=== PATIENT | female | born 1975 | race Caucasian/White ===

== ENCOUNTER → 2017-01-14 | Outpatient (CLI) | payer MEDICARE, OTHER ==
[2017-01-15 11:17] LABS: Protein C Antigen 126 % (72-160)
[2017-01-15 11:19] LABS: Protein C (Activity) 135 % (70 - 130); Protein S (Activity) 113 % (65 - 140); Protein S Antigen 100 % (50 - 140)
[2017-01-17 14:52] LABS: Mis test requested (Blood) Mixing Studies
== END | disposition home or self-care (01) ==
LOC: LABWHC1 13:21
PROVIDERS: ATTEND Physician Assistant
DX: I63.9 Cerebral infarction, unspecified (principal)
CPT/HCPCS: 36415; 81240; 81291; 83090; 85300; 85301; 85302; 85303; 85305; 85306; 85379; 85384; 85610; 85613; 85730; 86147

== ENCOUNTER → 2017-04-11 | Outpatient (CLI) | payer MEDICARE, OTHER ==
[2017-04-11 12:13] LABS: CH 31.2; CHCM 35.1; HCT 42.1 % (34.0-46.0); HDW 2.67; MCH 29.6 pg (25.0-35.0); MCHC 33.2 g/dL (31.0-37.0); MCV 89.3 fL (80.0-100.0); Mean Platelet Volume 7.5; RBC 4.71 m/uL (3.80-5.40); RDW 14.2 % (11.5-15.5); WBC 5.4 k/uL (3.8-10.6)
[2017-04-11 12:40] LABS: Appearance,Urine Cloudy (Clear); Bacteria,Urine Rare /hpf; Bilirubin,Urine Negative (Negative); Glucose,Urine (UA) Negative (Negative); Ketones,Urine Negative (Negative); Leukocyte Esterase,Urine Negative (Negative); Mucus,Urine Few /hpf; Nitrite,Urine Negative (Negative); PH, Urine 5.5 (5.0-8.0); Particle Count 28035; Protein,Urine 1+ (Negative); RBC,Urine 1 /hpf (0-5); Specific Gravity,Urine 1.026 (1.001-1.035); Squamous Epithelial Cell,Urine 38 /hpf (0-4); UA Billing (MACRO vs. MICRO) MICRO; Urobilinogen,Urine <2.0 mg/dL (<2.0); WBC,Urine 4 /hpf (0-5)
[2017-04-11 13:57] LABS: ALT 46 U/L (9-52); AST 25 U/L (14-36); Alkaline Phosphatase 74 U/L (38-126); Anion Gap 8 mmol/L; Blood Urea Nitrogen 12 mg/dL (7-17); Calcium 9.5 mg/dL (8.4-10.2); Carbon Dioxide 26 mmol/L (22-30); Chloride 103 mmol/L (98-107); Cholesterol 220 mg/dL (<200); Glucose 96 mg/dL (74-99); HDL Cholesterol 48 mg/dL (40-60); Non-African American GFR(MDRD) >60 (>60 ml/min/1.73 sqM); Potassium 4.3 mmol/L (3.5-5.1); Sodium 137 mmol/L (137-145); Total Bilirubin 0.5 mg/dL (0.2-1.3); Total Protein 6.5 g/dL (6.3-8.2)
[2017-04-11 14:27] LABS: Erythrocyte Sedimentation Rate 11 mm/hr (0-20)
[2017-04-11 14:45] LABS: Vitamin B12 274 pg/mL (239-931)
== END | disposition home or self-care (01) ==
LOC: LABWHC1 11:24
PROVIDERS: ATTEND Family Medicine
DX: Z00.01 Encounter for general adult medical examination with abnormal findings (principal)
CPT/HCPCS: 36415; 80053; 80061; 81001; 82306; 82607; 84443; 85027; 85652

== ENCOUNTER → 2017-07-18 | Outpatient (CLI) | payer MEDICARE, OTHER ==
--- NOTE | 2017-07-18 14:58 | MM ---
Reason for exam: screening (asymptomatic). Baseline mammogram. History: Took hormonal contraceptives for 10 years. Took other hormone for 20 years. Physical Findings: Nurse did not find any significant physical abnormalities on exam. MG 3D Screening Mammo W/Cad Bilateral CC and MLO view(s) were taken. There are scattered fibroglandular densities. Finding: There is a typically benign equal density (isodense), circumscribed round mass in the right breast. These results were verbally communicated with the patient and result sheet given to the patient on 07/18/17. ASSESSMENT: Probably benign, BI-RAD 3 RECOMMENDATION: Follow-up diagnostic mammogram of the right breast in 6 months.
== END | disposition home or self-care (01) ==
LOC: RADMAMWWP 12:58
PROVIDERS: ATTEND Family Medicine
DX: Z12.31 Encounter for screening mammogram for malignant neoplasm of breast (principal)
CPT/HCPCS: 77063; G0202

== ENCOUNTER → 2017-10-31 | Outpatient (CLI) | payer MEDICARE, BC, OTHER ==
[2017-10-31 09:19] VITALS: BP 164/81; PULSE 88; RESP 15; TEMP 98.8; BMI 47.2
[2017-10-31 10:52] LABS: HCT 39.9 % (34.0-46.0); HGB 13.4 gm/dL (11.4-16.0); MCH 29.2 pg (25.0-35.0); MCHC 33.6 g/dL (31.0-37.0); MCV 86.8 fL (80.0-100.0); Mean Platelet Volume 7.2; Platelet Count 377 k/uL (150-450); RDW 13.4 % (11.5-15.5); WBC 5.9 k/uL (3.8-10.6)
[2017-10-31 11:14] LABS: ALT 34 U/L (9-52); AST 23 U/L (14-36); Albumin 3.8 g/dL (3.5-5.0); Alkaline Phosphatase 75 U/L (38-126); Anion Gap 12 mmol/L; Blood Urea Nitrogen 20 mg/dL (7-17); Calcium 9.5 mg/dL (8.4-10.2); Carbon Dioxide 25 mmol/L (22-30); Chloride 105 mmol/L (98-107); Cholesterol 185 mg/dL (<200); Glucose 95 mg/dL (74-99); HDL Cholesterol 41 mg/dL (40-60); LDL Cholesterol,Calculated 118 mg/dL (0-99); Potassium 4.4 mmol/L (3.5-5.1); Sodium 142 mmol/L (137-145); Total Bilirubin 0.4 mg/dL (0.2-1.3); Total Protein 6.6 g/dL (6.3-8.2); Triglycerides 129 mg/dL (<150)
[2017-10-31 17:05] LABS: Iron Saturation 30.1 (12.00-45.00)
[2017-10-31 17:14] LABS: Vitamin D 25 Hydroxy 29.8 ng/mL (30.0-100.0)
[2017-10-31 17:41] LABS: Folate, Serum 17.5 ng/mL
[2017-10-31 19:11] LABS: Hemoglobin A1C 5.3 % (4.0-6.0)
--- NOTE | 2017-11-17 19:45 | P.HPBAR ---
Bariatric H&P - History & Physicial H&P Date: 10/31/17 History & Physicial: Visit/CC: bariatric sx consult Patient initial contact: 10/14/17 Initial weight: 124.919 kg Initial weight in pounds: 275.40 Height: 5 ft 4 in Initial BMI: 47.2 Last weight: Current weight: 124.919 kg Current weight in pounds: 275.40 Current BMI: 47.2 [place] body weight (based on NIH guidelines): 54.431 kg Excess body weight loss: 0.0% The patient is a 42 year-old F who presents for Bariatric Assessment. DATE OF SERVICE: 10/31/2017 REASON FOR CONSULTATION: Initial bariatric evaluation. HISTORY OF PRESENT ILLNESS: Rabia Link is a 42-year-old female who comes in with long-standing morbid obesity. She had a prior history of a Abiel fundoplasty in 1999. She has history of Shafer's esophagus. In the past 18 years, she has gained 100 pounds. She had weighed as much as 302 pounds. She has family history of stomach cancer including ovarian cancer. She is also diabetic. Her father had stomach cancer. No reports of Crohn's or ulcerative colitis. As a result of her obesity, she has developed low back pain, right hip pain, sleep apnea including hypertensive heart disease. She reports fibromyalgia. She is looking into the gastric bypass. At height of 5 feet 4 inches, ideal body weight is 144 pounds. Highest weight 302 pounds. Body mass index was 51.9. She comes in 275 pounds. Body mass index is 47.3. She is 131 pounds overweight. PAST MEDICAL HISTORY: 1. Morbid obesity. 2. Body mass index of 51.9, initial 3. Osteoarthritis of the hips. 4. Osteoarthritis of the lower back. 5. Obstructive sleep apnea. 6. Hypertensive heart disease. 7. Fibromyalgia. 8. Rheumatoid arthritis 9. Depression 10. Gastroesophageal reflux disease 11. Chronic pain syndrome 12. Cerebrovascular accident 13. Hyperlipidemia 14. Shafer's esophagus 15. Psoriatic arthritis 16. ADD with ADHD 17. Panic disorder 18. PTSD PAST SURGICAL HISTORY: 1. Appendectomy 2. Hysterectomy 3. Adenoidectomy 4. Tonsillectomy 5. Tubal ligation 6. Abiel fundoplasty HOME MEDICATIONS: 1. Methotrexate 2. Doxepin 3. Cosentyx 4. Topamax 5. Folic acid 6. Cymbalta 7. Lyrica 8. Phentermine 9. Vistaril 10. Acyclovir 11. Zanaflex 12. Ditropan 13. Omeprazole 14. Movantik 15. Percocet 16. Adderall 17. Oxycodone 18. Meloxicam ALLERGIES: Morphine SOCIAL HISTORY: No active tobacco use. FAMILY HISTORY: No family history of ulcerative colitis disease or Crohn's disease. Family history of morbid obesity. No lupus in the family. No reports of stomach or esophageal cancer. Family history of diabetes type 2. REVIEW OF ORGAN SYSTEMS: CONSTITUTIONAL: At height of 5 feet 4 inches, ideal body weight is 144 pounds. Highest weight 302 pounds. Body mass index was 51.9. She comes in 275 pounds. Body mass index is 47.3. She is 131 pounds overweight. HEENT: Denies any active troubles with vision or hearing. No troubles with swallowing. ENDOCRINE: No diabetes. No hypothyroidism. CARDIOVASCULAR: No reports of palpitations or heart attacks or chest pain. RESPIRATORY: Has daytime somnolence. No asthma. Has obstructive sleep apnea. GI: Denies any bright red blood per rectum. No diarrhea or constipation. MUSCULOSKELETAL: Has lower back pain and joint pain. Has osteoarthritis of the knees. NEURO: No headaches. Has seizure disorders. PSYCH: No depression or suicidal ideation. Has ADHD. RHEUMATOLOGIC: No lupus. Has psoriasis and rheumatoid arthritis. HEMATOLOGIC: Denies any abnormal bleeding or bruising. No personal history of DVTs. SKIN: No rash. No skin cancer. PHYSICAL EXAM: VITAL SIGNS: Height 5 foot 4 inches, weight 275 pounds. BMI 47.3 Vital Signs Temp 98.8 F 10/31/17 08:50 Pulse 88 10/31/17 08:50 Resp 15 10/31/17 08:50 BP 164/81 10/31/17 08:50 Pulse Ox GENERAL: Well-developed in no acute distress. HEENT: No scleral icterus. Extraocular movements grossly intact. Hears conversational speech. No nasal drainage. NECK: Supple without lymphadenopathy. CHEST: Nonlabored respirations with equal bilateral excursions. CARDIOVASCULAR: Regular rate and regular rhythm. Distal 2+ pulses. ABDOMEN: Obese, soft, nontender, nondistended. MUSCULOSKELETAL: No clubbing, cyanosis. Gross strength 5/5 distal lower extremities. 1+ pre-tibial pitting edema. NEURO: No focal or lateralizing signs. Cranial nerves 2 through 12 grossly within normal limits. PSYCH: Appropriate affect. Alert and oriented to person, place and time. SKIN: Good skin turgor. Well perfused. ASSESSMENT: 1. Morbid obesity. 2. Body mass index of 51.9, initial 3. Osteoarthritis of the hips. 4. Osteoarthritis of the lower back. 5. Obstructive sleep apnea. 6. Hypertensive heart disease. 7. Fibromyalgia. 8. Rheumatoid arthritis 9. Depression 10. Gastroesophageal reflux disease 11. Chronic pain syndrome 12. Cerebrovascular accident 13. Hyperlipidemia 14. Shafer's esophagus 15. Psoriatic arthritis 16. ADD with ADHD 17. Panic disorder 18. PTSD PLAN: 1. Surgical options including a band, gastric bypass, sleeve gastrectomy were described in detail. Alternatives such as gastric balloon including duodenal switch were described. 2. The [place] bariat[facility] surgical collaborative data and outcomes calculator were described with surgical options. 3. Recommend a bariatric metabolic panel to evaluate for micro- including macronutrient deficiencies. 4. For history of daytime somnolence, recommend evaluation and treatment for sleep apnea. 5. Dietary surveillance and counseling was reviewed, I have asked increased protein intake to at least 80 grams daily. 6. Will need cardiac risk assessment. 7. Recommend medical risk assessment. 8. Psych assessment per insurance guidelines. 9. Follow up upon completion of upper endoscopy. 10. Recommend 12-lead EKG with family history of hypertensive heart disease. 11. Recommend upper endoscopy. 12. Recommend ultrasound of the gallbladder and HIDA scan. Thank you for this kind consultation Laboratory Last Values WBC 5.9 k/uL (3.8-10.6) 10/31/17 10:30 RBC 4.60 m/uL (3.80-5.40) 10/31/17 10:30 Hgb 13.4 gm/dL (11.4-16.0) 10/31/17 10:30 Hct 39.9 % (34.0-46.0) 10/31/17 10:30 MCV 86.8 fL (80.0-100.0) 10/31/17 10:30 MCH 29.2 pg (25.0-35.0) 10/31/17 10:30 MCHC 33.6 g/dL (31.0-37.0) 10/31/17 10:30 RDW 13.4 % (11.5-15.5) 10/31/17 10:30 Plt Count 377 k/uL (150-450) 10/31/17 10:30 Sodium 142 mmol/L (137-145) 10/31/17 10:30 Potassium 4.4 mmol/L (3.5-5.1) 10/31/17 10:30 Chloride 105 mmol/L (98-107) 10/31/17 10:30 Carbon Dioxide 25 mmol/L (22-30) 10/31/17 10:30 Anion Gap 12 mmol/L 10/31/17 10:30 BUN 20 mg/dL (7-17) H 10/31/17 10:30 Creatinine 0.80 mg/dL (0.52-1.04) 10/31/17 10:30 Est GFR (CKD-EPI)AfAm >90 (>60 ml/min/1.73 sqM) 10/31/17 10:30 Est GFR (CKD-EPI)NonAf >90 (>60 ml/min/1.73 sqM) 10/31/17 10:30 Glucose 95 mg/dL (74-99) 10/31/17 10:[address] Glu mg/dL 105 10/31/17 10:30 Hemoglobin A1c 5.3 % (4.0-6.0) 10/31/17 10:30 Calcium 9.5 mg/dL (8.4-10.2) 10/31/17 10:30 Iron 90 ug/dL (50-170) 10/31/17 10:30 TIBC 299 ug/dL (228-460) 10/31/17 10:30 Iron Saturation 30.10 (12.00-45.00) 10/31/17 10:30 Ferritin 91.1 ng/mL (10.0-291.0) 10/31/17 10:30 Total Bilirubin 0.4 mg/dL (0.2-1.3) 10/31/17 10:30 AST 23 U/L (14-36) 10/31/17 10:30 ALT 34 U/L (9-52) 10/31/17 10:30 Alkaline Phosphatase 75 U/L (38-126) 10/31/17 10:30 Total Protein 6.6 g/dL (6.3-8.2) 10/31/17 10:30 Albumin 3.8 g/dL (3.5-5.0) 10/31/17 10:30 Triglycerides 129 mg/dL (<150) 10/31/17 10:30 Cholesterol 185 mg/dL (<200) 10/31/17 10:30 LDL Cholesterol, Calc 118 mg/dL (0-99) H 10/31/17 10:30 HDL Cholesterol 41 mg/dL (40-60) 10/31/17 10:30 Vitamin B1 49 ug/L (38-122) 10/31/17 10:30 Vitamin B12 264.0 pg/mL (200.0-944.0) 10/31/17 10:30 Vitamin D 25-Hydroxy 29.8 ng/mL (30.0-100.0) L 10/31/17 10:30 Folate 17.5 ng/mL 10/31/17 10:30 TSH 2.000 mIU/L (0.465-4.680) 10/31/17 10:30 EKG EKG PERFORMED 10/31/17 10:30 LDL elevated Vitamin D low EKG normal sinus rhythm Past Medical History Past Medical History: CVA/TIA, Fibromyalgia, GERD/Reflux, Hyperlipidemia, Hypertension Additional Past Medical History / Comment(s): CVA 2011, psoriasis, Shafer's Esophagus, arthritis, migraines, Psoriatic arthritis, chronic pain (Sees Dr. Frederick for pain management) History of Any Multi-Drug Resistant Organisms: None Reported Past Surgical History: Adenoidectomy, Appendectomy, Hysterectomy, Tonsillectomy , Tubal Ligation Additional Past Surgical History / Comment(s): Mendez fundolpication 1999(?), partial hysterectomy via trans-vaginal procedure (patient retained both ovaries) Past Anesthesia/Blood Transfusion Reactions: No Reported Reaction Additional Past Anesthesia/Blood Transfusion Reaction / Comm: No transfusion noted to date Past Psychological History: ADD/ADHD, Depression, Panic Disorder, PTSD Smoking Status: Never smoker Past Alcohol Use History: Rare Past Drug Use History: None Reported - Past Family History Father Family Medical History: Cancer, Coronary Artery Disease (CAD) Additional Family Medical History / Comment(s): father from stomach cancer at age 51, heroin addict (struggled with addiction off and on for years after coming home from [place]) Mother Family Medical History: Cancer Additional Family Medical History / Comment(s): Mother at age 36 from Ovarian Cancer mets to brain Surgical - Exam Vital Signs Temp Pulse Resp BP 98.8 F 88 15 164/81 10/31/17 08:50 10/31/17 08:50 10/31/17 08:50 10/31/17 08:50 Results - Labs 10/31/17 10:30 10/31/17 10:30 Bariatric Checklist Checklist: Plan: Checklist: EGD: 1. Hiatal hernia: 2. H. Pylori: HgbA1c: Vitamin D: Smoking: Never smoker Primary care physician referral: alma Psychiatry clearance: Cardiology clearance: Sleep study: Diet journal: VTE risk score: VTE risk level: Rehab needs at discharge:
== END | disposition home or self-care (01) ==
LOC: BARWHC3 08:38
PROVIDERS: ATTEND Surgery Plastic and Reconstructive Surgery
DX: E88.81 Metabolic syndrome and other insulin resistance (principal); E66.01 Morbid (severe) obesity due to excess calories; M16.0 Bilateral primary osteoarthritis of hip; M47.9 Spondylosis, unspecified; G47.33 Obstructive sleep apnea (adult) (pediatric); I11.9 Hypertensive heart disease without heart failure; M79.7 Fibromyalgia; M06.9 Rheumatoid arthritis, unspecified; F32.9 Major depressive disorder, single episode, unspecified; K21.9 Gastro-esophageal reflux disease without esophagitis; G89.4 Chronic pain syndrome; I63.9 Cerebral infarction, unspecified; E78.5 Hyperlipidemia, unspecified; E44.0 Moderate protein-calorie malnutrition; K22.70 Barrett's esophagus without dysplasia; L40.50 Arthropathic psoriasis, unspecified; F90.1 Attention-deficit hyperactivity disorder, predominantly hyperactive type; E55.9 Vitamin D deficiency, unspecified; F41.0 Panic disorder [episodic paroxysmal anxiety]; F43.10 Post-traumatic stress disorder, unspecified; D50.8 Other iron deficiency anemias; Z98.51 Tubal ligation status; Z68.43 Body mass index [BMI] 50.0-59.9, adult; Z98.890 Other specified postprocedural states; Z79.899 Other long term (current) drug therapy; Z79.891 Long term (current) use of opiate analgesic; Z88.5 Allergy status to narcotic agent
CPT/HCPCS: 84425; 80061; 80053; 82607; 82728; 82746; 83540; 83550; 84443; 85027; 82306; 83036; 93005; 36415; G0463; 99211

== ENCOUNTER → 2017-11-08 | Outpatient (CLI) | payer MEDICARE, BC, OTHER ==
--- NOTE | 2017-11-08 09:56 | US ---
EXAMINATION TYPE: US abdomen limited DATE OF EXAM: 11/08/2017 COMPARISON: NONE CLINICAL HISTORY: R10.11 biliary dyskinesia. Abn LFT's, pt states pre-op bariatric surgery EXAM MEASUREMENTS: Liver Length: 21.0 cm Gallbladder Wall: 0.2 cm CBD: 0.4 cm Right Kidney: 9.8 x 4.2 x 5.3 cm Morbidly obese pt, difficult exam Pancreas: Obscured by bowel gas and large pt body habitus Liver: Increased attenuation Gallbladder: wnl Evidence for sonographic Milton's sign: No CBD: wnl Right Kidney: wnl Pancreas is suboptimally evaluated due to shadowing from overlying bowel gas . Visualized liver is heterogeneously hyperechoic. Evaluation for focal mass suboptimal due to the heterogeneity. No intrah epatic ductal dilatation is seen. IMPRESSION: 1. No gallstones or ultrasound evidence for acute cholecystitis. 2. Heterogeneous hyperechoic appearance of visualized liver is likely on basis of diffuse fatty infil tration.
--- NOTE | 2017-11-08 11:52 | NM ---
EXAMINATION TYPE: NM hepatobiliary w EF DATE OF EXAM: 11/08/2017 COMPARISON: Same day Limited abdominal ultrasound. HISTORY: Abdominal pain not further specified per order. Epigastric pain with diminished appetite per patient. TECHNIQUE: After the intravenous administration of 4.0 mCi Tc 99m Mebrofenin hepatobiliary scintigrap hy is performed. Immediate images post injection. FINDINGS: There is satisfactory initial accumulation of tracer by the liver. The gallbladder is visualized wit hin 30 minutes. The small bowel activity is noted within 20 minutes. At one hour 8 ounces of oral e nsure plus is given to mimic CCK and gallbladder ejection fraction is calculated at 79 %, not deviate d from the normal range. Therefore there is no scintigraphic evidence of cystic or common bile duct obstruction to suggest acute cholecystitis or gallbladder dyskinesia. IMPRESSION: Exam is within normal limits.
== END ==
LOC: RADUSMAIN 09:05
PROVIDERS: ATTEND Surgery Plastic and Reconstructive Surgery
DX: R10.11 Right upper quadrant pain (principal); K82.8 Other specified diseases of gallbladder; R94.5 Abnormal results of liver function studies
CPT/HCPCS: 76705; 78226; A9537

== ENCOUNTER → 2017-11-22 | Outpatient (CLI) | payer MEDICARE, BC, OTHER ==
--- NOTE | 2017-11-22 12:53 | US ---
EXAMINATION TYPE: US venous doppler duplex LE RT DATE OF EXAM: 11/22/2017 12:21 PM COMPARISON: NONE CLINICAL HISTORY: M79.604 Pain right lower limb. Right leg pain x 5 days. No injury. No swelling or redness. No hx of blood clots. Not on blood thinners. SIDE PERFORMED: Right TECHNIQUE: The lower extremity deep venous system is examined utilizing real time linear array sonog flory with graded compression, doppler sonography and color-flow sonography. VESSELS IMAGED: External Iliac Vein (EIV) Common Femoral Vein Deep Femoral Vein Greater Saphenous Vein * Femoral Vein Popliteal Vein Small Saphenous Vein * Proximal Calf Veins (* superficial vessels) Limited visualization due to patient body habitus Right Leg: Negative for acute DVT Grayscale, color doppler, spectral doppler imaging performed of the deep veins of the lower extremiti es. There is normal flow, compressibility, vascular waveforms. IMPRESSION: Right Leg: Negative for acute DVT
== END | disposition home or self-care (01) ==
LOC: RADUSWWP 11:54
PROVIDERS: ATTEND Physician Assistant
DX: M79.604 Pain in right leg (principal)

== ENCOUNTER 2017-11-27 09:49 | Day surgery (SDC) | payer MEDICARE, BC, OTHER ==
[2017-11-25 10:52] VITALS: BMI 48.4
--- NOTE | 2017-11-27 07:48 | P.GSHP ---
History of Present Illness H&P Date: 11/27/17 CHIEF COMPLAINT: GERD HISTORY OF PRESENT ILLNESS: The patient is a 42-year-old female who presents reports gastroesophageal reflux disease. Upper endoscopy was offered for further evaluation and management. PAST MEDICAL HISTORY: Please see list. PAST SURGICAL HISTORY: Please see list. MEDICATIONS: Please see list. ALLERGIES: Please see list. SOCIAL HISTORY: No illicit drug use FAMILY HISTORY: No reports of Crohn disease or ulcerative colitis. REVIEW OF ORGAN SYSTEMS: CONSTITUTIONAL: No reports of fevers or chills. GI: Denies any blood in stools or constipation. PHYSICAL EXAM: VITAL SIGNS: Stable GENERAL: Well-developed and pleasant in no acute distress. HEENT: No scleral icterus. Extraocular movements grossly intact. Moist buccal mucosa. NECK: Supple without lymphadenopathy. CHEST: Unlabored respirations. Equal bilateral excursions. CARDIOVASCULAR: Regular rate and rhythm. Distal 2+ pulses. ABDOMEN: Soft, nondistended. MUSCULOSKELETAL: No clubbing, cyanosis, or edema. ASSESSMENT: 1. Gastroesophageal reflux disease PLAN: 1. Recommend proceeding with an upper endoscopy Past Medical History Past Medical History: CVA/TIA, Fibromyalgia, GERD/Reflux, Hyperlipidemia, Hypertension, Skin Disorder Additional Past Medical History / Comment(s): CVA 2011, psoriasis, Shafer's Esophagus, arthritis, migraines, Psoriatic arthritis, chronic pain (Sees Dr. Frederick for pain management) History of Any Multi-Drug Resistant Organisms: None Reported Past Surgical History: Adenoidectomy, Appendectomy, Hysterectomy, Tonsillectomy , Tubal Ligation Additional Past Surgical History / Comment(s): Abiel fundolpication 1999(?), partial hysterectomy via trans-vaginal procedure (patient retained both ovaries ) EGD Past Anesthesia/Blood Transfusion Reactions: No Reported Reaction Additional Past Anesthesia/Blood Transfusion Reaction / Comment(s): No transfusion noted to date Smoking Status: Never smoker - Past Family History Father Family Medical History: Cancer, Coronary Artery Disease (CAD) Additional Family Medical History / Comment(s): father from stomach cancer at age 51, heroin addict (struggled with addiction off and on for years after coming home from [place]) Mother Family Medical History: Cancer Additional Family Medical History / Comment(s): Mother at age 36 from Ovarian Cancer mets to brain Medications and Allergies Home Medications Medication Instructions Recorded Confirmed Type Meloxicam 15 mg PO TID-W/MEALS 04/03/14 11/25/17 History Acyclovir [Zovirax] 200 mg PO TID 10/31/17 11/25/17 History DULoxetine HCL [Cymbalta] 60 mg PO DAILY 10/31/17 11/25/17 History Dextroamphetamine/Amphetamine 20 mg PO BID 10/31/17 11/25/17 History [Adderall] Doxepin HCl [SINEquan] 100 mg PO DAILY 10/31/17 11/25/17 History Folic Acid 1 mg PO DAILY 10/31/17 11/25/17 History Methotrexate/Pf [Rasuvo 7.5 7.5 mg SQ MO 10/31/17 11/25/17 History mg/0.15 ml Autoinj] Naloxegol Oxalate [Movantik] 25 mg PO TID-W/MEALS 10/31/17 11/25/17 History Omeprazole [PriLOSEC] 20 mg PO AC-BID 10/31/17 11/25/17 History Oxybutynin Chloride [Ditropan] 5 mg PO TID 10/31/17 11/25/17 History Phentermine HCl 37.5 mg PO DAILY 10/31/17 11/25/17 History Pregabalin [Lyrica] 200 mg PO BID 10/31/17 11/25/17 History Secukinumab [Cosentyx Pen (2 Pens)] 150 mg SQ QMONTH 10/31/17 11/25/17 History Topiramate [Topamax] 100 mg PO TID 10/31/17 11/25/17 History hydrOXYzine PAMOATE [Vistaril] 25 mg PO TID 10/31/17 11/25/17 History oxyCODONE HCL [OxyCONTIN] 10 mg PO Q12H PRN 10/31/17 11/25/17 History oxyCODONE-APAP 5-325MG [Percocet 1 tab PO TID PRN 10/31/17 11/25/17 History 5-325 mg] tiZANidine HCL [Zanaflex] 4 mg PO TID PRN 10/31/17 11/25/17 History Amoxicillin/Potassium Clav 1 tab PO Q12HR 11/25/17 11/25/17 History [Augmentin 875-125 Tablet] Allergies Allergy/AdvReac Type Severity Reaction Status Date / Time morphine Allergy Unknown Verified 11/25/17 10:46
[~2017-11-27 09:49] MED LIST: LACTATED RINGERS 1,000 ML IV SCH; MIDAZOLAM 2 MG/2 ML VIAL IV PRN
[2017-11-27 11:16] VITALS: TEMP 97.4
[2017-11-27] MEDS ORDERED: LIDOCAINE 1% 20 ML VIAL (10MG/ML) FOR IV START INTRADERMA ONE (11:25)
[2017-11-27] MEDS ORDERED: PROPOFOL 10 MG/ML 20 ML VIAL IV ONE (11:27)
[2017-11-27] MEDS ORDERED: LIDOCAINE 1% INJ 10MG/ML (20 ML MDV) ONE (11:27)
--- NOTE | 2017-11-27 11:47 | P.PCN ---
Date of Procedure: 11/27/17 Description of Procedure: PREOPERATIVE DIAGNOSIS: Gastroesophageal reflux disease. Morbid obesity. History of Abiel fundoplasty History of Shafer's esophagus POSTOPERATIVE DIAGNOSIS: Gastroesophageal reflux disease. Morbid obesity. History of Abiel fundoplasty Diaphragmatic hiatal hernia without obstruction, recurrent History of Shafer's esophagus Chronic gastritis OPERATION: Esophagogastroduodenoscopy with biopsies along antrum and distal esophagus SURGEON: Vandana Hirsch MD ANESTHESIA: MAC. INDICATIONS: The patient is a 42-year-old female who presents with a history of reflux disease. Benefits and risks of the procedure were described. Informed consent was obtained. DESCRIPTION: The patient was brought into the endoscopy suite and laid in the left lateral decubitus position. An Olympus gastroscope was passed along the posterior oropharynx down to the distal esophagus where the squamocolumnar junction was encountered at 35 cm from the incisors. The stomach was entered and no bile reflux was found. Additional findings are listed below. Biopsies with cold forceps were obtained of the antrum and distal esophagus. The first through third portion of the duodenum was examined and unremarkable. Retroflexion of the scope confirmed Hill grade 2 lower esophageal valve. The squamocolumnar junction demostrated LA grade A erosive esophagitis. The stomach was desufflated. The patient tolerated the procedure well. FINDINGS: Squamocolumnar junction 36 cm from the incisors. Diaphragmatic hiatus at 40 cm. Hiatal hernia 4 cm, recurrent Distal fundoplasty identified Hill grade 2 lower esophageal valve. LA grade A erosive esophagitis. No active duodenitis. Active chronic gastritis RECOMMENDATIONS: Further recommendations pending results of pathology report. Upper endoscopy as needed. Plan - Discharge Summary New Discharge Prescriptions: No Action Doxepin HCl [SINEquan] 100 mg PO DAILY Secukinumab [Cosentyx Pen (2 Pens)] 150 mg SQ QMONTH Topiramate [Topamax] 100 mg PO TID Folic Acid 1 mg PO DAILY DULoxetine HCL [Cymbalta] 60 mg PO DAILY Pregabalin [Lyrica] 200 mg PO BID Phentermine HCl 37.5 mg PO DAILY Acyclovir [Zovirax] 200 mg PO TID tiZANidine HCL [Zanaflex] 4 mg PO TID PRN PRN Reason: Muscle Spasm Omeprazole [PriLOSEC] 20 mg PO AC-BID Naloxegol Oxalate [Movantik] 25 mg PO TID-W/MEALS oxyCODONE-APAP 5-325MG [Percocet 5-325 mg] 1 tab PO TID PRN PRN Reason: Pain Dextroamphetamine/Amphetamine [Adderall] 20 mg PO BID oxyCODONE HCL [OxyCONTIN] 10 mg PO Q12H PRN PRN Reason: Pain Methotrexate/Pf [Rasuvo 7.5 mg/0.15 ml Autoinj] 7.5 mg SQ MO Amoxicillin/Potassium Clav [Augmentin 875-125 Tablet] 1 tab PO Q12HR Discharge Medication List Acyclovir [Zovirax] 200 mg PO TID 10/31/17 [History] DULoxetine HCL [Cymbalta] 60 mg PO DAILY 10/31/17 [History] Dextroamphetamine/Amphetamine [Adderall] 20 mg PO BID 10/31/17 [History] Doxepin HCl [SINEquan] 100 mg PO DAILY 10/31/17 [History] Folic Acid 1 mg PO DAILY 10/31/17 [History] Methotrexate/Pf [Rasuvo 7.5 mg/0.15 ml Autoinj] 7.5 mg SQ MO 10/31/17 [History] Naloxegol Oxalate [Movantik] 25 mg PO TID-W/MEALS 10/31/17 [History] Omeprazole [PriLOSEC] 20 mg PO AC-BID 10/31/17 [History] Phentermine HCl 37.5 mg PO DAILY 10/31/17 [History] Pregabalin [Lyrica] 200 mg PO BID 10/31/17 [History] Secukinumab [Cosentyx Pen (2 Pens)] 150 mg SQ QMONTH 10/31/17 [History] Topiramate [Topamax] 100 mg PO TID 10/31/17 [History] oxyCODONE HCL [OxyCONTIN] 10 mg PO Q12H PRN 10/31/17 [History] oxyCODONE-APAP 5-325MG [Percocet 5-325 mg] 1 tab PO TID PRN 10/31/17 [History] tiZANidine HCL [Zanaflex] 4 mg PO TID PRN 10/31/17 [History] Amoxicillin/Potassium Clav [Augmentin 875-125 Tablet] 1 tab PO Q12HR 11/25/17 [ History]
[2017-11-27 12:01] VITALS: RESP 18
[2017-11-27 12:11] VITALS: BP 144/88; PULSE 94
== END 2017-11-27 12:15 | disposition home or self-care (01) ==
LOC: ORWHC2ENDO 09:49
PROVIDERS: ATTEND Surgery Plastic and Reconstructive Surgery
DX: K29.50 Unspecified chronic gastritis without bleeding (principal); K20.0 Eosinophilic esophagitis; K21.9 Gastro-esophageal reflux disease without esophagitis; K22.70 Barrett's esophagus without dysplasia; K44.9 Diaphragmatic hernia without obstruction or gangrene; E66.01 Morbid (severe) obesity due to excess calories; Z68.42 Body mass index [BMI] 45.0-49.9, adult; I10 Essential (primary) hypertension; E78.5 Hyperlipidemia, unspecified; M79.7 Fibromyalgia; Z86.73 Personal history of transient ischemic attack (TIA), and cerebral infarction without residual deficits; G89.29 Other chronic pain; L40.50 Arthropathic psoriasis, unspecified; Z79.82 Long term (current) use of aspirin; Z79.899 Other long term (current) drug therapy; Z79.1 Long term (current) use of non-steroidal anti-inflammatories (NSAID); Z88.5 Allergy status to narcotic agent
CPT/HCPCS: 88305; 43239; J2001; J2704

== ENCOUNTER → 2017-11-29 | Outpatient (CLI) | payer MEDICARE, BC, OTHER ==
[2017-11-29 10:54] VITALS: BMI 47.2
== END | disposition home or self-care (01) ==
LOC: MNTWWP 09:06
PROVIDERS: ATTEND Family Medicine
DX: E66.01 Morbid (severe) obesity due to excess calories (principal); Z68.41 Body mass index [BMI] 40.0-44.9, adult
CPT/HCPCS: 97802

== ENCOUNTER → 2017-12-25 | Outpatient (CLI) | payer MEDICARE, BC, OTHER ==
[2017-12-25 15:16] VITALS: BP 144/90; PULSE 115; RESP 16; TEMP 99; BMI 46.7
--- NOTE | 2017-12-25 15:55 | P.PN ---
Subjective Progress Note Date: 12/25/17 DATE OF SERVICE: 12/25/2017 CHIEF COMPLAINT: Bariatric evaluation. HISTORY OF PRESENT ILLNESS: Rabia Link is a 42-year-old female who last presented to the bariatric center for 07/10/2018, 2 months ago. She had a prior history of a Abiel fundoplasty in 1999. She has history of Shafer's esophagus. In the past 18 years, she has gained 100 pounds. She had weighed as much as 302 pounds. She is looking into the gastric bypass. At height of 5 feet 4 inches, her ideal body weight is 144 pounds. Body mass index was 51.9. She comes in 271 pounds from 275 pounds, 2 months ago. She has lost 4 pounds. Body mass index is reduced from 51.9 to 46.7. She is 127 pounds overweight. She has hiatal hernia with recurrence. She has family history of gallbladder disease. PAST MEDICAL HISTORY: 1. Morbid obesity. 2. Body mass index of 51.9, initial 3. Osteoarthritis of the hips. 4. Osteoarthritis of the lower back. 5. Obstructive sleep apnea. 6. Hypertensive heart disease. 7. Fibromyalgia. 8. Rheumatoid arthritis 9. Depression 10. Gastroesophageal reflux disease 11. Chronic pain syndrome 12. Cerebrovascular accident 13. Hyperlipidemia 14. Shfaer's esophagus 15. Psoriatic arthritis 16. ADD with ADHD 17. Panic disorder 18. PTSD PAST SURGICAL HISTORY: 1. Appendectomy 2. Hysterectomy 3. Adenoidectomy 4. Tonsillectomy 5. Tubal ligation 6. Abiel fundoplasty HOME MEDICATIONS: 1. Methotrexate 2. Doxepin 3. Cosentyx 4. Topamax 5. Folic acid 6. Cymbalta 7. Lyrica 8. Phentermine 9. Vistaril 10. Acyclovir 11. Zanaflex 12. Ditropan 13. Omeprazole 14. Movantik 15. Percocet 16. Adderall 17. Oxycodone 18. Meloxicam ALLERGIES: Morphine SOCIAL HISTORY: No active tobacco use. FAMILY HISTORY: No family history of ulcerative colitis disease or Crohn's disease. Family history of morbid obesity. No lupus in the family. No reports of stomach or esophageal cancer. Family history of diabetes type 2. REVIEW OF ORGAN SYSTEMS: CONSTITUTIONAL: At height of 5 feet 4 inches, ideal body weight is 144 pounds. Highest weight 302 pounds. Body mass index was 51.9. She comes in 271 pounds. Body mass index is 46.7. She is 127 pounds overweight. HEENT: Denies any active troubles with vision or hearing. No troubles with swallowing. ENDOCRINE: No diabetes. No hypothyroidism. CARDIOVASCULAR: No reports of palpitations or heart attacks or chest pain. RESPIRATORY: Has daytime somnolence. No asthma. Has obstructive sleep apnea. GI: Denies any bright red blood per rectum. No diarrhea or constipation. MUSCULOSKELETAL: Has lower back pain and joint pain. Has osteoarthritis of the knees. NEURO: No headaches. Has seizure disorders. PSYCH: No depression or suicidal ideation. Has ADHD. RHEUMATOLOGIC: No lupus. Has psoriasis and rheumatoid arthritis. HEMATOLOGIC: Denies any abnormal bleeding or bruising. No personal history of DVTs. SKIN: No rash. No skin cancer. PHYSICAL EXAM: VITAL SIGNS: Height 5 foot 4 inches, weight 271 pounds. BMI 46.7 Vital Signs Temp 99 F 12/25/17 15:11 Pulse 115 H 12/25/17 15:11 Resp 16 12/25/17 15:11 BP 144/90 12/25/17 15:11 Pulse Ox GENERAL: Well-developed in no acute distress. HEENT: No scleral icterus. Extraocular movements grossly intact. Hears conversational speech. No nasal drainage. NECK: Supple without lymphadenopathy. CHEST: Nonlabored respirations with equal bilateral excursions. CARDIOVASCULAR: Tachycardic. Distal 2+ pulses. ABDOMEN: Obese, soft, nontender, nondistended. MUSCULOSKELETAL: No clubbing, cyanosis. Gross strength 5/5 distal lower extremities. 1+ pre-tibial pitting edema. NEURO: No focal or lateralizing signs. Cranial nerves 2 through 12 grossly within normal limits. PSYCH: Appropriate affect. Alert and oriented to person, place and time. SKIN: Good skin turgor. Well perfused. STUDIES: All reviewed. Ultrasound of the abdomen demonstrates no evidence of gallstones. HIDA scan of the gallbladder is normal EKG is normal. EGD FINDINGS: Squamocolumnar junction 36 cm from the incisors. Diaphragmatic hiatus at 40 cm. Hiatal hernia 4 cm, recurrent Distal fundoplasty identified Hill grade 2 lower esophageal valve. LA grade A erosive esophagitis. No active duodenitis. Active chronic gastritis Final Pathologic Diagnosis A. GASTRIC ANTRUM, BIOPSY: MILD CHRONIC GASTRITIS. HELICOBACTER PYLORI ORGANISMS ARE NOT IDENTIFIED ON ROUTINE H+E SECTIONS. B. DISTAL ESOPHAGUS, BIOPSY: BENIGN SQUAMOUS MUCOSA SHOWING CHRONIC ESOPHAGITIS WITH SCATTERED INTRAMUCOSAL EOSINOPHILS CONSISTENT WITH REFLUX ESOPHAGITIS. NEGATIVE FOR INTESTINAL METAPLASIA. GLANDULAR MUCOSA IS NOT PRESENT FOR EVALUATION. ASSESSMENT: 1. Morbid obesity. 2. Body mass index of 51.9, initial 3. Osteoarthritis of the hips. 4. Osteoarthritis of the lower back. 5. Obstructive sleep apnea. 6. Hypertensive heart disease. 7. Fibromyalgia. 8. Rheumatoid arthritis 9. Depression 10. Gastroesophageal reflux disease 11. Chronic pain syndrome 12. Cerebrovascular accident 13. Hyperlipidemia 14. Shafer's esophagus 15. Psoriatic arthritis 16. ADD with ADHD 17. Panic disorder 18. PTSD 19. Recurrent hiatal hernia PLAN: 1. She will need take down of her Abiel and fixing of her hiatal hernia prior to bariatric procedure 2. Also recommend manometry to evaluate for esophageal motility. 3. She desires to have a gastric bypass. 4. She is pending psych and will need PCP letter. Objective - Vital Signs Vital signs: Vital Signs Temp 99 F 12/25/17 15:11 Pulse 115 H 12/25/17 15:11 Resp 16 12/25/17 15:11 BP 144/90 12/25/17 15:11 Pulse Ox Intake & Output 12/24/17 12/25/17 12/25/17 18:59 06:59 18:59 Weight 123.377 kg
== END | disposition home or self-care (01) ==
LOC: BARWHC3 14:50
PROVIDERS: ATTEND Surgery Plastic and Reconstructive Surgery
DX: Z09 Encounter for follow-up examination after completed treatment for conditions other than malignant neoplasm (principal); E66.01 Morbid (severe) obesity due to excess calories; K21.0 Gastro-esophageal reflux disease with esophagitis; K22.70 Barrett's esophagus without dysplasia; K44.9 Diaphragmatic hernia without obstruction or gangrene; K29.50 Unspecified chronic gastritis without bleeding; M16.0 Bilateral primary osteoarthritis of hip; M47.9 Spondylosis, unspecified; G47.33 Obstructive sleep apnea (adult) (pediatric); I11.9 Hypertensive heart disease without heart failure; M79.7 Fibromyalgia; M06.9 Rheumatoid arthritis, unspecified; F32.9 Major depressive disorder, single episode, unspecified; G89.4 Chronic pain syndrome; E78.5 Hyperlipidemia, unspecified; L40.50 Arthropathic psoriasis, unspecified; F90.1 Attention-deficit hyperactivity disorder, predominantly hyperactive type; F41.0 Panic disorder [episodic paroxysmal anxiety]; F43.10 Post-traumatic stress disorder, unspecified; Z90.710 Acquired absence of both cervix and uterus; Z98.51 Tubal ligation status; Z98.890 Other specified postprocedural states; Z90.89 Acquired absence of other organs; Z68.43 Body mass index [BMI] 50.0-59.9, adult; Z79.891 Long term (current) use of opiate analgesic; Z87.19 Personal history of other diseases of the digestive system; Z86.73 Personal history of transient ischemic attack (TIA), and cerebral infarction without residual deficits; Z83.79 Family history of other diseases of the digestive system; Z79.899 Other long term (current) drug therapy; Z88.5 Allergy status to narcotic agent
CPT/HCPCS: 99211

== ENCOUNTER → 2018-01-29 | Outpatient (CLI) | payer MEDICARE, BC, OTHER ==
[2018-01-29 14:24] VITALS: BP 135/83; PULSE 111; RESP 14; TEMP 98.8; BMI 46.5
--- NOTE | 2018-01-29 15:15 | P.PN ---
Subjective Progress Note Date: 01/29/18 HPI: She complains severe GERD. She has a large recurrent hiatal hernia. She completed manometry. PLAN: 1. Recommend hiatal hernia repair with take down of Abiel fundoplasty for severe GERD and recurrent hiatal hernia. 2. She has persistent tachycardia and recommend cardiac risk assessment. 3. She has chronic pain and sees a pain specialist. 4. Consent for gastric bypass reviewed. 5. Referral for hiatal hernia surgery described. Objective - Vital Signs Vital signs: Vital Signs Temp 98.8 F 01/29/18 14:20 Pulse 111 H 01/29/18 14:20 Resp 14 01/29/18 14:20 BP 135/83 01/29/18 14:20 Pulse Ox Intake & Output 01/28/18 01/29/18 01/29/18 18:59 06:59 18:59 Weight 123.15 kg
== END ==
LOC: BARWHC3 14:02
PROVIDERS: ATTEND Surgery Plastic and Reconstructive Surgery
DX: K21.9 Gastro-esophageal reflux disease without esophagitis (principal); K44.9 Diaphragmatic hernia without obstruction or gangrene
CPT/HCPCS: 99211

== ENCOUNTER → 2018-02-11 | Outpatient (CLI) | payer MEDICARE, BC, OTHER ==
[2018-02-11 11:30] LABS: ALT 31 U/L (9-52); AST 24 U/L (14-36); Albumin 3.9 g/dL (3.5-5.0); Alkaline Phosphatase 59 U/L (38-126); Anion Gap 10 mmol/L; Blood Urea Nitrogen 17 mg/dL (7-17); Calcium 9.4 mg/dL (8.4-10.2); Carbon Dioxide 22 mmol/L (22-30); Chloride 106 mmol/L (98-107); Glucose 104 mg/dL (74-99); Sodium 138 mmol/L (137-145); Total Bilirubin 0.3 mg/dL (0.2-1.3); Total Protein 6.4 g/dL (6.3-8.2)
[2018-02-11 11:51] LABS: Basophils % (A) 0 %; Eosinophils # (A) 0.2 k/uL (0-0.7); Eosinophils % (A) 2 %; HGB 13.1 gm/dL (11.4-16.0); Lymphocytes # (A) 1.5 k/uL (1.0-4.8); Lymphocytes % (A) 17 %; MCH 28.7 pg (25.0-35.0); MCHC 33.6 g/dL (31.0-37.0); MCV 85.4 fL (80.0-100.0); Mean Platelet Volume 7.5; Monocytes # (A) 0.5 k/uL (0-1.0); Monocytes % (A) 6 %; Neutrophils # (A) 6.5 k/uL (1.3-7.7); Neutrophils % (A) 74 %; Platelet Count 253 k/uL (150-450); RBC 4.57 m/uL (3.80-5.40); RDW 13.4 % (11.5-15.5); WBC 8.9 k/uL (3.8-10.6)
== END | disposition home or self-care (01) ==
LOC: LABPAT 10:36
PROVIDERS: ATTEND Surgery Plastic and Reconstructive Surgery
DX: Z01.818 Encounter for other preprocedural examination (principal); Z01.812 Encounter for preprocedural laboratory examination
CPT/HCPCS: 36415; 80053; 85025; 93005

== ENCOUNTER → 2018-02-13 | Outpatient (CLI) | payer MEDICARE, BC, OTHER ==
--- NOTE | 2018-02-13 19:51 | CONS ---
CONSULTATION DATE OF SERVICE: 02/13/2018. INDICATIONS: A 42-year-old lady has been evaluated in Sleep Center for possible obstructive sleep apnea-hypopnea syndrome. HISTORY OF PRESENT ILLNESS/SLEEP-WAKE EVALUATION: Patient's usual sleep schedule is from 1 a.m. until 8:00 a.m. Some nights she has problems falling asleep, but not more than 30 minutes. No TV in bedroom. She may be experiencing restless leg symptoms while falling asleep and that could be one of the reasons she has difficulties to fall asleep. She wakes up from sleep 4 times with nocturia. No history of hypnagogic hallucinations, sleep paralysis or cataplexy. In the morning patient wakes up tired, falling asleep during the day. Has significant sleepiness. Rugby Sleepiness Scale is in extremely high range of 18. She usually feels better after naps. According to the patient, she dreams all the time including when she is taking her naps. PAST MEDICAL HISTORY: Positive for ADHD, hypertension, fibromyalgia. PAST SURGICAL HISTORY: Tonsillectomy, adenoidectomy, appendectomy, Abiel fundoplication, hysterectomy. SOCIAL HISTORY: Negative for smoking. Alcohol consumption is none. FAMILY HISTORY: Hypertension, angina, hyperlipidemia, stroke, fibromyalgia, arthritis, cancer, acid reflux, diabetes. REVIEW OF SYSTEMS: Multiple awakenings from sleep, significant sleepiness during the day. PHYSICAL EXAM: GENERAL: lady without distress. VITAL SIGNS: BP 129/75, HR 102, RR 16, height 5 feet 4 inches, weight 270, BMI 46.3, temp 97.8, oxygen saturation room air 98%. HEENT: Oropharynx extremely low position of soft palate. Wide neck 16-1/2 inches in circumference. Slight restriction of nasal breathing. ABDOMEN: Obese. NECK: Supple, no JVD. Thyroid is not palpable. LUNGS: Clear to percussion and to auscultation. Good air exchange. No wheezing or rhonchi. HEART: S1, S2 regular. No murmurs, gallops, or rubs. ABDOMEN: Soft and nontender. Bowel sounds are present. No organomegaly appreciated. EXTREMITIES: No clubbing or cyanosis. CHIROPRACTIC PHYSICIAN: Awake, alert, and oriented X3. Cranial nerves 2 to 7 intact. There is no fasciculation or atrophy. noted. No focal deficits observed. IMPRESSION: 1. Snoring, multiple awakenings from sleep with nocturia, low position of soft palate, significant sleepiness, obstructive sleep apnea-hypopnea syndrome. 2. Significant excessive daytime sleepiness. Rugby Sleepiness Scale 18. Differential diagnosis would include hypersomnia. 3. Obesity, body mass index is 46.3. The patient is preparing for bariatric surgery, was referred because of that. 4. Attention deficit hyperactivity disorder. 5. Hypertension. 6. Fibromyalgia. 7. Status post tonsillectomy and adenoidectomy. 8. Status post appendectomy. 9. Status post Abiel fundoplication. 10.Status post partial hysterectomy. 11.History of restless leg syndrome. PLAN: 1. Polysomnography for evaluation of patient's breathing during sleep. 2. CPAP/BiPAP titration if sleep study confirms obstructive sleep apnea-hypopnea syndrome. 3. Preferable position during sleep on the side. 4. No driving if patient feels any sleepiness. 5. I will see patient for follow up visit to explain results of testing and following plan. 6. Please check iron profile including ferritin level, low level of ferritin can increase periodic limb movements and restless legs. 7. If sleep study is negative for sleep apnea, we will consider to proceed with multiple sleep latency test for objective evaluation of the patient's symptoms of significant excessive daytime sleepiness. Thank you very much. Sincerely, Gt Mcconnell MD, PhD, FAASM Diplomat of [employer] Database Engineer of [facility] [place] MMMALORIEL / SHARONN: [id number] /
== END | disposition home or self-care (01) ==
LOC: SLEEP 14:04
PROVIDERS: ATTEND Internal Medicine
DX: G47.33 Obstructive sleep apnea (adult) (pediatric) (principal); R35.1 Nocturia; G25.81 Restless legs syndrome; E66.9 Obesity, unspecified; F90.1 Attention-deficit hyperactivity disorder, predominantly hyperactive type; I10 Essential (primary) hypertension; M79.7 Fibromyalgia; Z90.89 Acquired absence of other organs; Z68.42 Body mass index [BMI] 45.0-49.9, adult; Z90.710 Acquired absence of both cervix and uterus; Z87.898 Personal history of other specified conditions
CPT/HCPCS: 99211

== ENCOUNTER 2018-02-21 11:35 | Day surgery (SDC) | payer MEDICARE, BC, OTHER ==
[~2018-02-21 11:35] MED LIST changes: +DEXAMETHASONE SOD PHOSPHATE 10 MG/ML 1 ML VIAL IV ONE; +HEPARIN SODIUM,PORCINE 5,000 UNIT/ML 1 ML VIAL SQ ONE; -LACTATED RINGERS 1,000 ML IV SCH; +SCOPOLAMINE 1.5MG/72HR PATCH TRANSDERM ONE
[2018-02-21] MEDS ORDERED: LIDOCAINE 1% 20 ML VIAL (10MG/ML) FOR IV START INTRADERMA ONE (12:15)
[2018-02-21] MEDS: LACTATED RINGERS 1,000 ML IV SCH (12:15)
[2018-02-21] MEDS: ONDANSETRON 4 MG/2 ML VIAL IVP ONE ×2 (12:28→18:03)
[2018-02-21] MEDS ORDERED: SCOPOLAMINE 1.5MG/72HR PATCH TRANSDERM STA (12:28)
--- NOTE | 2018-02-21 12:28 | P.GSHP ---
History of Present Illness H&P Date: 02/21/18 CHIEF COMPLAINT: Paraesophageal hiatal hernia with gastroesophageal reflux disease. HISTORY OF PRESENT ILLNESS: The patient is a 42-year-old female who presents with paraesophageal hiatal hernia recurrence. Now she presents for surgical intervention. PAST MEDICAL HISTORY: Please see list. PAST SURGICAL HISTORY: Please see list. MEDICATIONS: Please see list. ALLERGIES: Please see list. SOCIAL HISTORY: No illicit drug use FAMILY HISTORY: No reports of Crohn disease or ulcerative colitis. REVIEW OF ORGAN SYSTEMS: CONSTITUTIONAL: No reports of fevers or chills. GI: Denies any blood in stools or constipation. PHYSICAL EXAM: VITAL SIGNS: Stable GENERAL: Well-developed pleasant and in no acute distress. HEENT: No scleral icterus. Extraocular movements grossly intact. Moist buccal mucosa. NECK: Supple without lymphadenopathy. CHEST: Unlabored respirations. Equal bilateral excursions. CARDIOVASCULAR: Regular rate and rhythm. Distal 2+ pulses. ABDOMEN: Soft, nondistended. No peritoneal signs. MUSCULOSKELETAL: No clubbing, cyanosis, or edema. SKIN: Well-perfused. Good skin turgor. ASSESSMENT: 1. Diaphragmatic paraesophageal hiatal hernia with recurrence. PLAN: 1. Recommend proceeding with a robotic paraesophageal hiatal hernia with possible mesh. 2. Benefits and risks of surgical intervention was discussed including possibility of open technique. 3. Inpatient hospitalization recommended of 2 nights 4. DVT prophylaxis. 5. Antibiotic prophylaxis. Past Medical History Past Medical History: CVA/TIA, Fibromyalgia, GERD/Reflux, Hyperlipidemia, Hypertension Additional Past Medical History / Comment(s): CVA 2012, psoriasis, Shafer's Esophagus, arthritis, migraines, Psoriatic arthritis, chronic pain (Sees Dr. Frederick for pain management) History of Any Multi-Drug Resistant Organisms: None Reported Past Surgical History: Adenoidectomy, Appendectomy, Hysterectomy, Tonsillectomy , Tubal Ligation Additional Past Surgical History / Comment(s): Mendez fundolpication 1999(?), partial hysterectomy via trans-vaginal procedure (patient retained both ovaries) Past Anesthesia/Blood Transfusion Reactions: No Reported Reaction Additional Past Anesthesia/Blood Transfusion Reaction / Comment(s): No transfusion noted to date Past Psychological History: ADD/ADHD, Depression, Panic Disorder, PTSD Smoking Status: Never smoker Past Alcohol Use History: Rare Past Drug Use History: None Reported - Past Family History Father Family Medical History: Cancer, Coronary Artery Disease (CAD) Additional Family Medical History / Comment(s): father from stomach cancer at age 51, heroin addict (struggled with addiction off and on for years after coming home from [place]) Mother Family Medical History: Cancer Additional Family Medical History / Comment(s): Mother at age 36 from Ovarian Cancer mets to brain Medications and Allergies Home Medications Medication Instructions Recorded Confirmed Type DULoxetine HCL [Cymbalta] 60 mg PO HS 10/31/17 02/11/18 History Dextroamphetamine/Amphetamine 20 mg PO BID 10/31/17 02/11/18 History [Adderall] Doxepin HCl [SINEquan] 100 mg PO HS PRN MDD 200 MG 10/31/17 02/11/18 History Omeprazole [PriLOSEC] 20 mg PO QAM 10/31/17 02/11/18 History Pregabalin [Lyrica] 200 mg PO BID 10/31/17 02/11/18 History Topiramate [Topamax] 100 mg PO BID 10/31/17 02/11/18 History oxyCODONE-APAP 5-325MG [Percocet 1 tab PO TID PRN 10/31/17 02/11/18 History 5-325 mg] tiZANidine HCL [Zanaflex] 4 mg PO TID PRN 10/31/17 02/11/18 History Albuterol Inhaler [Ventolin Hfa 1 - 2 puff INHALATION RT-Q6H PRN 02/11/18 History Inhaler] Albuterol Nebulizer (? Dose) 1 dose INHALATION DIRECTED PRN 02/11/18 History Cholecalciferol (Vitamin D3) 1 dose PO WEEKLY 02/11/18 02/11/18 History [Vitamin D3] Cosentyx 1 dose SQ QMONTH 02/11/18 History Ibuprofen [Motrin] 800 mg PO TID PRN 02/11/18 02/11/18 History Lisinopril [Zestril] 5 mg PO QAM 02/11/18 02/11/18 History Methotrexate 1 dose SQ WEEKLY 02/11/18 History Phentermine HCl [Adipex-P] 37.5 mg PO QAM 02/11/18 02/11/18 History oxyCODONE HCL [OxyCONTIN] 10 mg PO Q12H 02/11/18 02/11/18 History Allergies Allergy/AdvReac Type Severity Reaction Status Date / Time bee venom protein (honey bee) Allergy Unknown Unknown Verified 02/11/18 15:02 morphine Allergy Unknown Itching Verified 02/11/18 14:23 Surgical - Exam Vital Signs Temp Pulse Resp BP Pulse Ox 98.2 F 90 18 119/66 99 02/21/18 12:01 02/21/18 12:01 02/21/18 12:01 02/21/18 12:01 02/21/18 12:01
[2018-02-21] MEDS ORDERED: BUPIVACAIN-EPI 0.5%-1:200,000 30 ML VIAL SQ ONE (13:08)
[2018-02-21] MEDS ORDERED: fentaNYL (PF) 50 MCG/ML 2 ML AMP ONE (13:12)
[2018-02-21] MEDS ORDERED: GLYCOPYRROLATE 0.2 MG/ML 2 ML VIAL ONE (13:12)
[2018-02-21] MEDS ORDERED: ESMOLOL 100 MG/10 ML VIAL ONE (13:12)
[2018-02-21] MEDS ORDERED: SUCCINYLCHOLINE CHLORIDE 100 MG/5 ML SYR IV ONE (13:12)
[2018-02-21] MEDS ORDERED: NEOSTIGMINE 1 MG/ML 10 ML VIAL ONE (13:12)
[2018-02-21] MEDS ORDERED: LIDOCAINE 1% INJ 10MG/ML (20 ML MDV) ONE (13:12)
[2018-02-21] MEDS ORDERED: ROCURONIUM BROMIDE 10 MG/ML 10 ML VIAL IV ONE (13:12)
[2018-02-21] MEDS ORDERED: MIDAZOLAM 2 MG/2 ML VIAL ONE (13:12)
[2018-02-21] MEDS ORDERED: PROPOFOL 10 MG/ML 20 ML VIAL IV ONE (13:12)
[2018-02-21] MEDS ORDERED: HYDROmorphone (PF) 1 MG/ML ONE (13:12)
[2018-02-21] MEDS ORDERED: LACTATED RINGERS 1,000 ML IV ONE ×2 (14:15→16:31)
[2018-02-21] MEDS ORDERED: NALOXONE 0.4 MG/ML 1 ML VIAL IV PRN (17:39)
[2018-02-21] MEDS ORDERED: ACETAMINOPHEN IV (For NPO) 1,000 MG in EMPTY BAG 1 BAG IVPB ONE (17:39)
[2018-02-21] MEDS ORDERED: diphenhydrAMINE 50 MG/ML 1 ML VIAL IVP PRN (17:39)
[2018-02-21] MEDS ORDERED: ONDANSETRON 4 MG/2 ML VIAL IVP PRN (17:39)
--- NOTE | 2018-02-21 17:39 | P.PCN ---
Date of Procedure: 02/21/18 Preoperative Diagnosis: Recurrent diaphragmatic hiatal hernia with previous distal fundoplasty, morbid obesity due to excess calories, gastroesophageal reflux disease Postoperative Diagnosis: Same, incarcerated recurrent diaphragmatic hiatal hernia, perihepatic adhesions and perigastric adhesions from previous fundoplasty Procedure(s) Performed: Robotic lysis of adhesions over 2.5 hours, robotic repair of a hiatal hernia incarcerated, recurrent 4 x 3 cm mesh, intraoperative EGD Anesthesia: GETA, local Surgeon: Vandana Hirsch Estimated Blood Loss (ml): 25 Pathology: other Condition: stable Disposition: floor Operative Findings: 1. Severe perigastric and perihepatic adhesions secondary to previous the fundoplasty requiring over 2-1/2 hours of dissection 2. Ffundoplasty divided using 45 mm blue load 3. Intraoperative upper endoscopy demonstrates no esophageal injury. 4. Hill grade 1 esophageal confirmed after completion 5. Previous sutures of fundoplasty removed in entirety.
[2018-02-21] MEDS: fentaNYL (PF) 50 MCG/ML 2 ML AMP IV PRN ×2 (18:03→18:12)
[2018-02-21] MEDS: ALBUTEROL NEBULIZED 2.5 MG/3 ML INHALATION SCH (19:45)
[2018-02-21 19:51] VITALS: BMI 47.7
[2018-02-21] MEDS: HYDROmorphone 1 MG/ML 1 ML SYRINGE IVP PRN ×2 (19:55→23:35)
[2018-02-21] MEDS: 0.9% NACL WITH KCL 20 MEQ/L 1,000 ML IV SCH (20:04)
[2018-02-21] MEDS: HYOSCYAMINE ORAL DROPS 1.875 MG/15 ML BOTTLE PO SCH (20:08)
[2018-02-21] MEDS: AMPICILLIN-SULBACTAM 3 GM in SODIUM CHLORIDE 0.9% 100 ML IVPB SCH (20:53)
[2018-02-21] MEDS: PANTOPRAZOLE 40 MG/10 ML VIAL IV SCH (20:53)
[2018-02-21] MEDS: SIMETHICONE 40 MG/0.6 ML DROPS 2,000 MG/30 ML BOTTLE PO SCH (20:53)
[2018-02-21] MEDS: HYDROcodone/APAP 15 ML SOLUTION PO PRN (23:15)
[2018-02-22] MEDS: AMPICILLIN-SULBACTAM 3 GM in SODIUM CHLORIDE 0.9% 100 ML IVPB SCH (01:56)
[2018-02-22] MEDS: HYOSCYAMINE ORAL DROPS 1.875 MG/15 ML BOTTLE PO SCH ×2 (01:58→05:46)
[2018-02-22] MEDS: SIMETHICONE 40 MG/0.6 ML DROPS 2,000 MG/30 ML BOTTLE PO SCH ×2 (01:58→05:45)
[2018-02-22] MEDS: 0.9% NACL WITH KCL 20 MEQ/L 1,000 ML IV SCH ×2 (02:30→09:29)
[2018-02-22] MEDS: HYDROmorphone 1 MG/ML 1 ML SYRINGE IVP PRN ×3 (02:55→09:52)
[2018-02-22] MEDS: LACTATED RINGERS 1,000 ML IV SCH (04:14)
[2018-02-22] MEDS: HYDROcodone/APAP 15 ML SOLUTION PO PRN ×2 (05:45→12:44)
[2018-02-22 07:23] LABS: Basophils % (A) 0 %; Eosinophils % (A) 0 %; HCT 38.3 % (34.0-46.0); HGB 12.4 gm/dL (11.4-16.0); Lymphocytes # (A) 0.9 k/uL (1.0-4.8); Lymphocytes % (A) 6 %; MCH 27.5 pg (25.0-35.0); MCHC 32.2 g/dL (31.0-37.0); MCV 85.4 fL (80.0-100.0); Mean Platelet Volume 7.2; Monocytes # (A) 0.5 k/uL (0-1.0); Monocytes % (A) 4 %; Neutrophils # (A) 11.9 k/uL (1.3-7.7); Neutrophils % (A) 88 %; Platelet Count 246 k/uL (150-450); RBC 4.49 m/uL (3.80-5.40); RDW 13.3 % (11.5-15.5); WBC 13.4 k/uL (3.8-10.6)
[2018-02-22 07:38] LABS: Anion Gap 9 mmol/L; Blood Urea Nitrogen 10 mg/dL (7-17); Calcium 9.2 mg/dL (8.4-10.2); Carbon Dioxide 23 mmol/L (22-30); Chloride 106 mmol/L (98-107); Phosphorus 2.8 mg/dL (2.5-4.5); Potassium 4.5 mmol/L (3.5-5.1); Sodium 138 mmol/L (137-145)
[2018-02-22] MEDS ORDERED: 0.9% NACL WITH KCL 20 MEQ/L 1,000 ML IV SCH (08:00)
[2018-02-22] MEDS ORDERED: ENOXAPARIN 40 MG/0.4 ML SYRINGE SQ SCH (09:00)
[2018-02-22] MEDS: ALBUTEROL NEBULIZED 2.5 MG/3 ML INHALATION SCH ×2 (09:10→11:22)
--- NOTE | 2018-02-22 09:11 | FL ---
EXAMINATION TYPE: FL UGI DATE OF EXAM ORDERED: 02/22/2018 8:32 AM HISTORY: Takedown of a Cari fundoplication. COMPARISON: None. FINDINGS: The patient swallowed contrast with ease. The esophagus distended normally with contrast. There is mild holdup of contrast at the GE junction. There is no evidence of extravasation or signifi cant free air. The ligament of Treitz is in the normal location. IMPRESSION: STATUS POST CARI FUNDOPLICATION TAKEDOWN.
[2018-02-22] MEDS: PANTOPRAZOLE 40 MG/10 ML VIAL IV SCH (09:32)
[2018-02-22 11:02] VITALS: BP 137/87; PULSE 98; RESP 17; TEMP 98.1
--- NOTE | 2018-02-22 12:15 | P.DS ---
Providers Date of admission: 02/21/2018 Expected date of discharge: 02/22/18 Attending physician: Vandana Hirsch Primary care physician: Josh Li - Discharge Diagnosis(es) (1) Hiatal hernia with obstruction but no gangrene Current Visit: Yes Status: Acute (2) Peritoneal adhesions Current Visit: Yes Status: Acute (3) Morbid obesity with BMI of 40.0-44.9, adult Current Visit: Yes Status: Acute (4) Chronic pain Current Visit: Yes Status: Acute (5) Gastroesophageal reflux Current Visit: Yes Status: Acute (6) Gastroesophageal hernia Current Visit: Yes Status: Acute (7) Hypertensive heart disease Current Visit: Yes Status: Acute (8) Sleep apnea Current Visit: Yes Status: Acute (9) History of Abiel fundoplication Current Visit: Yes Status: Acute Hospital Course: The patient is a 42-year-old female who came in with recurrent diaphragmatic hiatal hernia following a Abiel fundoplasty over 18 years ago. She had developed complications from his fundoplasty and she presented for surgical intervention. Intraoperative findings were consistent with severe scarring of her stomach to her liver including an incarcerated paraesophageal hiatal hernia involving a previous fundoplasty. Extensive lysis of adhesions was performed. Intraoperative EGD confirmed complete takedown of her Abiel fundoplasty without injury to her esophagus. Post procedure, nausea was managed. No episodes of emesis. Esophagram was unremarkable for leak. I personally dispensed her dietary instructions as consistent with no carbonated , no straws, low sugar diet, liquid diet for 2 weeks. Pertinent Studies: Esophagram negative for leaks. Procedures: Robotic takedown of Abiel fundoplasty, extensive lysis of adhesions over 2-1/2 hours, repair of incarcerated paraesophageal hiatal hernia with mesh, intraoperative esophagogastroduodenoscopy Patient Condition at Discharge: Stable Plan - Discharge Summary Discharge Rx Participant: Yes New Discharge Prescriptions: New Hyoscyamine Oral Drops [Levsin Drops] 0.125 mg PO Q6HR ml Bisacodyl [Dulcolax] 5 mg PO DAILY PRN #10 tablet. PRN Reason: Constipation Ondansetron Odt [Zofran Odt] 4 mg PO Q8HR PRN #9 tab PRN Reason: Nausea Simethicone 40 mg/0.6 ml Drops [Mylicon Drops] 40 mg PO PCHS PRN #30 ml PRN Reason: Gas Fluconazole [Diflucan] 200 mg PO DAILY #3 tab Continue Doxepin HCl [SINEquan] 200 mg PO HS PRN MDD 200 MG PRN Reason: Insomnia Topiramate [Topamax] 100 mg PO BID DULoxetine HCL [Cymbalta] 60 mg PO HS Pregabalin [Lyrica] 200 mg PO BID tiZANidine HCL [Zanaflex] 4 mg PO TID PRN PRN Reason: Muscle Spasm oxyCODONE-APAP 5-325MG [Percocet 5-325 mg] 1 tab PO TID PRN PRN Reason: Breakthrough Pain Dextroamphetamine/Amphetamine [Adderall] 20 mg PO BID Phentermine HCl [Adipex-P] 37.5 mg PO QAM oxyCODONE HCL [OxyCONTIN] 10 mg PO Q12H Lisinopril [Zestril] 5 mg PO QAM Albuterol Inhaler [Ventolin Hfa Inhaler] 1 - 2 puff INHALATION RT-Q6H PRN PRN Reason: Shortness Of Breath Cosentyx 1 dose SQ QMONTH Changed Omeprazole [PriLOSEC] 40 mg PO QAM #0 Discontinued Ibuprofen [Motrin] 800 mg PO TID PRN PRN Reason: Pain Albuterol Nebulizer (? Dose) 1 dose INHALATION DIRECTED PRN PRN Reason: Shortness Of Breath Cholecalciferol (Vitamin D3) [Vitamin D3] 1 dose PO WEEKLY Methotrexate 1 dose SQ WEEKLY Discharge Medication List DULoxetine HCL [Cymbalta] 60 mg PO HS 10/31/17 [History] Dextroamphetamine/Amphetamine [Adderall] 20 mg PO BID 10/31/17 [History] Doxepin HCl [SINEquan] 200 mg PO HS PRN MDD 200 MG 10/31/17 [History] Pregabalin [Lyrica] 200 mg PO BID 10/31/17 [History] Topiramate [Topamax] 100 mg PO BID 10/31/17 [History] oxyCODONE-APAP 5-325MG [Percocet 5-325 mg] 1 tab PO TID PRN 10/31/17 [History] tiZANidine HCL [Zanaflex] 4 mg PO TID PRN 10/31/17 [History] Albuterol Inhaler [Ventolin Hfa Inhaler] 1 - 2 puff INHALATION RT-Q6H PRN [History] Cosentyx 1 dose SQ QMONTH 02/11/18 [History] Lisinopril [Zestril] 5 mg PO QAM 02/11/18 [History] Phentermine HCl [Adipex-P] 37.5 mg PO QAM 02/11/18 [History] oxyCODONE HCL [OxyCONTIN] 10 mg PO Q12H 02/11/18 [History] Bisacodyl [Dulcolax] 5 mg PO DAILY PRN #10 tablet. 02/22/18 [Rx] Fluconazole [Diflucan] 200 mg PO DAILY #3 tab 02/22/18 [Rx] Hyoscyamine Oral Drops [Levsin Drops] 0.125 mg PO Q6HR ml 02/22/18 [Rx] Omeprazole [PriLOSEC] 40 mg PO QAM #0 02/22/18 [Rx] Ondansetron Odt [Zofran Odt] 4 mg PO Q8HR PRN #9 tab 02/22/18 [Rx] Simethicone 40 mg/0.6 ml Drops [Mylicon Drops] 40 mg PO PCHS PRN #30 ml [Rx] Follow up Appointment(s)/Referral(s): Bariatric Center,. [NON-STAFF] - 02/26/18 Patient Instructions/Handouts: Hiatal Hernia (DC), Laparoscopic Hiatal Hernia Repair (DC) Activity/Diet/Wound Care/Special Instructions: No lifting over 4 pounds 4 weeks. May shower. No bath tub soaks. Open or crush medications to prevent pills getting stuck. Please follow gastric bypass diet plan dispensed by your surgeon. For any issues, contact the bariatric center. Discharge Disposition: HOME SELF-CARE
[2018-02-23] MEDS ORDERED: BISACODYL 5 MG TABLET.DR PO PRN (08:00)
--- NOTE | 2018-03-05 10:51 | P.OP ---
Date of Procedure: 02/21/18 Description of Procedure: Date of Procedure: 02/21/18 SURGEON: MARLEN REECE MD PREOPERATIVE DIAGNOSES: 1. Gastroesophageal reflux disease. 2. Paraesophageal hiatal hernia, midline 3. History of previous Abiel fundoplasty 4. Morbid obesity due to excess calories, BMI 47.7 5. Fibromyalgia 6. Chronic pain syndrome 7. Depressive disorder 8. Previous history of TIA 9. Shafer's esophagus 10. Migraine headaches POSTOPERATIVE DIAGNOSES: 1. Gastroesophageal reflux disease. 2. Paraesophageal hiatal hernia, midline 3. History of previous Abiel fundoplasty 4. Morbid obesity due to excess calories, BMI 47.7 5. Fibromyalgia 6. Chronic pain syndrome 7. Depressive disorder 8. Previous history of TIA 9. Shafer's esophagus 10. Migraine headaches 11. Perihepatic adhesions and perigastric adhesions from previous fundoplasty OPERATION: 1. Robotic-assisted da Aman Xi laparoscopic takedown of Abiel fundoplasty 2. Robotic-assisted da Aman Xi laparoscopic extensive lysis of adhesions over 2.5 hours for perigastric adhesions 3. Robotic-assisted da Aman Xi laparoscopic reduction and repair of recurrent incarcerated paraesophageal hiatal hernia, 4 x 3 cm, with Gilbert Biopatch A 8 x 8 cm. 4. Intraoperative esophagogastroduodenoscopy Implants: Gilbert Biopatch A Anesthesia: GETA, local Estimated Blood Loss (ml): 25 Pathology: other Condition: stable Disposition: floor COMPLICATIONS: None. Operative Findings: 1. Severe perigastric and perihepatic adhesions secondary to previous Abiel fundoplasty requiring over 2-1/2 hours of dissection 2. Fundoplasty divided using 45 mm blue load 3. Intraoperative upper endoscopy demonstrates no esophageal injury. 4. Hill grade 1 esophageal confirmed after completion 5. Previous sutures of fundoplasty removed in entirety. INDICATIONS: The patient is a 42-year-old female who presents with gastroesophageal reflux and a symptomatic diaphragmatic hiatal hernia. Preoperative workup including upper endoscopy demonstrated recurrent hiatal hernia. Given the severity of her symptoms, particularly of her symptomatic diaphragmatic hiatal hernia, she had elected for surgical intervention. Benefits and risks including bleeding, infection, recurrence, dysphagia, injury to the lung, need for further surgery was described at length. Informed consent was obtained. DESCRIPTION: The patient was brought into the operating room and placed in supine position. Preoperatively she had recieved DVT prophylaxis. After general induction, the abdomen was prepped and draped in standard sterile fashion. The patient had previously voided prior to coming to the operating room. Ioban draping was placed along the abdomen. A timeout protocol was confirmed with the surgical team, for which the patient's name, procedure to be performed including DVT prophylaxis with bilateral SCDs, and preoperative antibiotics were also confirmed. Robotic da Aman Xi system was prepped and primed. At 12 cm from the xiphoid to just below the umbilicus, proposed port sites were marked with indelible marker along the left axillary line, left mid-clavicular line with each ports were marked 10 cm from each other. A 5 mm 0 degrees laparoscopic trocar entry was performed along the left upper quadrant. The abdomen was insufflated to 15 mmHg pressure she tolerated well. Diagnostic laparoscopy demonstrated no injury to bowel, viscera, or mesentery. No injury had occurred to the small bowel or viscera. Along the hiatus, moderate perigastric adhesions were found from her previous fundoplasty including severe adhesions of the posterior surface of liver to the stomach. Next, one 8 mm robotic port was placed along the right upper abdomen. An 8-mm port was were placed along the left lateral abdominal wall. The camera 8-mm port was maintained along the epigastrium. A 12 mm port was placed along the left upper abdominal wall after exchanging the 5 mm port. Please note that the ports were placed at least 20 cm away from the target anatomy. Care was taken to check that each robotic arm were safely away from collision with the bed or the patient. At the epigastrium, a medium sized Anselmo liver retractor was placed under direct visualization with the Iron Gro[employer]rier placed over under the right shoulder of the patient. The patient was repositioned in reverse Trendelenburg position at 14-degrees after lowering the bed. The robot was docked above the left side of the patient. Using a grasper for arm 3, a grasper for arm 1, including vessel sealer for arm 4, the robotic system was docked and primed as described. Instruments were interchanged by the assistant chief nursing officer. I had sat at the console. The phrenoesophageal ligament had moderate scarring where the distal esophagus was mobilized circumferentially. Care was taken to avoid any injury to the bilateral vagi nerves. An incarcerated stomach was found along the mediastinum. Next dissection into the mediastinum was performed to the mid esophagus. The left and right crura was identified. The hiatal hernia sac was incarcerated into the mediastinum and divided to allow complete mobilization and freeing of the distal esophagus into the abdominal cavity. Care was taken to avoid any gastrotomy to the incarcerated upper pole of the stomach including takedown of the Abiel fundoplasty. Extensive lysis of adhesions went more than 2.5 hours for extended dissection of the adherent stomach including to the liver bed. The measured defect was consistent with 4 cm axial length and 3 cm in width. The distal esophagus of at least 3 cm was brought into the abdominal cavity. Once the hiatus and crura was dissected, 2-0 VLOC suture was placed as a running suture to re-approximate the diaphragmatic hiatus posteriorly. To buttress the repair, a Gilbert Biopatch A was prepared along the back table and cut to reinforce the repair as an underlay. The mesh was placed along the crural repair posteriorly then cut in half and tagged using horizontal mattress sutures using 2-0 VLOC. I went to the head of the bed to perform intraoperative esophagogastroduodenoscopy. An Olympus gastroscope was passed through posterior oropharynx, where the GE junction was found distal to the diaphragmatic hiatus. The intra-abdominal esophageal length obtained during the case was over 3 cm. The stomach was entered. Chronic gastritis without gastric ulcers with duodenal ulcers was found. Retroflexion of the scope confirmed a Hill grade 1+ lower esophageal valve. The stomach had been desufflated. No evidence of leaks were found or mucosal defects of the esophagus or stomach. The hiatal closure was consistent with a 56 [place] bougie. This concluded the endoscopic portion of the case. The robot was undocked from the patient. I re-scrubbed into the case. All instruments and pneumoperitoneum were evacuated from the abdominal cavity. Incisions were reapproximated using 4-0 Monocryl in an interrupted subcuticular fashion. All incisions were cleaned using dilute hydrogen peroxide. The 12-mm port site fascial defect was less than 8 mm in size. Liquid glue was applied to the skin. Local anesthetic was infiltrated in all wounds for postop analgesia. Multiple intra-abdominal films were obtained. At the end of the procedure, needle, sponge, and instrument count was verified correct by the director surgical. The patient had tolerated the procedure well and was taken to the postanesthesia unit in stable condition. Intraoperative films were reviewed with the patient's family who were pleased with the level of care.
== END 2018-02-22 13:30 | disposition home or self-care (01) ==
LOC: ORWHC2ENDO 11:35 → 5ONC 17:31 → ORWHC2ENDO 02-22 13:30
PROVIDERS: ATTEND Surgery Plastic and Reconstructive Surgery
DX: K44.0 Diaphragmatic hernia with obstruction, without gangrene (principal); K66.0 Peritoneal adhesions (postprocedural) (postinfection); K29.50 Unspecified chronic gastritis without bleeding; E66.01 Morbid (severe) obesity due to excess calories; Z68.42 Body mass index [BMI] 45.0-49.9, adult; K21.9 Gastro-esophageal reflux disease without esophagitis; K26.9 Duodenal ulcer, unspecified as acute or chronic, without hemorrhage or perforation; G89.4 Chronic pain syndrome; M79.7 Fibromyalgia; I11.9 Hypertensive heart disease without heart failure; G47.30 Sleep apnea, unspecified; F90.9 Attention-deficit hyperactivity disorder, unspecified type; E78.5 Hyperlipidemia, unspecified; L40.9 Psoriasis, unspecified; K22.70 Barrett's esophagus without dysplasia; L40.50 Arthropathic psoriasis, unspecified; G43.909 Migraine, unspecified, not intractable, without status migrainosus; F32.9 Major depressive disorder, single episode, unspecified; F41.0 Panic disorder [episodic paroxysmal anxiety]; F43.10 Post-traumatic stress disorder, unspecified; R00.0 Tachycardia, unspecified; Z86.73 Personal history of transient ischemic attack (TIA), and cerebral infarction without residual deficits; Z79.891 Long term (current) use of opiate analgesic; Z79.899 Other long term (current) drug therapy; Z88.5 Allergy status to narcotic agent; Z91.030 Bee allergy status; Z90.710 Acquired absence of both cervix and uterus; Z98.51 Tubal ligation status
CPT/HCPCS: 43282; 43235; 94760; 94762; 80051; 82310; 82565; 83735; 84100; 84520; 85025; 74240; C1781; J2250; J1200; J1644; J1100; J2710; J0690; J2405 ×2; J2001; J1650; J3010; J1170 ×2; J0295 ×2; J0131; J0330; J2704; C9113 ×2; Q9967; 86850; 86900; 86901

== ENCOUNTER → 2018-02-26 | Outpatient (CLI) | payer MEDICARE, BC, OTHER ==
[2018-02-26 13:15] VITALS: BP 97/52; PULSE 65; TEMP 98.2; BMI 48.7
--- NOTE | 2018-02-26 13:37 | P.PN ---
Subjective Progress Note Date: 02/26/18 DATE OF SERVICE: 02/26/2018 CHIEF COMPLAINT: Gastric esophageal reflux disease HISTORY OF PRESENT ILLNESS: Rabia Link is a 42-year-old female who had a prior history of a Abiel fundoplasty in 1999. She has history of Shafer's esophagus. She is status post takedown of Abiel fundoplasty, 02/21/2018. She reports low blood pressure. She reports some trouble with swallowing. She has some discomfort at the right upper quadrant. She had weighed as much as 302 pounds. She is looking into the gastric bypass. At height of 5 feet 4 inches, her ideal body weight is 144 pounds. Body mass index was 51.9. She comes in 271 pounds to 284 pounds from 1 month ago. Her weight has increased by 13 pounds 1 month ago. Body mass index is reduced from 51.9 to 48.8. She is 123 pounds overweight. PHYSICAL EXAM: VITAL SIGNS: Height 5 foot 4 inches, weight 284 pounds. BMI 48.8 Vital Signs Temp 98.2 F 02/26/18 13:08 Pulse 65 02/26/18 13:08 Resp BP 97/52 02/26/18 13:08 Pulse Ox GENERAL: Well-developed in no acute distress. HEENT: No scleral icterus. Extraocular movements grossly intact. Hears conversational speech. No nasal drainage. NECK: Supple without lymphadenopathy. CHEST: Nonlabored respirations with equal bilateral excursions. CARDIOVASCULAR: Regular rate. Distal 2+ pulses. ABDOMEN: Obese, soft, no signs of infection. Mild incisional tenderness right upper quadrant. MUSCULOSKELETAL: No clubbing, cyanosis. Gross strength 5/5 distal lower extremities. NEURO: No focal or lateralizing signs. Cranial nerves 2 through 12 grossly within normal limits. PSYCH: Appropriate affect. Alert and oriented to person, place and time. SKIN: Good skin turgor. Well perfused. ASSESSMENT: 1. Morbid obesity. 2. Body mass index of 51.9 down to 48.8. 3. Gastroesophageal reflux disease 4. Recurrent hiatal hernia PLAN: 1. She is doing well 2. Continue bariatric plan 3. Follow up in 2 weeks Objective - Vital Signs Vital signs: Vital Signs Temp 98.2 F 02/26/18 13:08 Pulse 65 02/26/18 13:08 Resp BP 97/52 02/26/18 13:08 Pulse Ox Intake & Output 02/25/18 02/26/18 02/26/18 18:59 06:59 18:59 Weight 128.911 kg
== END | disposition home or self-care (01) ==
LOC: BARWHC3 12:52
PROVIDERS: ATTEND Surgery Plastic and Reconstructive Surgery
DX: E66.01 Morbid (severe) obesity due to excess calories (principal); K21.9 Gastro-esophageal reflux disease without esophagitis; Z68.42 Body mass index [BMI] 45.0-49.9, adult; K44.9 Diaphragmatic hernia without obstruction or gangrene
CPT/HCPCS: 99211

== ENCOUNTER → 2018-03-12 | Outpatient (CLI) | payer MEDICARE, BC, OTHER ==
[2018-03-12 13:14] VITALS: BP 165/84; PULSE 94; RESP 20; TEMP 98.2; BMI 48.5
--- NOTE | 2018-03-12 14:41 | P.PN ---
Subjective Progress Note Date: 03/12/18 HPI: Patient reports pain from her arthritis. Feeling heartburn with some mild relief with her medication. ABDOMEN: All incisions are granulated. PLAN: 1. Recommend gastric bypass. 2. May take arthritic medications. Objective - Vital Signs Vital signs: Vital Signs Temp 98.2 F 03/12/18 13:11 Pulse 94 03/12/18 13:11 Resp 20 03/12/18 13:11 BP 165/84 03/12/18 13:11 Pulse Ox Intake & Output 03/11/18 03/12/18 03/12/18 18:59 06:59 18:59 Weight 128.367 kg
--- NOTE | 2018-03-12 14:42 | P.PN ---
Subjective Progress Note Date: 03/12/18 To whom it may concern: Rabia Link may re-start her arthritic medications. Regards, Vandana Hirsch MD Objective - Vital Signs Vital signs: Vital Signs Temp 98.2 F 03/12/18 13:11 Pulse 94 03/12/18 13:11 Resp 20 03/12/18 13:11 BP 165/84 03/12/18 13:11 Pulse Ox Intake & Output 03/11/18 03/12/18 03/12/18 18:59 06:59 18:59 Weight 128.367 kg
== END | disposition home or self-care (01) ==
LOC: BARWHC3 12:47
PROVIDERS: ATTEND Surgery Plastic and Reconstructive Surgery
DX: M19.90 Unspecified osteoarthritis, unspecified site (principal); R12 Heartburn; Z79.899 Other long term (current) drug therapy
CPT/HCPCS: 99211

== ENCOUNTER → 2018-04-03 | Outpatient (CLI) | payer BC, MEDICARE, OTHER ==
--- NOTE | 2018-04-03 17:53 | PN ---
PROGRESS NOTE DATE OF SERVICE: 04/03/2018 This patient is a 42-year-old lady who has been followed in the sleep center. She is here to discuss results of her diagnostic polysomnogram and following plan. We discussed the results of her sleep study with the patient in detail. No significant respiratory abnormalities have been documented. Total apnea-hypopnea index is 3.2, but no REM sleep was documented at all, and for some patients, they have more abnormalities of respiration in REM sleep than in other parts of sleep. Again, REM sleep was not documented. Patient continues to feel sleepy during the day. [place] Sleepiness Scale is increased at 13 today. MEDICATIONS: 1. OxyContin. 2. Oxycodone. 3. Adipex. 4. Adderall. 5. Topamax. 6. Cymbalta. 7. Lyrica. 8. Lisinopril. PHYSICAL EXAMINATION: GENERAL A pleasant lady without distress. VITAL SIGNS: BP 117/86, HR 97, RR 16, weight 265.4, temperature 97.7, oxygen saturation at room air 100%. HEENT: PERRLA, EOMI. Evaluation of oropharynx showed tongue protrudes midline; low position of soft palate. NECK: Supple. No JVD. Thyroid is not palpable. LUNGS: Clear to percussion and to auscultation. Good air exchange. No wheezing or rhonchi. HEART: S1, S2 regular. No murmurs, gallops or rubs. ABDOMEN: Obese. EXTREMITIES : No clubbing or cyanosis. CERAMIC RESEARCH ENGINEER: Awake, alert, and oriented X3. Cranial nerves 2 to 7 intact. There is no fasciculation or atrophy. noted. No focal deficits observed. IMPRESSION: 1. No significant respiratory abnormalities were documented during the diagnostic polysomnogram. 2. The patient continues to have symptoms of significant excessive daytime sleepiness. [place] Sleepiness Scale increased originally to 18; today it is 13. 3. No significant periodic limb movements were documented during the sleep study. 4. History of attention deficit hyperactivity disorder. 5. Obesity. 6. Hypertension. 7. Fibromyalgia. 8. Status post tonsillectomy and adenoidectomy. 9. Status post Abiel fundoplication. 10.Status post partial hysterectomy. 11.History of restless legs syndrome. PLAN: 1. I will proceed with a polysomnogram and following multiple sleep latency test for objective evaluation of patient's symptoms of significant excessive daytime sleepiness to rule out hypersomnia or narcolepsy. 2. Sleep hygiene with regular time in bed for at least 7-1/2 hours. 3. Losing weight. 4. No driving if feeling any sleepiness. 5. Preferable position during sleep on the side. Thank you very much for allowing me to participate in the management of your patient. Sincerely, Gt Mcconnell MD, PhD, FAASM Diplomat of [employer] Corporate Development Manager of [facility] [place] MMODL / SHARONN: [id number] /
== END | disposition home or self-care (01) ==
LOC: SLEEP 15:20
PROVIDERS: ATTEND Internal Medicine
DX: G47.10 Hypersomnia, unspecified (principal); E66.9 Obesity, unspecified; I10 Essential (primary) hypertension; M79.7 Fibromyalgia; G25.81 Restless legs syndrome; F90.9 Attention-deficit hyperactivity disorder, unspecified type; Z90.89 Acquired absence of other organs; Z90.710 Acquired absence of both cervix and uterus; Z98.890 Other specified postprocedural states; Z79.899 Other long term (current) drug therapy

== ENCOUNTER → 2018-04-21 | Outpatient (CLI) | payer BC, MEDICARE, OTHER ==
[2018-04-21 14:28] VITALS: BMI 46.0
== END ==
LOC: BARWHC3 08:42
PROVIDERS: ATTEND Surgery Plastic and Reconstructive Surgery
DX: E66.01 Morbid (severe) obesity due to excess calories (principal); Z71.3 Dietary counseling and surveillance; Z68.42 Body mass index [BMI] 45.0-49.9, adult
CPT/HCPCS: 97804

== ENCOUNTER → 2018-05-28 | Outpatient (CLI) | payer BC, MEDICARE, OTHER ==
[2018-05-28 16:51] LABS: Basophils % (A) 1 %; Eosinophils # (A) 0.3 k/uL (0-0.7); Eosinophils % (A) 3 %; HGB 14.5 gm/dL (11.4-16.0); Lymphocytes # (A) 2.3 k/uL (1.0-4.8); Lymphocytes % (A) 27 %; MCH 27.9 pg (25.0-35.0); MCHC 32.9 g/dL (31.0-37.0); MCV 84.8 fL (80.0-100.0); Mean Platelet Volume 7.5; Monocytes # (A) 0.5 k/uL (0-1.0); Monocytes % (A) 5 %; Neutrophils # (A) 5.5 k/uL (1.3-7.7); Neutrophils % (A) 62 %; Platelet Count 278 k/uL (150-450); RBC 5.19 m/uL (3.80-5.40); RDW 13.5 % (11.5-15.5); WBC 8.8 k/uL (3.8-10.6)
[2018-05-28 18:15] LABS: Albumin 4.3 g/dL (3.5-5.0); Potassium 4.7 mmol/L (3.5-5.1); Total Bilirubin 0.5 mg/dL (0.2-1.3); Total Protein 7.6 g/dL (6.3-8.2)
== END | disposition home or self-care (01) ==
LOC: LABPAT 14:35
PROVIDERS: ATTEND Surgery Plastic and Reconstructive Surgery
DX: Z01.818 Encounter for other preprocedural examination (principal); Z01.812 Encounter for preprocedural laboratory examination
CPT/HCPCS: 80053; 85025; 86850; 86900; 86901; 93005

== ENCOUNTER → 2018-05-28 | Outpatient (CLI) | payer BC, MEDICARE, OTHER ==
[2018-05-28 13:49] VITALS: BP 143/90; PULSE 89; TEMP 98.5; BMI 44.8
--- NOTE | 2018-05-28 14:16 | P.PN ---
Subjective Progress Note Date: 05/28/18 HPI: No further reflux since hiatal hernia removal. She reports joint pain as she is off Coscentryx. She only sees her PCP for pain control. ABDOMEN: No panniculitis. ASSESSMENT: 1. Morbid obesity 2. H/o hiatal hernia repair PLAN: 1. Consent for gastric bypass reviewed. She is high risk for leaks. 2. She reports trouble with pain meds and migraines. 3. She takes Doxepin at night Objective - Vital Signs Vital signs: Vital Signs Temp 98.5 F 05/28/18 13:44 Pulse 89 05/28/18 13:44 Resp BP 143/90 05/28/18 13:44 Pulse Ox Intake & Output 05/27/18 05/28/18 05/28/18 18:59 06:59 18:59 Weight 118.388 kg
== END | disposition home or self-care (01) ==
LOC: BARWHC3 13:04
PROVIDERS: ATTEND Surgery Plastic and Reconstructive Surgery
DX: Z48.815 Encounter for surgical aftercare following surgery on the digestive system (principal); E66.01 Morbid (severe) obesity due to excess calories; Z68.41 Body mass index [BMI] 40.0-44.9, adult; Z98.890 Other specified postprocedural states
CPT/HCPCS: 99211

== ENCOUNTER 2018-06-09 05:44 | Inpatient (IN) | payer BC, MEDICARE, OTHER ==
--- NOTE | 2018-06-09 00:35 | P.GSHP ---
History of Present Illness H&P Date: 06/09/18 DATE OF SERVICE: 06/09/18 CHIEF COMPLAINT: Morbid obeisty HISTORY OF PRESENT ILLNESS: Rabia Link is a 42-year-old female who is s/p takedown of Abiel fundoplasty and hiatal hernia repair. She has history of Shafer's esophagus. She had weighed as much as 302 pounds. She is looking into the gastric bypass. At height of 5 feet 4 inches, her ideal body weight is 144 pounds. Body mass index was 51.9. She comes in 260 pounds from 271 pounds , 4 months ago. Body mass index is reduced from 51.9 to 44.8 She is 116 pounds overweight. She has completed medical supervised weight loss. She comes in for the gastric bypass. PAST MEDICAL HISTORY: 1. Morbid obesity. 2. Body mass index of 51.9, initial 3. Osteoarthritis of the hips. 4. Osteoarthritis of the lower back. 5. Obstructive sleep apnea. 6. Hypertensive heart disease. 7. Fibromyalgia. 8. Rheumatoid arthritis 9. Depression 10. Gastroesophageal reflux disease 11. Chronic pain syndrome 12. Cerebrovascular accident 13. Hyperlipidemia 14. Shafer's esophagus 15. Psoriatic arthritis 16. ADD with ADHD 17. Panic disorder 18. PTSD PAST SURGICAL HISTORY: 1. Appendectomy 2. Hysterectomy 3. Adenoidectomy 4. Tonsillectomy 5. Tubal ligation 6. Abiel fundoplasty 7. Repair of recurrent hiatal hernia HOME MEDICATIONS: 1. Methotrexate 2. Doxepin 3. Cosentyx 4. Topamax 5. Folic acid 6. Cymbalta 7. Lyrica 8. Phentermine 9. Vistaril 10. Acyclovir 11. Zanaflex 12. Ditropan 13. Omeprazole 14. Movantik 15. Percocet 16. Adderall 17. Oxycodone 18. Meloxicam ALLERGIES: Morphine SOCIAL HISTORY: No active tobacco use. FAMILY HISTORY: No family history of ulcerative colitis disease or Crohn's disease. Family history of morbid obesity. No lupus in the family. No reports of stomach or esophageal cancer. Family history of diabetes type 2. REVIEW OF ORGAN SYSTEMS: CONSTITUTIONAL: She had weighed as much as 302 pounds. At height of 5 feet 4 inches, her ideal body weight is 144 pounds. Body mass index was 51.9. HEENT: Denies any active troubles with vision or hearing. No troubles with swallowing. ENDOCRINE: No diabetes. No hypothyroidism. CARDIOVASCULAR: No reports of palpitations or heart attacks or chest pain. RESPIRATORY: Has daytime somnolence. No asthma. Has obstructive sleep apnea. GI: Denies any bright red blood per rectum. No diarrhea or constipation. MUSCULOSKELETAL: Has lower back pain and joint pain. Has osteoarthritis of the knees. NEURO: No headaches. Has seizure disorders. PSYCH: No depression or suicidal ideation. Has ADHD. RHEUMATOLOGIC: No lupus. Has psoriasis and rheumatoid arthritis. HEMATOLOGIC: Denies any abnormal bleeding or bruising. No personal history of DVTs. SKIN: No rash. No skin cancer. PHYSICAL EXAM: VITAL SIGNS: Height 5 foot 4 inches, weight 271 pounds. BMI 46.6 GENERAL: Well-developed in no acute distress. HEENT: No scleral icterus. Extraocular movements grossly intact. Hears conversational speech. No nasal drainage. NECK: Supple without lymphadenopathy. CHEST: Nonlabored respirations with equal bilateral excursions. CARDIOVASCULAR: Tachycardic. Distal 2+ pulses. ABDOMEN: Obese, soft, nontender, nondistended. MUSCULOSKELETAL: No clubbing, cyanosis. Gross strength 5/5 distal lower extremities. NEURO: No focal or lateralizing signs. Cranial nerves 2 through 12 grossly within normal limits. PSYCH: Appropriate affect. Alert and oriented to person, place and time. SKIN: Good skin turgor. Well perfused. ASSESSMENT: 1. Morbid obesity. 2. Body mass index of 51.9, initial 3. Osteoarthritis of the hips. 4. Osteoarthritis of the lower back. 5. Obstructive sleep apnea. 6. Hypertensive heart disease. 7. Fibromyalgia. 8. Rheumatoid arthritis 9. Depression 10. Gastroesophageal reflux disease 11. Chronic pain syndrome 12. Cerebrovascular accident 13. Hyperlipidemia 14. Shafer's esophagus 15. Psoriatic arthritis 16. ADD with ADHD 17. Panic disorder 18. PTSD 19. Recurrent hiatal hernia PLAN: 1. Bariatric options between a sleeve, band and a Diann-en-Y gastric bypass were reviewed in detail. Consent for gastric bypass reviewed. Robotic assisted approach described. 2. The [place] [facility] Data was also reviewed with benefits and risks as described. 3. An 8 page second-generation bariatric consent form was reviewed in detail including potential of bleeding, infection, leaks, adequate weight loss, nutritional deficiencies which he demonstrated understanding of the risks. 4. A 2 week high-protein low caloric 800 kcal diet described to address hepatomegaly. 5. Preoperative labs including complete metabolic panel and CBC with type and screen recommended. 6. DVT prophylaxis per [place] [facility]. 7. Antibiotic prophylaxis. 8. Inpatient hospitalization anticipated for more than 2 nights. 9. All questions and concerns were addressed with the patient. Past Medical History Past Medical History: Asthma, CVA/TIA, Fibromyalgia, GERD/Reflux, Hyperlipidemia , Hypertension Additional Past Medical History / Comment(s): CVA 2011, psoriasis, Shafer's Esophagus, arthritis, migraines, Psoriatic arthritis, chronic pain (Sees Dr. Frederick for pain management) precancerous throat cells, History of Any Multi-Drug Resistant Organisms: None Reported Past Surgical History: Adenoidectomy, Appendectomy, Hernia Repair, Hysterectomy , Tonsillectomy, Tubal Ligation Additional Past Surgical History / Comment(s): [place] fundolpication 1999(?), partial hysterectomy via trans-vaginal procedure (patient retained both ovaries ) take down of bay 03-08 hiatal hernia repair and umbilical repair Past Anesthesia/Blood Transfusion Reactions: No Reported Reaction Additional Past Anesthesia/Blood Transfusion Reaction / Comment(s): No transfusion noted to date Past Psychological History: ADD/ADHD, Anxiety, Depression, Panic Disorder, PTSD Smoking Status: Never smoker Past Alcohol Use History: None Reported Past Drug Use History: None Reported - Past Family History Father Family Medical History: Cancer, Coronary Artery Disease (CAD) Additional Family Medical History / Comment(s): father from stomach cancer at age 51, heroin addict (struggled with addiction off and on for years after coming home from [place]) Mother Family Medical History: Cancer Additional Family Medical History / Comment(s): Mother at age 36 from Ovarian Cancer mets to brain Medications and Allergies Home Medications Medication Instructions Recorded Confirmed Type DULoxetine HCL [Cymbalta] 60 mg PO HS 10/31/17 06/02/18 History Dextroamphetamine/Amphetamine 20 mg PO BID 10/31/17 06/02/18 History [Adderall] Doxepin HCl [SINEquan] 200 mg PO HS PRN MDD 200 MG 10/31/17 06/02/18 History Pregabalin [Lyrica] 200 mg PO BID 10/31/17 06/02/18 History Topiramate [Topamax] 100 mg PO BID 10/31/17 06/02/18 History oxyCODONE-APAP 5-325MG [Percocet 1 tab PO TID PRN 10/31/17 06/02/18 History 5-325 mg] tiZANidine HCL [Zanaflex] 4 mg PO TID PRN 10/31/17 06/02/18 History Albuterol Inhaler [Ventolin Hfa 1 - 2 puff INHALATION RT-Q6H PRN 02/11/18 History Inhaler] Lisinopril [Zestril] 5 mg PO QAM 02/11/18 06/02/18 History Phentermine HCl [Adipex-P] 37.5 mg PO QAM 02/11/18 06/02/18 History oxyCODONE HCL [OxyCONTIN] 30 mg PO Q12H 05/28/18 06/02/18 History Acetaminophen Tab [Tylenol Tab] 1,000 mg PO Q6HR PRN 06/02/18 06/02/18 History Naloxegol Oxalate [Movantik] 25 mg PO DAILY PRN 06/02/18 06/02/18 History Omeprazole [PriLOSEC] 40 mg PO BID 06/02/18 06/02/18 History Ranitidine HCl [Zantac] 150 mg PO QAM 06/02/18 06/02/18 History hydrOXYzine HCL [Atarax] 25 mg PO TID PRN 06/02/18 06/02/18 History Allergies Allergy/AdvReac Type Severity Reaction Status Date / Time bee venom protein (honey bee) Allergy Unknown Anaphylaxis Verified 06/02/18 10: 07 morphine Allergy Unknown Itching Verified 06/02/18 10:07 and swelling
[~2018-06-09 05:44] MED LIST changes: -HEPARIN SODIUM,PORCINE 5,000 UNIT/ML 1 ML VIAL SQ ONE; +ONDANSETRON 4 MG/2 ML VIAL IVP ONE; +fentaNYL (PF) 50 MCG/ML 2 ML AMP IV PRN
[2018-06-09] MEDS ORDERED: ENOXAPARIN 40 MG/0.4 ML SYRINGE SQ ONE (06:00)
[2018-06-09] MEDS ORDERED: CHLORHEXIDINE GLUCONATE 15 ML CUP MUCOUS MEM ONE (06:00)
[2018-06-09] MEDS ORDERED: PANTOPRAZOLE 40 MG/10 ML VIAL IV ONE (06:00)
[2018-06-09] MEDS: LACTATED RINGERS 1,000 ML IV SCH (06:28)
[2018-06-09] MEDS ORDERED: LIDOCAINE 1% 20 ML VIAL (10MG/ML) FOR IV START INTRADERMA ONE (06:36)
[2018-06-09] MEDS ORDERED: LIDOCAINE 1% INJ 10MG/ML (20 ML MDV) ONE (07:35)
[2018-06-09] MEDS ORDERED: SUCCINYLCHOLINE CHLORIDE 100 MG/5 ML SYR IV ONE (07:35)
[2018-06-09] MEDS ORDERED: MIDAZOLAM 2 MG/2 ML VIAL ONE (07:35)
[2018-06-09] MEDS ORDERED: ROCURONIUM BROMIDE 10 MG/ML 10 ML VIAL IV ONE (07:35)
[2018-06-09] MEDS ORDERED: NEOSTIGMINE 1 MG/ML 10 ML VIAL ONE (07:35)
[2018-06-09] MEDS ORDERED: PROPOFOL 10 MG/ML 20 ML VIAL IV ONE (07:35)
[2018-06-09] MEDS ORDERED: GLYCOPYRROLATE 0.2 MG/ML 2 ML VIAL ONE (07:35)
[2018-06-09] MEDS ORDERED: fentaNYL (PF) 50 MCG/ML 2 ML AMP ONE (07:35)
[2018-06-09] MEDS ORDERED: KETOROLAC 30 MG/ML 1 ML VIAL ONE (07:35)
[2018-06-09] MEDS ORDERED: PHENYLEPHRINE-0.9% NACL SYG 1 MG/10 ML SYRINGE ONE (07:35)
[2018-06-09] MEDS ORDERED: BUPIVACAIN-EPI 0.25%-1:200,000 30 ML VIAL SQ ONE (08:06)
[2018-06-09] MEDS ORDERED: LACTATED RINGERS 1,000 ML IV ONE (09:16)
[2018-06-09] MEDS ORDERED: NALOXONE 0.4 MG/ML 1 ML VIAL IV PRN (12:02)
[2018-06-09] MEDS ORDERED: diphenhydrAMINE 50 MG/ML 1 ML VIAL IVP PRN (12:02)
[2018-06-09] MEDS ORDERED: HYDROcodone/APAP 15 ML SOLUTION PO PRN (12:02)
[2018-06-09] MEDS: HYDROmorphone 1 MG/ML 1 ML SYRINGE IVP ONE ×2 (12:04→12:09)
[2018-06-09] MEDS ORDERED: hydrOXYzine HCL 25 MG TAB PO PRN (12:14)
[2018-06-09] MEDS ORDERED: DOXEPIN 25 MG CAP PO PRN ×2 (12:14→12:34)
[2018-06-09] MEDS ORDERED: NALOXEGOL OXALATE 25 MG PO PRN (12:14)
--- NOTE | 2018-06-09 12:23 | P.OP ---
Date of Procedure: 06/09/18 Description of Procedure: Date of Procedure: 06/09/18 SURGEON: MARLEN REECE MD PREOPERATIVE DIAGNOSES: 1. Morbid obesity due to excess calories 2. Body mass index of 51.9, initial 3. Osteoarthritis of the hips, bilateral 4. Osteoarthritis of the lower back. 5. Obstructive sleep apnea. 6. Hypertensive heart disease. 7. Fibromyalgia. 8. Rheumatoid arthritis 9. Depressive disorder, chronic 10. Gastroesophageal reflux disease 11. Chronic pain syndrome 12. Cerebrovascular accident 13. Hyperlipidemia 14. Shafer's esophagus 15. Psoriatic arthritis 16. ADD with ADHD 17. Panic disorder 18. Post traumatic stress disorder 19. Status post repair of recurrent hiatal hernia POSTOPERATIVE DIAGNOSES: 1. Morbid obesity due to excess calories 2. Body mass index of 51.9, initial 3. Osteoarthritis of the hips, bilateral 4. Osteoarthritis of the lower back. 5. Obstructive sleep apnea. 6. Hypertensive heart disease. 7. Fibromyalgia. 8. Rheumatoid arthritis 9. Depressive disorder, chronic 10. Gastroesophageal reflux disease 11. Chronic pain syndrome 12. Cerebrovascular accident 13. Hyperlipidemia 14. Shafer's esophagus 15. Psoriatic arthritis 16. ADD with ADHD 17. Panic disorder 18. Post traumatic stress disorder 19. Status post repair of recurrent hiatal hernia 20. Severe perigastric peritoneal adhesions 21. Retained food in the stomach 22. Medical non-compliance to bariatric pre-operative diet OPERATION: 1. Robotic assisted da Aman Xi laparoscopic Crys-en-Y gastric bypass, 100 cm antecolic antegastric Crys limb with 25 mm EEA. 2. Robotic assisted da Aman Xi laparoscopic extensive lysis of adhesions, 1.5 hours 3. Intraoperative esophagogastrojejunoscopy. ANESTHESIA: GETA and local ESTIMATED BLOOD LOSS: 50 mL SPECIMENS REMOVED: None. COMPLICATIONS: NONE. Pathology: none sent Condition: stable Disposition: floor INDICATIONS: Rabia Link is a 42-year-old female who is s/p takedown of Abiel fundoplasty and hiatal hernia repair. She has history of Shafer's esophagus. She had weighed as much as 302 pounds. She is looking into the gastric bypass. At height of 5 feet 4 inches, her ideal body weight is 144 pounds. Body mass index was 51.9, initial. She comes in 262 pounds from 271 pounds, 4 months ago. Body mass index is reduced from 51.9 to 45. 0. She is 118 pounds overweight. She has completed medical supervised weight loss. She comes in for the gastric bypass.A second-generation bariatric consent form was described in detail including the possibility of protein malnutrition, leaks, gastrojejunal stricture, venous thrombosis, need for further surgery for which she demonstrated understanding. Benefits and risks of the procedure were described at length. Informed consent was obtained. DESCRIPTION: The patient was brought into the operating room theater. She was placed supine. She had received Lovenox subcutaneously for DVT prophylaxis. Additionally she Peridex oral solution as an oral decontaminant was placed per anesthesia. After general induction, the abdomen was prepped and draped in standard sterile fashion. Ioban draping was placed along the abdomen. A robotic Fireworki Xi system was prepped and primed. Incisions were proposed at 15 cm from the xiphoid. Proposed port sites were marked with indelible marker along the anterior axillary line bilaterally, mid clavicular line bilaterally with each port marked 10 cm from each other. The robotic stapler port was marked for the right midclavicular line including along the left midclavicular line. A 5 mm 0 degrees laparoscopic trocar entry was performed along the left upper quadrant. The abdomen was insufflated to 15 mmHg pressure, which she tolerated well. Diagnostic laparoscopy demonstrated no injury to bowel, viscera, or mesentery. Extensive adhesions of the upper pole of the stomach to the undersurface of the left lobe of liver bed was confirmed. No recurrent hiatal hernia was identified. The liver was unremarkable in appearance. An 8 mm camera port was placed left lateral to the umbilicus at the epigastrium , 15 cm distal to the xiphoid. Next, 12-mm robot stapler port was placed along the right mid abdomen. An 12 mm port was exchanged along the left upper quadrant. An 8 mm port was placed on the left lateral abdominal wall under direct visualization Please note that the ports were placed 18 to 20 cm away from the target anatomy of the stomach. Care was taken to check that each robotic arm was safely away from collision with the bed or the patient. At the epigastrium, a medium sized Anselmo liver retractor was placed under direct visualization with the Iron Pipe Tester placed under the right shoulder of the patient. The patient was repositioned in reverse Trendelenburg position at 14-degrees after lowering the bed. The robot was docked over the patient. Using grasper for arm 3, a grasper for arm 1, including vessel sealer for arm 4 , the robotic system was docked and primed as described. Instruments were interchanged by the executive chef assistant including endoscissors, the needle commercial front load driver, and stapler. I had sat at the console. Next, the transverse mesocolon was reflected into the upper abdomen after dividing the mesentery and preparing for the jejunojejunostomy portion of the case. The ligament of Treitz was identified and measured 60 cm antegrade and marked using 3-0 Silk. The jejunum was divided at the 60 cm point using 45-mm white loads above the suture measurement. The biliopancreatic limb was held in place. The Crys limb was measured 100 cm in an antegrade fashion to avoid tension along the proposed gastrojejunal anastomosis. At 100 cm along the anti-mesenteric border of the Crys limb, a jejunojejunostomy was proposed whereby enterotomies were created along the biliopancreatic limb including the Crys limb using a Bovie cautery. A stay suture of 3-0 Slik was placed to align and create the anastomosis. The enterotomies along the anti-mesenteric borders were created followed by unidirectional fire from the patient's right side using 2 - 45 mm blue load Smart technology robotic stapler. The jejunojejunostomy was found to be hemostatic. The enterotomy was closed after horizontal mattress stitch of 3-0 silk used to elevate the enterotomy followed by closure with the robotic stapler blue load. The jejunal limb was temporarily tacked along the left upper quadrant. Attention was now brought to the creation of the gastrojejunostomy. Moderate perigastric adhesions of the upper pole of the stomach to the liver bed was identified. Careful and extensive lysis of adhesions over 1.5 hours was performed to release the upper pole of the stomach from the liver bed using a combination of electro Bovie cautery scissors including vessel sealer. No gastrotomy had occurred during this portion of the case. Hemostasis was excellent. Along the lesser curvature of the stomach between the second and third veins, dissection was made along the retrogastric space to allow first firing of the robotic staple. Blue loads of 45 mm staplers were used to divide the stomach to create the gastric pouch. The patient was then prepared for placement of a Orvil. The patient was Mallampati 2. A 25-mm Orvil was selected for placement by the nurse bakery sales clerk. The Orvil tubing was placed anterior to the staple line of the gastric pouch and brought out through the left inferior lateral port. I re-scrubbed into the case. The robotic arms were temporarily undocked. The Orvil was then carefully and successfully navigated with the help of the nurse bakery sales clerk into the gastric pouch. The sutures were identified and divided. The tubing was from the 25 mm anvil. As the Orvil had been placed, the blind jejunal limb was brought proximally into the upper abdomen. No torsion was found upon the Crys limb. No tension was identified as the limb was brought along the upper abdomen. The blind jejunal limb was previously opened using endo -scissors with cautery. The 25-mm EEA stapler was brought through the left anterior lateral port site from the left side. The EEA stapler was brought through the open jejunal limb and its needle was deployed at the antimesenteric border where the anvil were mated for approximately 1 minute upon firing. The stapler was removed after irrigating the shaft of the instrument with warm normal saline. Donuts were found to be intact and on both sides. Retained food of a corn was found with the anastomotic donuts. The da Aman Xi robot arms were then re-docked. I sat at the console. The open jejunal limb defect was closed using 45 mm white loads after releasing any tension from the blind jejunal limb. Care was taken to avoid any long blind limb to avoid candycane syndrome. No reinforcement sutures were placed along the gastrojejunal anastomosis. The Garcia and jejunojejunostomy mesenteric defects were obliterated by her intra- abdominal fat. I then went to the head of the bed to perform the esophagogastrojejunoscopy and a leak test. An Olympus gastroscope was passed along the posterior oropharynx which was unremarkable for any injury to the vocal cords. The scope was passed down to the proximal portion of the pouch, whereby no active bleeding was encountered. Excellent visualization of the gastrojejunostomy anastomosis, including the Crys limb was encountered with endoscopic image obtained. The anastomosis was found to be patent. Retained food consistent with corn was found in the gastric pouch. The gastrointestinal tract was desufflated. No evidence of intraoperative leak was encountered as the gastric pouch and anastomosis were submerged under normal saline solution. The robot was then undocked. I then went back to the bedside of the patient, whereby with coordinated effort of the executive chef assistant, irrigation was aspirated from the upper abdominal cavity. Tisseel was placed circumferentially over the anastomosis of the gastrojejunostomy. The fascial defect of the EEA stapler was closed using Marvin Roper and 0 Vicryl. All instruments and pneumoperitoneum were evacuated from the abdominal cavity. The port correlating with the EEA stapler device was cleansed with normal saline solution and hydrogen peroxide. The rest of incisions were reapproximated using 4-0 Monocryl in an interrupted subcuticular fashion. Local anesthetic was infiltrated along the skin for postop analgesia. Liquid glue was applied to the skin. OptiFoam dressing was placed along the EEA stapler site. At the end of the procedure, needle, sponge and instrument count had been verified correct by the surgical scheduler. She had tolerated the procedure well and was extubated and taken to the postanesthesia unit in stable condition. Intraoperative findings were described to the patient's family who were very pleased with the level of care. Console time 158 minutes Operative Findings: 1. Biliopancreatic limb 60 cm 2. Bypass performed using 100 cm crys limb secondary to avoid increased tension at 150 cm. 3. Jaquez defect and jejunojejunostomy defect obliterated by moderate intra- abdominal fat. 4. Leak test negative with gastrojejunal anastomosis patent and hemostatic. 5. No reinforcement sutures were placed along the gastrojejunal anastomosis 6. No fatty liver disease with hepatomegaly 7. History of adhesions to liver surface adding 1.5 hours of lysis of adhesions 8. Excellent intact donuts with 25 mm Orvil 9. Retained corn in stomach removed at time of anastomosis. 10. Total of 11 staple 45-mm loads, 6 blues, 5 whites 11. Severe perigastric adhesions from previous hiatal hernia repair 12. Upper endoscopy performed to confirm complete gastric pouch without gastric fistula
[2018-06-09] MEDS ORDERED: PROMETHAZINE INJ 25 MG/ML 1 ML VIAL IVPB ONE (12:25)
[2018-06-09] MEDS: HYDROmorphone 1 MG/ML 1 ML SYRINGE IVP PRN ×3 (13:40→21:09)
[2018-06-09] MEDS: oxyCODONE ER 15 MG TAB.ER.12H PO SCH ×2 (15:18→21:01)
[2018-06-09] MEDS: AMPICILLIN-SULBACTAM 3 GM in SODIUM CHLORIDE 0.9% 100 ML IVPB SCH (15:19)
[2018-06-09] MEDS: 0.9% NACL WITH KCL 20 MEQ/L 1,000 ML IV SCH ×2 (15:19→19:18)
[2018-06-09] MEDS: ALBUTEROL NEBULIZED 2.5 MG/3 ML INHALATION SCH ×2 (15:50→20:53)
[2018-06-09] MEDS: SIMETHICONE 40 MG/0.6 ML DROPS 2,000 MG/30 ML BOTTLE PO SCH (16:56)
[2018-06-09] MEDS: ACETAMINOPHEN IV (For NPO) 1,000 MG in EMPTY BAG 1 BAG IVPB SCH (16:57)
[2018-06-09] MEDS: ONDANSETRON 4 MG/2 ML VIAL IVP SCH ×2 (16:57→16:58)
[2018-06-09] MEDS: tiZANidine 4 MG TAB PO PRN (21:02)
[2018-06-09] MEDS: TOPIRAMATE 100 MG TAB PO SCH (21:03)
[2018-06-09] MEDS: PREGABALIN 100 MG CAP PO SCH (21:03)
[2018-06-09] MEDS: oxyCODONE-APAP 5-325MG 1 EACH TAB PO PRN (22:42)
[2018-06-10] MEDS: ACETAMINOPHEN IV (For NPO) 1,000 MG in EMPTY BAG 1 BAG IVPB SCH ×3 (00:15→12:33)
[2018-06-10] MEDS: SIMETHICONE 40 MG/0.6 ML DROPS 2,000 MG/30 ML BOTTLE PO SCH ×3 (00:33→13:20)
[2018-06-10] MEDS: AMPICILLIN-SULBACTAM 3 GM in SODIUM CHLORIDE 0.9% 100 ML IVPB SCH (00:34)
[2018-06-10] MEDS: HYDROmorphone 1 MG/ML 1 ML SYRINGE IVP PRN ×3 (01:33→10:10)
[2018-06-10] MEDS: 0.9% NACL WITH KCL 20 MEQ/L 1,000 ML IV SCH (01:34)
[2018-06-10] MEDS: LACTATED RINGERS 1,000 ML IV SCH (05:49)
[2018-06-10] MEDS: ONDANSETRON 4 MG/2 ML VIAL IVP SCH ×2 (05:57→12:31)
[2018-06-10] MEDS ORDERED: 0.9% NACL WITH KCL 20 MEQ/L 1,000 ML IV SCH (08:00)
[2018-06-10] MEDS: ALBUTEROL NEBULIZED 2.5 MG/3 ML INHALATION SCH ×3 (08:43→16:25)
[2018-06-10 08:50] VITALS: RESP 16
[2018-06-10] MEDS ORDERED: PANTOPRAZOLE 40 MG/10 ML VIAL IV SCH (09:00)
[2018-06-10] MEDS ORDERED: LISINOPRIL 5 MG TAB PO SCH (09:00)
[2018-06-10] MEDS ORDERED: ENOXAPARIN 40 MG/0.4 ML SYRINGE SQ SCH (09:00)
[2018-06-10 10:09] LABS: Basophils % (A) 0 %; Eosinophils # (A) 0.6 k/uL (0-0.7); Eosinophils % (A) 6 %; HCT 36.8 % (34.0-46.0); Lymphocytes # (A) 1.2 k/uL (1.0-4.8); Lymphocytes % (A) 12 %; MCH 28.6 pg (25.0-35.0); MCHC 32.7 g/dL (31.0-37.0); MCV 87.4 fL (80.0-100.0); Mean Platelet Volume 8.1; Monocytes # (A) 0.6 k/uL (0-1.0); Monocytes % (A) 5 %; Neutrophils # (A) 8.1 k/uL (1.3-7.7); Neutrophils % (A) 76 %; Platelet Count 209 k/uL (150-450); RBC 4.21 m/uL (3.80-5.40); RDW 13.7 % (11.5-15.5); WBC 10.7 k/uL (3.8-10.6)
[2018-06-10] MEDS: oxyCODONE ER 15 MG TAB.ER.12H PO SCH (10:09)
[2018-06-10 10:35] LABS: Anion Gap 8 mmol/L; Blood Urea Nitrogen 13 mg/dL (7-17); Calcium 8.1 mg/dL (8.4-10.2); Carbon Dioxide 24 mmol/L (22-30); Chloride 107 mmol/L (98-107); Magnesium 2.3 mg/dL (1.6-2.3); Phosphorus 3.2 mg/dL (2.5-4.5); Potassium 4.5 mmol/L (3.5-5.1); Sodium 139 mmol/L (137-145)
[2018-06-10] MEDS: PREGABALIN 100 MG CAP PO SCH (11:34)
[2018-06-10 11:46] VITALS: BMI 45.0
[2018-06-10] MEDS: TOPIRAMATE 100 MG TAB PO SCH (12:23)
--- NOTE | 2018-06-10 13:16 | P.DS ---
Providers Date of admission: 06/09/18 05:44 Expected date of discharge: 06/10/18 Attending physician: Vandana Hirsch Primary care physician: [facility] Course: 42-year-old female presented for gastric bypass for morbid obesity due to excess calories. Patient is status post takedown of sid fundoplication and hiatal hernia repair has a history of barrette's esophagus. Patient had completed a medical supervised weight loss program BMI was reduced from 51-44 On the day of discharge was afebrile on room air 93% sats heart rate was in the 90s surgical dressing sites benign abdomen soft surgical tenderness appropriate up ambulating in the room and in the [place] passing gas no stool urinating no difficulty patient was anxious to be discharged home Impression discharge diagnosis Morbid obesity due to excess calories BMI 46 Osteoarthritis of the hips and lower back Obstructive sleep apnea Rheumatoid arthritis kelly esophagitis History of panic disorder Psoriasis arthritis Chronic pain syndrome Status post June 09 Severe perigastric adhesions retained foreign body stomach gastric bypass for morbid obesity Upper endoscopic be performed confirmed complete gastric pouch without gastric fistula The above impression and plan of care have been discussed and directed by signing physician. Carol Ann Stovall nurse practitioner acting as scribe for signing physician. Plan - Discharge Summary Discharge Rx Participant: Yes New Discharge Prescriptions: Continue Doxepin HCl [SINEquan] 200 mg PO HS PRN MDD 200 MG PRN Reason: Insomnia Topiramate [Topamax] 100 mg PO BID DULoxetine HCL [Cymbalta] 60 mg PO HS Pregabalin [Lyrica] 200 mg PO BID tiZANidine HCL [Zanaflex] 4 mg PO TID PRN PRN Reason: Muscle Spasm oxyCODONE-APAP 5-325MG [Percocet 5-325 mg] 1 tab PO TID PRN PRN Reason: Breakthrough Pain Dextroamphetamine/Amphetamine [Adderall] 20 mg PO BID Phentermine HCl [Adipex-P] 37.5 mg PO QAM Lisinopril [Zestril] 5 mg PO QAM Albuterol Inhaler [Ventolin Hfa Inhaler] 1 - 2 puff INHALATION RT-Q6H PRN PRN Reason: Shortness Of Breath oxyCODONE HCL [OxyCONTIN] 30 mg PO Q12H Acetaminophen Tab [Tylenol] 1,000 mg PO Q6HR PRN PRN Reason: Headache Omeprazole [PriLOSEC] 40 mg PO BID Ranitidine HCl [Zantac] 150 mg PO QAM Naloxegol Oxalate [Movantik] 25 mg PO DAILY PRN PRN Reason: Constipation hydrOXYzine HCL [Atarax] 25 mg PO TID PRN PRN Reason: Allergy Symptoms Discharge Medication List DULoxetine HCL [Cymbalta] 60 mg PO HS 10/31/17 [History] Dextroamphetamine/Amphetamine [Adderall] 20 mg PO BID 10/31/17 [History] Doxepin HCl [SINEquan] 200 mg PO HS PRN MDD 200 MG 10/31/17 [History] Pregabalin [Lyrica] 200 mg PO BID 10/31/17 [History] Topiramate [Topamax] 100 mg PO BID 10/31/17 [History] oxyCODONE-APAP 5-325MG [Percocet 5-325 mg] 1 tab PO TID PRN 10/31/17 [History] tiZANidine HCL [Zanaflex] 4 mg PO TID PRN 10/31/17 [History] Albuterol Inhaler [Ventolin Hfa Inhaler] 1 - 2 puff INHALATION RT-Q6H PRN [History] Lisinopril [Zestril] 5 mg PO QAM 02/11/18 [History] Phentermine HCl [Adipex-P] 37.5 mg PO QAM 02/11/18 [History] oxyCODONE HCL [OxyCONTIN] 30 mg PO Q12H 05/28/18 [History] Acetaminophen Tab [Tylenol] 1,000 mg PO Q6HR PRN 06/02/18 [History] Naloxegol Oxalate [Movantik] 25 mg PO DAILY PRN 06/02/18 [History] Omeprazole [PriLOSEC] 40 mg PO BID 06/02/18 [History] Ranitidine HCl [Zantac] 150 mg PO QAM 06/02/18 [History] hydrOXYzine HCL [Atarax] 25 mg PO TID PRN 06/02/18 [History] Follow up Appointment(s)/Referral(s): [facility] [[facility]-STAFF] - 06/11/18 1:20 pm Discharge Disposition: HOME SELF-CARE
[2018-06-10] MEDS: tiZANidine 4 MG TAB PO PRN (14:58)
[2018-06-10] MEDS: oxyCODONE-APAP 5-325MG 1 EACH TAB PO PRN (15:07)
[2018-06-10 16:00] VITALS: BP 135/69; PULSE 93; TEMP 98.3
== END 2018-06-10 16:20 | disposition home or self-care (01) | DRG 621 ==
LOC: 2ORMAIN 05:44 → 4SSUR 11:39
PROVIDERS: ADMIT Surgery Plastic and Reconstructive Surgery; ATTEND Surgery Plastic and Reconstructive Surgery
PROC: 8E0W4CZ Robotic Assisted Procedure of Trunk Region, Percutaneous Endoscopic Approach (ICD-10-PCS; 2018-06-09)
PROC: 0DJ08ZZ Inspection of Upper Intestinal Tract, Via Natural or Artificial Opening Endoscopic (ICD-10-PCS; 2018-06-09)
PROC: 0D164ZA Bypass Stomach to Jejunum, Percutaneous Endoscopic Approach (ICD-10-PCS; principal; 2018-06-09 07:30)
DX: E66.01 Morbid (severe) obesity due to excess calories (principal); L40.50 Arthropathic psoriasis, unspecified; R16.0 Hepatomegaly, not elsewhere classified; I11.9 Hypertensive heart disease without heart failure; Z68.42 Body mass index [BMI] 45.0-49.9, adult; E78.5 Hyperlipidemia, unspecified; F32.9 Major depressive disorder, single episode, unspecified; K22.70 Barrett's esophagus without dysplasia; F41.0 Panic disorder [episodic paroxysmal anxiety]; F43.10 Post-traumatic stress disorder, unspecified; F90.9 Attention-deficit hyperactivity disorder, unspecified type; G47.33 Obstructive sleep apnea (adult) (pediatric); G89.4 Chronic pain syndrome; J45.909 Unspecified asthma, uncomplicated; K21.9 Gastro-esophageal reflux disease without esophagitis; K44.9 Diaphragmatic hernia without obstruction or gangrene; K66.0 Peritoneal adhesions (postprocedural) (postinfection); M06.9 Rheumatoid arthritis, unspecified; M16.0 Bilateral primary osteoarthritis of hip; M47.9 Spondylosis, unspecified; M79.7 Fibromyalgia; G43.909 Migraine, unspecified, not intractable, without status migrainosus; Z90.710 Acquired absence of both cervix and uterus; Z86.73 Personal history of transient ischemic attack (TIA), and cerebral infarction without residual deficits; Z90.49 Acquired absence of other specified parts of digestive tract; Z98.51 Tubal ligation status; Z79.899 Other long term (current) drug therapy; Z88.5 Allergy status to narcotic agent; Z91.030 Bee allergy status; Z91.19 Patient's noncompliance with other medical treatment and regimen; Z80.0 Family history of malignant neoplasm of digestive organs; Z80.41 Family history of malignant neoplasm of ovary; Z82.49 Family history of ischemic heart disease and other diseases of the circulatory system; Z83.3 Family history of diabetes mellitus; Z80.8 Family history of malignant neoplasm of other organs or systems
CPT/HCPCS: 80051; 82310; 82565; 83735; 84100; 84520; 85025; 86850; 86900; 86901; 94640

== ENCOUNTER 2018-06-13 12:06 | Emergency (ER) | payer MEDICARE, OTHER, BC ==
[2018-06-13 12:17] VITALS: PULSE 88; RESP 20; TEMP 97.5
[2018-06-13] MEDS ORDERED: IOPAMIDOL-300 CONTRAST 30 ML VIAL (ORAL USE) PO PRN (12:55)
[2018-06-13 13:19] LABS: Basophils % (A) 0 %; Eosinophils # (A) 0.4 k/uL (0-0.7); Eosinophils % (A) 5 %; HCT 35.8 % (34.0-46.0); HGB 11.6 gm/dL (11.4-16.0); Lymphocytes # (A) 0.6 k/uL (1.0-4.8); Lymphocytes % (A) 9 %; MCH 27.9 pg (25.0-35.0); MCHC 32.3 g/dL (31.0-37.0); MCV 86.4 fL (80.0-100.0); Mean Platelet Volume 6.9; Monocytes # (A) 0.5 k/uL (0-1.0); Monocytes % (A) 6 %; Neutrophils # (A) 5.6 k/uL (1.3-7.7); Neutrophils % (A) 77 %; Platelet Count 291 k/uL (150-450); RBC 4.14 m/uL (3.80-5.40); RDW 13.4 % (11.5-15.5); WBC 7.2 k/uL (3.8-10.6)
--- NOTE | 2018-06-13 13:23 | ED ---
General Adult HPI - General Chief complaint: Abdominal Pain Stated complaint: post op pain Source: patient, RN notes reviewed, old records reviewed Mode of arrival: ambulatory Limitations: no limitations - History of Present Illness Initial comments: 42-year-old female patient who underwent a Diann-en-Y procedure on 06/[address] Young presents to ED with abdominal pain. Patient states that she underwent the procedure on Saturday, had minimal abdominal discomfort Saturday and Saturday. she began to develop abdominal pain in her left upper quadrant, left flank. Patient has had some nausea without emesis. Patient has been passing gas, however has not had a bowel movement since the procedure Saturday. Patient denies fevers or chills. Patient denies chest pain, shortness of breath, vomiting/diarrhea, fevers chills, dysuria. Systemic: Pt denies fatigue, myalgia, fever/chills, rash. Pt denies weakness, night sweats, weight loss. Neuro: Pt denies headache, visual disturbances, syncope or pre-syncope. HEENT: Pt denies ocular discharge or irritation, otalgia, rhinorrhea, pharyngitis or notable lymphadenopathy. Cardiopulmonary: Pt denies chest pain, SOB, heart palpitations, dyspnea on exertion. : Pt denies dysuria, burning w/ urination, frequency/urgency. Denies new onset urinary or bowel incontinence. MSK: Pt denies myalgia, loss of strength or function in extremities. - Related Data Home Medications Medication Instructions Recorded Confirmed DULoxetine HCL [Cymbalta] 60 mg PO HS 10/31/17 06/13/18 Doxepin HCl [SINEquan] 200 mg PO HS PRN MDD 200 MG 10/31/17 06/13/18 Pregabalin [Lyrica] 200 mg PO BID 10/31/17 06/13/18 Topiramate [Topamax] 100 mg PO BID 10/31/17 06/13/18 oxyCODONE-APAP 5-325MG [Percocet 1 tab PO TID PRN 10/31/17 06/13/18 5-325 mg] tiZANidine HCL [Zanaflex] 4 mg PO TID PRN 10/31/17 06/13/18 Albuterol Inhaler [Ventolin Hfa 1 - 2 puff INHALATION RT-Q6H PRN 02/11/18 Inhaler] oxyCODONE HCL [OxyCONTIN] 30 mg PO Q12H 05/28/18 06/13/18 Acetaminophen Tab [Tylenol] 1,000 mg PO Q6HR PRN 06/02/18 06/13/18 Naloxegol Oxalate [Movantik] 25 mg PO DAILY PRN 06/02/18 06/13/18 Omeprazole [PriLOSEC] 40 mg PO BID 06/02/18 06/13/18 hydrOXYzine HCL [Atarax] 25 mg PO TID PRN 06/02/18 06/13/18 Docusate [Colace] 100 mg PO BID 06/13/18 06/13/18 Previous Rx's Medication Instructions Recorded Simethicone 40 mg/0.6 ml Drops 40 mg PO PCHS PRN #30 ml 06/10/18 [Mylicon Drops] Ondansetron Odt [Zofran ODT] 4 mg PO Q8HR PRN #20 tab 06/13/18 Allergies Allergy/AdvReac Type Severity Reaction Status Date / Time bee venom protein (honey bee) Allergy Unknown Anaphylaxis Verified 06/13/18 13: 29 morphine Allergy Unknown Itching Verified 06/13/18 13:29 and swelling Review of Systems ROS Statement: Those systems with pertinent positive or pertinent negative responses have been documented in the HPI. ROS Other: All systems not noted in ROS Statement are negative. Past Medical History Past Medical History: CVA/TIA, Fibromyalgia, GERD/Reflux, Hyperlipidemia, Hypertension Additional Past Medical History / Comment(s): CVA 2011, psoriasis, Shafer's Esophagus, arthritis, migraines, Psoriatic arthritis, chronic pain (Sees Dr. Frederick for pain management) precancerous throat cells, History of Any Multi-Drug Resistant Organisms: None Reported Past Surgical History: Adenoidectomy, Appendectomy, Hysterectomy, Tonsillectomy , Tubal Ligation Additional Past Surgical History / Comment(s): [place] fundolpication 1999(?), partial hysterectomy via trans-vaginal procedure (patient retained both ovaries ) take down of [place] 03-08 Past Anesthesia/Blood Transfusion Reactions: No Reported Reaction Additional Past Anesthesia/Blood Transfusion Reaction / Comment(s): No transfusion noted to date Past Psychological History: ADD/ADHD, Depression, Panic Disorder, PTSD Smoking Status: Never smoker Past Alcohol Use History: None Reported Past Drug Use History: None Reported - Past Family History Father Family Medical History: Cancer, Coronary Artery Disease (CAD) Additional Family Medical History / Comment(s): father from stomach cancer at age 51, heroin addict (struggled with addiction off and on for years after coming home from [place]) Mother Family Medical History: Cancer Additional Family Medical History / Comment(s): Mother at age 36 from Ovarian Cancer mets to brain General Exam - General Exam Comments Initial Comments: Constitutional: NAD, AOX3, Pt has pleasant affect. HEENT: NC/AT, trachea midline, neck supple, no lymphadenopathy. Posterior pharynx non erythematous, without exudates. External ears appear normal, without discharge. Mucous membranes moist. Eyes PERRLA, EOM intact. There is no scleral icterus. No pallor noted. Cardiopulmonary: RRR, no murmurs, rubs or gallops, no JVD noted. Lungs CTAB in anterior and posterior cid. No peripheral edema. Abdominal exam: Abdomen soft and non-distended. Abd mildly TTP in LUQ. Port sites appear clean, no exudate/discharge, no streaking. No echymosis, cullens/ claire burgos sign negative. Bowel sounds active in LLQ. No hepatosplenomegaly. Neuro: CN II-XII grossly intact. Limitations: no limitations Course Vital Signs 06/13/18 06/13/18 06/13/18 12:14 13:00 15:00 Temperature 97.5 F L Pulse Rate 88 Respiratory 20 Rate Blood Pressure 150/96 141/81 146/82 O2 Sat by Pulse 98 97 Oximetry Medical Decision Making - Medical Decision Making 42-year-old female patient 4 days status post Diann-en-Y procedure presented to ED with abdominal pain. Patient complains of left upper quadrant abdominal pain. Pt was administered IV fluid, pain and nausea control, underwent a abdomen /pelvis CT with oral contrast. This EKG displayed possible small bowel obstruction. Laboratory investigations were also conducted including CBC/CMP/ UA all which were nonimmpressive. The patient was initially going to be admitted and treated for a small bowel section. The patient's surgeon, Dr. Young was contacted. Dr. Young reviewed the results and felt is likely not a small bowel obstruction, rather postoperative inflammation changes. Recommended continued IV fluid rehydration, pain control and discharged. Discussed all the findings with patient at length. Patient symptoms well- controlled. Patient to be discharged and follow up with Dr. Young outpatient in 1-2 days. Patient to follow-up with PCP in 1-2 days. Pt DC with rx of zofran to use as needed. Patient to return to ED if any new signs or symptoms develop including worsening abdominal pain, nausea vomiting diarrhea, chest pain, shortness of breath or any other new symptoms. Case discussed with Dr. Kdid. - Lab Data Result diagrams: 06/13/18 12:47 06/13/18 12:47 Lab Results 06/13/18 06/13/18 06/13/18 Range/Units 12:47 12:47 12:47 WBC 7.2 (3.8-10.6) k/uL RBC 4.14 (3.80-5.40) m/uL Hgb 11.6 (11.4-16.0) gm/dL Hct 35.8 (34.0-46.0) % MCV 86.4 (80.0-100.0) fL MCH 27.9 (25.0-35.0) pg MCHC 32.3 (31.0-37.0) g/dL RDW 13.4 (11.5-15.5) % Plt Count 291 (150-450) k/uL Neutrophils % 77 % Lymphocytes % 9 % Monocytes % 6 % Eosinophils % 5 % Basophils % 0 % Neutrophils # 5.6 (1.3-7.7) k/uL Lymphocytes # 0.6 L (1.0-4.8) k/uL Monocytes # 0.5 (0-1.0) k/uL Eosinophils # 0.4 (0-0.7) k/uL Basophils # 0.0 (0-0.2) k/uL Sodium 137 (137-145) mmol/L Potassium 4.4 (3.5-5.1) mmol/L Chloride 103 (98-107) mmol/L Carbon Dioxide 23 (22-30) mmol/L Anion Gap 11 mmol/L BUN 10 (7-17) mg/dL Creatinine 0.75 (0.52-1.04) mg/dL Est GFR (CKD-EPI)AfAm >90 (>60 ml/min/1.73 sqM) Est GFR (CKD-EPI)NonAf >90 (>60 ml/min/1.73 sqM) Glucose 95 (74-99) mg/dL Calcium 8.7 (8.4-10.2) mg/dL Total Bilirubin 0.6 (0.2-1.3) mg/dL AST 16 (14-36) U/L ALT 27 (9-52) U/L Alkaline Phosphatase 219 H (38-126) U/L Total Protein 6.1 L (6.3-8.2) g/dL Albumin 3.3 L (3.5-5.0) g/dL Lipase 82 (23-300) U/L Urine Color Urine Appearance (Clear) Urine pH (5.0-8.0) Ur Specific [place] (1.001-1.035) Urine Protein (Negative) Urine Glucose (UA) (Negative) Urine Ketones (Negative) Urine Blood (Negative) Urine Nitrite (Negative) Urine Bilirubin (Negative) Urine Urobilinogen (<2.0) mg/dL Ur Leukocyte Esterase (Negative) Urine RBC (0-5) /hpf Urine WBC (0-5) /hpf Ur Squamous Epith Cells (0-4) /hpf Urine Mucus (None) /hpf Urine HCG, Qual Not Detected (Not Detectd) 06/13/18 Range/Units 12:47 WBC (3.8-10.6) k/uL RBC (3.80-5.40) m/uL Hgb (11.4-16.0) gm/dL Hct (34.0-46.0) % MCV (80.0-100.0) fL MCH (25.0-35.0) pg MCHC (31.0-37.0) g/dL RDW (11.5-15.5) % Plt Count (150-450) k/uL Neutrophils % % Lymphocytes % % Monocytes % % Eosinophils % % Basophils % % Neutrophils # (1.3-7.7) k/uL Lymphocytes # (1.0-4.8) k/uL Monocytes # (0-1.0) k/uL Eosinophils # (0-0.7) k/uL Basophils # (0-0.2) k/uL Sodium (137-145) mmol/L Potassium (3.5-5.1) mmol/L Chloride (98-107) mmol/L Carbon Dioxide (22-30) mmol/L Anion Gap mmol/L BUN (7-17) mg/dL Creatinine (0.52-1.04) mg/dL Est GFR (CKD-EPI)AfAm (>60 ml/min/1.73 sqM) Est GFR (CKD-EPI)NonAf (>60 ml/min/1.73 sqM) Glucose (74-99) mg/dL Calcium (8.4-10.2) mg/dL Total Bilirubin (0.2-1.3) mg/dL AST (14-36) U/L ALT (9-52) U/L Alkaline Phosphatase (38-126) U/L Total Protein (6.3-8.2) g/dL Albumin (3.5-5.0) g/dL Lipase (23-300) U/L Urine Color Yellow Urine Appearance Clear (Clear) Urine pH 5.5 (5.0-8.0) Ur Specific [place] 1.012 (1.001-1.035) Urine Protein Negative (Negative) Urine Glucose (UA) Negative (Negative) Urine Ketones 3+ H (Negative) Urine Blood Small H (Negative) Urine Nitrite Negative (Negative) Urine Bilirubin Negative (Negative) Urine Urobilinogen <2.0 (<2.0) mg/dL Ur Leukocyte Esterase Negative (Negative) Urine RBC 2 (0-5) /hpf Urine WBC 1 (0-5) /hpf Ur Squamous Epith Cells 5 H (0-4) /hpf Urine Mucus Rare H (None) /hpf Urine HCG, Qual (Not Detectd) Disposition Clinical Impression: Post-operative pain Disposition: HOME SELF-CARE Condition: Good Instructions: Bowel Management After Bariatric Surgery (DC) Additional Instructions: Patient to adhere to previously discussed treatment plan and will take medication(s) as directed. Patient to follow up with PCP in 1-2 days. Patient to return to ED if symptoms do not improve. Prescriptions: Ondansetron Odt [Zofran ODT] 4 mg PO Q8HR PRN #20 tab PRN Reason: Nausea Is patient prescribed a controlled substance at d/c from ED?: No Referrals: Josh Li MD [Primary Care Provider] - 1-2 days Vandana Hirsch MD [STAFF PHYSICIAN] - 1-2 days Time of Disposition: 17:56
[2018-06-13 13:24] LABS: ALT 27 U/L (9-52); AST 16 U/L (14-36); Albumin 3.3 g/dL (3.5-5.0); Alkaline Phosphatase 219 U/L (38-126); Anion Gap 11 mmol/L; Blood Urea Nitrogen 10 mg/dL (7-17); Calcium 8.7 mg/dL (8.4-10.2); Carbon Dioxide 23 mmol/L (22-30); Chloride 103 mmol/L (98-107); Glucose 95 mg/dL (74-99); Lipase 82 U/L (23-300); Potassium 4.4 mmol/L (3.5-5.1); Sodium 137 mmol/L (137-145); Total Bilirubin 0.6 mg/dL (0.2-1.3); Total Protein 6.1 g/dL (6.3-8.2)
[2018-06-13 13:29] LABS: Appearance,Urine Clear (Clear); Bilirubin,Urine Negative (Negative); Blood,Urine Small (Negative); Color,Urine Yellow; Glucose,Urine (UA) Negative (Negative); Ketones,Urine 3+ (Negative); Leukocyte Esterase,Urine Negative (Negative); Mucus,Urine Rare /hpf; Nitrite,Urine Negative (Negative); PH, Urine 5.5 (5.0-8.0); Protein,Urine Negative (Negative); RBC,Urine 2 /hpf (0-5); Specific Gravity,Urine 1.012 (1.001-1.035); Squamous Epithelial Cell,Urine 5 /hpf (0-4); Urobilinogen,Urine <2.0 mg/dL (<2.0)
[2018-06-13] MEDS ORDERED: HYDROmorphone 1 MG/ML 1 ML SYRINGE IVP STA (14:08)
[2018-06-13] MEDS ORDERED: ONDANSETRON 4 MG/2 ML VIAL IVP STA (14:08)
--- NOTE | 2018-06-13 14:25 | CT ---
EXAMINATION TYPE: CT ChestAbdPelvis w con DATE OF EXAM: 06/13/2018 COMPARISON: NONE HISTORY: Patient complains of periincisional pain. [address] DLP: 2190.2 mGycm. Automated Exposure Control for Dose Reduction was Utilized. CONTRAST: CT scan of the thorax, abdomen and pelvis is performed with IV Contrast, patient injected with 100 mL of Isovue 300. FINDINGS: LUNGS: There are trace pleural effusions and multifocal bilateral subsegmental atelectasis, left grea ter than right. Lungs are suboptimally evaluated for subcentimeter pulmonary nodule given extensive r espiratory motion. MEDIASTINUM: There are no greater than 1 cm hilar or mediastinal lymph nodes. No pericardial effusi on is seen. LIVER/GB: Too small to accurately characterize hepatic dome hypoattenuated lesion measures 3 mm on se yary 201 image 27. Remainder the liver is grossly unremarkable. No cholelithiasis. PANCREAS: No significant abnormality is seen. SPLEEN: No significant abnormality is seen. ADRENALS: No nodularity or thickening. KIDNEYS: Kidneys enhance symmetrically without hydronephrosis. BOWEL: Postsurgical changes are seen from a partial gastrectomy and takedown of a prior Abiel fundop lication. Within the left mid abdomen deep to the incisional site there is focal dilation of small marti wel loops with small bowel feces sign indicative of delayed transit. These bowel loops measure up to 3.7 cm. Bowel dilatation is best seen on coronal series 202 image 36 as small bowel loops stacked upo n one another. There is slight narrowing at the anastomotic site and decompression of bowel loops dis kita to this. Mild perienteric fat stranding is seen surrounding these bowel loops. Small amount of as cites is also noted around the right hemicolon and within the pelvis. Pneumoperitoneum is likely post surgical. Subcutaneous air is also likely postsurgical. Minimal anasarca is also present. LYMPH NODES: No greater than 1cm abdominal or pelvic lymph nodes are appreciated. OSSEOUS STRUCTURES: No significant abnormality is seen. OTHER: No circumscribed subcutaneous fluid collection is seen to suggest abscess. IMPRESSION: 1. Dilated loops of clustered small bowel in the left mid abdomen just proximal to a small bowel anas tomotic site with decompressed loops of small bowel distal to the anastomotic site suggestive of inco mplete or early complete small bowel obstruction. Obstruction could be on the basis of postsurgical e peterson at the anastomotic site or stenosis. Pneumoperitoneum is likely postsurgical. 2. Trace pleural effusions and bibasilar subsegmental atelectasis, left greater than right.
[2018-06-13] MEDS ORDERED: ONDANSETRON 4 MG/2 ML VIAL IVP PRN (15:24)
[2018-06-13] MEDS ORDERED: HYDROmorphone 1 MG/ML 1 ML SYRINGE IVP PRN (15:24)
[2018-06-13] MEDS ORDERED: NALOXONE 0.4 MG/ML 1 ML VIAL IV PRN (15:24)
[2018-06-13] MEDS ORDERED: SODIUM CHLORIDE 0.9% 1,000 ML IV STA ×2 (15:33)
[2018-06-13 15:43] VITALS: BP 146/82
== END 2018-06-13 18:47 | disposition home or self-care (01) ==
LOC: EC 12:06
DX: G89.18 Other acute postprocedural pain (principal); R10.12 Left upper quadrant pain; R11.0 Nausea; M79.7 Fibromyalgia; K21.9 Gastro-esophageal reflux disease without esophagitis; E78.5 Hyperlipidemia, unspecified; I10 Essential (primary) hypertension; G43.909 Migraine, unspecified, not intractable, without status migrainosus; F41.0 Panic disorder [episodic paroxysmal anxiety]; F90.9 Attention-deficit hyperactivity disorder, unspecified type; F43.10 Post-traumatic stress disorder, unspecified; Z86.73 Personal history of transient ischemic attack (TIA), and cerebral infarction without residual deficits; Z79.891 Long term (current) use of opiate analgesic; Z79.899 Other long term (current) drug therapy; Z91.030 Bee allergy status; Z88.5 Allergy status to narcotic agent; Z98.84 Bariatric surgery status
CPT/HCPCS: 36415; 80053; 83690; 85025; 81001; 81025; 71260; 74177; 99284; 96374; 96375; 96361 ×3; J2405; J1170; Q9967

== ENCOUNTER → 2018-06-16 | Outpatient (CLI) | payer BC, MEDICARE, OTHER ==
[~2018-06-16] MED LIST changes: -DEXAMETHASONE SOD PHOSPHATE 10 MG/ML 1 ML VIAL IV ONE; -MIDAZOLAM 2 MG/2 ML VIAL IV PRN; +ONDANSETRON 4 MG/2 ML VIAL IM STA; -SCOPOLAMINE 1.5MG/72HR PATCH TRANSDERM ONE; +SODIUM CHLORIDE 0.9% 2,000 ML IV ONE; -fentaNYL (PF) 50 MCG/ML 2 ML AMP IV PRN
[2018-06-16] MEDS: SODIUM CHLORIDE 0.9% 1,000 ML IV SCH ×2 (08:45→09:50)
[2018-06-16 08:59] VITALS: RESP 18
[2018-06-16 11:42] VITALS: BP 135/82; PULSE 86; TEMP 97.9; BMI 61.9
== END ==
LOC: BARWHC3 08:47
PROVIDERS: ATTEND Surgery Plastic and Reconstructive Surgery
DX: E86.0 Dehydration (principal)
CPT/HCPCS: 99211; 96360; 96361; 96375; J2405

== ENCOUNTER 2018-06-19 20:22 | Observation (INO) | payer BC, MEDICARE, OTHER ==
--- NOTE | 2018-06-19 21:04 | ED ---
General Adult HPI - General Chief complaint: Abdominal Pain Stated complaint: CHEST PAIN Time Seen by Provider: 06/19/18 20:39 Source: patient, RN notes reviewed Mode of arrival: ambulatory Limitations: no limitations - History of Present Illness Initial comments: 42-year-old female presents to the emergency department for a chief complaint of nausea and vomiting 10 days. Patient had a Diann-en-Y procedure performed by Dr. Young on 06/09. Patient states at that time she has had some mild upper abdominal pain as well as significant nausea and vomiting. Patient states she feels she is unable to keep any solids or liquids down. She states she is vomiting over 10 times daily. Patient is having bowel movements and flatulence. She last had a bowel movement earlier today. She states she has been seen multiple times in the clinic as well as one time in the emergency department without relief of symptoms. Patient states that she cannot "take it anymore." Patient has no other complaints at this time including shortness of breath, chest pain, headache, or visual changes. - Related Data Home Medications Medication Instructions Recorded Confirmed DULoxetine HCL [Cymbalta] 60 mg PO HS 10/31/17 06/19/18 Doxepin HCl [SINEquan] 200 mg PO HS PRN MDD 200 MG 10/31/17 06/19/18 Pregabalin [Lyrica] 200 mg PO BID 10/31/17 06/19/18 Topiramate [Topamax] 100 mg PO BID 10/31/17 06/19/18 tiZANidine HCL [Zanaflex] 4 mg PO TID PRN 10/31/17 06/19/18 Acetaminophen Tab [Tylenol] 1,000 mg PO Q6HR PRN 06/02/18 06/19/18 Naloxegol Oxalate [Movantik] 25 mg PO DAILY PRN 06/02/18 06/19/18 Omeprazole [PriLOSEC] 40 mg PO BID 06/02/18 06/19/18 hydrOXYzine HCL [Atarax] 25 mg PO TID PRN 06/02/18 06/19/18 Docusate [Colace] 100 mg PO BID PRN 06/13/18 06/19/18 oxyCODONE-APAP 10-325MG [Percocet 1 tab PO TID 06/19/18 06/19/18 10-325 mg] Previous Rx's Medication Instructions Recorded Simethicone 40 mg/0.6 ml Drops 40 mg PO PCHS PRN #30 ml 06/10/18 [Mylicon Drops] Ondansetron Odt [Zofran ODT] 4 mg PO Q8HR PRN #20 tab 06/13/18 Allergies Allergy/AdvReac Type Severity Reaction Status Date / Time bee venom protein (honey bee) Allergy Unknown Anaphylaxis Verified 06/19/18 21: 05 morphine Allergy Unknown Itching Verified 06/19/18 21:05 and swelling Review of Systems ROS Statement: Those systems with pertinent positive or pertinent negative responses have been documented in the HPI. ROS Other: All systems not noted in ROS Statement are negative. Past Medical History Past Medical History: CVA/TIA, Fibromyalgia, GERD/Reflux, Hyperlipidemia, Hypertension Additional Past Medical History / Comment(s): CVA 2012, psoriasis, Shafer's Esophagus, arthritis, migraines, Psoriatic arthritis, chronic pain (Sees Dr. Frederick for pain management) precancerous throat cells, History of Any Multi-Drug Resistant Organisms: None Reported Past Surgical History: Adenoidectomy, Appendectomy, Bariatric Surgery, Hysterectomy, Tonsillectomy, Tubal Ligation Additional Past Surgical History / Comment(s): [place] fundolpication 1999(?), partial hysterectomy via trans-vaginal procedure (patient retained both ovaries ) take down of [place] 03-08 gastric bypass 06-09-18 Past Anesthesia/Blood Transfusion Reactions: No Reported Reaction Additional Past Anesthesia/Blood Transfusion Reaction / Comment(s): No transfusion noted to date Past Psychological History: ADD/ADHD, Depression, Panic Disorder, PTSD Smoking Status: Never smoker Past Alcohol Use History: None Reported Past Drug Use History: None Reported - Past Family History Father Family Medical History: Cancer, Coronary Artery Disease (CAD) Additional Family Medical History / Comment(s): father from stomach cancer at age 51, heroin addict (struggled with addiction off and on for years after coming home from [place]) Mother Family Medical History: Cancer Additional Family Medical History / Comment(s): Mother at age 36 from Ovarian Cancer mets to brain General Exam Limitations: no limitations General appearance: alert, in no apparent distress Head exam: Present: atraumatic, normocephalic, normal inspection Eye exam: Present: normal appearance, PERRL, EOMI. Absent: scleral icterus, conjunctival injection, periorbital swelling ENT exam: Present: normal exam, mucous membranes moist Neck exam: Present: normal inspection, full ROM. Absent: tenderness, meningismus, lymphadenopathy Respiratory exam: Present: normal lung sounds bilaterally. Absent: respiratory distress, wheezes, rales, rhonchi, stridor Cardiovascular Exam: Present: regular rate, normal rhythm, normal heart sounds. Absent: systolic murmur, diastolic murmur, rubs, gallop, clicks GI/Abdominal exam: Present: soft, tenderness (generalized abominal tenderness), normal bowel sounds. Absent: distended, guarding, rebound, rigid Neurological exam: Present: alert, oriented X3, CN II-XII intact Psychiatric exam: Present: normal affect, normal mood Course Vital Signs 06/19/18 06/19/18 20:26 22:35 Temperature 98.5 F Pulse Rate 73 85 Respiratory 18 18 Rate Blood Pressure 183/103 183/83 O2 Sat by Pulse 97 100 Oximetry Medical Decision Making - Medical Decision Making 42-year-old female with gastric bypass performed on 06/09 presents with persistent nausea vomiting and abdominal pain. Patient states this has been ongoing since the surgery. She has been evaluated multiple times for this. On exam patient has generalized abdominal tenderness without guarding. Incisions do not appear infected. Computed tomography scan from 6 days ago showed possible small bowel obstruction. However today patient is having bowel movements and passing gas without difficulty. Abdominal series did not show any evidence of obstruction. CBC and CMP unremarkable. However lipase is elevated to 605. Lipase was 82 6 days ago. Patient will be admitted for acute pancreatitis. She will be kept nothing by mouth and pain will be controlled. - Lab Data Result diagrams: 06/19/18 20:48 06/19/18 20:48 Lab Results 06/19/18 06/19/18 06/19/18 Range/Units 20:48 20:48 20:48 WBC 10.0 (3.8-10.6) k/uL RBC 4.88 (3.80-5.40) m/uL Hgb 13.3 (11.4-16.0) gm/dL Hct 40.3 (34.0-46.0) % MCV 82.5 (80.0-100.0) fL MCH 27.2 (25.0-35.0) pg MCHC 32.9 (31.0-37.0) g/dL RDW 13.3 (11.5-15.5) % Plt Count 380 (150-450) k/uL Neutrophils % 82 % Lymphocytes % 11 % Monocytes % 5 % Eosinophils % 0 % Basophils % 0 % Neutrophils # 8.2 H (1.3-7.7) k/uL Lymphocytes # 1.1 (1.0-4.8) k/uL Monocytes # 0.5 (0-1.0) k/uL Eosinophils # 0.0 (0-0.7) k/uL Basophils # 0.0 (0-0.2) k/uL Sodium 137 (137-145) mmol/L Potassium 4.4 (3.5-5.1) mmol/L Chloride 102 (98-107) mmol/L Carbon Dioxide 20 L (22-30) mmol/L Anion Gap 15 mmol/L BUN 11 (7-17) mg/dL Creatinine 0.59 (0.52-1.04) mg/dL Est GFR (CKD-EPI)AfAm >90 (>60 ml/min/1.73 sqM) Est GFR (CKD-EPI)NonAf >90 (>60 ml/min/1.73 sqM) Glucose 88 (74-99) mg/dL Calcium 9.1 (8.4-10.2) mg/dL Total Bilirubin 0.7 (0.2-1.3) mg/dL AST 19 (14-36) U/L ALT 33 (9-52) U/L Alkaline Phosphatase 118 (38-126) U/L Total Protein 6.9 (6.3-8.2) g/dL Albumin 4.0 (3.5-5.0) g/dL Amylase 85 (30-110) U/L Lipase 605 H (23-300) U/L Urine Color Light Yellow Urine Appearance Cloudy H (Clear) Urine pH 5.5 (5.0-8.0) Ur Specific [place] 1.014 (1.001-1.035) Urine Protein 1+ H (Negative) Urine Glucose (UA) Negative (Negative) Urine Ketones 4+ H (Negative) Urine Blood Small H (Negative) Urine Nitrite Negative (Negative) Urine Bilirubin Negative (Negative) Urine Urobilinogen <2.0 (<2.0) mg/dL Ur Leukocyte Esterase Negative (Negative) Urine RBC 1 (0-5) /hpf Urine WBC 3 (0-5) /hpf Ur Squamous Epith Cells 6 H (0-4) /hpf Amorphous Sediment Rare H (None) /hpf Urine Bacteria Rare H (None) /hpf Hyaline Casts 1 (0-2) /lpf Urine Mucus Rare H (None) /hpf Disposition Clinical Impression: Pancreatitis, History of gastric bypass Disposition: ADMITTED IP TO THIS HOSP Condition: Good Is patient prescribed a controlled substance at d/c from ED?: No Referrals: Josh Li MD [Primary Care Provider] - 1-2 days Time of Disposition: 22:54
[2018-06-19] MEDS ORDERED: ONDANSETRON 4 MG/2 ML VIAL IVP STA (21:29)
[2018-06-19] MEDS ORDERED: SODIUM CHLORIDE 0.9% 1,000 ML IV STA ×2 (21:29→22:59)
--- NOTE | 2018-06-19 22:05 | XR ---
EXAMINATION TYPE: XR abdomen acute w cxr DATE OF EXAM: 06/19/2018 COMPARISON: 03/28/2018 HISTORY: Abdominal pain TECHNIQUE: Chest x-ray with supine and upright abdomen FINDINGS: There is no heart failure nor confluent pneumonic infiltrate. Costophrenic angles are clear. Heart an d mediastinum are normal. Bowel gas pattern is normal. There is no sign of intestinal obstruction or pneumoperitoneum. Fecal pa ttern is normal. There are no pathologic calcifications. IMPRESSION: Nonacute abdomen. Normal chest. Abdomen unchanged.
[2018-06-19 22:22] LABS: Basophils % (A) 0 %; Eosinophils % (A) 0 %; HCT 40.3 % (34.0-46.0); HGB 13.3 gm/dL (11.4-16.0); Lymphocytes # (A) 1.1 k/uL (1.0-4.8); Lymphocytes % (A) 11 %; MCH 27.2 pg (25.0-35.0); MCHC 32.9 g/dL (31.0-37.0); MCV 82.5 fL (80.0-100.0); Mean Platelet Volume 7.1; Monocytes # (A) 0.5 k/uL (0-1.0); Monocytes % (A) 5 %; Neutrophils # (A) 8.2 k/uL (1.3-7.7); Neutrophils % (A) 82 %; Platelet Count 380 k/uL (150-450); RBC 4.88 m/uL (3.80-5.40); RDW 13.3 % (11.5-15.5)
[2018-06-19] MEDS ORDERED: HYDROmorphone 1 MG/ML 1 ML SYRINGE IVP STA (22:22)
[2018-06-19 22:23] LABS: ALT 33 U/L (9-52); AST 19 U/L (14-36); Alkaline Phosphatase 118 U/L (38-126); Amylase 85 U/L (30-110); Anion Gap 15 mmol/L; Blood Urea Nitrogen 11 mg/dL (7-17); Calcium 9.1 mg/dL (8.4-10.2); Carbon Dioxide 20 mmol/L (22-30); Chloride 102 mmol/L (98-107); Glucose 88 mg/dL (74-99); Lipase 605 U/L (23-300); Potassium 4.4 mmol/L (3.5-5.1); Sodium 137 mmol/L (137-145); Total Bilirubin 0.7 mg/dL (0.2-1.3); Total Protein 6.9 g/dL (6.3-8.2)
[2018-06-19 22:28] LABS: Amorphous Sediment,Urine Rare /hpf; Appearance,Urine Cloudy (Clear); Bacteria,Urine Rare /hpf; Bilirubin,Urine Negative (Negative); Blood,Urine Small (Negative); Color,Urine Light Yellow; Glucose,Urine (UA) Negative (Negative); Hyaline Casts,Urine 1 /lpf (0-2); Ketones,Urine 4+ (Negative); Leukocyte Esterase,Urine Negative (Negative); Mucus,Urine Rare /hpf; Nitrite,Urine Negative (Negative); PH, Urine 5.5 (5.0-8.0); Protein,Urine 1+ (Negative); RBC,Urine 1 /hpf (0-5); Specific Gravity,Urine 1.014 (1.001-1.035); Squamous Epithelial Cell,Urine 6 /hpf (0-4); Urobilinogen,Urine <2.0 mg/dL (<2.0); WBC,Urine 3 /hpf (0-5)
[2018-06-19] MEDS ORDERED: NALOXONE 0.4 MG/ML 1 ML VIAL IV PRN (23:00)
[2018-06-19] MEDS ORDERED: ONDANSETRON 4 MG/2 ML VIAL IVP PRN (23:00)
[2018-06-19] MEDS ORDERED: HYDROmorphone 1 MG/ML 1 ML SYRINGE IVP PRN (23:00)
[2018-06-19] MEDS: SODIUM CHLORIDE 0.9% 1,000 ML IV SCH (23:14)
[2018-06-20] MEDS ORDERED: IOPAMIDOL-300 CONTRAST 30 ML VIAL (ORAL USE) PO PRN (00:38)
[2018-06-20] MEDS: METOCLOPRAMIDE 5 MG/ML 2 ML VIAL IVP PRN ×3 (01:18→17:39)
[2018-06-20] MEDS: SODIUM CHLORIDE 0.9% 1,000 ML IV SCH ×2 (01:18→17:44)
[2018-06-20] MEDS: HYDROmorphone 1 MG/ML 1 ML SYRINGE IVP PRN ×6 (01:23→22:22)
--- NOTE | 2018-06-20 03:52 | CT ---
EXAMINATION TYPE: CT abdomen pelvis w con DATE OF EXAM: 06/20/2018 COMPARISON: 06/13/2018 HISTORY: abdominal pain post abdominal surgery x11 days ago CT DLP: 1608.7 mGycm Automated exposure control for dose reduction was used. TECHNIQUE: Helical acquisition of images was performed from the lung bases through the pelvis. CONTRAST: Performed with Oral Contrast and with IV Contrast, patient injected with 100mL mL of Isovue 300. FINDINGS: Lung bases are clear. There is no pleural effusion. Heart size is normal. Liver shows no focal defect. Gallbladder is large. Bile ducts are not dilated. There are surgical cli ps around the stomach. Spleen appears normal. There is no pancreatic mass. There is no adrenal mass. Kidneys show satisfactory contrast opacification. There is no hydronephrosis. There is 2 mm calculus lower pole right kidney. There is no retroperitoneal adenopathy. There is no ascites. Bladder distend s smoothly. There is fat stranding on the anterior abdominal wall and subcutaneous tissues consistent with recent surgery. There is subcutaneous air over the lower anterior abdomen. There is probably a small pneumoperitoneum with air anterior to the left lobe of the liver. There is no free fluid in the abdomen. There are small bowel surgical clips in the left upper quadrant. I see no bony destructive process. Lumbar spine is intact. Bony pelvis appears intact. There is no evidence of inguinal hernia. There are some mildly distended fluid-filled loops of small bowel in the upper abdomen that measure up to 3.1 cm. IMPRESSION: THERE IS VERY SMALL PNEUMOPERITONEUM THAT IS SLIGHTLY SMALLER THAN LAST CT SCAN. THERE IS SIGNIFICAN T IMPROVED AERATION OF THE LUNG BASES AND CLEARING OF THE ATELECTASIS AND PLEURAL FLUID COMPARED TO L AST EXAM. NO FREE FLUID. NO EVIDENCE OF AN ABSCESS. There is less small bowel distention than last ex am that suggests improving small bowel ileus. I do not think there is a mechanical small bowel obstru ction.
[2018-06-20] MEDS: ONDANSETRON 4 MG/2 ML VIAL IVP PRN ×3 (05:55→22:26)
[2018-06-20 07:45] LABS: Basophils # (A) 0.1 k/uL (0-0.2); Basophils % (A) 0 %; Eosinophils # (A) 0.1 k/uL (0-0.7); Eosinophils % (A) 1 %; HCT 39.3 % (34.0-46.0); HGB 13.5 gm/dL (11.4-16.0); Lymphocytes # (A) 2.9 k/uL (1.0-4.8); Lymphocytes % (A) 21 %; MCH 28.3 pg (25.0-35.0); MCHC 34.3 g/dL (31.0-37.0); MCV 82.5 fL (80.0-100.0); Mean Platelet Volume 7.1; Monocytes # (A) 0.7 k/uL (0-1.0); Monocytes % (A) 5 %; Neutrophils # (A) 9.6 k/uL (1.3-7.7); Neutrophils % (A) 71 %; Platelet Count 452 k/uL (150-450); RBC 4.76 m/uL (3.80-5.40); RDW 13.4 % (11.5-15.5); WBC 13.6 k/uL (3.8-10.6)
[2018-06-20 07:53] LABS: ALT 20 U/L (9-52); AST 16 U/L (14-36); Albumin 3.8 g/dL (3.5-5.0); Alkaline Phosphatase 121 U/L (38-126); Amylase 95 U/L (30-110); Anion Gap 16 mmol/L; Blood Urea Nitrogen 7 mg/dL (7-17); Calcium 9.2 mg/dL (8.4-10.2); Carbon Dioxide 17 mmol/L (22-30); Chloride 108 mmol/L (98-107); Glucose 82 mg/dL (74-99); Lipase 706 U/L (23-300); Potassium 4.4 mmol/L (3.5-5.1); Sodium 141 mmol/L (137-145); Total Bilirubin 0.5 mg/dL (0.2-1.3); Total Protein 6.9 g/dL (6.3-8.2)
[2018-06-20] MEDS ORDERED: DOXEPIN 25 MG CAP PO PRN (15:52)
[2018-06-20] MEDS ORDERED: Naloxegol Oxalate [Movantik] 25 MG PO PRN (15:52)
--- NOTE | 2018-06-20 16:48 | US ---
EXAMINATION TYPE: US gallbladder DATE OF EXAM: 06/20/2018 COMPARISON: Ultrasound 11/08/2017 CLINICAL HISTORY: gallstones. Gastric bypass on 06/09/2018. Patient states she has been feeling sick since her surgery. EXAM MEASUREMENTS: Liver Length: 16.7 cm Gallbladder Wall: 0.1 cm CHD: 0.7 cm Right Kidney: 9.8 x 5.2 x 4.1 cm Pancreas: Appears echogenic in appearance. Body and tail not well visualized due to overlying bowel gas. Distal common bile duct cannot be visualized due to overlying bowel gas. Liver: wnl Gallbladder: Biliary sludge, including tiny mobile echogenic dots are seen to occupy 75% of the lume n of the mildly distended gallbladder. The gallbladder was not distended on the prior study of 018. There is no gallbladder wall thickening, and no gallbladder wall heterogeneity. No pericholecyst ic fluid. Evidence for sonographic Milton's sign: neg CBD: Mildly dilated in caliber at 7 mm. Top normal for common duct caliber is 6 mm caliber for this age group - and the common duct was 4 mm caliber on the comparison US study. Distal common bile duct cannot be visualized due to overlying bowel gas. Right Kidney: wnl IMPRESSION: 1) Biliary sludge occupying 75 % of the mildly distended gallbladder. Overall, study is negative fo r sonographic cholecystitis. 2) Mildly dilated common duct caliber.
[2018-06-20] MEDS: PANTOPRAZOLE 40 MG TABLET PO SCH (17:39)
[2018-06-20] MEDS: oxyCODONE-APAP 10-325MG 1 EACH TAB PO SCH ×2 (17:39→22:28)
[2018-06-20] MEDS: PREGABALIN 100 MG CAP PO SCH (17:39)
--- NOTE | 2018-06-20 19:26 | P.GSHP ---
History of Present Illness H&P Date: 06/20/18 Has pancreatitis. ultrasound obtained now confirming gallstones. Intractable nausea and vomiting resolved with IV fluids, change in medication, and reglan. Start bariatric clears. Outpatient cholecystectomy with low fat diet. Past Medical History Past Medical History: CVA/TIA, Fibromyalgia, GERD/Reflux, Hyperlipidemia, Hypertension Additional Past Medical History / Comment(s): CVA 2011, psoriasis, Shafer's Esophagus, arthritis, migraines, Psoriatic arthritis, chronic pain (Sees Dr. Frederick for pain management) precancerous throat cells, History of Any Multi-Drug Resistant Organisms: None Reported Past Surgical History: Adenoidectomy, Appendectomy, Bariatric Surgery, Hysterectomy, Tonsillectomy, Tubal Ligation Additional Past Surgical History / Comment(s): Mendez fundolpication 1999(?), partial hysterectomy via trans-vaginal procedure (patient retained both ovaries ) take down of mendez 03-08 gastric bypass 06-09-18 Past Anesthesia/Blood Transfusion Reactions: No Reported Reaction Additional Past Anesthesia/Blood Transfusion Reaction / Comment(s): No transfusion noted to date Past Psychological History: ADD/ADHD, Depression, Panic Disorder, PTSD Smoking Status: Never smoker Past Alcohol Use History: None Reported Past Drug Use History: None Reported - Past Family History Father Family Medical History: Cancer, Coronary Artery Disease (CAD) Additional Family Medical History / Comment(s): father from stomach cancer at age 51, heroin addict (struggled with addiction off and on for years after coming home from [place]) Mother Family Medical History: Cancer Additional Family Medical History / Comment(s): Mother at age 36 from Ovarian Cancer mets to brain Medications and Allergies Home Medications Medication Instructions Recorded Confirmed Type DULoxetine HCL [Cymbalta] 60 mg PO HS 10/31/17 06/19/18 History Doxepin HCl [SINEquan] 200 mg PO HS PRN MDD 200 MG 10/31/17 06/19/18 History Pregabalin [Lyrica] 200 mg PO BID 10/31/17 06/19/18 History Topiramate [Topamax] 100 mg PO BID 10/31/17 06/19/18 History tiZANidine HCL [Zanaflex] 4 mg PO TID PRN 10/31/17 06/19/18 History Acetaminophen Tab [Tylenol] 1,000 mg PO Q6HR PRN 06/02/18 06/19/18 History Naloxegol Oxalate [Movantik] 25 mg PO DAILY PRN 06/02/18 06/19/18 History Omeprazole [PriLOSEC] 40 mg PO BID 06/02/18 06/19/18 History hydrOXYzine HCL [Atarax] 25 mg PO TID PRN 06/02/18 06/19/18 History Simethicone 40 mg/0.6 ml Drops 40 mg PO PCHS PRN #30 ml 06/10/18 06/19/18 Rx [Mylicon Drops] Docusate [Colace] 100 mg PO BID PRN 06/13/18 06/19/18 History Ondansetron Odt [Zofran ODT] 4 mg PO Q8HR PRN #20 tab 06/13/18 06/19/18 Rx oxyCODONE-APAP 10-325MG [Percocet 1 tab PO TID 06/19/18 06/19/18 History 10-325 mg] Allergies Allergy/AdvReac Type Severity Reaction Status Date / Time bee venom protein (honey bee) Allergy Unknown Anaphylaxis Verified 06/19/18 21: 05 morphine Allergy Unknown Itching Verified 06/19/18 21:05 and swelling Surgical - Exam Vital Signs Temp Pulse Resp BP Pulse Ox 98.5 F 73 18 183/103 97 06/19/18 20:26 06/19/18 20:26 06/19/18 20:26 06/19/18 20:26 06/19/18 20:26 Results - Labs 06/20/18 06:55 06/20/18 06:55 Abnormal Lab Results - Last 24 Hours (Table) 06/19/18 06/19/18 06/19/18 Range/Units 20:48 20:48 20:48 WBC (3.8-10.6) k/uL Plt Count (150-450) k/uL Neutrophils # 8.2 H (1.3-7.7) k/uL Chloride (98-107) mmol/L Carbon Dioxide 20 L (22-30) mmol/L Lipase 605 H (23-300) U/L Urine Appearance Cloudy H (Clear) Urine Protein 1+ H (Negative) Urine Ketones 4+ H (Negative) Urine Blood Small H (Negative) Ur Squamous Epith Cells 6 H (0-4) /hpf Amorphous Sediment Rare H (None) /hpf Urine Bacteria Rare H (None) /hpf Urine Mucus Rare H (None) /hpf 06/20/18 06/20/18 Range/Units 06:55 06:55 WBC 13.6 H (3.8-10.6) k/uL Plt Count 452 H (150-450) k/uL Neutrophils # 9.6 H (1.3-7.7) k/uL Chloride 108 H (98-107) mmol/L Carbon Dioxide 17 L (22-30) mmol/L Lipase 706 H (23-300) U/L Urine Appearance (Clear) Urine Protein (Negative) Urine Ketones (Negative) Urine Blood (Negative) Ur Squamous Epith Cells (0-4) /hpf Amorphous Sediment (None) /hpf Urine Bacteria (None) /hpf Urine Mucus (None) /hpf Diabetes panel 06/19/18 06/20/18 Range/Units 20:48 06:55 Sodium 137 141 (137-145) mmol/L Potassium 4.4 4.4 (3.5-5.1) mmol/L Chloride 102 108 H (98-107) mmol/L Carbon Dioxide 20 L 17 L (22-30) mmol/L BUN 11 7 (7-17) mg/dL Creatinine 0.59 0.61 (0.52-1.04) mg/dL Glucose 88 82 (74-99) mg/dL Calcium 9.1 9.2 (8.4-10.2) mg/dL AST 19 16 (14-36) U/L ALT 33 20 (9-52) U/L Alkaline Phosphatase 118 121 (38-126) U/L Total Protein 6.9 6.9 (6.3-8.2) g/dL Albumin 4.0 3.8 (3.5-5.0) g/dL Calcium panel 06/19/18 06/20/18 Range/Units 20:48 06:55 Calcium 9.1 9.2 (8.4-10.2) mg/dL Albumin 4.0 3.8 (3.5-5.0) g/dL Pituitary panel 06/19/18 06/20/18 Range/Units 20:48 06:55 Sodium 137 141 (137-145) mmol/L Potassium 4.4 4.4 (3.5-5.1) mmol/L Chloride 102 108 H (98-107) mmol/L Carbon Dioxide 20 L 17 L (22-30) mmol/L BUN 11 7 (7-17) mg/dL Creatinine 0.59 0.61 (0.52-1.04) mg/dL Glucose 88 82 (74-99) mg/dL Calcium 9.1 9.2 (8.4-10.2) mg/dL Adrenal panel 06/19/18 06/20/18 Range/Units 20:48 06:55 Sodium 137 141 (137-145) mmol/L Potassium 4.4 4.4 (3.5-5.1) mmol/L Chloride 102 108 H (98-107) mmol/L Carbon Dioxide 20 L 17 L (22-30) mmol/L BUN 11 7 (7-17) mg/dL Creatinine 0.59 0.61 (0.52-1.04) mg/dL Glucose 88 82 (74-99) mg/dL Calcium 9.1 9.2 (8.4-10.2) mg/dL Total Bilirubin 0.7 0.5 (0.2-1.3) mg/dL AST 19 16 (14-36) U/L ALT 33 20 (9-52) U/L Alkaline Phosphatase 118 121 (38-126) U/L Total Protein 6.9 6.9 (6.3-8.2) g/dL Albumin 4.0 3.8 (3.5-5.0) g/dL
[2018-06-20] MEDS ORDERED: SODIUM CHLORIDE 0.9% 2,000 ML IV ONE (19:27)
[2018-06-20] MEDS: TOPIRAMATE 100 MG TAB PO SCH (19:47)
[2018-06-20] MEDS ORDERED: DULoxetine HCL 60 MG CAPSULE.DR PO SCH (21:00)
[2018-06-20] MEDS: tiZANidine 4 MG TAB PO PRN (21:26)
[2018-06-21] MEDS: HYDROmorphone 1 MG/ML 1 ML SYRINGE IVP PRN ×6 (01:25→21:11)
[2018-06-21] MEDS: ENOXAPARIN 40 MG/0.4 ML SYRINGE SQ SCH ×2 (01:25→11:18)
--- NOTE | 2018-06-21 01:50 | CONS ---
CONSULTATION DATE OF CONSULTATION: June 20, 2018. REASON FOR CONSULTATION: Medical management requested by Dr. Hirsch. CONSULTATION: This is a 42-year-old patient of Dr. Li. Chronic stable medical conditions include fibromyalgia, GERD, hyperlipidemia hypertension, psoriasis with arthritic, depression. The patient had followed up with Dr. Herrera in the past for chronic back pain. Then she started seeing Dr. Li for pain medications. The patient initially had Abiel fundoplication. The patient had this reversed in February of this year in preparation for the gastric bypass. The patient did undergo gastric bypass on June 09. She went home and subsequent to that she started having started having nausea, vomiting, not really able to keep anything down. Also be having increasing abdominal pain. The patient has been passing flatus. It came to the point that patient was becoming dizzy and lightheaded. Dr. Le was called who is covering for Dr. Hirsch and the patient is admitted for the same. Denied any fever and chills. The patient's abdominal incision is otherwise healing well. REVIEW OF SYSTEMS: CONSTITUTIONAL: Weak, tired. HEENT dizzy. RESPIRATORY: None. CARDIOVASCULAR none. GASTROINTESTINAL as above. GENITOURINARY: None. MUSCULOSKELETAL: Psoriatic arthritis. DERMATOLOGICAL none. HEMATOLOGIC, LYMPHATICS: none. PSYCHIATRY none. NEUROLOGICAL: None. MUSCULOSKELETAL: Chronic low back pain. PAST MEDICAL HISTORY: Fibromyalgia, GERD hyperlipidemia, hypertension, psoriasis, depression. PAST SURGICAL HISTORY: Adenoidectomy, appendectomy, bariatric surgery, hysterectomy, tonsillectomy, tubal ligation, Abiel fundoplication, partial hysterectomy, then reversal of Abiel fundoplication on 03/08/2018, and gastric bypass on June 09, 2018. PSYCH HISTORY: ADHD, depression, PTSD. SOCIAL HISTORY: Does not smoke or drink alcohol. . FAMILY HISTORY: Coronary artery disease. Father had stomach cancer at age of 51. Heroine addict. MEDICATIONS: Home medications: 1. Zanaflex 4 mg p.o. t.i.d. p.r.n. 2. Percocet 10 one tablet p.o. t.i.d. 3. Atarax 25 mg p.o. t.i.d. p.r.n. 4. Topamax 200 mg p.o. b.i.d. 5. Mylicon drops 40 mg p.o. p.c. q.h.s. p.r.n. 6. Lyrica 200 mg b.i.d. 7. Zofran 4 mg q.8h p.r.n. 8. Prilosec 40 mg b.i.d. 9. Movantik 25 mg p.o. daily p.r.n. 10.Senokot 200 mg at bedtime p.r.n. 11.Colace 100 mg b.i.d. p.r.n. 12.Tylenol 1000 mg p.o. q.6h p.r.n. 13.Reglan 10 mg p.o. q.a.c. and q.h.s. ALLERGIES: MORPHINE. BEE VENOM. PHYSICAL EXAMINATION: VITAL SIGNS: Vital signs on presentation: Temperature 98.5, pulse 73, respiratory 18, blood pressure 183/103, repeat blood pressure is 156/90, pulse ox 97% on room air. GENERAL APPEARANCE: Well built, BMI 42.6. Sitting up on a chair, not in distress. EYES: Pupils equal. Conjunctivae normal. HEENT: External appearance of nose and ears normal. Oral cavity normal. NECK: JVD not raised. Mass not palpable. RESPIRATORY effort normal. LUNGS fair entry. CARDIOVASCULAR: 1st and 2nd sounds normal. No edema. ABDOMEN: Mild tenderness. No guarding or rigidity. Liver and spleen not palpable. LYMPHATIC: No lymph nodes palpable in the neck and axilla. PSYCHIATRY: Alert and oriented x3. Mood and affect normal. NEUROLOGICAL: Pupils equal. Cranial nerves grossly intact. Power and sensation grossly intact. INVESTIGATIONS: White count hand 13.6, hemoglobin 13.5, potassium 4.4, bicarb 17, BUN 7, creatinine 0.61, lipase is 706. Acute abdominal series: Nil acute. CT abdomen pelvis nonspecific. Nothing obvious untowards reported. No bowel obstruction reported. Gallbladder ultrasound for some biliary sludge. ASSESSMENT: 1. This is a patient who is status post gastric bypass surgery following reversal of Abiel fundoplication, presenting with nausea, vomiting, abdominal pain, abdominal pain, and getting clinically dehydrated with dizziness, lightheadedness. There is no clinical evidence of any bowel obstruction. There is no obvious infection with a normal white count on initial presentation and no fever, no chills. Appears more to be a functional pain and spasms. 2. Nausea, vomiting, could be from her Percocet in a setting of not really eating much and that could be exacerbating the side effect. 3. Chronic fibromyalgia. 4. Gastroesophageal reflux disease. 5. Hyperlipidemia. 6. Essential hypertension. 7. Psoriasis. 8. Depression, not otherwise specified. 9. Morbid obesity BMI 42.6. PLAN: Home medications are resumed. I will strongly recommend to hold off any pain medications especially IV for the back pain. We will also order a heating pad. Obviously we will hydrate the patient and will give patient Reglan on a scheduled basis. Patient may benefit from antispasmodic of the gut. The patient encouraged to ambulate. Hopefully should feel much better with hydration. Follow closely. Thank you Dr. Hirsch. Copy to Dr. Li. PORTIA / LENNY: [id number] /
[2018-06-21] MEDS: SODIUM CHLORIDE 0.9% 1,000 ML IV SCH ×3 (04:00→19:08)
[2018-06-21] MEDS: PREGABALIN 100 MG CAP PO SCH ×2 (05:08→17:01)
[2018-06-21] MEDS: ONDANSETRON 4 MG/2 ML VIAL IVP PRN (05:10)
[2018-06-21] MEDS: PANTOPRAZOLE 40 MG TABLET PO SCH ×2 (09:15→17:01)
[2018-06-21] MEDS: METOCLOPRAMIDE 10 MG TAB PO SCH ×3 (09:16→17:01)
--- NOTE | 2018-06-21 10:49 | P.PN ---
Subjective Progress Note Date: 06/21/18 Principal diagnosis: Abdominal pain Patient states her pain has improved. No labs from today. Ultrasound showed sludge. She is tolerating her liquid diet currently. Vitals are stable. Objective - Vital Signs Vital signs: Vital Signs Temp 98.1 F 06/21/18 09:22 Pulse 87 06/21/18 09:22 Resp 16 06/21/18 09:22 BP 133/92 06/21/18 09:22 Pulse Ox 98 06/21/18 09:22 Intake & Output 06/20/18 06/21/18 06/21/18 18:59 06:59 18:59 Intake Total 3020 Balance 3020 Weight 112.491 kg Intake: Intake, IV Titration 2920 Amount Sodium Chloride 0.9% 1, 1920 000 ml @ 120 mls/hr IV . Q8H20M [facility] Rx#:[id number] Sodium Chloride 0.9% 2, 1000 000 ml @ 999 mls/hr IV . Q2H1M [facility] Rx#:[id number] Oral 100 Other: # Voids 2 - Exam Abdomen: Soft, nondistended, mild epigastric tenderness - Labs CBC & Chem 7: 06/20/18 06:55 06/20/18 06:55 Assessment and Plan Plan: Continue pain control. Continue liquid diet. Repeat labs tomorrow.
[2018-06-21] MEDS: tiZANidine 4 MG TAB PO PRN (11:18)
[2018-06-21] MEDS: oxyCODONE-APAP 10-325MG 1 EACH TAB PO SCH ×3 (11:24→23:05)
[2018-06-21] MEDS: TOPIRAMATE 100 MG TAB PO SCH ×2 (11:25→20:28)
[2018-06-21] MEDS: SODIUM BICARBONATE TAB 650 MG TAB PO SCH (20:28)
--- NOTE | 2018-06-21 23:45 | PN ---
PROGRESS NOTE DATE OF SERVICE: 06/21/2018 PRESENTING COMPLAINT: Abdominal pain. INTERVAL HISTORY: This is a patient who presented with recent gastric bypass surgery following reversal of Abiel fundoplication. Presented with nausea, vomiting, abdominal pain. A lot of this was felt to be functional. There is no evidence of infection and probably side effect also pain medication. Overall doing much better, tolerating a liquid diet, passing flatus. Abdominal pain is greatly improved. Lying in bed. REVIEW OF SYSTEMS: CONSTITUTIONAL: None. CARDIOVASCULAR: None. PULMONARY: None. GI: Findings as above. CURRENT MEDICATIONS: Reviewed. EXAMINATION: Afebrile, pulse 87, respirations 16, blood pressure 133/92, pulse ox 98% on room air. GENERAL APPEARANCE: Lying in bed comfortable. EYES: Pupils equal. Conjunctivae normal. NECK: JVD not raised. Mass not palpable. Respiratory effort normal. LUNGS: Clear. CARDIOVASCULAR: First and second sounds. No edema. ABDOMEN: Soft, nontender. Liver and spleen not palpable. PSYCHIATRY: Alert and oriented x3. Mood and affect normal. INVESTIGATIONS: No blood work from today. ASSESSMENT: 1. Nausea and vomiting, probably side effect of pain medication with a poor oral intake, now improving. 2. Abdominal pain, probably from muscle cramps from throwing up. 3. Chronic fibromyalgia. 4. Gastroesophageal reflux disease. 5. Hyperlipidemia. 6. Essential hypertension. 7. Psoriasis. 8. Depression, not otherwise specified. 9. Morbid obesity, BMI 42.6. PLAN: Overall, clinically patient looks much better, especially with hydration. The back pain, she has been using a heating pad. We will check the labs in the morning. She is doing much better. MMODL / IJN: [id number] /
[2018-06-22] MEDS: HYDROmorphone 1 MG/ML 1 ML SYRINGE IVP PRN ×6 (01:05→22:10)
[2018-06-22] MEDS: SODIUM CHLORIDE 0.9% 1,000 ML IV SCH ×3 (02:08→13:50)
[2018-06-22] MEDS: PREGABALIN 100 MG CAP PO SCH ×2 (05:15→17:57)
[2018-06-22 07:42] LABS: Basophils % (A) 1 %; Eosinophils # (A) 0.4 k/uL (0-0.7); Eosinophils % (A) 5 %; HCT 36.9 % (34.0-46.0); HGB 12.2 gm/dL (11.4-16.0); Lymphocytes # (A) 1.9 k/uL (1.0-4.8); Lymphocytes % (A) 26 %; MCH 27.1 pg (25.0-35.0); MCV 82.2 fL (80.0-100.0); Mean Platelet Volume 7.1; Monocytes # (A) 0.4 k/uL (0-1.0); Monocytes % (A) 5 %; Neutrophils # (A) 4.4 k/uL (1.3-7.7); Neutrophils % (A) 60 %; Platelet Count 294 k/uL (150-450); RBC 4.49 m/uL (3.80-5.40); RDW 13.4 % (11.5-15.5); WBC 7.3 k/uL (3.8-10.6)
[2018-06-22 07:51] LABS: ALT 30 U/L (9-52); AST 20 U/L (14-36); Albumin 3.3 g/dL (3.5-5.0); Alkaline Phosphatase 81 U/L (38-126); Amylase 89 U/L (30-110); Anion Gap 12 mmol/L; Blood Urea Nitrogen 5 mg/dL (7-17); Calcium 8.6 mg/dL (8.4-10.2); Carbon Dioxide 23 mmol/L (22-30); Chloride 104 mmol/L (98-107); Glucose 62 mg/dL (74-99); Lipase 748 U/L (23-300); Potassium 3.9 mmol/L (3.5-5.1); Sodium 139 mmol/L (137-145); Total Bilirubin 0.4 mg/dL (0.2-1.3); Total Protein 5.9 g/dL (6.3-8.2)
[2018-06-22] MEDS: PANTOPRAZOLE 40 MG TABLET PO SCH ×2 (09:20→17:57)
[2018-06-22] MEDS: ENOXAPARIN 40 MG/0.4 ML SYRINGE SQ SCH (09:20)
[2018-06-22] MEDS: METOCLOPRAMIDE 10 MG TAB PO SCH ×3 (09:20→17:58)
[2018-06-22] MEDS: SODIUM BICARBONATE TAB 650 MG TAB PO SCH ×3 (09:20→21:30)
[2018-06-22] MEDS: TOPIRAMATE 100 MG TAB PO SCH ×2 (09:20→21:31)
[2018-06-22] MEDS: oxyCODONE-APAP 10-325MG 1 EACH TAB PO SCH ×3 (09:23→21:31)
--- NOTE | 2018-06-22 11:38 | P.PN ---
Subjective Progress Note Date: 06/22/18 Principal diagnosis: Abdominal pain Patient doing better today. She is tolerating her liquids well. Her lipase has increased further. Her white blood cell count is normal. She is afebrile with stable vitals. Objective - Vital Signs Vital signs: Vital Signs Temp 98.8 F 06/21/18 23:00 Pulse 79 06/21/18 23:00 Resp 16 06/21/18 23:00 BP 146/92 06/21/18 23:00 Pulse Ox 96 06/21/18 23:00 Intake & Output 06/21/18 06/22/18 06/22/18 18:59 06:59 18:59 Intake Total 260 1200 Balance 260 1200 Intake: Intake, IV Titration 960 Amount Sodium Chloride 0.9% 1, 960 000 ml @ 120 mls/hr IV . Q8H20M [facility] Rx#:[id number] Oral 260 240 Other: # Voids 2 3 - Exam Abdomen: Soft, nondistended, mild epigastric tenderness - Labs CBC & Chem 7: 06/22/18 06:38 06/22/18 06:38 Labs: Abnormal Lab Results - Last 24 Hours (Table) 06/22/18 Range/Units 06:38 BUN 5 L (7-17) mg/dL Glucose 62 L (74-99) mg/dL Total Protein 5.9 L (6.3-8.2) g/dL Albumin 3.3 L (3.5-5.0) g/dL Lipase 748 H (23-300) U/L Assessment and Plan Plan: Continue monitor elevated lipase level. Advance diet to soft. Probable discharge tomorrow.
[2018-06-22] MEDS: tiZANidine 4 MG TAB PO PRN (17:57)
--- NOTE | 2018-06-22 22:19 | PN ---
PROGRESS NOTE DATE OF SERVICE: 06/22/2018. PRESENTING COMPLAINT: Tired. INTERVAL HISTORY: Patient is status post recent gastric bypass surgery following reversal of Abiel fundoplication. Presented with nausea, vomiting, abdominal pain. Doing much better overall. No evidence of infection. The patient has slight bump in lipase with amylase being normal, not too concerned about the same. Tolerating a liquid diet. Overall feels and looks much better. Has been out of bed. REVIEW OF SYSTEMS: Done for constitutional, cardiovascular, GI, pulmonary; relevant findings as above. CURRENT MEDICATIONS: Reviewed. Getting IV fluids. PHYSICAL EXAMINATION: Temperature 98.2, pulse 72, respirations 16, blood pressure 140/86, pulse ox 97% on room air. GENERAL: Lying in bed comfortable. EYES: Pupils equal. Conjunctivae pale. NECK: JVD not raised. Mass not palpable. Respiratory effort normal. LUNGS: Clear. CARDIOVASCULAR: 1st and 2nd sounds normal. No edema. ABDOMEN: Soft, nontender. Liver and spleen not palpable. PSYCHIATRY: Alert and oriented x3. Mood and affect normal. INVESTIGATIONS: White count 7.3, lipase 748. ASSESSMENT: 1. Nausea and vomiting, probably side effect pain medication with poor oral intake, now greatly improved. 2. Lipase slightly improved with normal amylase, not concerned about the same. Overall, patient looking much better. 3. Chronic fibromyalgia. 4. Gastroesophageal reflux disease. 5. Hyperlipidemia. 6. Essential hypertension. 7. Psoriasis. 8. Depression, not otherwise specified. 9. Morbid obesity, BMI 42.6. PLAN: From my standpoint, patient is medically stable. No further workup required. We will repeat the labs in the morning. MMODL / IJN: [id number] /
[2018-06-23 00:16] VITALS: RESP 16
[2018-06-23] MEDS: HYDROmorphone 1 MG/ML 1 ML SYRINGE IVP PRN ×4 (01:55→14:28)
[2018-06-23] MEDS: SODIUM CHLORIDE 0.9% 1,000 ML IV SCH ×2 (02:45→10:31)
[2018-06-23] MEDS: PREGABALIN 100 MG CAP PO SCH (05:59)
[2018-06-23] MEDS: ENOXAPARIN 40 MG/0.4 ML SYRINGE SQ SCH (07:38)
[2018-06-23] MEDS: SODIUM BICARBONATE TAB 650 MG TAB PO SCH (07:38)
[2018-06-23] MEDS: METOCLOPRAMIDE 10 MG TAB PO SCH ×2 (07:38→13:47)
[2018-06-23] MEDS: PANTOPRAZOLE 40 MG TABLET PO SCH (07:38)
[2018-06-23 07:43] VITALS: BP 132/89; PULSE 86; TEMP 97.8
[2018-06-23 08:32] LABS: Basophils # (A) 0.1 k/uL (0-0.2); Basophils % (A) 1 %; Eosinophils # (A) 0.4 k/uL (0-0.7); Eosinophils % (A) 5 %; HCT 40.7 % (34.0-46.0); HGB 13.3 gm/dL (11.4-16.0); Lymphocytes # (A) 2.5 k/uL (1.0-4.8); Lymphocytes % (A) 33 %; MCH 27.1 pg (25.0-35.0); MCHC 32.8 g/dL (31.0-37.0); MCV 82.7 fL (80.0-100.0); Mean Platelet Volume 7.1; Monocytes # (A) 0.5 k/uL (0-1.0); Monocytes % (A) 6 %; Neutrophils % (A) 53 %; Platelet Count 313 k/uL (150-450); RBC 4.92 m/uL (3.80-5.40); RDW 13.4 % (11.5-15.5); WBC 7.6 k/uL (3.8-10.6)
[2018-06-23 08:56] LABS: ALT 31 U/L (9-52); AST 21 U/L (14-36); Albumin 3.8 g/dL (3.5-5.0); Alkaline Phosphatase 87 U/L (38-126); Amylase 110 U/L (30-110); Anion Gap 12 mmol/L; Blood Urea Nitrogen 6 mg/dL (7-17); Calcium 9.7 mg/dL (8.4-10.2); Carbon Dioxide 25 mmol/L (22-30); Chloride 103 mmol/L (98-107); Glucose 84 mg/dL (74-99); Lipase 970 U/L (23-300); Sodium 140 mmol/L (137-145); Total Bilirubin 0.4 mg/dL (0.2-1.3); Total Protein 6.7 g/dL (6.3-8.2)
[2018-06-23] MEDS: oxyCODONE-APAP 10-325MG 1 EACH TAB PO SCH (10:31)
[2018-06-23] MEDS: TOPIRAMATE 100 MG TAB PO SCH (10:31)
--- NOTE | 2018-06-23 10:45 | P.DS ---
Providers Date of admission: 06/19/18 23:19 Expected date of discharge: 06/23/18 Attending physician: Vandana Hirsch Consults: 06/20/18 00:49 Consult Physician Routine Consulting Provider: German Edwards Consult Reason/Comments: medical management Do you want consulting provider notified?: Yes, Notify in am 06/20/18 00:51 Consult Physician Routine Consulting Provider: Vandana Hirsch Consult Reason/Comments: josh patient - recent bariatric surgery Do you want consulting provider notified?: Yes, Notify in am Primary care physician: [facility] Course: 42-year-old female who was admitted initially with intractable nausea vomiting. Patient had an ultrasound obtained it showed gallstones. Patient was treated with IV fluids Reglan monitored closely. Also on admission lipase was elevated patient remained stable afebrile patient recently underwent on the gastric bypass for morbid obesity. The lipase on the 23 of June 970. On admission 605. Patient denied any epigastric pain up ambulating in morse was having no abdominal pain no nausea no vomiting was anxious to be discharged. Patient did have an appointment already set up on June [address] 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 Epigastric adhesions retained foreign body stomach, gastric bypass for morbid obesity The above impression and plan of care have been discussed and directed by signing physician. Carol Ann Stovall nurse practitioner acting as scribe for signing physician. Patient Condition at Discharge: Good Plan - Discharge Summary Discharge Rx Participant: Yes New Discharge Prescriptions: New Metoclopramide [Reglan] 10 mg PO ACHS #30 tab Docusate [Colace] 100 mg PO BID #60 capsule Discontinued DULoxetine HCL [Cymbalta] 60 mg PO HS No Action Doxepin HCl [SINEquan] 200 mg PO HS PRN MDD 200 MG PRN Reason: Insomnia Topiramate [Topamax] 100 mg PO BID Pregabalin [Lyrica] 200 mg PO BID tiZANidine HCL [Zanaflex] 4 mg PO TID PRN PRN Reason: Muscle Spasm Acetaminophen Tab [Tylenol] 1,000 mg PO Q6HR PRN PRN Reason: Headache Omeprazole [PriLOSEC] 40 mg PO BID Naloxegol Oxalate [Movantik] 25 mg PO DAILY PRN PRN Reason: Constipation hydrOXYzine HCL [Atarax] 25 mg PO TID PRN PRN Reason: Allergy Symptoms Simethicone 40 mg/0.6 ml Drops [Mylicon Drops] 40 mg PO PCHS PRN #30 ml PRN Reason: Gas Docusate [Colace] 100 mg PO BID PRN PRN Reason: Constipation Ondansetron Odt [Zofran ODT] 4 mg PO Q8HR PRN #20 tab PRN Reason: Nausea oxyCODONE-APAP 10-325MG [Percocet 10-325 mg] 1 tab PO TID Discharge Medication List Doxepin HCl [SINEquan] 200 mg PO HS PRN MDD 200 MG 10/31/17 [History] Pregabalin [Lyrica] 200 mg PO BID 10/31/17 [History] Topiramate [Topamax] 100 mg PO BID 10/31/17 [History] tiZANidine HCL [Zanaflex] 4 mg PO TID PRN 10/31/17 [History] Acetaminophen Tab [Tylenol] 1,000 mg PO Q6HR PRN 06/02/18 [History] Naloxegol Oxalate [Movantik] 25 mg PO DAILY PRN 06/02/18 [History] Omeprazole [PriLOSEC] 40 mg PO BID 06/02/18 [History] hydrOXYzine HCL [Atarax] 25 mg PO TID PRN 06/02/18 [History] Simethicone 40 mg/0.6 ml Drops [Mylicon Drops] 40 mg PO PCHS PRN #30 ml [Rx] Docusate [Colace] 100 mg PO BID PRN 06/13/18 [History] Ondansetron Odt [Zofran ODT] 4 mg PO Q8HR PRN #20 tab 06/13/18 [Rx] oxyCODONE-APAP 10-325MG [Percocet 10-325 mg] 1 tab PO TID 06/19/18 [History] Metoclopramide [Reglan] 10 mg PO ACHS #30 tab 06/20/18 [Rx] Docusate [Colace] 100 mg PO BID #60 capsule 06/23/18 [Rx] Follow up Appointment(s)/Referral(s): Josh Li MD [Primary Care Provider] - [facility] [NON-STAFF] - 06/25/18 Patient Instructions/Handouts: Pancreatitis (DC), Low Fat Diet (DC), Nutrition after Bariatric Surgery (DC), Bowel Management After Bariatric Surgery (DC) Activity/Diet/Wound Care/Special Instructions: Low fat diet to avoid gallbladder attacks. Continue with full liquid diet. Low- fat diet 25 and 10 g Discharge Disposition: HOME SELF-CARE
[2018-06-23 13:48] VITALS: BMI 42.5
--- NOTE | 2018-06-24 00:31 | PN ---
PROGRESS NOTE DATE OF SERVICE: 06/23/2018. PRESENTING COMPLAINT: Doing well. INTERVAL HISTORY: Patient is status post recent gastric bypass surgery following reversal and Abiel fundoplication. Presented with nausea, vomiting, abdominal pain. Doing much better, tolerating a diet. Diet has been advanced. Up and about. No abdominal pain. Also had a bowel movement. REVIEW OF SYSTEMS: Done for constitutional, cardiovascular, GI, pulmonary; relevant findings as above. CURRENT MEDICATIONS: Reviewed. PHYSICAL EXAMINATION: Temperature 97.8 pulse 86, respirations 16, blood pressure 130/89, pulse ox 98% on room air. GENERAL: Sitting up comfortable. EYES: Pupils equal. Conjunctivae normal. NECK: JVD not raised. Mass not palpable. Respiratory effort normal. LUNGS: Clear. CARDIOVASCULAR: 1st and 2nd heart sounds. No edema. ABDOMEN: Soft, nontender. Liver and spleen not palpable. PSYCHIATRY: Alert and oriented x3. Mood and affect normal. INVESTIGATIONS: White count 7.6, hemoglobin 13.3, potassium 4.0. ASSESSMENT: 1. Nausea and vomiting, probably side effect of pain medications with poor oral intake, now much improved. 2. Chronic fibromyalgia. 3. Gastroesophageal reflux disease. 4. Hyperlipidemia. 5. Essential hypertension. 6. Psoriasis. 7. Depression, not otherwise specified. 8. Morbid obesity, BMI 42.6. PLAN: Patient is doing much better, up and about, very keen to go home. No pain. Doing well. MMODL / IJN: [id number] /
== END 2018-06-23 14:46 | disposition home or self-care (01) ==
LOC: EC 20:22 → 4SSUR 23:19
PROVIDERS: ADMIT Surgery Plastic and Reconstructive Surgery; ATTEND Surgery Plastic and Reconstructive Surgery
DX: R11.2 Nausea with vomiting, unspecified (principal); R10.13 Epigastric pain; R74.8 Abnormal levels of other serum enzymes; Z98.84 Bariatric surgery status; K80.20 Calculus of gallbladder without cholecystitis without obstruction; E86.0 Dehydration; G89.29 Other chronic pain; M54.5 Low back pain; R14.3 Flatulence; M79.7 Fibromyalgia; K21.9 Gastro-esophageal reflux disease without esophagitis; I10 Essential (primary) hypertension; E78.5 Hyperlipidemia, unspecified; K22.70 Barrett's esophagus without dysplasia; M19.90 Unspecified osteoarthritis, unspecified site; G43.909 Migraine, unspecified, not intractable, without status migrainosus; L40.50 Arthropathic psoriasis, unspecified; F90.9 Attention-deficit hyperactivity disorder, unspecified type; F43.10 Post-traumatic stress disorder, unspecified; F41.0 Panic disorder [episodic paroxysmal anxiety]; F32.9 Major depressive disorder, single episode, unspecified; Z68.41 Body mass index [BMI] 40.0-44.9, adult; E66.01 Morbid (severe) obesity due to excess calories; Z79.899 Other long term (current) drug therapy; Z79.891 Long term (current) use of opiate analgesic; Z88.5 Allergy status to narcotic agent; Z91.030 Bee allergy status; Z86.73 Personal history of transient ischemic attack (TIA), and cerebral infarction without residual deficits; Z90.710 Acquired absence of both cervix and uterus; Z90.49 Acquired absence of other specified parts of digestive tract; Z80.0 Family history of malignant neoplasm of digestive organs; Z81.3 Family history of other psychoactive substance abuse and dependence; Z80.41 Family history of malignant neoplasm of ovary; Z82.49 Family history of ischemic heart disease and other diseases of the circulatory system
CPT/HCPCS: 96376 ×4; 96361 ×2; 96372 ×3; 96375 ×2; 96374; 99285; 36415; 80053 ×4; 82150 ×4; 83690 ×4; 85025 ×4; 81001; 74022; 76705; 74177; G0378 ×5; J2765; J2405 ×3; J1650 ×3; J1170 ×5; Q9967

== ENCOUNTER 2018-06-25 19:03 | Inpatient (IN) | payer BC, MEDICARE, OTHER ==
[2018-06-25] MEDS ORDERED: NALOXONE 0.4 MG/ML 1 ML VIAL IV PRN (20:00)
[2018-06-25] MEDS ORDERED: LACTATED RINGERS 1,000 ML IV ONE (20:00)
[2018-06-25] MEDS ORDERED: ACETAMINOPHEN IV (For NPO) 1,000 MG in EMPTY BAG 1 BAG IVPB ONE (21:00)
[2018-06-25] MEDS: HYDROmorphone 1 MG/ML 1 ML SYRINGE IVP PRN (21:12)
[2018-06-25] MEDS: METOCLOPRAMIDE 5 MG/ML 2 ML VIAL IVP SCH (21:17)
[2018-06-25 22:58] LABS: Basophils % (A) 0 %; Eosinophils # (A) 0.3 k/uL (0-0.7); Eosinophils % (A) 4 %; HCT 38.7 % (34.0-46.0); HGB 12.8 gm/dL (11.4-16.0); Lymphocytes % (A) 13 %; MCH 27.5 pg (25.0-35.0); MCHC 32.9 g/dL (31.0-37.0); MCV 83.4 fL (80.0-100.0); Mean Platelet Volume 7.4; Monocytes # (A) 0.4 k/uL (0-1.0); Monocytes % (A) 6 %; Neutrophils # (A) 5.8 k/uL (1.3-7.7); Neutrophils % (A) 75 %; Platelet Count 329 k/uL (150-450); RBC 4.64 m/uL (3.80-5.40); WBC 7.8 k/uL (3.8-10.6)
[2018-06-25 23:10] LABS: ALT 33 U/L (9-52); AST 22 U/L (14-36); Albumin 3.4 g/dL (3.5-5.0); Alkaline Phosphatase 78 U/L (38-126); Anion Gap 12 mmol/L; Blood Urea Nitrogen 6 mg/dL (7-17); Calcium 9.3 mg/dL (8.4-10.2); Carbon Dioxide 23 mmol/L (22-30); Chloride 103 mmol/L (98-107); Glucose 108 mg/dL (74-99); Lipase 701 U/L (23-300); Potassium 4.2 mmol/L (3.5-5.1); Sodium 138 mmol/L (137-145); Total Bilirubin 0.4 mg/dL (0.2-1.3); Total Protein 6.1 g/dL (6.3-8.2)
[2018-06-25] MEDS: ONDANSETRON 4 MG/2 ML VIAL IVP SCH (23:57)
[2018-06-26] MEDS: HYDROmorphone 1 MG/ML 1 ML SYRINGE IVP PRN ×8 (00:06→23:05)
--- NOTE | 2018-06-26 00:08 | P.GSHP ---
History of Present Illness H&P Date: 06/25/18 HPI: Patient was earlier seen in the bariatric center had reported doing well since recent discharge. She had gone home. Repeat lipase demonstrates improvement however patient reported severe epigastric abdominal pain after going home this evening similar in event which caused her previous admission. With a history of gallstones, admission for gallstone pancreatitis described. Surgical intervention sought for intractable abdominal pain due to gallstones Past Medical History Past Medical History: CVA/TIA, Fibromyalgia, GERD/Reflux, Hyperlipidemia, Hypertension Additional Past Medical History / Comment(s): CVA 2011, psoriasis, Shafer's Esophagus, arthritis, migraines, Psoriatic arthritis, chronic pain (Sees Dr. Frederick for pain management) precancerous throat cells,pancreatits History of Any Multi-Drug Resistant Organisms: None Reported Past Surgical History: Adenoidectomy, Appendectomy, Bariatric Surgery, Hysterectomy, Tonsillectomy, Tubal Ligation Additional Past Surgical History / Comment(s): Mendez fundolpication 1999(?), partial hysterectomy via trans-vaginal procedure (patient retained both ovaries ) take down of mendez 03-08 gastric bypass pt stated crys en y"06-09-18 Past Anesthesia/Blood Transfusion Reactions: No Reported Reaction Additional Past Anesthesia/Blood Transfusion Reaction / Comment(s): No transfusion noted to date . hx clausterphobia Smoking Status: Never smoker - Past Family History Father Family Medical History: Cancer, Coronary Artery Disease (CAD) Additional Family Medical History / Comment(s): father from stomach cancer at age 51, heroin addict (struggled with addiction off and on for years after coming home from [place]) Mother Family Medical History: Cancer Additional Family Medical History / Comment(s): Mother at age 36 from Ovarian Cancer mets to brain Medications and Allergies Home Medications Medication Instructions Recorded Confirmed Type Doxepin HCl [SINEquan] 200 mg PO HS PRN MDD 200 MG 10/31/17 06/25/18 History Pregabalin [Lyrica] 200 mg PO BID 10/31/17 06/25/18 History Topiramate [Topamax] 100 mg PO BID 10/31/17 06/25/18 History tiZANidine HCL [Zanaflex] 4 mg PO TID PRN 10/31/17 06/25/18 History Acetaminophen Tab [Tylenol] 1,000 mg PO Q6HR PRN 06/02/18 06/25/18 History Naloxegol Oxalate [Movantik] 25 mg PO DAILY PRN 06/02/18 06/25/18 History Omeprazole [PriLOSEC] 40 mg PO BID 06/02/18 06/25/18 History hydrOXYzine HCL [Atarax] 25 mg PO TID PRN 06/02/18 06/25/18 History Simethicone 40 mg/0.6 ml Drops 40 mg PO PCHS PRN #30 ml 06/10/18 06/25/18 Rx [Mylicon Drops] Docusate [Colace] 100 mg PO DAILY 06/13/18 06/25/18 History Ondansetron Odt [Zofran ODT] 4 mg PO Q8HR PRN #20 tab 06/13/18 06/25/18 Rx oxyCODONE-APAP 10-325MG [Percocet 1 tab PO TID 06/19/18 06/25/18 History 10-325 mg] Metoclopramide [Reglan] 10 mg PO ACHS #30 tab 06/20/18 06/25/18 Rx Allergies Allergy/AdvReac Type Severity Reaction Status Date / Time bee venom protein (honey bee) Allergy Unknown Anaphylaxis Verified 06/25/18 21: 20 morphine Allergy Unknown Itching Verified 06/25/18 21:20 and swelling Surgical - Exam Vital Signs Temp Pulse Resp BP Pulse Ox 98.3 F 97 16 147/89 99 06/25/18 20:30 06/25/18 20:30 06/25/18 20:30 06/25/18 20:30 06/25/18 20:30 Results - Labs 06/25/18 22:33 06/25/18 22:33 Abnormal Lab Results - Last 24 Hours (Table) 06/25/18 Range/Units 22:33 BUN 6 L (7-17) mg/dL Glucose 108 H (74-99) mg/dL Total Protein 6.1 L (6.3-8.2) g/dL Albumin 3.4 L (3.5-5.0) g/dL Lipase 701 H (23-300) U/L Diabetes panel 06/25/18 Range/Units 22:33 Sodium 138 (137-145) mmol/L Potassium 4.2 (3.5-5.1) mmol/L Chloride 103 (98-107) mmol/L Carbon Dioxide 23 (22-30) mmol/L BUN 6 L (7-17) mg/dL Creatinine 0.70 (0.52-1.04) mg/dL Glucose 108 H (74-99) mg/dL Calcium 9.3 (8.4-10.2) mg/dL AST 22 (14-36) U/L ALT 33 (9-52) U/L Alkaline Phosphatase 78 (38-126) U/L Total Protein 6.1 L (6.3-8.2) g/dL Albumin 3.4 L (3.5-5.0) g/dL Calcium panel 06/25/18 Range/Units 22:33 Calcium 9.3 (8.4-10.2) mg/dL Albumin 3.4 L (3.5-5.0) g/dL Pituitary panel 06/25/18 Range/Units 22:33 Sodium 138 (137-145) mmol/L Potassium 4.2 (3.5-5.1) mmol/L Chloride 103 (98-107) mmol/L Carbon Dioxide 23 (22-30) mmol/L BUN 6 L (7-17) mg/dL Creatinine 0.70 (0.52-1.04) mg/dL Glucose 108 H (74-99) mg/dL Calcium 9.3 (8.4-10.2) mg/dL Adrenal panel 06/25/18 Range/Units 22:33 Sodium 138 (137-145) mmol/L Potassium 4.2 (3.5-5.1) mmol/L Chloride 103 (98-107) mmol/L Carbon Dioxide 23 (22-30) mmol/L BUN 6 L (7-17) mg/dL Creatinine 0.70 (0.52-1.04) mg/dL Glucose 108 H (74-99) mg/dL Calcium 9.3 (8.4-10.2) mg/dL Total Bilirubin 0.4 (0.2-1.3) mg/dL AST 22 (14-36) U/L ALT 33 (9-52) U/L Alkaline Phosphatase 78 (38-126) U/L Total Protein 6.1 L (6.3-8.2) g/dL Albumin 3.4 L (3.5-5.0) g/dL
[2018-06-26] MEDS: METOCLOPRAMIDE 5 MG/ML 2 ML VIAL IVP SCH ×5 (03:52→21:27)
[2018-06-26 08:08] LABS: Basophils # (A) 0.1 k/uL (0-0.2); Basophils % (A) 1 %; Eosinophils # (A) 0.4 k/uL (0-0.7); Eosinophils % (A) 6 %; HCT 38.7 % (34.0-46.0); HGB 12.2 gm/dL (11.4-16.0); Lymphocytes # (A) 2.2 k/uL (1.0-4.8); Lymphocytes % (A) 33 %; MCH 26.8 pg (25.0-35.0); MCHC 31.7 g/dL (31.0-37.0); MCV 84.6 fL (80.0-100.0); Mean Platelet Volume 7.1; Monocytes # (A) 0.5 k/uL (0-1.0); Monocytes % (A) 7 %; Neutrophils # (A) 3.4 k/uL (1.3-7.7); Neutrophils % (A) 51 %; Platelet Count 329 k/uL (150-450); RBC 4.57 m/uL (3.80-5.40); WBC 6.7 k/uL (3.8-10.6)
[2018-06-26 08:23] LABS: ALT 38 U/L (9-52); AST 25 U/L (14-36); Albumin 3.2 g/dL (3.5-5.0); Alkaline Phosphatase 73 U/L (38-126); Anion Gap 9 mmol/L; Blood Urea Nitrogen 5 mg/dL (7-17); Carbon Dioxide 26 mmol/L (22-30); Chloride 104 mmol/L (98-107); Glucose 82 mg/dL (74-99); Lipase 694 U/L (23-300); Magnesium 1.8 mg/dL (1.6-2.3); Potassium 3.9 mmol/L (3.5-5.1); Sodium 139 mmol/L (137-145); Total Bilirubin 0.3 mg/dL (0.2-1.3); Total Protein 5.8 g/dL (6.3-8.2)
[2018-06-26] MEDS ORDERED: ENOXAPARIN 30 MG/0.3 ML SYRINGE SQ SCH (09:00)
[2018-06-26] MEDS: ONDANSETRON 4 MG/2 ML VIAL IVP SCH ×3 (10:09→23:05)
[2018-06-26] MEDS: ENOXAPARIN 40 MG/0.4 ML SYRINGE SQ SCH (10:17)
[2018-06-26] MEDS: PANTOPRAZOLE 40 MG/10 ML VIAL IV SCH (10:17)
[2018-06-26] MEDS: LACTATED RINGERS 1,000 ML IV SCH ×2 (14:12→18:51)
[2018-06-27] MEDS: METOCLOPRAMIDE 5 MG/ML 2 ML VIAL IVP SCH ×4 (03:47→21:16)
[2018-06-27] MEDS: HYDROmorphone 1 MG/ML 1 ML SYRINGE IVP PRN ×5 (03:47→22:18)
[2018-06-27] MEDS: LACTATED RINGERS 1,000 ML IV SCH ×2 (03:49→17:29)
[2018-06-27] MEDS: ENOXAPARIN 40 MG/0.4 ML SYRINGE SQ SCH ×2 (07:37→12:35)
[2018-06-27] MEDS: ONDANSETRON 4 MG/2 ML VIAL IVP SCH ×3 (07:47→23:05)
[2018-06-27] MEDS: PANTOPRAZOLE 40 MG/10 ML VIAL IV SCH (07:47)
--- NOTE | 2018-06-27 09:09 | P.PN ---
Subjective Progress Note Date: 06/26/18 Patient reports of abdominal pain has improved but still persistent along the epigastrium of 5. She is requesting education of low-fat diet. Family is at bedside. Surgical case scheduled for tomorrow. Objective - Vital Signs Vital signs: Vital Signs Temp 98.5 F 06/27/18 07:43 Pulse 89 06/27/18 07:43 Resp 16 06/27/18 07:43 BP 131/92 06/27/18 07:43 Pulse Ox 97 06/27/18 07:43 Intake & Output 06/26/18 06/27/18 06/27/18 18:59 06:59 18:59 Other: Voiding Method Toilet Toilet # Voids 1 - Labs CBC & Chem 7: 06/26/18 07:20 06/26/18 07:20
[2018-06-27] MEDS ORDERED: INDOCYANINE GREEN 25 MG VIAL IV STA (09:10)
[2018-06-27] MEDS ORDERED: ACETAMINOPHEN IV (For NPO) 1,000 MG in EMPTY BAG 1 BAG IVPB ONE (09:11)
[2018-06-27] MEDS ORDERED: ceFAZolin IN SWFI 2 GM/20 ML SYRINGE IVP ONE (09:11)
--- NOTE | 2018-06-27 09:12 | P.HPADDEND ---
H&P Addendum H&P Addendum Date: 06/27/18 Benefits and risks of robotic cholecystectomy described. Additionally, surgical case within 30 days of index operation. Increased risk for cardiac and surgical complications reviewed. Patient still wished to proceed with surgery.
[2018-06-27 10:12] LABS: ALT 39 U/L (9-52); AST 36 U/L (14-36); Albumin 3.4 g/dL (3.5-5.0); Alkaline Phosphatase 68 U/L (38-126); Anion Gap 12 mmol/L; Blood Urea Nitrogen 5 mg/dL (7-17); Calcium 9.1 mg/dL (8.4-10.2); Carbon Dioxide 22 mmol/L (22-30); Chloride 106 mmol/L (98-107); Glucose 81 mg/dL (74-99); Lipase 635 U/L (23-300); Potassium 4.1 mmol/L (3.5-5.1); Sodium 140 mmol/L (137-145); Total Bilirubin 0.5 mg/dL (0.2-1.3); Total Protein 6.1 g/dL (6.3-8.2)
[2018-06-27] MEDS ORDERED: IV FLUID CONTINUATION 1,000 ML IV ONE (11:08)
[2018-06-27] MEDS ORDERED: fentaNYL (PF) 50 MCG/ML 2 ML AMP ONE (12:46)
[2018-06-27] MEDS ORDERED: MIDAZOLAM 2 MG/2 ML VIAL ONE (12:46)
[2018-06-27] MEDS ORDERED: ROCURONIUM BROMIDE 10 MG/ML 10 ML VIAL IV ONE (12:46)
[2018-06-27] MEDS ORDERED: SUCCINYLCHOLINE CHLORIDE 100 MG/5 ML SYR IV ONE (12:46)
[2018-06-27] MEDS ORDERED: LIDOCAINE 1% INJ 10MG/ML (20 ML MDV) ONE (12:46)
[2018-06-27] MEDS ORDERED: HYDROmorphone (PF) 1 MG/ML ONE (12:46)
[2018-06-27] MEDS ORDERED: LABETALOL 5 MG/ML VIAL MDV ONE (12:46)
[2018-06-27] MEDS ORDERED: GLYCOPYRROLATE 0.2 MG/ML 2 ML VIAL ONE (12:46)
[2018-06-27] MEDS ORDERED: NEOSTIGMINE 1 MG/ML 10 ML VIAL ONE (12:46)
[2018-06-27] MEDS ORDERED: ePHEDrine SULFATE/0.9% NACL/PF 50 MG/5 ML SYRINGE IV ONE (12:46)
[2018-06-27] MEDS ORDERED: PROPOFOL 10 MG/ML 20 ML VIAL IV ONE (12:46)
[2018-06-27] MEDS ORDERED: BUPIVACAIN-EPI 0.5%-1:200,000 30 ML VIAL SQ ONE (13:00)
[2018-06-27] MEDS ORDERED: LACTATED RINGERS 1,000 ML IV ONE ×3 (13:06→15:23)
[2018-06-27 14:34] VITALS: BMI 41.5
--- NOTE | 2018-06-27 14:49 | P.OP ---
Date of Procedure: 06/27/18 Description of Procedure: Date of Procedure: 06/27/18 SURGEON: MARLEN REECE MD PREOPERATIVE DIAGNOSES: 1. Symptomatic gallstones with pancreatitis 2. Chronic cholecystitis 3. Elevated lipase with pancreatitis 4. Status post gastric bypass. 5. Chronic pain syndrome 6. Medical non-compliance to bariatric care 7. Epigastric abdominal pain. 8. Gastroesophageal reflux disease. 9. Morbid obesity due to excess calories, BMI 41.5 10. Hypertensive heart disease POSTOPERATIVE DIAGNOSES: 1. Symptomatic gallstones 2. Acute cholecystitis with aberrant anatomy for cystic duct 3. Elevated lipase with pancreatitis 4. Status post gastric bypass. 5. Chronic pain syndrome 6. Medical non-compliance to bariatric care 7. Epigastric abdominal pain. 8. Gastroesophageal reflux disease. 9. Morbid obesity due to excess calories, BMI 41.5 10. Hypertensive heart disease OPERATION: Robotic-assisted da Aman Xi laparoscopic cholecystectomy, multiport with FIREFLY Anesthesia: GETA, local Condition: stable Disposition: floor ESTIMATED BLOOD LOSS: 10 mL. SPECIMENS REMOVED: Gallbladder. COMPLICATIONS: None. Operative Findings: 1. Cystic duct emanating from right hepatic duct as visualized using firefly 2. Cystic duct resected at gallbladder infundibulum 3. Cholecystitis INDICATIONS: The patient is a 42-year-old female who presents with cholelcystitis, pancreatitis, and epigastric abdominal pain. Surgical intervention with a laparoscopic cholecystectomy was described at length including injury to the biliary tree, bleeding, infection, need for further surgery. Informed consent was obtained. Robotic assisted laparoscopic approach was described. Benefits and risks of the procedure including but not limited to bleeding, infection, injury to the biliary tree was described. Informed consent was obtained. DESCRIPTION OF PROCEDURE: Patient was brought to the operating room, placed in supine position. After general induction, the abdomen had been prepped and draped in standard sterile fashion. The robotic da Aman XI system was primed. After a timeout protocol was performed, the patient had been prepped and draped in standard sterile fashion. The patient was injected with indocyanine green. A 5 mm 0 degrees laparoscopic trocar entry was performed along the left upper quadrant. The abdomen insufflated to 15 mmHg pressure which was tolerated well. Diagnostic laparoscopy demonstrated no injury to bowel viscera or mesentery. The liver surface was unremarkable. Next, two 8 mm robotic ports were placed along the right upper abdomen. The camera 8-mm port was maintained along the epigastrium. Another 8 mm port was placed along the left upper abdominal wall after exchanging the 5 mm port. Please note that the ports were placed at least 10 to 15 cm away from the target anatomy of the gallbladder. The robot was docked along the left lateral abdomen. The patient was repositioned in reverse Trendelenburg position. Using a grasper for arm 3, a grasper for arm 4, including hook cautery for arm 1 , the robotic system was docked and primed as described. Instruments were interchanged by the assistant professor of drama including hook cautery, Bovie cautery and clip appliers. I had sat at the console. The gallbladder fundus was retracted over the dome of the liver. Initial attention was brought to the infundibulum which was gently retracted in the inferior lateral approach. Using a grasper, the cystic duct including the cystic artery was carefully skeletonized. FIREFLY was used to identify the cystic artery and cystic structures. Cystic duct was emanating from right hepatic duct as visualized using firefly. The cystic duct resected at gallbladder infundibulum Large PLASTIC clips were used throughout the entire case. Using a clip cyber engineer 2 clips were placed proximally, and 1 clip was placed distally along the cystic duct and then cauterized with the cautery. Again care was taken to avoid any injury to the biliary tree as the common bile duct was clearly visualized during this portion of dissection. Next, the cystic artery was similarly clipped and cauterized. Electro-Bovie cautery was used to remove the gallbladder from the hepatic fossa. Hemostasis was checked and found to be adequate. The robot was undocked. I re-scrubbed into the case. Using a 10 mm Endo Catch bag via the left upper quadrant incision, the specimen was removed from the abdominal cavity. All pneumoperitoneum instruments were evacuated from the abdominal cavity. The incisions were reapproximated using 4-0 Monocryl in an interrupted subcuticular fashion. Fascial defects were less than 8 mm in size. Please note along the trocar sites, local anesthetic was placed as a field block prior to insertion of all instruments. Liquid glue was applied to the skin. At the end of the procedure needle, sponge, and instrument count had been verified correct by the materials technician. The patient was transferred to postanesthesia care unit in stable condition. Intraoperative films were shared with the patient's family who were very pleased with the level of care.
[2018-06-27] MEDS: HYDROmorphone 1 MG/ML 1 ML SYRINGE IVP ONE ×3 (15:16→15:32)
[2018-06-27] MEDS ORDERED: diphenhydrAMINE 50 MG/ML 1 ML VIAL IVP ONE (15:19)
[2018-06-27] MEDS: ACETAMINOPHEN IV (For NPO) 1,000 MG in EMPTY BAG 1 BAG IVPB SCH ×2 (17:27→23:04)
[2018-06-27] MEDS: HYDROcodone/APAP 5-325MG 1 EACH TAB PO PRN (21:19)
[2018-06-28] MEDS: HYDROmorphone 1 MG/ML 1 ML SYRINGE IVP PRN ×3 (01:07→08:48)
[2018-06-28 01:16] VITALS: RESP 16
[2018-06-28] MEDS: METOCLOPRAMIDE 5 MG/ML 2 ML VIAL IVP SCH ×2 (04:54→09:01)
[2018-06-28] MEDS: ACETAMINOPHEN IV (For NPO) 1,000 MG in EMPTY BAG 1 BAG IVPB SCH (04:54)
[2018-06-28] MEDS: LACTATED RINGERS 1,000 ML IV SCH ×2 (04:59→07:08)
[2018-06-28 07:14] VITALS: BP 145/84; PULSE 82; TEMP 98.6
[2018-06-28] MEDS: HYDROcodone/APAP 5-325MG 1 EACH TAB PO PRN (07:16)
[2018-06-28] MEDS: ONDANSETRON 4 MG/2 ML VIAL IVP SCH (07:17)
[2018-06-28 08:19] LABS: ALT 47 U/L (9-52); AST 36 U/L (14-36); Albumin 3.3 g/dL (3.5-5.0); Alkaline Phosphatase 82 U/L (38-126); Anion Gap 10 mmol/L; Blood Urea Nitrogen 3 mg/dL (7-17); Calcium 9.1 mg/dL (8.4-10.2); Carbon Dioxide 26 mmol/L (22-30); Chloride 102 mmol/L (98-107); Glucose 87 mg/dL (74-99); Potassium 4.1 mmol/L (3.5-5.1); Sodium 138 mmol/L (137-145); Total Bilirubin 0.5 mg/dL (0.2-1.3); Total Protein 6.1 g/dL (6.3-8.2)
[2018-06-28] MEDS: PANTOPRAZOLE 40 MG/10 ML VIAL IV SCH (08:51)
--- NOTE | 2018-06-28 10:57 | P.PN ---
Progress Note - Text Progress Note Date: 06/28/18 The patient's a well. She has no complaints. She wants to go home. On exam her vital signs are stable. Abdomen is soft.. Patiently discharged home today. She'll follow-up Dr. Young next week.
== END 2018-06-28 11:33 | disposition home or self-care (01) | DRG 418 ==
LOC: 4SSUR 19:51
PROVIDERS: ADMIT Surgery Plastic and Reconstructive Surgery; ATTEND Surgery Plastic and Reconstructive Surgery
PROC: 8E0W4CZ Robotic Assisted Procedure of Trunk Region, Percutaneous Endoscopic Approach (ICD-10-PCS; 2018-06-27)
PROC: 0FT44ZZ Resection of Gallbladder, Percutaneous Endoscopic Approach (ICD-10-PCS; principal; 2018-06-27 12:05)
DX: K85.10 Biliary acute pancreatitis without necrosis or infection (principal); K80.00 Calculus of gallbladder with acute cholecystitis without obstruction; E78.5 Hyperlipidemia, unspecified; I10 Essential (primary) hypertension; K21.9 Gastro-esophageal reflux disease without esophagitis; K22.70 Barrett's esophagus without dysplasia; L40.50 Arthropathic psoriasis, unspecified; M79.7 Fibromyalgia; G43.909 Migraine, unspecified, not intractable, without status migrainosus; G89.29 Other chronic pain; M19.90 Unspecified osteoarthritis, unspecified site; Z79.899 Other long term (current) drug therapy; Z88.5 Allergy status to narcotic agent; Z98.84 Bariatric surgery status; Z90.710 Acquired absence of both cervix and uterus; Z86.73 Personal history of transient ischemic attack (TIA), and cerebral infarction without residual deficits; Z91.030 Bee allergy status; Z90.49 Acquired absence of other specified parts of digestive tract; Z98.51 Tubal ligation status; Z82.49 Family history of ischemic heart disease and other diseases of the circulatory system; Z80.41 Family history of malignant neoplasm of ovary; Z80.0 Family history of malignant neoplasm of digestive organs; Z80.8 Family history of malignant neoplasm of other organs or systems
CPT/HCPCS: 80053; 83690; 83735; 84100; 85025; 88304

== ENCOUNTER → 2018-06-25 | Outpatient (CLI) | payer BC, MEDICARE, OTHER ==
[2018-06-25 15:10] VITALS: BP 145/95; PULSE 111; RESP 16; TEMP 97.3; BMI 42.0
--- NOTE | 2018-06-25 15:39 | P.PN ---
Subjective Progress Note Date: 06/25/18 DATE OF SERVICE: 06/25/2018 CHIEF COMPLAINT: Status post gastric bypass HISTORY OF PRESENT ILLNESS: Rabia Link is a 42-year-old female who is status post gastric bypass 06/09/2018. At that time, findings of retained food was identified consistent with history of medical noncompliance. She was asked to follow-up in the bariatric center and declined. She then presented to the ER for postoperative pain despite being communicated with the bariatric center. She then was admitted for pancreatitis per laboratory results with incidental findings gallstones. She reported her abdominal pain had resolved prior to discharge and was tolerating her bariatric diet which was low-fat. She reports drinking chicken broth, egg whites, and premier protein. Now she reports recurrent abdominal pain that is 5/10 and is tolerable. Separately, she has history of chronic pain syndrome and is on multiple narcotics. At height of 5 feet 4 inches, her ideal body weight is 144 pounds. Body mass index was 51.9 with highest weight of 302 pounds. She comes in 245 pounds from 260 pounds, 1 month ago. She has lost 16 pounds in 1 month since her last visit. Body mass index is reduced from 51.9 to 42.1. Lifetime weight loss is 57 pounds. Percent excess weight loss is 36%. PHYSICAL EXAM: VITAL SIGNS: Height 5 foot 4 inches, weight 245 pounds. BMI 42.1 Vital Signs Temp 97.3 F L 06/25/18 15:07 Pulse 111 H 06/25/18 15:07 Resp 16 06/25/18 15:07 BP 145/95 06/25/18 15:07 Pulse Ox GENERAL: Well-developed in no acute distress. HEENT: No scleral icterus. Extraocular movements grossly intact. Hears conversational speech. No nasal drainage. NECK: Supple without lymphadenopathy. CHEST: Nonlabored respirations with equal bilateral excursions. CARDIOVASCULAR: Tachycardic. Distal 2+ pulses. ABDOMEN: Obese, soft, nondistended. Mild epigastric tenderness. Incisions are clean dry and intact without cellulitis or infection MUSCULOSKELETAL: No clubbing, cyanosis. Gross strength 5/5 distal lower extremities. NEURO: No focal or lateralizing signs. Cranial nerves 2 through 12 grossly within normal limits. PSYCH: Appropriate affect. Alert and oriented to person, place and time. SKIN: Good skin turgor. Well perfused. ASSESSMENT: 1. Morbid obesity. 2. Body mass index of 51.9, initial to 42.1 3. Osteoarthritis of the hips. 4. Osteoarthritis of the lower back. 5. Obstructive sleep apnea. 6. Hypertensive heart disease. 7. Fibromyalgia. 8. Rheumatoid arthritis 9. Depression 10. Gastroesophageal reflux disease 11. Chronic pain syndrome 12. Cerebrovascular accident 13. Hyperlipidemia 14. Shafer's esophagus 15. Psoriatic arthritis 16. ADD with ADHD 17. Panic disorder 18. PTSD 19. History of supraventricular tachycardia 20. Status post hiatal hernia repair 21. Status post gastric bypass 22. Medical non-compliance to bariatric care 23. Pancreatitis PLAN: 1. Repeat amylase and lipase for her pancreatitis 2. May need urgent cholecystectomy for gallstones as patient wishes to defer surgery from her most recent operation. 3. Continue fat free diet Laboratory Last Values Amylase 90 U/L (30-110) 06/25/18 16:29 Lipase 779 U/L (23-300) H 06/25/18 16:29 Objective - Vital Signs Vital signs: Vital Signs Temp 97.3 F L 06/25/18 15:07 Pulse 111 H 06/25/18 15:07 Resp 16 06/25/18 15:07 BP 145/95 06/25/18 15:07 Pulse Ox Intake & Output 06/24/18 06/25/18 06/25/18 18:59 06:59 18:59 Weight 111.158 kg
[2018-06-25 16:54] LABS: Amylase 90 U/L (30-110); Lipase 779 U/L (23-300)
== END | disposition home or self-care (01) ==
LOC: BARWHC3 14:17
PROVIDERS: ATTEND Surgery Plastic and Reconstructive Surgery
DX: Z53.9 Procedure and treatment not carried out, unspecified reason (principal)
CPT/HCPCS: 36415; 82150; 83690; 99211

== ENCOUNTER → 2018-07-03 | Outpatient (CLI) | payer BC, MEDICARE, OTHER ==
--- NOTE | 2018-07-03 11:40 | P.PN ---
Subjective Progress Note Date: 07/03/18 DATE OF SERVICE: 07/03/2018 CHIEF COMPLAINT: Status post gastric bypass and cholecystectomy HISTORY OF PRESENT ILLNESS: Rabia Link is a 42-year-old female who is status post gastric bypass 06/09/2018. She has developed gallstones after doing a non-prescribed Keto diet on her own. In the past, she had an ultrasound 8 months ago demonstrating no gallstones. Since her last visit 1 week ago, she then went back to the ER with recurrent abdominal pain after eating foods with fat following her clinic appointment. She is now status post cholecystectomy 06/27/2018. She is doing much better since surgery. She is tolerating diet. She is passing gas. At height of 5 feet 4 inches, her ideal body weight is 144 pounds. Body mass index was 51.9 with highest weight of 302 pounds. She comes in 240 pounds from 245 pounds, 1 week ago. She has lost 4 pounds in 1 week since her last visit. Body mass index is reduced from 51.9 to 41.4. Lifetime weight loss is 62 pounds. Percent excess weight loss is 39%. PHYSICAL EXAM: VITAL SIGNS: Height 5 foot 4 inches, weight 240 pounds. BMI 41.4 GENERAL: Well-developed in no acute distress. HEENT: No scleral icterus. Extraocular movements grossly intact. Hears conversational speech. No nasal drainage. NECK: Supple without lymphadenopathy. CHEST: Nonlabored respirations with equal bilateral excursions. CARDIOVASCULAR: Regular rate and rhythm. Distal 2+ pulses. ABDOMEN: No infection, soft, nondistended. Incisions are clean, dry and intact MUSCULOSKELETAL: No clubbing, cyanosis. NEURO: No focal or lateralizing signs. Cranial nerves 2 through 12 grossly within normal limits. PSYCH: Appropriate affect. Alert and oriented to person, place and time. SKIN: Good skin turgor. Well perfused. ASSESSMENT: 1. Morbid obesity. 2. Body mass index of 51.9, initial to 41.4 3. Osteoarthritis of the hips. 4. Osteoarthritis of the lower back. 5. Obstructive sleep apnea. 6. Hypertensive heart disease. 7. Fibromyalgia. 8. Rheumatoid arthritis 9. Depression 10. Gastroesophageal reflux disease 11. Chronic pain syndrome 12. Cerebrovascular accident 13. Hyperlipidemia 14. Shafer's esophagus 15. Psoriatic arthritis 16. ADD with ADHD 17. Panic disorder 18. PTSD 19. History of supraventricular tachycardia 20. Status post hiatal hernia repair 21. Status post gastric bypass 22. Medical non-compliance to bariatric care 23. Pancreatitis 24. Status post cholecystectomy PLAN: 1. May start back on lisinopril 2. NO fat diet advised for post-op recovery and history of pancreatitis. 3. Follow up next month
[2018-07-03 12:07] VITALS: BMI 41.3
== END ==
LOC: BARWHC3 09:02
PROVIDERS: ATTEND Surgery Plastic and Reconstructive Surgery
DX: Z48.815 Encounter for surgical aftercare following surgery on the digestive system (principal); E66.01 Morbid (severe) obesity due to excess calories; M16.0 Bilateral primary osteoarthritis of hip; G47.33 Obstructive sleep apnea (adult) (pediatric); I11.9 Hypertensive heart disease without heart failure; F32.9 Major depressive disorder, single episode, unspecified; K21.9 Gastro-esophageal reflux disease without esophagitis; G89.4 Chronic pain syndrome; E78.5 Hyperlipidemia, unspecified; K22.70 Barrett's esophagus without dysplasia; L40.50 Arthropathic psoriasis, unspecified; F90.9 Attention-deficit hyperactivity disorder, unspecified type; F41.0 Panic disorder [episodic paroxysmal anxiety]; F43.10 Post-traumatic stress disorder, unspecified; I47.1 Supraventricular tachycardia; M79.7 Fibromyalgia; K85.90 Acute pancreatitis without necrosis or infection, unspecified; Z91.14 Patient's other noncompliance with medication regimen; Z98.84 Bariatric surgery status; Z91.19 Patient's noncompliance with other medical treatment and regimen; Z90.49 Acquired absence of other specified parts of digestive tract; Z68.41 Body mass index [BMI] 40.0-44.9, adult; M06.9 Rheumatoid arthritis, unspecified; Z71.3 Dietary counseling and surveillance
CPT/HCPCS: 97802; 99211

== ENCOUNTER 2018-07-04 05:06 | Emergency (ER) | payer BC, MEDICARE, OTHER ==
[2018-07-04] MEDS ORDERED: SODIUM CHLORIDE 0.9% 1,000 ML IV STA (05:22)
[2018-07-04] MEDS: ONDANSETRON 4 MG/2 ML VIAL IVP STA ×2 (06:04→09:19)
[2018-07-04] MEDS ORDERED: HYDROmorphone 1 MG/ML 1 ML SYRINGE IVP STA (06:08)
[2018-07-04 06:41] LABS: Basophils % (A) 0 %; Eosinophils # (A) 0.2 k/uL (0-0.7); Eosinophils % (A) 3 %; HCT 43.3 % (34.0-46.0); HGB 14.1 gm/dL (11.4-16.0); Lymphocytes # (A) 1.2 k/uL (1.0-4.8); Lymphocytes % (A) 16 %; MCH 27.8 pg (25.0-35.0); MCHC 32.5 g/dL (31.0-37.0); MCV 85.6 fL (80.0-100.0); Mean Platelet Volume 7.4; Monocytes # (A) 0.5 k/uL (0-1.0); Monocytes % (A) 6 %; Neutrophils # (A) 5.7 k/uL (1.3-7.7); Neutrophils % (A) 73 %; Platelet Count 250 k/uL (150-450); RBC 5.06 m/uL (3.80-5.40); RDW 14.4 % (11.5-15.5); WBC 7.8 k/uL (3.8-10.6)
[2018-07-04 06:48] LABS: Appearance,Urine Clear (Clear); Bilirubin,Urine Negative (Negative); Blood,Urine Negative (Negative); Color,Urine Light Yellow; Glucose,Urine (UA) Negative (Negative); Ketones,Urine 2+ (Negative); Leukocyte Esterase,Urine Negative (Negative); Nitrite,Urine Negative (Negative); Protein,Urine Trace (Negative); Specific Gravity,Urine 1.006 (1.001-1.035); Urobilinogen,Urine <2.0 mg/dL (<2.0)
[2018-07-04 06:51] LABS: ALT 27 U/L (9-52); AST 20 U/L (14-36); Albumin 4.1 g/dL (3.5-5.0); Alkaline Phosphatase 77 U/L (38-126); Amylase 87 U/L (30-110); Anion Gap 12 mmol/L; Blood Urea Nitrogen 6 mg/dL (7-17); Calcium 9.4 mg/dL (8.4-10.2); Carbon Dioxide 22 mmol/L (22-30); Chloride 104 mmol/L (98-107); Glucose 98 mg/dL (74-99); Lipase 712 U/L (23-300); Potassium 4.1 mmol/L (3.5-5.1); Sodium 138 mmol/L (137-145); Total Bilirubin 0.4 mg/dL (0.2-1.3)
[2018-07-04 06:54] VITALS: RESP 16
--- NOTE | 2018-07-04 06:59 | ED ---
Abdominal Pain HPI - General Source: patient Mode of arrival: ambulatory Limitations: no limitations <Mell Tavarez - Last Filed: 07/04/18 07:58> <Oliver Barney - Last Filed: 07/04/18 09:15> - General Chief Complaint: Abdominal Pain Stated Complaint: Post Surgery Abd Pain/ Nausea Time Seen by Provider: 07/04/18 05:22 - History of Present Illness Initial Comments: Plan is a 42-year-old female presents the emergency department today for reevaluation of persistent epigastric abdominal discomfort nausea and vomiting. The patient had a Crys-en-Y procedure 1 month ago, she subsequently developed pancreatitis and had a cholecystectomy. Patient was admitted earlier in the week for pancreatitis, she was treated with IV fluids and subsequently discharged home. Patient reports she has attempted to manage the discomfort and nausea with home medications however she's been unable to keep anything down for the past day and today the pain became unbearable so she return to the ER for reevaluation. (Mell Tavarez) - Related Data Home Medications Medication Instructions Recorded Confirmed Doxepin HCl [SINEquan] 200 mg PO HS PRN MDD 200 MG 10/31/17 07/04/18 Pregabalin [Lyrica] 200 mg PO BID 10/31/17 07/04/18 tiZANidine HCL [Zanaflex] 4 mg PO TID PRN 10/31/17 07/04/18 Acetaminophen Tab [Tylenol] 1,000 mg PO Q6HR PRN 06/02/18 07/04/18 Naloxegol Oxalate [Movantik] 25 mg PO DAILY PRN 06/02/18 07/04/18 Omeprazole [PriLOSEC] 40 mg PO BID 06/02/18 07/04/18 Docusate [Colace] 100 mg PO DAILY 06/13/18 07/04/18 oxyCODONE-APAP 10-325MG [Percocet 1 tab PO TID 06/19/18 07/04/18 10-325 mg] Lisinopril [Zestril] 5 mg PO DAILY 07/04/18 07/04/18 Previous Rx's Medication Instructions Recorded Ondansetron Odt [Zofran ODT] 4 mg PO Q8HR PRN #20 tab 06/13/18 Metoclopramide [Reglan] 10 mg PO ACHS #30 tab 06/20/18 Scopolamine 1.5MG/72Hr Patch 1 patch TRANSDERM Q72H #4 patch 07/04/18 [TransDerm Scop] Allergies Allergy/AdvReac Type Severity Reaction Status Date / Time bee venom protein (honey bee) Allergy Unknown Anaphylaxis Verified 07/04/18 08: 13 morphine Allergy Unknown Itching Verified 07/04/18 08:13 and swelling NSAIDS (Non-Steroidal Allergy Unknown Verified 07/04/18 08:13 Anti-Inflamma Review of Systems ROS Other: All systems not noted in ROS Statement are negative. <Mell Tavarez - Last Filed: 07/04/18 07:58> ROS Other: All systems not noted in ROS Statement are negative. <Oliver Barney - Last Filed: 07/04/18 09:15> ROS Statement: Those systems with pertinent positive or pertinent negative responses have been documented in the HPI. Past Medical History Past Medical History: CVA/TIA, Fibromyalgia, GERD/Reflux, Hyperlipidemia, Hypertension Additional Past Medical History / Comment(s): CVA 2012, psoriasis, Shafer's Esophagus, arthritis, migraines, Psoriatic arthritis, chronic pain (Sees Dr. Frederick for pain management) precancerous throat cells,pancreatits History of Any Multi-Drug Resistant Organisms: None Reported Past Surgical History: Adenoidectomy, Appendectomy, Bariatric Surgery, Hysterectomy, Tonsillectomy, Tubal Ligation Additional Past Surgical History / Comment(s): [place] fundolpication 1999(?), partial hysterectomy via trans-vaginal procedure (patient retained both ovaries ) take down of [place] 03-08 gastric bypass pt stated crys en y"06-09-18 Past Anesthesia/Blood Transfusion Reactions: No Reported Reaction Additional Past Anesthesia/Blood Transfusion Reaction / Comment(s): No transfusion noted to date . hx clausterphobia Past Psychological History: ADD/ADHD, Depression, Panic Disorder, PTSD Smoking Status: Never smoker Past Alcohol Use History: None Reported Past Drug Use History: None Reported - Past Family History Father Family Medical History: Cancer, Coronary Artery Disease (CAD) Additional Family Medical History / Comment(s): father from stomach cancer at age 51, heroin addict (struggled with addiction off and on for years after coming home from [place]) Mother Family Medical History: Cancer Additional Family Medical History / Comment(s): Mother at age 36 from Ovarian Cancer mets to brain <Mell Tavarez - Last Filed: 07/04/18 07:58> General Exam Limitations: no limitations <Mell Tavarez - Last Filed: 07/04/18 07:58> <Oliver Barney - Last Filed: 07/04/18 09:15> - General Exam Comments Initial Comments: Physical Exam GENERAL: Dehydrated-appearing patient in moderate distress HENT: Normocephalic, Atraumatic. EYES: PERRL, EOMI PULMONARY: Unlabored respirations. No audible rales rhonchi or wheezing was noted. CARDIOVASCULAR: There is a regular rate and rhythm without any murmurs gallops or rubs. ABDOMEN: Soft, well-healing surgical incisions tenderness to palpation in the epigastrium SKIN: Skin is clear with no lesions or rashes and otherwise unremarkable. : Deferred NEUROLOGIC: Patient is alert and oriented x3. Moving all extremities spontaneously MUSCULOSKELETAL: Normal extremities with adequate strength and full range of motion. No lower extremity swelling or edema. No calf tenderness. PSYCHIATRIC: situational depression Limitations: no limitations (Mell Tavarez) Vital Signs 07/04/18 07/04/18 05:13 06:51 Temperature 98.4 F Pulse Rate 109 H 99 Respiratory 18 16 Rate Blood Pressure 164/115 181/107 O2 Sat by Pulse 100 97 Oximetry Medical Decision Making - Lab Data Result diagrams: 07/04/18 06:20 07/04/18 06:20 <Mell Tavarez - Last Filed: 07/04/18 07:58> - Lab Data Result diagrams: 07/04/18 06:20 07/04/18 06:20 <Oliver Barney - Last Filed: 07/04/18 09:15> - Medical Decision Making The patient was seen and evaluated history was obtained from patient and review of records IV fluids and labs were ordered Dilaudid ordered for pain Labs reveal mildly elevated lipase at 712, patient care was discussed with the surgeon Dr. Young who recommended additional 1 L of fluid she will evaluate the patient at bedside Patient care is signed out to Dr. Barney at [address] Barney will follow-up on Dr. Young's recommendations. (Mell Tavarez) Patient was seen by Dr. Young who recommends discharge. (Oliver Barney) - Lab Data Lab Results 07/04/18 07/04/18 07/04/18 Range/Units 06:20 06:20 06:30 WBC 7.8 (3.8-10.6) k/uL RBC 5.06 (3.80-5.40) m/uL Hgb 14.1 (11.4-16.0) gm/dL Hct 43.3 (34.0-46.0) % MCV 85.6 (80.0-100.0) fL MCH 27.8 (25.0-35.0) pg MCHC 32.5 (31.0-37.0) g/dL RDW 14.4 (11.5-15.5) % Plt Count 250 (150-450) k/uL Neutrophils % 73 % Lymphocytes % 16 % Monocytes % 6 % Eosinophils % 3 % Basophils % 0 % Neutrophils # 5.7 (1.3-7.7) k/uL Lymphocytes # 1.2 (1.0-4.8) k/uL Monocytes # 0.5 (0-1.0) k/uL Eosinophils # 0.2 (0-0.7) k/uL Basophils # 0.0 (0-0.2) k/uL Sodium 138 (137-145) mmol/L Potassium 4.1 (3.5-5.1) mmol/L Chloride 104 (98-107) mmol/L Carbon Dioxide 22 (22-30) mmol/L Anion Gap 12 mmol/L BUN 6 L (7-17) mg/dL Creatinine 0.59 (0.52-1.04) mg/dL Est GFR (CKD-EPI)AfAm >90 (>60 ml/min/1.73 sqM) Est GFR (CKD-EPI)NonAf >90 (>60 ml/min/1.73 sqM) Glucose 98 (74-99) mg/dL Calcium 9.4 (8.4-10.2) mg/dL Total Bilirubin 0.4 (0.2-1.3) mg/dL AST 20 (14-36) U/L ALT 27 (9-52) U/L Alkaline Phosphatase 77 (38-126) U/L Total Protein 7.0 (6.3-8.2) g/dL Albumin 4.1 (3.5-5.0) g/dL Amylase 87 (30-110) U/L Lipase 712 H (23-300) U/L Urine Color Light Yellow Urine Appearance Clear (Clear) Urine pH 6.0 (5.0-8.0) Ur Specific [place] 1.006 (1.001-1.035) Urine Protein Trace H (Negative) Urine Glucose (UA) Negative (Negative) Urine Ketones 2+ H (Negative) Urine Blood Negative (Negative) Urine Nitrite Negative (Negative) Urine Bilirubin Negative (Negative) Urine Urobilinogen <2.0 (<2.0) mg/dL Ur Leukocyte Esterase Negative (Negative) Disposition <Mell Tavarez - Last Filed: 07/04/18 07:58> Is patient prescribed a controlled substance at d/c from ED?: No <Oliver Barney - Last Filed: 07/04/18 09:15> Clinical Impression: Abdominal pain Disposition: HOME SELF-CARE Condition: Stable Instructions: Abdominal Pain (ED) Additional Instructions: Please follow-up with Dr. Young and primary care physician in the next day or 2 for recheck. Return for worsening symptoms. Prescriptions: Scopolamine 1.5MG/72Hr Patch [TransDerm Scop] 1 patch TRANSDERM Q72H #4 patch Referrals: Josh Li MD [Primary Care Provider] - 1-2 days
[2018-07-04] MEDS ORDERED: diphenhydrAMINE 50 MG/ML 1 ML VIAL IVP STA (07:46)
[2018-07-04] MEDS ORDERED: METOCLOPRAMIDE 5 MG/ML 2 ML VIAL IVP STA (07:46)
[2018-07-04] MEDS ORDERED: SODIUM CHLORIDE 0.9% 1,000 ML IV ONE (07:49)
--- NOTE | 2018-07-04 08:29 | P.GSCN ---
History of Present Illness Consult date: 07/04/18 History of present illness: CHIEF COMPLAINT: Chronic pain with chronic abdominal pain HISTORY OF PRESENT ILLNESS: The patient is a 42 year old female with chronic pain medication needs who is status post robotic gastric bypass and cholecystectomy within the last 3+ weeks. She was seen in the bariatric center yesterday and placed on a strict no fat diet. She reports eating cheese and now developing acute nausea and vomiting including dehydration. Her oral intake has been adequate in the last 24 hours since her presentation to the emergency room with intractable nausea and vomiting. She has frequent presentations to the emergency room for medical needs. She had stopped taking her Reglan regimen as well. She had ate cheese despite being on a NO FAT diet and now presents with recurrent attacks. PAST MEDICAL HISTORY: See list. PAST SURGICAL HISTORY: See list. MEDICATIONS: See list. ALLERGIES: See list. SOCIAL HISTORY: No illicit drug use FAMILY HISTORY: No reports of Crohn's disease or inflammatory bowel disease REVIEW OF ORGAN SYSTEMS: CONSTITUTIONAL: No fevers or chills HEENT: No troubles with vision or hearing. No reports of dysphagia. ENDOCRINE: No reports of thyroid disorders. No diabetes. CARDIOVASCULAR: No heart attack. No chest pain. RESPIRATORY: No shortness of breath or pneumonia. GASTROINTESTINAL: No reports of recent blood in stools. NEURO: No reports of stroke or seizure disorders. Has chronic pain needs. PSYCH: Has depression or suicidal ideation HEMATOLOGIC: No easy bruising or bleeding LYMPHATIC: The patient denies any lumps and bumps around the neck. GENITOURINARY: Denies any blood in urine or increased urinary frequency. MUSCULOSKELETAL: Has back pain, stiffness or joint arthritis. SKIN: No skin cancer or rash. PHYSICAL EXAM: VITAL SIGNS: Currently stable. GENERAL: Well-developed in no acute distress. HEENT: No sclera icterus. Extraocular movements grossly intact. Moist buccal mucosa. Head is atraumatic, normocephalic. Hears conversational speech. No nasal drainage. NECK: Supple without lymphadenopathy. CHEST: Non-labored respirations and equal bilateral excursions. CARDIOVASCULAR: Regular rate with regular rhythm. Palpable 2+ radial pulses. ABDOMEN: Soft. Nondistended. No peritonitis. Minimal epigastric tenderness. MUSCULOSKELETAL: No clubbing, cyanosis or edema. NEUROLOGIC: No focal or lateralizing signs. Cranial nerves II through XII grossly intact. PSYCH: Appropriate affect. Alert and oriented to person, place and time. SKIN: Well perfused. Good skin turgor. LABS: Reviewed ASSESSMENT: 1. History of chronic pain needs with chronic abdominal pain 2. Medical non-compliance to care 3. S/p gastric bypass 4. S/p cholecystectomy PLAN: 1. Recommend IV fluid hydration 2-Liters 2. Scopolamine patches for nausea 3. Contine reglan 4. Hold Cymbalta for adverse effect with Zofran 5. ABSOLUTELY NO FAT, NO DIARY DIET Thank you for this kind consultation. Past Medical History Past Medical History: CVA/TIA, Fibromyalgia, GERD/Reflux, Hyperlipidemia, Hypertension Additional Past Medical History / Comment(s): CVA 2011, psoriasis, Shafer's Esophagus, arthritis, migraines, Psoriatic arthritis, chronic pain (Sees Dr. Frederick for pain management) precancerous throat cells,pancreatits History of Any Multi-Drug Resistant Organisms: None Reported Past Surgical History: Adenoidectomy, Appendectomy, Bariatric Surgery, Hysterectomy, Tonsillectomy, Tubal Ligation Additional Past Surgical History / Comment(s): [place] fundolpication 1999(?), partial hysterectomy via trans-vaginal procedure (patient retained both ovaries ) take down of [place] 03-08 gastric bypass pt stated crys en y"06-09-18 Past Anesthesia/Blood Transfusion Reactions: No Reported Reaction Additional Past Anesthesia/Blood Transfusion Reaction / Comm: No transfusion noted to date . hx clausterphobia Past Psychological History: ADD/ADHD, Depression, Panic Disorder, PTSD Smoking Status: Never smoker Past Alcohol Use History: None Reported Past Drug Use History: None Reported - Past Family History Father Family Medical History: Cancer, Coronary Artery Disease (CAD) Additional Family Medical History / Comment(s): father from stomach cancer at age 51, heroin addict (struggled with addiction off and on for years after coming home from [place]) Mother Family Medical History: Cancer Additional Family Medical History / Comment(s): Mother at age 36 from Ovarian Cancer mets to brain Medications and Allergies Home Medications Medication Instructions Recorded Confirmed Type Doxepin HCl [SINEquan] 200 mg PO HS PRN MDD 200 MG 10/31/17 07/04/18 History Pregabalin [Lyrica] 200 mg PO BID 10/31/17 07/04/18 History Topiramate [Topamax] 100 mg PO BID 10/31/17 07/04/18 History tiZANidine HCL [Zanaflex] 4 mg PO TID PRN 10/31/17 07/04/18 History Acetaminophen Tab [Tylenol] 1,000 mg PO Q6HR PRN 06/02/18 07/04/18 History Naloxegol Oxalate [Movantik] 25 mg PO DAILY PRN 06/02/18 07/04/18 History Omeprazole [PriLOSEC] 40 mg PO BID 06/02/18 07/04/18 History hydrOXYzine HCL [Atarax] 25 mg PO TID PRN 06/02/18 07/04/18 History Simethicone 40 mg/0.6 ml Drops 40 mg PO PCHS PRN #30 ml 06/10/18 07/04/18 Rx [Mylicon Drops] Docusate [Colace] 100 mg PO DAILY 06/13/18 07/04/18 History Ondansetron Odt [Zofran ODT] 4 mg PO Q8HR PRN #20 tab 06/13/18 07/04/18 Rx oxyCODONE-APAP 10-325MG [Percocet 1 tab PO TID 06/19/18 07/04/18 History 10-325 mg] Metoclopramide [Reglan] 10 mg PO ACHS #30 tab 06/20/18 07/04/18 Rx Dextroamphetamine/Amphetamine 20 mg PO BID 07/04/18 07/04/18 History [Adderall] Lisinopril [Zestril] 5 mg PO DAILY 07/04/18 07/04/18 History Allergies Allergy/AdvReac Type Severity Reaction Status Date / Time bee venom protein (honey bee) Allergy Unknown Anaphylaxis Verified 07/04/18 08: 13 morphine Allergy Unknown Itching Verified 07/04/18 08:13 and swelling NSAIDS (Non-Steroidal Allergy Unknown Verified 07/04/18 08:13 Anti-Inflamma Surgical - Exam Vital Signs Temp Pulse Resp BP Pulse Ox 98.4 F 109 H 18 164/115 100 07/04/18 05:13 07/04/18 05:13 07/04/18 05:13 07/04/18 05:13 07/04/18 05:13 Results - Labs 07/04/18 06:20 07/04/18 06:20 Abnormal Lab Results - Last 24 Hours (Table) 07/04/18 07/04/18 Range/Units 06:20 06:30 BUN 6 L (7-17) mg/dL Lipase 712 H (23-300) U/L Urine Protein Trace H (Negative) Urine Ketones 2+ H (Negative) Diabetes panel 07/04/18 Range/Units 06:20 Sodium 138 (137-145) mmol/L Potassium 4.1 (3.5-5.1) mmol/L Chloride 104 (98-107) mmol/L Carbon Dioxide 22 (22-30) mmol/L BUN 6 L (7-17) mg/dL Creatinine 0.59 (0.52-1.04) mg/dL Glucose 98 (74-99) mg/dL Calcium 9.4 (8.4-10.2) mg/dL AST 20 (14-36) U/L ALT 27 (9-52) U/L Alkaline Phosphatase 77 (38-126) U/L Total Protein 7.0 (6.3-8.2) g/dL Albumin 4.1 (3.5-5.0) g/dL Calcium panel 07/04/18 Range/Units 06:20 Calcium 9.4 (8.4-10.2) mg/dL Albumin 4.1 (3.5-5.0) g/dL Pituitary panel 07/04/18 Range/Units 06:20 Sodium 138 (137-145) mmol/L Potassium 4.1 (3.5-5.1) mmol/L Chloride 104 (98-107) mmol/L Carbon Dioxide 22 (22-30) mmol/L BUN 6 L (7-17) mg/dL Creatinine 0.59 (0.52-1.04) mg/dL Glucose 98 (74-99) mg/dL Calcium 9.4 (8.4-10.2) mg/dL Adrenal panel 07/04/18 Range/Units 06:20 Sodium 138 (137-145) mmol/L Potassium 4.1 (3.5-5.1) mmol/L Chloride 104 (98-107) mmol/L Carbon Dioxide 22 (22-30) mmol/L BUN 6 L (7-17) mg/dL Creatinine 0.59 (0.52-1.04) mg/dL Glucose 98 (74-99) mg/dL Calcium 9.4 (8.4-10.2) mg/dL Total Bilirubin 0.4 (0.2-1.3) mg/dL AST 20 (14-36) U/L ALT 27 (9-52) U/L Alkaline Phosphatase 77 (38-126) U/L Total Protein 7.0 (6.3-8.2) g/dL Albumin 4.1 (3.5-5.0) g/dL
[2018-07-04 09:23] VITALS: BP 148/89; PULSE 78; TEMP 97.9
== END 2018-07-04 09:20 | disposition home or self-care (01) ==
LOC: EC 05:06
DX: R10.13 Epigastric pain (principal); R11.2 Nausea with vomiting, unspecified; R74.8 Abnormal levels of other serum enzymes; M79.7 Fibromyalgia; K21.9 Gastro-esophageal reflux disease without esophagitis; I10 Essential (primary) hypertension; G89.29 Other chronic pain; Z87.19 Personal history of other diseases of the digestive system; Z86.73 Personal history of transient ischemic attack (TIA), and cerebral infarction without residual deficits; Z79.891 Long term (current) use of opiate analgesic; Z79.899 Other long term (current) drug therapy; Z91.030 Bee allergy status; Z88.5 Allergy status to narcotic agent; Z88.6 Allergy status to analgesic agent; Z90.49 Acquired absence of other specified parts of digestive tract; Z98.84 Bariatric surgery status
CPT/HCPCS: 99284; 96374; 96375 ×3; 96361 ×3; 36415; 80053; 82150; 83690; 85025; 81003; J1200; J2765; J2405; J1170

== ENCOUNTER 2018-07-06 17:47 | Inpatient (IN) | payer BC, MEDICARE, OTHER ==
--- NOTE | 2018-07-06 18:44 | P.GSHP ---
History of Present Illness H&P Date: 07/06/18 CHIEF COMPLAINT: Pancreatitis HISTORY OF PRESENT ILLNESS: The patient is a 42-year-old female status post gastric bypass almost 4 weeks ago. One week later, she developing epigastric abdominal pain. She has history of chronic pain and takes multiple narcotics including OxyContin and Percocet. Laboratory work were consistent with elevated lipase level. Despite low-fat diet, patient had been medically noncompliant with care. Diagnostic studies including ultrasound demonstrated new gallstones which were absent 8 months ago. She then underwent a cholecystectomy 1 week ago. She reported feeling very well after her cholecystectomy with decreased lipase levels. In the last 5 days she has gone to multiple ERs including daily ER visits for recurrent epigastric abdominal pain despite close evaluation and follow-up. She'll often feel well in the morning and then by evening she reports epigastric pain radiating to her back. She reports initial good oral intake was then wanes in the evening. Despite IV fluid hydration therapy including antiemetics, she is tearful and requesting pain medications. Outside blood work reviewed consistent with elevated lipase levels over 700. Outside CT abdomen and pelvis negative for leaks or obstruction. Secondary to the acute and chronic pancreatitis including intractable abdominal pain, the patient is admitted. She was made aware that she will go complete nothing by mouth status including discontinuing all medications which may relate with drug-induced pancreatitis. Additionally, PICC line and TPN were described for complete nothing by mouth status. MAPS for narcotic and opiate use performed where patient had different name consistent with large amount of narcotic exposure. Patient is often changing her story and has severe emotional lability. She reports her pain medications are given by her primary care provider. Her past pain specialist was Dr. Herrera. PAST MEDICAL HISTORY: See list. PAST SURGICAL HISTORY: See list. MEDICATIONS: See list. ALLERGIES: See list. SOCIAL HISTORY: No recent tobacco use FAMILY HISTORY: No reports of Crohn's disease REVIEW OF ORGAN SYSTEMS: CONSTITUTIONAL: No fevers or chills HEENT: No troubles with vision or hearing. No reports of dysphagia. ENDOCRINE: No reports of thyroid disorders. No diabetes. CARDIOVASCULAR: No heart attack. No chest pain. RESPIRATORY: No shortness of breath or pneumonia. GASTROINTESTINAL: No reports of recent blood in stools. NEURO: No reports of stroke or seizure disorders. PSYCH: Has depression. No thoughts of self suicide. HEMATOLOGIC: Has easy bruising and bleeding LYMPHATIC: The patient denies any lumps and bumps around the neck. GENITOURINARY: No blood in urine or increased urinary frequency. MUSCULOSKELETAL: Has back pain, stiffness and joint arthritis. Has chronic pain. SKIN: No skin cancer or rash. PHYSICAL EXAM: VITAL SIGNS: Reviewed GENERAL: Well-developed in no acute distress. HEENT: No sclera icterus. Extraocular movements grossly intact. Moist buccal mucosa. Head is atraumatic, normocephalic. Hears conversational speech. No nasal drainage. NECK: Supple without lymphadenopathy. CHEST: Non-labored respirations and equal bilateral excursions. CARDIOVASCULAR: Regular rate with regular rhythm. Palpable 2+ radial pulses. ABDOMEN: Soft. Nondistended. No peritonitis. Mild tenderness epigastric however able to distract. MUSCULOSKELETAL: No clubbing, cyanosis or edema. NEUROLOGIC: No focal or lateralizing signs. Cranial nerves II through XII grossly intact. PSYCH: Appropriate affect. Alert and oriented to person, place and time. SKIN: Well perfused. Good skin turgor. LABS: Reviewed ASSESSMENT: 1. Acute on chronic pancreatitis 2. Status post gastric bypass 3. Status post cholecystectomy 4. Chronic pain syndrome 5. Intractable abdominal pain with nausea 6. History of malingering 7. History of medical noncompliance 8. Drug-induced pancreatitis 9. Multiple food and drug ALLERGIES 10. Emotional lability PLAN: 1. I had a candid discussion with the patient and nurse present that most of her medications including pain medications put her at risk for drug-induced pancreatitis. Strict nothing by mouth advised 2. Recommend PICC line placement for poor IV access and TPN 3. Consultation to pain specialist for chronic pain needs and possible celiac plexus block 4. Recommend GI consultation for chronic pancreatitis with elevated lipase level 5. Recommend consultation to psychiatrist for extreme emotional lability and history of malingering 6. Consultation to specialist for medical management and hypertension 7. Full inpatient hospitalization anticipated more than 2 nights 8. Will obtain urine drug screen as well 9. Additional pancreatitis workup being performed Past Medical History Past Medical History: CVA/TIA, Fibromyalgia, GERD/Reflux, Hyperlipidemia, Hypertension Additional Past Medical History / Comment(s): CVA 2012, psoriasis, Shafer's Esophagus, arthritis, migraines, Psoriatic arthritis, chronic pain (Sees Dr. Frederick for pain management) precancerous throat cells,pancreatits History of Any Multi-Drug Resistant Organisms: None Reported Past Surgical History: Adenoidectomy, Appendectomy, Bariatric Surgery, Hysterectomy, Tonsillectomy, Tubal Ligation Additional Past Surgical History / Comment(s): Mendez fundolpication 1999(?), partial hysterectomy via trans-vaginal procedure (patient retained both ovaries ) take down of mendez 03-08 gastric bypass pt stated crys en y"06-09-18 Past Anesthesia/Blood Transfusion Reactions: No Reported Reaction Additional Past Anesthesia/Blood Transfusion Reaction / Comment(s): No transfusion noted to date . hx clausterphobia Smoking Status: Never smoker - Past Family History Father Family Medical History: Cancer, Coronary Artery Disease (CAD) Additional Family Medical History / Comment(s): father from stomach cancer at age 51, heroin addict (struggled with addiction off and on for years after coming home from [place]) Mother Family Medical History: Cancer Additional Family Medical History / Comment(s): Mother at age 36 from Ovarian Cancer mets to brain Medications and Allergies Home Medications Medication Instructions Recorded Confirmed Type Doxepin HCl [SINEquan] 200 mg PO HS PRN MDD 200 MG 10/31/17 07/06/18 History Pregabalin [Lyrica] 200 mg PO BID 10/31/17 07/06/18 History tiZANidine HCL [Zanaflex] 4 mg PO TID PRN 10/31/17 07/06/18 History Acetaminophen Tab [Tylenol] 1,000 mg PO Q6HR PRN 06/02/18 07/06/18 History Naloxegol Oxalate [Movantik] 25 mg PO DAILY PRN 06/02/18 07/06/18 History Omeprazole [PriLOSEC] 40 mg PO BID 06/02/18 07/06/18 History Docusate [Colace] 100 mg PO DAILY 06/13/18 07/06/18 History Ondansetron Odt [Zofran ODT] 4 mg PO Q8HR PRN #20 tab 06/13/18 07/06/18 Rx oxyCODONE-APAP 10-325MG [Percocet 1 tab PO TID 06/19/18 07/06/18 History 10-325 mg] Metoclopramide [Reglan] 10 mg PO ACHS #30 tab 06/20/18 07/06/18 Rx Lisinopril [Zestril] 5 mg PO DAILY 07/04/18 07/06/18 History Scopolamine 1.5MG/72Hr Patch 1 patch TRANSDERM Q72H #4 patch 07/04/18 07/06/18 Rx [TransDerm Scop] ALPRAZolam [Xanax] 0.25 mg PO Q8HR #5 tab 07/06/18 Rx Allergies Allergy/AdvReac Type Severity Reaction Status Date / Time bee venom protein (honey bee) Allergy Severe Anaphylaxis Verified 07/06/18 11:27 morphine Allergy Severe Itching Verified 07/06/18 11:27 and swelling NSAIDS (Non-Steroidal Allergy Unknown Verified 07/06/18 11:27 Anti-Inflamma Sugars, Metabolically Active AdvReac Severe dumping Verified 07/06/18 11:29 syndrome Assessment and Plan (1) Emotional lability Status: Acute Code(s): R45.86 - EMOTIONAL LABILITY SNOMED Code(s): 23651673 (2) Drug-induced pancreatitis Status: Acute Code(s): K85.30 - DRUG INDUCED ACUTE PANCREATITIS WITHOUT NECROSIS OR INFCT SNOMED Code(s): 71911346 (3) Acute on chronic pancreatitis Status: Acute Code(s): K85.90 - ACUTE PANCREATITIS WITHOUT NECROSIS OR INFECTION, UNSP; K86.1 - OTHER CHRONIC PANCREATITIS SNOMED Code(s): 087780133 (4) History of cholecystectomy Status: Acute Code(s): Z90.49 - ACQUIRED ABSENCE OF OTHER SPECIFIED PARTS OF DIGESTIVE TRACT SNOMED Code(s): 192634177 (5) Chronic pain Status: Acute Code(s): G89.29 - OTHER CHRONIC PAIN SNOMED Code(s): 92095724 (6) History of gastric bypass Status: Acute Code(s): Z98.84 - BARIATRIC SURGERY STATUS SNOMED Code(s): 834670444 (7) Hypertensive heart disease Status: Acute Code(s): I11.9 - HYPERTENSIVE HEART DISEASE WITHOUT HEART FAILURE SNOMED Code(s): 43101049 (8) Morbid obesity with BMI of 40.0-44.9, adult Status: Acute Code(s): E66.01 - MORBID (SEVERE) OBESITY DUE TO EXCESS CALORIES ; Z68.41 - BODY MASS INDEX (BMI) 40.0-44.9, ADULT SNOMED Code(s): 710799561 (9) Pancreatitis Status: Acute Code(s): K85.90 - ACUTE PANCREATITIS WITHOUT NECROSIS OR INFECTION, UNSP SNOMED Code(s): 16796579 (10) Medical non-compliance Status: Acute Code(s): Z91.19 - PATIENT'S NONCOMPLIANCE W OT MEDICAL TREATMENT AND REGIMEN SNOMED Code(s): 472769847 (11) High risk for readmission Status: Acute Code(s): Z91.89 - OT PERSONAL RISK FACTORS, NOT ELSEWHERE CLASSIFIED SNOMED Code(s): 980193715 (12) Malingering Status: Acute Code(s): Z76.5 - MALINGERER [CONSCIOUS SIMULATION] SNOMED Code (s): 647968454
[2018-07-06] MEDS ORDERED: LACTATED RINGERS 1,000 ML IV ONE (18:45)
[2018-07-06] MEDS ORDERED: NALOXONE 0.4 MG/ML 1 ML VIAL IV PRN (18:45)
[2018-07-06 20:08] VITALS: BMI 39.9
[2018-07-06] MEDS: METOCLOPRAMIDE 5 MG/ML 2 ML VIAL IVP SCH ×2 (20:20→23:01)
[2018-07-06] MEDS: ACETAMINOPHEN IV (For NPO) 1,000 MG in EMPTY BAG 1 BAG IVPB SCH (23:01)
[2018-07-06] MEDS: ONDANSETRON 4 MG/2 ML VIAL IVP SCH (23:01)
[2018-07-07] MEDS: LORazepam 2 MG/ML INJ IV PRN ×5 (01:25→21:42)
[2018-07-07] MEDS: ACETAMINOPHEN IV (For NPO) 1,000 MG in EMPTY BAG 1 BAG IVPB SCH ×3 (05:01→17:07)
[2018-07-07] MEDS: METOCLOPRAMIDE 5 MG/ML 2 ML VIAL IVP SCH ×3 (05:02→17:07)
[2018-07-07] MEDS: PANTOPRAZOLE 40 MG/10 ML VIAL IV SCH (07:16)
[2018-07-07] MEDS: ONDANSETRON 4 MG/2 ML VIAL IVP SCH ×2 (07:16→16:36)
[2018-07-07 09:19] LABS: Basophils % (A) 0 %; Eosinophils % (A) 0 %; HCT 43.1 % (34.0-46.0); Lymphocytes # (A) 1.9 k/uL (1.0-4.8); Lymphocytes % (A) 19 %; MCH 27.4 pg (25.0-35.0); MCHC 32.6 g/dL (31.0-37.0); MCV 83.9 fL (80.0-100.0); Mean Platelet Volume 7.7; Monocytes # (A) 0.9 k/uL (0-1.0); Monocytes % (A) 9 %; Neutrophils # (A) 6.6 k/uL (1.3-7.7); Neutrophils % (A) 69 %; Platelet Count 243 k/uL (150-450); RBC 5.13 m/uL (3.80-5.40); RDW 14.3 % (11.5-15.5); WBC 9.6 k/uL (3.8-10.6)
[2018-07-07 09:39] LABS: ALT 36 U/L (9-52); AST 25 U/L (14-36); Albumin 4.1 g/dL (3.5-5.0); Alkaline Phosphatase 87 U/L (38-126); Anion Gap 13 mmol/L; Blood Urea Nitrogen 8 mg/dL (7-17); C Reactive Protein 6.8 mg/L (<10.0); Calcium 9.4 mg/dL (8.4-10.2); Carbon Dioxide 20 mmol/L (22-30); Chloride 103 mmol/L (98-107); Cholesterol 173 mg/dL (<200); Glucose 95 mg/dL (74-99); HDL Cholesterol 32 mg/dL (40-60); LDL Cholesterol,Calculated 119 mg/dL (0-99); Lipase 586 U/L (23-300); Magnesium 1.9 mg/dL (1.6-2.3); Phosphorus 4.1 mg/dL (2.5-4.5); Potassium 4.1 mmol/L (3.5-5.1); Sodium 136 mmol/L (137-145); Total Bilirubin 0.5 mg/dL (0.2-1.3); Total Protein 6.9 g/dL (6.3-8.2); Triglycerides 109 mg/dL (<150)
[2018-07-07] MEDS ORDERED: LIDOCAINE 2% (PF) 20 MG/ML 2 ML AMP SQ ONE (10:41)
[2018-07-07] MEDS: ENOXAPARIN 40 MG/0.4 ML SYRINGE SQ SCH (10:41)
[2018-07-07 11:46] LABS: Urine Alcohol Negative (Negative); Urine Barbiturate Negative (Negative); Urine Cocaine Negative (Negative); Urine Methadone Negative (Negative); Urine Opiates Negative (Negative); Urine Phencyclidine Negative (Negative)
--- NOTE | 2018-07-07 11:59 | P.PN ---
Subjective Progress Note Date: 07/07/18 Patient reports persistent epigastric abdominal pain radiating to her back. She has intolerance to multiple narcotics and currently was taking Percocet including OxyContin that has been discontinued. She'll be strict nothing by mouth for persistent pancreatitis. GI consultation pending for cryptogenic pancreatitis. Recommend PICC line with TPN. Pain consultation also pending at this time. She has lost her IV line. Recommend continued IV fluids. Objective - Vital Signs Vital signs: Vital Signs Temp 99.7 F H 07/07/18 07:00 Pulse 110 H 07/07/18 07:00 Resp 16 07/07/18 07:00 BP 159/89 07/07/18 07:00 Pulse Ox 96 07/07/18 07:00 Intake & Output 07/06/18 07/07/18 07/07/18 18:59 06:59 18:59 Intake Total 1500 Balance 1500 Weight 105.45 kg Intake: Intake, IV Titration 1500 Amount Lactated Ringers 1,000 ml 1500 @ 150 mls/hr IV .Q6H40M ONE Rx#:[id number] Other: # Voids 2 - Labs CBC & Chem 7: 07/07/18 08:21 07/07/18 08:21 Labs: Abnormal Lab Results - Last 24 Hours (Table) 07/07/18 Range/Units 08:21 Sodium 136 L (137-145) mmol/L Carbon Dioxide 20 L (22-30) mmol/L LDL Cholesterol, Calc 119 H (0-99) mg/dL HDL Cholesterol 32 L (40-60) mg/dL Lipase 586 H (23-300) U/L Assessment and Plan (1) Emotional lability Current Visit: Yes Status: Acute Code(s): R45.86 - EMOTIONAL LABILITY SNOMED Code(s): 08254369 (2) Drug-induced pancreatitis Current Visit: Yes Status: Acute Code(s): K85.30 - DRUG INDUCED ACUTE PANCREATITIS WITHOUT NECROSIS OR INFCT SNOMED Code(s): 61128837 (3) Acute on chronic pancreatitis Current Visit: Yes Status: Acute Code(s): K85.90 - ACUTE PANCREATITIS WITHOUT NECROSIS OR INFECTION, UNSP; K86.1 - OTHER CHRONIC PANCREATITIS SNOMED Code(s): 428523306 (4) History of cholecystectomy Current Visit: Yes Status: Acute Code(s): Z90.49 - ACQUIRED ABSENCE OF OTHER SPECIFIED PARTS OF DIGESTIVE TRACT SNOMED Code(s): 154406363 (5) Chronic pain Current Visit: No Status: Acute Code(s): G89.29 - OTHER CHRONIC PAIN SNOMED Code(s): 79601227 (6) History of gastric bypass Current Visit: No Status: Acute Code(s): Z98.84 - BARIATRIC SURGERY STATUS SNOMED Code(s): 053193698 (7) Hypertensive heart disease Current Visit: No Status: Acute Code(s): I11.9 - HYPERTENSIVE HEART DISEASE WITHOUT HEART FAILURE SNOMED Code(s): 38628380 (8) Morbid obesity with BMI of 40.0-44.9, adult Current Visit: No Status: Acute Code(s): E66.01 - MORBID (SEVERE) OBESITY DUE TO EXCESS CALORIES; Z68.41 - BODY MASS INDEX (BMI) 40.0-44.9, ADULT SNOMED Code(s): 462148762 (9) Pancreatitis Current Visit: No Status: Acute Code(s): K85.90 - ACUTE PANCREATITIS WITHOUT NECROSIS OR INFECTION, UNSP SNOMED Code(s): 13776492 (10) Medical non-compliance Current Visit: Yes Status: Acute Code(s): Z91.19 - PATIENT'S NONCOMPLIANCE W OTH MEDICAL TREATMENT AND REGIMEN SNOMED Code(s): 739541977 (11) High risk for readmission Current Visit: Yes Status: Acute Code(s): Z91.89 - OTH PERSONAL RISK FACTORS , NOT ELSEWHERE CLASSIFIED SNOMED Code(s): 039310511 (12) Malingering Current Visit: Yes Status: Acute Code(s): Z76.5 - MALINGERER [CONSCIOUS SIMULATION] SNOMED Code(s): 340030307
--- NOTE | 2018-07-07 12:34 | IR ---
PICC LINE PLACEMENT: HISTORY: Infection requiring long-term antibiotic therapy PROCEDURE: Ultrasound and fluoroscopic guidance of PICC line placement. COMPLICATIONS: None ANESTHESIA: 1. 1% Lidocaine locally. FINDINGS/TECHNIQUE: The procedure was explained to the patient. The risks, complications, benefits and alternatives were discussed and any questions were answered. Informed consent was obtained. The patient was placed supine on the fluoroscopic table and prepped and draped in the usual sterile fash ion. Utilizing a 21 gauge needle and sonographic and fluoroscopic guidance, access in the right bra chial vein was achieved and there is placement of a 0.018 guidewire. The vein is patent. A 4-F benton th was placed over the guidewire. The guidewire and dilator were removed and a 4-F. PICC line was pl aced through the sheath with the tip at the level of the SVC. The sheath was removed, the catheter w as flushed and sutured into position. The patient was stable throughout the procedure and remained s table upon discharge from the Department of Radiology. The vein puncture was patent under ultrasound. A claire scale image was obtained to document patency of the vein punctured. All elements of the maximal barrier technique were utilized. FLUOROSCOPY TIME: 0.6 minutes, one image submitted IMPRESSION: Successful PICC line placement under ultrasound and fluoroscopic guidance.
[2018-07-07] MEDS ORDERED: PROPOFOL 10 MG/ML 20 ML VIAL IV ONE (12:46)
[2018-07-07] MEDS ORDERED: DEXTROSE 5% IN WATER 1,000 ML IV ONE (12:50)
--- NOTE | 2018-07-07 13:08 | P.PCN ---
Date of Procedure: 07/07/18 Description of Procedure: PREOPERATIVE DIAGNOSES: 1. History of gastroesophageal reflux disease 2. Epigastric abdominal pain. 3. Nausea and vomiting. 4. Pancreatitis POSTOPERATIVE DIAGNOSES: 1. History of gastroesophageal reflux disease 2. Epigastric abdominal pain. 3. Nausea and vomiting. 4. Pancreatitis PROCEDURE PERFORMED: Esophagogastrojejunoscopy. SURGEON: Vandana Hirsch MD ANESTHESIA: MAC. INDICATIONS: The patient is a 42-year-old female with history of gastric bypass of epigastric abdominal pain. In the last several weeks, she has had intermittent nausea and vomiting, particularly of the epigastric abdominal pain. With her history of Diann-en-Y gastric bypass, upper endoscopy was offered for further evaluation and management. DESCRIPTION: Patient was brought to the endoscopy suite and laid in the left lateral decubitus position. After adequate IV sedation, a bite block was placed. An Olympus gastroscope was passed along the posterior oropharynx down to the distal esophagus where the squamocolumnar junction was found at approximately. No evidence of active gastrojejunal ulcerations were encountered. The GI tract was desufflated. The patient tolerated the procedure well. FINDINGS: 1. No acute gastrojejunal ulceration. 2. No moderate stenosis along gastrojejunal anastomosis PLAN: 1. Upper endoscopy as needed
[2018-07-07] MEDS ORDERED: MVI, ADULT NO.4 WITH VIT K 10 ML, TRACE (CONC-1ML/DOSE) 1 ML in AMINO ACID 5%-D15W+LYTE... IV SCH ×3 (16:00)
--- NOTE | 2018-07-07 16:13 | P.CONS ---
History of Present Illness - Reason for Consult Consult date: 07/07/18 - History of Present Illness This is a 42-year-old female status post gastric bypass almost 4 weeks ago. One week later, she developing epigastric abdominal pain. She has history of chronic pain and takes multiple narcotics including OxyContin and Percocet. She was diagnosed with acute on chronic pancreatitis , and patient was not able to tolerate any oral intake, and suspicion of drug-induced pancreatitis, patient currently complaining of severe epigastric abdominal pain, she is not able to tolerate any oral pain medication, patient reported that she had a history of chronic pain syndrome and she is being treated by Dr. Herrera as an outpatient for her neck pain and low back pain Past Medical History Past Medical History: CVA/TIA, Fibromyalgia, GERD/Reflux, Hyperlipidemia, Hypertension Additional Past Medical History / Comment(s): CVA 2011, psoriasis, Shafer's Esophagus, arthritis, migraines, Psoriatic arthritis, chronic pain (Sees Dr. Frederick for pain management) precancerous throat cells,pancreatits History of Any Multi-Drug Resistant Organisms: None Reported Past Surgical History: Adenoidectomy, Appendectomy, Bariatric Surgery, Hysterectomy, Tonsillectomy, Tubal Ligation Additional Past Surgical History / Comment(s): Mendez fundolpication 1999(?), partial hysterectomy via trans-vaginal procedure (patient retained both ovaries ) take down of mendez 03-08 gastric bypass pt stated crys en y"06-09-18 Past Anesthesia/Blood Transfusion Reactions: No Reported Reaction Additional Past Anesthesia/Blood Transfusion Reaction / Comm: No transfusion noted to date . hx clausterphobia Past Psychological History: ADD/ADHD, Depression, Panic Disorder, PTSD Additional Psychological History / Comment(s): lives with posue and daughter. has walker uses as needed Smoking Status: Never smoker Past Alcohol Use History: None Reported Past Drug Use History: None Reported - Past Family History Father Family Medical History: Cancer, Coronary Artery Disease (CAD) Additional Family Medical History / Comment(s): father from stomach cancer at age 51, heroin addict (struggled with addiction off and on for years after coming home from [place]) Mother Family Medical History: Cancer Additional Family Medical History / Comment(s): Mother at age 36 from Ovarian Cancer mets to brain Medications and Allergies Home Medications Medication Instructions Recorded Confirmed Type Doxepin HCl [SINEquan] 200 mg PO HS PRN MDD 200 MG 10/31/17 07/06/18 History Pregabalin [Lyrica] 200 mg PO BID 10/31/17 07/06/18 History tiZANidine HCL [Zanaflex] 4 mg PO TID PRN 10/31/17 07/06/18 History Acetaminophen Tab [Tylenol] 1,000 mg PO Q6HR PRN 06/02/18 07/06/18 History Omeprazole [PriLOSEC] 20 mg PO BID 06/02/18 07/06/18 History Ondansetron Odt [Zofran ODT] 4 mg PO Q8HR PRN #20 tab 06/13/18 07/06/18 Rx oxyCODONE-APAP 10-325MG [Percocet 1 tab PO TID 06/19/18 07/06/18 History 10-325 mg] Metoclopramide [Reglan] 10 mg PO ACHS #30 tab 06/20/18 07/06/18 Rx Lisinopril [Zestril] 5 mg PO DAILY 07/04/18 07/06/18 History Scopolamine 1.5MG/72Hr Patch 1 patch TRANSDERM Q72H #4 patch 07/04/18 07/06/18 Rx [TransDerm Scop] ALPRAZolam [Xanax] 0.25 mg PO Q8HR #5 tab 07/06/18 07/06/18 Rx Docusate [Colace] 100 mg PO BID 07/06/18 07/06/18 History Allergies Allergy/AdvReac Type Severity Reaction Status Date / Time bee venom protein (honey bee) Allergy Severe Anaphylaxis Verified 07/06/18 19:49 morphine Allergy Severe Itching Verified 07/06/18 19:49 and swelling strawberry Allergy Severe Anaphylaxis Verified 07/06/18 19:50 NSAIDS (Non-Steroidal Allergy Unknown Verified 07/06/18 19:49 Anti-Inflamma Sugars, Metabolically Active AdvReac Severe dumping Verified 07/06/18 19:49 syndrome Physical Exam Vitals: Vital Signs Temp Pulse Pulse Resp BP Pulse Ox 07/07/18 14:52 99.1 F 90 16 165/83 98 07/07/18 07:00 99.7 F H 110 H 16 159/89 96 07/07/18 01:29 98.3 F 94 18 157/88 98 07/06/18 19:40 98.4 F 92 18 150/88 94 L Intake and Output 07/07/18 07/07/18 07/07/18 06:59 14:59 22:59 Intake Total 1500 100 Balance 1500 100 Intake: IV 100 Intake, IV Titration 1500 Amount Lactated Ringers 1,000 ml 1500 @ 150 mls/hr IV .Q6H40M ONE Rx#:[id number] Other: # Voids 2 3 Physical Examinations : 1-Constitutiona : Cooperative , not in acute distress . 2-HEENT : nech ; supple , no Lymphadenopathy , normal thyroid size . eyes : no ptosis , no icterus, no photophobia . ENT : normal of hearing , normal oropharynx , no Thrush . 3- Respiratory : Chest clear to auscultations Bilaterally , no wheezing , no Rhonchi . 4- Cardiovascular : regular rate and rhythem , S1 , S2 , no S3 , no S4. 5- Gastrointestinal : abdomen soft tenderness in the epigastric area, bowel sounds , no organomegally . 6- Genitourinary : Defferred . 7- neurologic : Cranial nerve II to XII intact , no focal neurological deffecit . 8-psychatric : alert , oriented X 3 , appropriate affect , intact judgment and insight . 9-Lymphatic : no Lymphadenopathy . 10- musculoskeltal : . Lumber spine moter stegnth lower extremities , thigh and legs 5/5 Right side , 5/5 Left side Results CBC & Chem 7: 07/07/18 08:21 07/07/18 08:21 Labs: Abnormal Lab Results - Last 24 Hours (Table) 07/07/18 Range/Units 08:21 Sodium 136 L (137-145) mmol/L Carbon Dioxide 20 L (22-30) mmol/L LDL Cholesterol, Calc 119 H (0-99) mg/dL HDL Cholesterol 32 L (40-60) mg/dL Lipase 586 H (23-300) U/L Assessment and Plan Plan: Assessment and plan= acute on chronic pancreatitis, patient not able to tolerate oral intake, patient could benefit from fentanyl patch 50 g to 72 hours And also patient could benefit from interventional pain management/celiac plexus block, procedure risk and benefits and alternatives discussed with the patient and she agreed with the preceding, patient was still nothing by mouth after midnight, and hold Lovenox for tomorrow a.m., procedure will be done tomorrow a.m. Time with Patient: Greater than 30
[2018-07-07] MEDS: FAT EMULSION 20% 250 ML IV SCH (16:38)
--- NOTE | 2018-07-07 20:32 | P.CONS ---
History of Present Illness - Reason for Consult Consult date: 07/07/18 Pancreatitis Requesting physician: Vandana Hirsch - Chief Complaint Abdominal pain - History of Present Illness The patient is a 42-year-old female with multiple medical comorbidities including fibromyalgia, GERD, dyslipidemia, psoriasis, hypertension, pancreatitis, previous Abiel fundoplication who presented to the hospital with complaints of abdominal pain after recent history of gastric bypass 4 weeks ago and cholecystectomy. The patient reports abdominal pain which has been constant and waxing and waning in intensity in the epigastric region of her abdomen with radiation to her back. This is worsened by eating or drinking. She had outpatient evaluation with a computed tomography scan which was negative for any obstruction or acute process and was admitted for acute on chronic pancreatitis after being found to have an outpatient laboratory evaluation with an elevated lipase. On presentation to the hospital the patient has had an upper endoscopy which was negative for any acute process tint consistent with postsurgical anatomy. Liver enzymes were normal with a total bilirubin 0.5, alkaline phosphatase 87, AST 25 and ALT 36. She has been seen by the interventional radiology service with a plan for a celiac plexus block. In addition there is a plan to start the patient on total parenteral nutrition. Review of Systems REVIEW OF SYSTEMS: CARDIO: Denies any chest pain or palpitations. PULMONARY: Denies any shortness of breath or wheezing. GENITOURINARY: No dysuria or hematuria. MUSCULOSKELETAL: No weakness reported. SKIN: Denies any new rashes or lesions, jaundice or pallor. PSYCHIATRIC: Denies any depression or anxiety. NEUROLOGY: Denies headache, denies any new focal deficits. EARS: No tinnitus, discharge or new hearing loss. NOSE: No discharge or congestion. EYES: No pain in eyes or change in vision. CONSTITUTIONAL: No recent weight loss. No fever, chills, night sweats. Past Medical History Past Medical History: CVA/TIA, Fibromyalgia, GERD/Reflux, Hyperlipidemia, Hypertension Additional Past Medical History / Comment(s): CVA 2012, psoriasis, Shafer's Esophagus, arthritis, migraines, Psoriatic arthritis, chronic pain (Sees Dr. Frederick for pain management) precancerous throat cells,pancreatits History of Any Multi-Drug Resistant Organisms: None Reported Past Surgical History: Adenoidectomy, Appendectomy, Bariatric Surgery, Hysterectomy, Tonsillectomy, Tubal Ligation Additional Past Surgical History / Comment(s): [place] fundolpication 1999(?), partial hysterectomy via trans-vaginal procedure (patient retained both ovaries ) take down of [place] 03-08 gastric bypass pt stated crys en y"06-09-18 Past Anesthesia/Blood Transfusion Reactions: No Reported Reaction Additional Past Anesthesia/Blood Transfusion Reaction / Comm: No transfusion noted to date . hx clausterphobia Past Psychological History: ADD/ADHD, Depression, Panic Disorder, PTSD Additional Psychological History / Comment(s): lives with posue and daughter. has walker uses as needed Smoking Status: Never smoker Past Alcohol Use History: None Reported Past Drug Use History: None Reported - Past Family History Father Family Medical History: Cancer, Coronary Artery Disease (CAD) Additional Family Medical History / Comment(s): father from stomach cancer at age 51, heroin addict (struggled with addiction off and on for years after coming home from [place]) Mother Family Medical History: Cancer Additional Family Medical History / Comment(s): Mother at age 36 from Ovarian Cancer mets to brain Medications and Allergies Home Medications Medication Instructions Recorded Confirmed Type Doxepin HCl [SINEquan] 200 mg PO HS PRN MDD 200 MG 10/31/17 07/06/18 History Pregabalin [Lyrica] 200 mg PO BID 10/31/17 07/06/18 History tiZANidine HCL [Zanaflex] 4 mg PO TID PRN 10/31/17 07/06/18 History Acetaminophen Tab [Tylenol] 1,000 mg PO Q6HR PRN 06/02/18 07/06/18 History Omeprazole [PriLOSEC] 20 mg PO BID 06/02/18 07/06/18 History Ondansetron Odt [Zofran ODT] 4 mg PO Q8HR PRN #20 tab 06/13/18 07/06/18 Rx oxyCODONE-APAP 10-325MG [Percocet 1 tab PO TID 06/19/18 07/06/18 History 10-325 mg] Metoclopramide [Reglan] 10 mg PO ACHS #30 tab 06/20/18 07/06/18 Rx Lisinopril [Zestril] 5 mg PO DAILY 07/04/18 07/06/18 History Scopolamine 1.5MG/72Hr Patch 1 patch TRANSDERM Q72H #4 patch 07/04/18 07/06/18 Rx [TransDerm Scop] ALPRAZolam [Xanax] 0.25 mg PO Q8HR #5 tab 07/06/18 07/06/18 Rx Docusate [Colace] 100 mg PO BID 07/06/18 07/06/18 History Allergies Allergy/AdvReac Type Severity Reaction Status Date / Time bee venom protein (honey bee) Allergy Severe Anaphylaxis Verified 07/06/18 19:49 morphine Allergy Severe Itching Verified 07/06/18 19:49 and swelling strawberry Allergy Severe Anaphylaxis Verified 07/06/18 19:50 NSAIDS (Non-Steroidal Allergy Unknown Verified 07/06/18 19:49 Anti-Inflamma Sugars, Metabolically Active AdvReac Severe dumping Verified 07/06/18 19:49 syndrome Physical Exam Vitals: Vital Signs Temp Pulse Pulse Resp BP Pulse Ox 07/07/18 14:52 99.1 F 90 16 165/83 98 07/07/18 07:00 99.7 F H 110 H 16 159/89 96 07/07/18 01:29 98.3 F 94 18 157/88 98 Intake and Output 07/07/18 07/07/18 07/07/18 06:59 14:59 22:59 Intake Total 1500 100 Balance 1500 100 Intake: IV 100 Intake, IV Titration 1500 Amount Lactated Ringers 1,000 ml 1500 @ 150 mls/hr IV .Q6H40M ONE Rx#:[id number] Other: # Voids 2 3 Weight 105.45 kg On physical examination, patient appears comfortable in no apparent distress. HEAD: Normocephalic, atraumatic. EYES: No scleral icterus. No conjunctival injection. MOUTH: No lesions, tongue midline. NECK: Trachea midline, no gross abnormalities. CHEST: Clear to auscultation with no wheezing or rhonchi appreciated. HEART: Regular rate and rhythm. ABDOMEN: Soft, obese, mildly tender to palpation. Postsurgical scars noted and healing well. Bowel sounds are positive. No organomegaly. No guarding or rigidity. EXTREMITIES: No pedal edema. SKIN: No rashes, no jaundice. NEUROLOGIC: Alert and oriented x3. No focal deficits. Results CBC & Chem 7: 07/07/18 08:21 07/07/18 08:21 Labs: Abnormal Lab Results - Last 24 Hours (Table) 07/07/18 Range/Units 08:21 Sodium 136 L (137-145) mmol/L Carbon Dioxide 20 L (22-30) mmol/L LDL Cholesterol, Calc 119 H (0-99) mg/dL HDL Cholesterol 32 L (40-60) mg/dL Lipase 586 H (23-300) U/L CT scan - abdomen: other (Outside computed tomography scan with note mated in surgical H&P, which was negative for obstruction or acute process.) Assessment and Plan (1) Acute on chronic pancreatitis Narrative/Plan: Patient presenting with complaints of abdominal pain after recent surgical history including gastric bypass and cholecystectomy. She is currently being seen with a plan for celiac plexus block and pain management with fentanyl. Still reporting some abdominal pain. Current Visit: Yes Status: Acute Code(s): K85.90 - ACUTE PANCREATITIS WITHOUT NECROSIS OR INFECTION, UNSP; K86.1 - OTHER CHRONIC PANCREATITIS SNOMED Code(s): 931781946 (2) History of cholecystectomy Current Visit: Yes Status: Acute Code(s): Z90.49 - ACQUIRED ABSENCE OF OTHER SPECIFIED PARTS OF DIGESTIVE TRACT SNOMED Code(s): 076192904 (3) Gastroesophageal reflux Current Visit: No Status: Acute Code(s): K21.9 - GASTRO-ESOPHAGEAL REFLUX DISEASE WITHOUT ESOPHAGITIS SNOMED Code(s): 525269751 (4) History of Abiel fundoplication Current Visit: No Status: Acute Code(s): Z98.890 - OTHER SPECIFIED POSTPROCEDURAL STATES SNOMED Code(s): 228557945 (5) History of gastric bypass Current Visit: No Status: Acute Code(s): Z98.84 - BARIATRIC SURGERY STATUS SNOMED Code(s): 803963616 Plan: Supportive care Plan for TPN Plan for celiac plexus block and fentanyl patch Surgical service managing diet Results of upper endoscopy reviewed Continue pain control and fluid Thank you for allowing us participate in the care of this patient we will continue to follow
[2018-07-08 00:03] LABS: Glucose,Whole Blood 124 mg/dL (75-99)
[2018-07-08] MEDS: ONDANSETRON 4 MG/2 ML VIAL IVP SCH ×3 (01:38→15:59)
[2018-07-08] MEDS: METOCLOPRAMIDE 5 MG/ML 2 ML VIAL IVP SCH ×4 (01:38→18:05)
[2018-07-08] MEDS: LORazepam 2 MG/ML INJ IV PRN ×4 (01:39→20:07)
[2018-07-08 05:36] LABS: Glucose,Whole Blood 112 mg/dL (75-99)
[2018-07-08] MEDS: ENOXAPARIN 40 MG/0.4 ML SYRINGE SQ SCH (07:26)
[2018-07-08] MEDS: PANTOPRAZOLE 40 MG/10 ML VIAL IV SCH (07:39)
--- NOTE | 2018-07-08 10:12 | P.PN ---
Progress Note - Text Progress Note Date: 07/08/18 This is a 42 years old female who was complaining of acute abdominal pain she's diagnosed with acute on chronic pancreatitis, he was not able to tolerate any oral intake, secondary to pancreatitis, patient was on oral opioid, OxyContin/ Percocet, and she was complaining of severe pain, yesterday patient was started on fentanyl patch 50 g every 72 hours, she reports that her pain improved significantly, currently her VAS score is 2/10, patient was scheduled to have celiac plexus block, and because been improved, she decided to cancel the procedure, patient can continue on her current pain medication fentanyl patch 50 g every 72 hours, and she can follow up with the pain clinic as an outpatient, we can do celiac plexus block if needed, patient given prescription for fentanyl patch 50 g every 72 hours dispense 5, and she will follow up with her primary care dictatorial cavity or as an outpatient
[2018-07-08 11:27] LABS: Glucose,Whole Blood 109 mg/dL (75-99)
[2018-07-08 11:34] LABS: ALT 35 U/L (9-52); AST 21 U/L (14-36); Albumin 3.7 g/dL (3.5-5.0); Alkaline Phosphatase 67 U/L (38-126); Anion Gap 10 mmol/L; Blood Urea Nitrogen 12 mg/dL (7-17); Calcium 9.3 mg/dL (8.4-10.2); Carbon Dioxide 22 mmol/L (22-30); Chloride 106 mmol/L (98-107); Glucose 110 mg/dL (74-99); Lipase 988 U/L (23-300); Magnesium 1.8 mg/dL (1.6-2.3); Phosphorus 4.2 mg/dL (2.5-4.5); Potassium 3.4 mmol/L (3.5-5.1); Sodium 138 mmol/L (137-145); Total Bilirubin 0.6 mg/dL (0.2-1.3); Total Protein 6.5 g/dL (6.3-8.2)
[2018-07-08] MEDS: POTASSIUM CHLORIDE 20 MEQ in WATER FOR INJECTION 1 100ML.BAG IVPB SCH ×2 (12:25→14:56)
--- NOTE | 2018-07-08 12:57 | P.CN ---
Psychiatric Consult - . Consult date: 07/08/18 Consult:: 07/07/18 09:42 Bipolar untreated and malingering Assessment and Plan Assessment: HISTORY OF PRESENT ILLNESS: The patient is a 42-year-old female status post gastric bypass almost 4 weeks ago. One week later, she developing epigastric abdominal pain. She has history of chronic pain and takes multiple narcotics including OxyContin and Percocet. Laboratory work were consistent with elevated lipase level. Despite low-fat diet, patient had been medically noncompliant with care. Diagnostic studies including ultrasound demonstrated new gallstones which were absent 8 months ago. She then underwent a cholecystectomy 1 week ago. She reported feeling very well after her cholecystectomy with decreased lipase levels. In the last 5 days she has gone to multiple ERs including daily ER visits for recurrent epigastric abdominal pain despite close evaluation and follow-up. She'll often feel well in the morning and then by evening she reports epigastric pain radiating to her back. She reports initial good oral intake was then wanes in the evening. Despite IV fluid hydration therapy including antiemetics, she is tearful and requesting pain medications. Outside blood work reviewed consistent with elevated lipase levels over 700. Outside CT abdomen and pelvis negative for leaks or obstruction. Secondary to the acute and chronic pancreatitis including intractable abdominal pain, the patient is admitted. She was made aware that she will go complete nothing by mouth status including discontinuing all medications which may relate with drug-induced pancreatitis. Additionally, PICC line and TPN were described for complete nothing by mouth status. MAPS for narcotic and opiate use performed where patient had different name consistent with large amount of narcotic exposure. Patient is often changing her story and has severe emotional lability. She reports her pain medications are given by her primary care provider. Her past pain specialist was Dr. Herrera. Past Medical History Past Medical History: CVA/TIA, Fibromyalgia, GERD/Reflux, Hyperlipidemia, Hypertension Additional Past Medical History / Comment(s): CVA 2012, psoriasis, Shafer's Esophagus, arthritis, migraines, Psoriatic arthritis, chronic pain (Sees Dr. Frederick for pain management) precancerous throat cells,pancreatits History of Any Multi-Drug Resistant Organisms: None Reported Past Surgical History: Adenoidectomy, Appendectomy, Bariatric Surgery, Hysterectomy, Tonsillectomy, Tubal Ligation Additional Past Surgical History / Comment(s): [place] fundolpication 1999(?), partial hysterectomy via trans-vaginal procedure (patient retained both ovaries ) take down of [place] 03-08 gastric bypass pt stated crys en y"06-09-18 Past Anesthesia/Blood Transfusion Reactions: No Reported Reaction Additional Past Anesthesia/Blood Transfusion Reaction / Comment(s): No transfusion noted to date . hx clausterphobia Smoking Status: Never smoker - Past Family History Father Family Medical History: Cancer, Coronary Artery Disease (CAD) Additional Family Medical History / Comment(s): father from stomach cancer at age 51, heroin addict (struggled with addiction off and on for years after coming home from [place]) Mother Family Medical History: Cancer Additional Family Medical History / Comment(s): Mother at age 36 from Ovarian Cancer mets to brain Medications and Allergies Home Medications Medication Instructions Recorded Confirmed Type Doxepin HCl [SINEquan] 200 mg PO HS PRN MDD 200 MG 10/31/17 06/25/18 History Pregabalin [Lyrica] 200 mg PO BID 10/31/17 06/25/18 History Topiramate [Topamax] 100 mg PO BID 10/31/17 06/25/18 History tiZANidine HCL [Zanaflex] 4 mg PO TID PRN 10/31/17 06/25/18 History Acetaminophen Tab [Tylenol] 1,000 mg PO Q6HR PRN 06/02/18 06/25/18 History Naloxegol Oxalate [Movantik] 25 mg PO DAILY PRN 06/02/18 06/25/18 History Omeprazole [PriLOSEC] 40 mg PO BID 06/02/18 06/25/18 History hydrOXYzine HCL [Atarax] 25 mg PO TID PRN 06/02/18 06/25/18 History Simethicone 40 mg/0.6 ml Drops 40 mg PO PCHS PRN #30 ml 06/10/18 06/25/18 Rx [Mylicon Drops] Docusate [Colace] 100 mg PO DAILY 06/13/18 06/25/18 History Ondansetron Odt [Zofran ODT] 4 mg PO Q8HR PRN #20 tab 06/13/18 06/25/18 Rx oxyCODONE-APAP 10-325MG [Percocet 1 tab PO TID 06/19/18 06/25/18 History 10-325 mg] Metoclopramide [Reglan] 10 mg PO ACHS #30 tab 06/20/18 06/25/18 Rx Allergies Allergy/AdvReac Type Severity Reaction Status Date / Time bee venom protein (honey bee) Allergy Unknown Anaphylaxis Verified 06/25/18 21: 20 morphine Allergy Unknown Itching Verified 06/25/18 21:20 and swelling Mental Status Examination - this is a pleasant 42-year-old female who is lying in bed interacting with the nurse and a friend at the bedside. She is well-educated on her medications and knows that she was taking Cymbalta which was not benefiting her and question about whether venlafaxine would be of benefit. We discussed in detail only of benefit of venlafaxine but also the additional lithium for mood stability low dose. [place] is shown by itself to be an antidepressant and numerous clinical articles. General Appearance: [well groomed] Speech/Language: [spontaneous Attitude/Behavior: [cooperative Mood: [depressed 7 out of 10, anxious 7 out of 10, fearful Affect: [full range Orientation: [time, person, place situation] Thought Content: [wnl Risk Factors: [Denies suicidal (ideations, plan), and/or Homicidal (ideations, plan), other] Perception: [wnl, denies hallucinations (auditory, visual, tactile), other] Thought Processes: [goal-oriented Concentration/Attention Span: [wnl] [Per observation and interview with the patient] Recent Memory: [wnl] [ 3 out of 3 in 3 minutes] Remote Memory: [wnl] [past events, as related history] Intelligence: [above average] [based on history, based on vocabulary, syntax, grammar, and content] Judgement: [good [per patient's behavior/history of present illness] Insight: [good] [understanding severity of illness/history of present illness] Psychiatric impression: Major depressive disorder recurrent now unstable due to the fact that she is nothing by mouth Psychiatric recommendations:Patient I would recommend venlafaxine starting at 37.5 mg XR by mouth daily at bedtime, and for mood stability lithium carbonate 150 mg by mouth daily at bedtime since it's entirely metabolized by the kidney. Observation of her above medications are highly metabolized by the liver. Venlafaxine partially metabolized by the liver and is a 3a4 and lithium his metabolized by the kidney. This combination would help with her cycling mood and help with her depression and anxiety. One would have to titrate the venlafaxine over weekly until a total dose of 150 mg to 225 mg is achieved for resolution of symptoms of depression. Thank you for the consult Rogers Russo D.O. PhD (1) Malingering Current Visit: Yes Status: Acute Code(s): Z76.5 - MALINGERER [CONSCIOUS SIMULATION] SNOMED Code(s): 955553192 (2) Mood disorder Current Visit: Yes Status: Acute Code(s): F39 - UNSPECIFIED MOOD [AFFECTIVE ] DISORDER SNOMED Code(s): 12765987 Time with Patient: Less than 30
[2018-07-08] MEDS: FAT EMULSION 20% 250 ML IV SCH (15:55)
[2018-07-08 17:41] LABS: Hemoglobin A1C 5.4 % (4.0-6.0)
[2018-07-08 17:54] LABS: Glucose,Whole Blood 101 mg/dL (75-99)
--- NOTE | 2018-07-08 18:12 | P.PN ---
Subjective Progress Note Date: 07/08/18 CHIEF COMPLAINT: Recurrent pancreatitis HISTORY OF PRESENT ILLNESS: The patient is a 42-year-old female with recurrent pancreatitis avuncular etiology. She has been placed nothing by mouth. Abdominal pain has improved. Celiac plexus block deferred as abdominal pain has improved. She is tolerating TPN. She has been seen by psychiatrist regarding mood management. Medications were adjusted to Effexor. She is now on pain patches. PHYSICAL EXAM: VITAL SIGNS: Reviewed. GENERAL: Well-developed in no acute distress. HEENT: No sclera icterus. Extraocular movements grossly intact. Moist buccal mucosa. Head is atraumatic, normocephalic. Hears conversational speech. No nasal drainage. NECK: Supple without lymphadenopathy. CHEST: Non-labored respirations and equal bilateral excursions. CARDIOVASCULAR: Palpable 2+ radial pulses. ABDOMEN: Soft. Nondistended. No peritonitis. Minimal tenderness epigastrium MUSCULOSKELETAL: No clubbing, cyanosis or edema. NEUROLOGIC: No focal or lateralizing signs. Cranial nerves II through XII grossly intact. PSYCH: Appropriate affect. Alert and oriented to person, place and time. SKIN: Well perfused. Good skin turgor. ASSESSMENT: 1. Recurrent acute on chronic pancreatitis of unclear etiology PLAN: 1. She has completed MRCP with final read pending. 2. I personally spoke to GI regarding cryptogenic pancreatitis versus autoimmune pancreatitis. Additional follow-up pending. 3. Home arrangement for IV infusion therapy. 4. Potential discharge 24 hours pending additional suggestions from GI. Objective - Vital Signs Vital signs: Vital Signs Temp 98 F 07/08/18 15:00 Pulse 81 07/08/18 15:00 Resp 16 07/08/18 15:00 BP 127/77 07/08/18 15:00 Pulse Ox 98 07/08/18 15:00 Intake & Output 07/07/18 07/08/18 07/08/18 18:59 06:59 18:59 Intake Total 100 Balance 100 Weight 105.45 kg Intake: IV 100 Other: Voiding Method Toilet # Voids 3 3 - Labs CBC & Chem 7: 07/07/18 08:21 07/08/18 09:02 Labs: Abnormal Lab Results - Last 24 Hours (Table) 07/08/18 07/08/18 07/08/18 Range/Units 00:01 05:33 09:02 Potassium 3.4 L (3.5-5.1) mmol/L Glucose 110 H (74-99) mg/dL POC Glucose (mg/dL) 124 H 112 H (75-99) mg/dL Lipase 988 H (23-300) U/L 07/08/18 07/08/18 Range/Units 11:25 17:52 Potassium (3.5-5.1) mmol/L Glucose (74-99) mg/dL POC Glucose (mg/dL) 109 H 101 H (75-99) mg/dL Lipase (23-300) U/L Assessment and Plan (1) Emotional lability Current Visit: Yes Status: Acute Code(s): R45.86 - EMOTIONAL LABILITY SNOMED Code(s): 85600700 (2) Drug-induced pancreatitis Current Visit: Yes Status: Acute Code(s): K85.30 - DRUG INDUCED ACUTE PANCREATITIS WITHOUT NECROSIS OR INFCT SNOMED Code(s): 67632829 (3) Acute on chronic pancreatitis Current Visit: Yes Status: Acute Code(s): K85.90 - ACUTE PANCREATITIS WITHOUT NECROSIS OR INFECTION, UNSP; K86.1 - OTHER CHRONIC PANCREATITIS SNOMED Code(s): 775957770 (4) History of cholecystectomy Current Visit: Yes Status: Acute Code(s): Z90.49 - ACQUIRED ABSENCE OF OTHER SPECIFIED PARTS OF DIGESTIVE TRACT SNOMED Code(s): 348629057 (5) Chronic pain Current Visit: No Status: Acute Code(s): G89.29 - OTHER CHRONIC PAIN SNOMED Code(s): 16830128 (6) History of gastric bypass Current Visit: No Status: Acute Code(s): Z98.84 - BARIATRIC SURGERY STATUS SNOMED Code(s): 903106230 (7) Hypertensive heart disease Current Visit: No Status: Acute Code(s): I11.9 - HYPERTENSIVE HEART DISEASE WITHOUT HEART FAILURE SNOMED Code(s): 57957497 (8) Morbid obesity with BMI of 40.0-44.9, adult Current Visit: No Status: Acute Code(s): E66.01 - MORBID (SEVERE) OBESITY DUE TO EXCESS CALORIES; Z68.41 - BODY MASS INDEX (BMI) 40.0-44.9, ADULT SNOMED Code(s): 231620143 (9) Pancreatitis Current Visit: No Status: Acute Code(s): K85.90 - ACUTE PANCREATITIS WITHOUT NECROSIS OR INFECTION, UNSP SNOMED Code(s): 85186439 (10) Medical non-compliance Current Visit: Yes Status: Acute Code(s): Z91.19 - PATIENT'S NONCOMPLIANCE W OT MEDICAL TREATMENT AND REGIMEN SNOMED Code(s): 689098290 (11) High risk for readmission Current Visit: Yes Status: Acute Code(s): Z91.89 - OT PERSONAL RISK FACTORS , NOT ELSEWHERE CLASSIFIED SNOMED Code(s): 601174947 (12) Malingering Current Visit: Yes Status: Acute Code(s): Z76.5 - MALINGERER [CONSCIOUS SIMULATION] SNOMED Code(s): 453655666
[2018-07-08] MEDS ORDERED: ACETAMINOPHEN IV (For NPO) 1,000 MG in EMPTY BAG 1 BAG IVPB ONE (19:00)
[2018-07-08] MEDS: 1: MVI, ADULT NO.4 WITH VIT K 10 ML, TRACE (CONC-1ML/DOSE) 1 ML in AMINO ACID 5%-D15W+LY IV SCH ×3 (19:52)
--- NOTE | 2018-07-08 22:13 | MR ---
EXAMINATION TYPE: MR PANCREAS AND MRCP W/O AND W/ CONTRAST DATE OF EXAM: 07/08/2018 COMPARISON: 06/20/2018 CT and ultrasound HISTORY: Abdominal pain TECHNIQUE: Standard multiplanar, multisequence MRI departmental protocol. FINDINGS: BILIARY PANCREATIC DUCTAL ANATOMY: The gallbladder is contracted. There are no focal hypointensities to suggest cholelithiasis. The extrahepatic and intrahepatic biliary tree is unremarkable. The pancre atic ductal anatomy is unremarkable. LIVER AND PANCREAS: No focal lesions. No visceromegaly. SPLEEN, KIDNEYS, AND ADRENALS: Unremarkable. ABDOMINAL LYMPH NODE STATIONS: No adenopathy. PERITONEAL CAVITY: No fluid. VISUALIZED EXTRA-ABDOMINAL STRUCTURES: Unremarkable. IMPRESSION: No acute process.
[2018-07-09 00:05] LABS: Glucose,Whole Blood 107 mg/dL (75-99)
[2018-07-09] MEDS: METOCLOPRAMIDE 5 MG/ML 2 ML VIAL IVP SCH ×4 (00:16→19:36)
[2018-07-09] MEDS: LORazepam 2 MG/ML INJ IV PRN ×4 (00:16→14:14)
[2018-07-09] MEDS: ONDANSETRON 4 MG/2 ML VIAL IVP SCH ×3 (00:16→17:24)
[2018-07-09 06:01] LABS: Glucose,Whole Blood 122 mg/dL (75-99)
--- NOTE | 2018-07-09 08:11 | P.PN ---
Subjective Progress Note Date: 07/08/18 Principal diagnosis: Abdominal pain, pancreatitis Pain is improved. She is tolerating her diet. No nausea or vomiting. Objective - Vital Signs Vital signs: Vital Signs Temp 98.4 F 07/08/18 19:10 Pulse 80 07/08/18 19:10 Resp 18 07/08/18 19:10 BP 146/98 07/08/18 19:10 Pulse Ox 97 07/08/18 19:10 Intake & Output 07/08/18 07/08/18 07/09/18 06:59 18:59 06:59 Other: Voiding Method Toilet Toilet # Voids 3 2 - Exam On physical examination, patient appears comfortable in no apparent distress. HEAD: Normocephalic, atraumatic. EYES: No scleral icterus. No conjunctival injection. MOUTH: No lesions, tongue midline. NECK: Trachea midline, no gross abnormalities. CHEST: Clear to auscultation with no wheezing or rhonchi appreciated. HEART: Regular rate and rhythm. ABDOMEN: Soft, obese. Bowel sounds are positive. No organomegaly. No guarding or rigidity. EXTREMITIES: No pedal edema. SKIN: No rashes, no jaundice. NEUROLOGIC: Alert and oriented x3. No focal deficits. - Labs CBC & Chem 7: 07/07/18 08:21 07/08/18 09:02 Labs: Abnormal Lab Results - Last 24 Hours (Table) 07/08/18 07/08/18 07/08/18 Range/Units 00:01 05:33 09:02 Potassium 3.4 L (3.5-5.1) mmol/L Glucose 110 H (74-99) mg/dL POC Glucose (mg/dL) 124 H 112 H (75-99) mg/dL Lipase 988 H (23-300) U/L 07/08/18 07/08/18 Range/Units 11:25 17:52 Potassium (3.5-5.1) mmol/L Glucose (74-99) mg/dL POC Glucose (mg/dL) 109 H 101 H (75-99) mg/dL Lipase (23-300) U/L Assessment and Plan (1) Acute on chronic pancreatitis Narrative/Plan: Patient presenting with complaints of abdominal pain after recent surgical history including gastric bypass and cholecystectomy. Abdominal pain is improved Current Visit: Yes Status: Acute Code(s): K85.90 - ACUTE PANCREATITIS WITHOUT NECROSIS OR INFECTION, UNSP; K86.1 - OTHER CHRONIC PANCREATITIS SNOMED Code(s): 245649874 (2) History of cholecystectomy Current Visit: Yes Status: Acute Code(s): Z90.49 - ACQUIRED ABSENCE OF OTHER SPECIFIED PARTS OF DIGESTIVE TRACT SNOMED Code(s): 912481518 (3) Gastroesophageal reflux Current Visit: No Status: Acute Code(s): K21.9 - GASTRO-ESOPHAGEAL REFLUX DISEASE WITHOUT ESOPHAGITIS SNOMED Code(s): 108217359 (4) History of Abiel fundoplication Current Visit: No Status: Acute Code(s): Z98.890 - OTHER SPECIFIED POSTPROCEDURAL STATES SNOMED Code(s): 168890544 (5) History of gastric bypass Current Visit: No Status: Acute Code(s): Z98.84 - BARIATRIC SURGERY STATUS SNOMED Code(s): 911030144 Plan: Supportive care Plan for TPN Plan for celiac plexus block was canceled as the patient was feeling better 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 Consider referral in the outpatient setting to [facility] for endoscopic ultrasound Surgical service managing diet Results of upper endoscopy reviewed Continue pain control and fluid Thank you for allowing us participate in the care of this patient we will continue to follow
[2018-07-09] MEDS: PANTOPRAZOLE 40 MG/10 ML VIAL IV SCH (08:14)
[2018-07-09] MEDS: ENOXAPARIN 40 MG/0.4 ML SYRINGE SQ SCH (08:15)
[2018-07-09] MEDS: 1: MVI, ADULT NO.4 WITH VIT K 10 ML, TRACE (CONC-1ML/DOSE) 1 ML in AMINO ACID 5%-D15W+LY IV SCH ×3 (10:46)
[2018-07-09 11:27] LABS: ALT 31 U/L (9-52); AST 17 U/L (14-36); Albumin 3.5 g/dL (3.5-5.0); Alkaline Phosphatase 66 U/L (38-126); Anion Gap 8 mmol/L; Blood Urea Nitrogen 19 mg/dL (7-17); Calcium 9.3 mg/dL (8.4-10.2); Carbon Dioxide 26 mmol/L (22-30); Chloride 105 mmol/L (98-107); Glucose 115 mg/dL (74-99); Lipase 1033 U/L (23-300); Magnesium 1.8 mg/dL (1.6-2.3); Potassium 3.7 mmol/L (3.5-5.1); Sodium 139 mmol/L (137-145); Total Bilirubin 0.6 mg/dL (0.2-1.3); Total Protein 6.1 g/dL (6.3-8.2)
[2018-07-09 12:14] LABS: Glucose,Whole Blood 108 mg/dL (75-99)
--- NOTE | 2018-07-09 12:46 | P.PN ---
Subjective Progress Note Date: 07/09/18 Principal diagnosis: Pancreatitis Feels well today. Receiving TPN. LFTs within normal limits. Lipase unchanged from yesterday 1033. Autoimmune workup serology pending. MRI pancreas no acute process. Objective - Vital Signs Vital signs: Vital Signs Temp 97.9 F 07/09/18 08:02 Pulse 92 07/09/18 08:02 Resp 16 07/09/18 08:02 BP 127/83 07/09/18 08:02 Pulse Ox 93 L 07/09/18 08:02 Intake & Output 07/08/18 07/09/18 07/09/18 18:59 06:59 18:59 Other: Voiding Method Toilet # Voids 3 1 - Exam General appearance: The patient is alert, oriented, in no acute distress. HET: Head is normocephalic and atraumatic. Pupils are equal and reactive. Oropharynx is clear without lesions. Neck: Supple without lymphadenopathy. Trachea midline. Heart: S1 S2. Regular rate and rhythm. Lungs: No crackles or wheezes are heard. Abdomen: Soft, nontender, nondistended with bowel sounds. No peritoneal signs. No palpable organomegaly or masses. Extremities: Normal skin color and turgor. No cyanosis, rash, ulceration, clubbing, or edema. Radial and pedal pulses are 2/4 bilaterally. Neurological: No focal deficits. Strength and sensation are grossly intact. - Labs CBC & Chem 7: 07/07/18 08:21 07/09/18 10:13 Labs: Abnormal Lab Results - Last 24 Hours (Table) 07/08/18 07/09/18 07/09/18 Range/Units 17:52 00:04 05:59 BUN (7-17) mg/dL Glucose (74-99) mg/dL POC Glucose (mg/dL) 101 H 107 H 122 H (75-99) mg/dL Phosphorus (2.5-4.5) mg/dL Total Protein (6.3-8.2) g/dL Lipase (23-300) U/L 07/09/18 07/09/18 Range/Units 10:13 12:08 BUN 19 H (7-17) mg/dL Glucose 115 H (74-99) mg/dL POC Glucose (mg/dL) 108 H (75-99) mg/dL Phosphorus 5.0 H (2.5-4.5) mg/dL Total Protein 6.1 L (6.3-8.2) g/dL Lipase 1033 H (23-300) U/L Assessment and Plan (1) Acute on chronic pancreatitis Current Visit: Yes Status: Acute Code(s): K85.90 - ACUTE PANCREATITIS WITHOUT NECROSIS OR INFECTION, UNSP; K86.1 - OTHER CHRONIC PANCREATITIS SNOMED Code(s): 654407090 (2) History of cholecystectomy Current Visit: Yes Status: Acute Code(s): Z90.49 - ACQUIRED ABSENCE OF OTHER SPECIFIED PARTS OF DIGESTIVE TRACT SNOMED Code(s): 134377846 (3) Gastroesophageal reflux Current Visit: No Status: Acute Code(s): K21.9 - GASTRO-ESOPHAGEAL REFLUX DISEASE WITHOUT ESOPHAGITIS SNOMED Code(s): 391599592 (4) History of Abiel fundoplication Current Visit: No Status: Acute Code(s): Z98.890 - OTHER SPECIFIED POSTPROCEDURAL STATES SNOMED Code(s): 163180800 (5) History of gastric bypass Current Visit: No Status: Acute Code(s): Z98.84 - BARIATRIC SURGERY STATUS SNOMED Code(s): 693811203 Plan: 1. MRI reviewed no acute process. Status post EGD no evidence of peptic ulcer disease. LFTs within normal limits. We'll defer to general surgery for TPN recommendations management. Outpatient EUS discussed. Advised to follow GI office after discharge in 2-3 weeks. Continue with supportive measures. Assessment and plan a care discussed with Dr. Rendon
[2018-07-09] MEDS: MAGNESIUM SULFATE-D5W PMX 1 GM in DEXTROSE/WATER 1 100ML.BAG IVPB SCH ×2 (14:16→15:40)
[2018-07-09] MEDS: POTASSIUM CHLORIDE 10 MEQ in WATER FOR INJECTION 1 100ML.BAG IVPB SCH ×2 (17:23→18:56)
[2018-07-09 17:24] LABS: Glucose,Whole Blood 106 mg/dL (75-99)
[2018-07-09] MEDS: FAT EMULSION 20% 250 ML IV SCH (20:06)
--- NOTE | 2018-07-09 21:19 | P.PN ---
Subjective Progress Note Date: 07/09/18 CHIEF COMPLAINT: Recurrent pancreatitis HISTORY OF PRESENT ILLNESS: The patient is a 42-year-old female with recurrent pancreatitis of unclear etiology. No reports of abdominal pain despite elevated lipase. She has an appetite. She reports that since discontinuing all of her pain medications, including being placed on patches for pain that she is doing well. No nausea or vomiting. No fevers or chills. PHYSICAL EXAM: VITAL SIGNS: Reviewed. GENERAL: Well-developed in no acute distress. HEENT: No sclera icterus. Extraocular movements grossly intact. Moist buccal mucosa. Head is atraumatic, normocephalic. Hears conversational speech. No nasal drainage. NECK: Supple without lymphadenopathy. CHEST: Non-labored respirations and equal bilateral excursions. CARDIOVASCULAR: Palpable 2+ radial pulses. ABDOMEN: Soft. Nondistended. No peritonitis. Nontender MUSCULOSKELETAL: No clubbing, cyanosis or edema. NEUROLOGIC: No focal or lateralizing signs. Cranial nerves II through XII grossly intact. PSYCH: Appropriate affect. Alert and oriented to person, place and time. SKIN: Well perfused. Good skin turgor. STUDIES: MRCP unremarkable for pancreatic lesions ASSESSMENT: 1. Recurrent acute on chronic pancreatitis of unclear etiology PLAN: 1. Recommend start of diet for trial and repeat lipase and amylase. 2. Continue PICC line 3. IV fluid hydration 4. Disposition in 48 hrs pending response to trial of diet and management of TPN 5. Patient reports possible need for EUS as outpatient however with gastric bypass, this will not be feasible due to altered anatomy. Objective - Vital Signs Vital signs: Vital Signs Temp 98.4 F 07/09/18 17:00 Pulse 81 07/09/18 17:00 Resp 16 07/09/18 17:00 BP 124/71 07/09/18 17:00 Pulse Ox 98 07/09/18 17:00 Intake & Output 07/09/18 07/09/18 07/10/18 06:59 18:59 06:59 Weight 105.45 kg Other: Voiding Method Toilet # Voids 1 1 - Labs CBC & Chem 7: 07/07/18 08:21 07/09/18 10:13 Labs: Abnormal Lab Results - Last 24 Hours (Table) 07/09/18 07/09/18 07/09/18 Range/Units 00:04 05:59 10:13 BUN 19 H (7-17) mg/dL Glucose 115 H (74-99) mg/dL POC Glucose (mg/dL) 107 H 122 H (75-99) mg/dL Phosphorus 5.0 H (2.5-4.5) mg/dL Total Protein 6.1 L (6.3-8.2) g/dL Lipase 1033 H (23-300) U/L 07/09/18 07/09/18 Range/Units 12:08 17:22 BUN (7-17) mg/dL Glucose (74-99) mg/dL POC Glucose (mg/dL) 108 H 106 H (75-99) mg/dL Phosphorus (2.5-4.5) mg/dL Total Protein (6.3-8.2) g/dL Lipase (23-300) U/L - Imaging and Cardiology MRI - abdomen: report reviewed, image reviewed (Pancreas unremarkable. NO GALLBLADDER PATIENT HAD CHOLECYSTECTOMY 1 WEEK AGO) Assessment and Plan (1) Emotional lability Current Visit: Yes Status: Acute Code(s): R45.86 - EMOTIONAL LABILITY SNOMED Code(s): 27127558 (2) Drug-induced pancreatitis Current Visit: Yes Status: Acute Code(s): K85.30 - DRUG INDUCED ACUTE PANCREATITIS WITHOUT NECROSIS OR INFCT SNOMED Code(s): 13097052 (3) Acute on chronic pancreatitis Current Visit: Yes Status: Acute Code(s): K85.90 - ACUTE PANCREATITIS WITHOUT NECROSIS OR INFECTION, UNSP; K86.1 - OTHER CHRONIC PANCREATITIS SNOMED Code(s): 815671630 (4) History of cholecystectomy Current Visit: Yes Status: Acute Code(s): Z90.49 - ACQUIRED ABSENCE OF OTHER SPECIFIED PARTS OF DIGESTIVE TRACT SNOMED Code(s): 099037082 (5) Chronic pain Current Visit: No Status: Acute Code(s): G89.29 - OTHER CHRONIC PAIN SNOMED Code(s): 67068806 (6) History of gastric bypass Current Visit: No Status: Acute Code(s): Z98.84 - BARIATRIC SURGERY STATUS SNOMED Code(s): 652045243 (7) Hypertensive heart disease Current Visit: No Status: Acute Code(s): I11.9 - HYPERTENSIVE HEART DISEASE WITHOUT HEART FAILURE SNOMED Code(s): 97406110 (8) Morbid obesity with BMI of 40.0-44.9, adult Current Visit: No Status: Acute Code(s): E66.01 - MORBID (SEVERE) OBESITY DUE TO EXCESS CALORIES; Z68.41 - BODY MASS INDEX (BMI) 40.0-44.9, ADULT SNOMED Code(s): 533870366 (9) Pancreatitis Current Visit: No Status: Acute Code(s): K85.90 - ACUTE PANCREATITIS WITHOUT NECROSIS OR INFECTION, UNSP SNOMED Code(s): 94876227 (10) Medical non-compliance Current Visit: Yes Status: Acute Code(s): Z91.19 - PATIENT'S NONCOMPLIANCE W OTH MEDICAL TREATMENT AND REGIMEN SNOMED Code(s): 454013144 (11) High risk for readmission Current Visit: Yes Status: Acute Code(s): Z91.89 - OTH PERSONAL RISK FACTORS , NOT ELSEWHERE CLASSIFIED SNOMED Code(s): 408432232 (12) Malingering Current Visit: Yes Status: Acute Code(s): Z76.5 - MALINGERER [CONSCIOUS SIMULATION] SNOMED Code(s): 353863305
[2018-07-09 23:52] LABS: Glucose,Whole Blood 109 mg/dL (75-99)
[2018-07-10] MEDS: METOCLOPRAMIDE 5 MG/ML 2 ML VIAL IVP SCH ×4 (01:28→17:07)
[2018-07-10] MEDS: ONDANSETRON 4 MG/2 ML VIAL IVP SCH ×3 (01:28→15:52)
[2018-07-10] MEDS: LORazepam 2 MG/ML INJ IV PRN ×3 (01:28→16:13)
[2018-07-10] MEDS: 1: MVI, ADULT NO.4 WITH VIT K 10 ML, TRACE (CONC-1ML/DOSE) 1 ML, PARENTERAL ELECTROLYTES IV SCH ×8 (02:19→15:52)
[2018-07-10 03:34] LABS: Gliadin AB IgA, Unit 0.5 U/mL
[2018-07-10 05:58] LABS: Glucose,Whole Blood 94 mg/dL (75-99)
[2018-07-10 08:35] LABS: Basophils # (A) 0.1 k/uL (0-0.2); Basophils % (A) 1 %; Eosinophils # (A) 0.6 k/uL (0-0.7); Eosinophils % (A) 10 %; HCT 39.1 % (34.0-46.0); Lymphocytes % (A) 32 %; MCHC 33.2 g/dL (31.0-37.0); MCV 84.3 fL (80.0-100.0); Mean Platelet Volume 8.3; Monocytes # (A) 0.4 k/uL (0-1.0); Monocytes % (A) 6 %; Neutrophils # (A) 3.1 k/uL (1.3-7.7); Neutrophils % (A) 49 %; Platelet Count 165 k/uL (150-450); RBC 4.64 m/uL (3.80-5.40); RDW 14.2 % (11.5-15.5); WBC 6.2 k/uL (3.8-10.6)
[2018-07-10 08:53] LABS: ALT 34 U/L (9-52); AST 20 U/L (14-36); Albumin 3.3 g/dL (3.5-5.0); Alkaline Phosphatase 62 U/L (38-126); Amylase 85 U/L (30-110); Anion Gap 8 mmol/L; Blood Urea Nitrogen 17 mg/dL (7-17); Calcium 8.7 mg/dL (8.4-10.2); Carbon Dioxide 24 mmol/L (22-30); Chloride 106 mmol/L (98-107); Glucose 107 mg/dL (74-99); Lipase 974 U/L (23-300); Magnesium 1.9 mg/dL (1.6-2.3); Phosphorus 4.6 mg/dL (2.5-4.5); Sodium 138 mmol/L (137-145); Total Bilirubin 0.4 mg/dL (0.2-1.3); Total Protein 5.9 g/dL (6.3-8.2)
[2018-07-10] MEDS: ENOXAPARIN 40 MG/0.4 ML SYRINGE SQ SCH (09:10)
[2018-07-10] MEDS: PANTOPRAZOLE 40 MG/10 ML VIAL IV SCH (09:10)
[2018-07-10] MEDS: MAGNESIUM SULFATE-D5W PMX 1 GM in DEXTROSE/WATER 1 100ML.BAG IVPB SCH ×2 (09:56→10:52)
[2018-07-10 11:04] LABS: IgG Subclass 3 32.4 mg/dL (11.0-85.0); IgG Subclass 4 12.6 mg/dL (3.0-175.0)
[2018-07-10 11:49] LABS: Glucose,Whole Blood 112 mg/dL (75-99)
[2018-07-10] MEDS ORDERED: ACETAMINOPHEN TAB 325 MG TAB PO PRN (15:49)
[2018-07-10 17:01] LABS: Glucose,Whole Blood 85 mg/dL (75-99)
--- NOTE | 2018-07-10 17:08 | P.PN ---
Subjective Progress Note Date: 07/10/18 CHIEF COMPLAINT: Recurrent pancreatitis HISTORY OF PRESENT ILLNESS: The patient is a 42-year-old female with recurrent pancreatitis of unclear etiology. She was started on pured diet and did really well. No reports of abdominal pain. Interestingly enough, her lipase level is declining. PHYSICAL EXAM: VITAL SIGNS: Reviewed. GENERAL: Well-developed in no acute distress. HEENT: No sclera icterus. Extraocular movements grossly intact. Moist buccal mucosa. Head is atraumatic, normocephalic. Hears conversational speech. No nasal drainage. NECK: Supple without lymphadenopathy. CHEST: Non-labored respirations and equal bilateral excursions. CARDIOVASCULAR: Palpable 2+ radial pulses. ABDOMEN: Soft. Nondistended. No peritonitis. Nontender MUSCULOSKELETAL: No clubbing, cyanosis or edema. NEUROLOGIC: No focal or lateralizing signs. Cranial nerves II through XII grossly intact. PSYCH: Appropriate affect. Alert and oriented to person, place and time. SKIN: Well perfused. Good skin turgor. ASSESSMENT: 1. Recurrent acute on chronic pancreatitis of unclear etiology PLAN: 1. Dysphagia diet for stage 4 bariatric diet 2. Start oral Effexor per psychologist 3. Weaning TPN but keep PICC line for IV fluid hydration 4. Discharge home tomorrow Objective - Vital Signs Vital signs: Vital Signs Temp 98.5 F 07/10/18 14:47 Pulse 88 07/10/18 16:00 Resp 16 07/10/18 16:00 BP 113/76 07/10/18 14:47 Pulse Ox 95 07/10/18 14:47 Intake & Output 07/09/18 07/10/18 07/10/18 18:59 06:59 18:59 Intake Total 840 Balance 840 Weight 105.45 kg Intake: Oral 840 Other: Voiding Method Toilet # Voids 1 2 - Labs CBC & Chem 7: 07/10/18 07:47 07/10/18 07:47 Labs: Abnormal Lab Results - Last 24 Hours (Table) 07/09/18 07/09/18 07/10/18 Range/Units 17:22 23:48 07:47 Glucose 107 H (74-99) mg/dL POC Glucose (mg/dL) 106 H 109 H (75-99) mg/dL Phosphorus 4.6 H (2.5-4.5) mg/dL Total Protein 5.9 L (6.3-8.2) g/dL Albumin 3.3 L (3.5-5.0) g/dL Lipase 974 H (23-300) U/L 07/10/18 Range/Units 11:47 Glucose (74-99) mg/dL POC Glucose (mg/dL) 112 H (75-99) mg/dL Phosphorus (2.5-4.5) mg/dL Total Protein (6.3-8.2) g/dL Albumin (3.5-5.0) g/dL Lipase (23-300) U/L Assessment and Plan (1) Emotional lability Current Visit: Yes Status: Acute Code(s): R45.86 - EMOTIONAL LABILITY SNOMED Code(s): 17662490 (2) Drug-induced pancreatitis Current Visit: Yes Status: Acute Code(s): K85.30 - DRUG INDUCED ACUTE PANCREATITIS WITHOUT NECROSIS OR INFCT SNOMED Code(s): 44929261 (3) Acute on chronic pancreatitis Current Visit: Yes Status: Acute Code(s): K85.90 - ACUTE PANCREATITIS WITHOUT NECROSIS OR INFECTION, UNSP; K86.1 - OTHER CHRONIC PANCREATITIS SNOMED Code(s): 193519960 (4) History of cholecystectomy Current Visit: Yes Status: Acute Code(s): Z90.49 - ACQUIRED ABSENCE OF OTHER SPECIFIED PARTS OF DIGESTIVE TRACT SNOMED Code(s): 260093990 (5) Chronic pain Current Visit: No Status: Acute Code(s): G89.29 - OTHER CHRONIC PAIN SNOMED Code(s): 02822979 (6) History of gastric bypass Current Visit: No Status: Acute Code(s): Z98.84 - BARIATRIC SURGERY STATUS SNOMED Code(s): 597799154 (7) Hypertensive heart disease Current Visit: No Status: Acute Code(s): I11.9 - HYPERTENSIVE HEART DISEASE WITHOUT HEART FAILURE SNOMED Code(s): 50396015 (8) Morbid obesity with BMI of 40.0-44.9, adult Current Visit: No Status: Acute Code(s): E66.01 - MORBID (SEVERE) OBESITY DUE TO EXCESS CALORIES; Z68.41 - BODY MASS INDEX (BMI) 40.0-44.9, ADULT SNOMED Code(s): 377890474 (9) Pancreatitis Current Visit: No Status: Acute Code(s): K85.90 - ACUTE PANCREATITIS WITHOUT NECROSIS OR INFECTION, UNSP SNOMED Code(s): 10413724 (10) Medical non-compliance Current Visit: Yes Status: Acute Code(s): Z91.19 - PATIENT'S NONCOMPLIANCE W OT MEDICAL TREATMENT AND REGIMEN SNOMED Code(s): 019013292 (11) High risk for readmission Current Visit: Yes Status: Acute Code(s): Z91.89 - OT PERSONAL RISK FACTORS , NOT ELSEWHERE CLASSIFIED SNOMED Code(s): 044124381 (12) Malingering Current Visit: Yes Status: Acute Code(s): Z76.5 - MALINGERER [CONSCIOUS SIMULATION] SNOMED Code(s): 175349846
[2018-07-10] MEDS ORDERED: ONDANSETRON 4 MG/2 ML VIAL IVP PRN (17:12)
[2018-07-10] MEDS ORDERED: METOCLOPRAMIDE 5 MG/ML 2 ML VIAL IVP PRN (17:12)
[2018-07-10] MEDS: LITHIUM CARBONATE 150 MG CAP PO SCH (18:25)
[2018-07-10] MEDS: VENLAFAXINE HCL 37.5 MG TAB PO SCH (18:25)
[2018-07-11] MEDS: LORazepam 2 MG/ML INJ IV PRN (02:01)
[2018-07-11 02:27] VITALS: RESP 16
[2018-07-11 07:38] LABS: ALT 44 U/L (9-52); AST 34 U/L (14-36); Albumin 3.4 g/dL (3.5-5.0); Alkaline Phosphatase 75 U/L (38-126); Anion Gap 9 mmol/L; Blood Urea Nitrogen 12 mg/dL (7-17); Calcium 9.1 mg/dL (8.4-10.2); Carbon Dioxide 23 mmol/L (22-30); Chloride 107 mmol/L (98-107); Glucose 97 mg/dL (74-99); Lipase 969 U/L (23-300); Phosphorus 4.5 mg/dL (2.5-4.5); Potassium 4.7 mmol/L (3.5-5.1); Sodium 139 mmol/L (137-145); Total Bilirubin 0.6 mg/dL (0.2-1.3); Total Protein 6.1 g/dL (6.3-8.2)
[2018-07-11] MEDS: VENLAFAXINE HCL 37.5 MG TAB PO SCH (08:24)
[2018-07-11] MEDS: PANTOPRAZOLE 40 MG/10 ML VIAL IV SCH (08:24)
[2018-07-11] MEDS: LITHIUM CARBONATE 150 MG CAP PO SCH (08:24)
[2018-07-11] MEDS: ENOXAPARIN 40 MG/0.4 ML SYRINGE SQ SCH (08:25)
--- NOTE | 2018-07-11 09:25 | P.DS ---
Providers Date of admission: 07/08/18 15:18 Expected date of discharge: 07/11/18 Attending physician: Vandana Hirsch Consults: 07/06/18 18:45 Consult Physician Routine Consulting Provider: Rogers Russo Consult Reason/Comments: Bipolar disorder untreated Do you want consulting provider notified?: Yes, Notify in am Primary care physician: Stated None - Discharge Diagnosis(es) (1) Emotional lability Current Visit: Yes Status: Acute (2) Drug-induced pancreatitis Current Visit: Yes Status: Acute (3) Acute on chronic pancreatitis Current Visit: Yes Status: Acute (4) History of cholecystectomy Current Visit: Yes Status: Acute (5) Chronic pain Current Visit: No Status: Acute (6) History of gastric bypass Current Visit: No Status: Acute (7) Hypertensive heart disease Current Visit: No Status: Acute (8) Morbid obesity with BMI of 40.0-44.9, adult Current Visit: No Status: Acute (9) Pancreatitis Current Visit: No Status: Acute (10) Medical non-compliance Current Visit: Yes Status: Acute (11) High risk for readmission Current Visit: Yes Status: Acute (12) Malingering Current Visit: Yes Status: Acute Hospital Course: Vital Signs Temp 98.5 F 07/11/18 01:28 Pulse 85 07/11/18 01:28 Resp 16 07/11/18 01:28 BP 133/88 07/11/18 01:28 Pulse Ox 95 07/11/18 01:28 Intake & Output 07/10/18 07/11/18 07/11/18 18:59 06:59 18:59 Intake Total 1440 Balance 1440 Weight 105.5 kg Intake: Oral 1440 Other: Voiding Method Toilet # Voids 1 Laboratory Last Values WBC 6.2 k/uL (3.8-10.6) 07/10/18 07:47 RBC 4.64 m/uL (3.80-5.40) 07/10/18 07:47 Hgb 13.0 gm/dL (11.4-16.0) 07/10/18 07:47 Hct 39.1 % (34.0-46.0) 07/10/18 07:47 MCV 84.3 fL (80.0-100.0) 07/10/18 07:47 MCH 28.0 pg (25.0-35.0) 07/10/18 07:47 MCHC 33.2 g/dL (31.0-37.0) 07/10/18 07:47 RDW 14.2 % (11.5-15.5) 07/10/18 07:47 Plt Count 165 k/uL (150-450) 07/10/18 07:47 Neutrophils % 49 % 07/10/18 07:47 Lymphocytes % 32 % 07/10/18 07:47 Monocytes % 6 % 07/10/18 07:47 Eosinophils % 10 % 07/10/18 07:47 Basophils % 1 % 07/10/18 07:47 Neutrophils # 3.1 k/uL (1.3-7.7) 07/10/18 07:47 Lymphocytes # 2.0 k/uL (1.0-4.8) 07/10/18 07:47 Monocytes # 0.4 k/uL (0-1.0) 07/10/18 07:47 Eosinophils # 0.6 k/uL (0-0.7) 07/10/18 07:47 Basophils # 0.1 k/uL (0-0.2) 07/10/18 07:47 Sodium 139 mmol/L (137-145) 07/11/18 06:40 Potassium 4.7 mmol/L (3.5-5.1) 07/11/18 06:40 Chloride 107 mmol/L (98-107) 07/11/18 06:40 Carbon Dioxide 23 mmol/L (22-30) 07/11/18 06:40 Anion Gap 9 mmol/L 07/11/18 06:40 BUN 12 mg/dL (7-17) 07/11/18 06:40 Creatinine 0.62 mg/dL (0.52-1.04) 07/11/18 06:40 Est GFR (CKD-EPI)AfAm >90 (>60 ml/min/1.73 sqM) 07/11/18 06:40 Est GFR (CKD-EPI)NonAf >90 (>60 ml/min/1.73 sqM) 07/11/18 06:40 Glucose 97 mg/dL (74-99) 07/11/18 06:40 POC Glucose (mg/dL) 85 mg/dL (75-99) 07/10/18 16:58 POC Glu Regional Director ID Ender Diaz 07/10/18 16:[address] Glu mg/dL 108 07/08/18 09:02 Hemoglobin A1c 5.4 % (4.0-6.0) 07/08/18 09:02 Calcium 9.1 mg/dL (8.4-10.2) 07/11/18 06:40 Ionized Calcium Ancelmo 5.0 mg/dL (4.5-5.3) 07/11/18 06:40 Phosphorus 4.5 mg/dL (2.5-4.5) 07/11/18 06:40 Magnesium 2.0 mg/dL (1.6-2.3) 07/11/18 06:40 Total Bilirubin 0.6 mg/dL (0.2-1.3) 07/11/18 06:40 AST 34 U/L (14-36) 07/11/18 06:40 ALT 44 U/L (9-52) 07/11/18 06:40 Alkaline Phosphatase 75 U/L (38-126) 07/11/18 06:40 C-Reactive Protein 6.8 mg/L (<10.0) 07/07/18 08:21 Total Protein 6.1 g/dL (6.3-8.2) L 07/11/18 06:40 Albumin 3.4 g/dL (3.5-5.0) L 07/11/18 06:40 Triglycerides 109 mg/dL (<150) 07/07/18 08:21 Cholesterol 173 mg/dL (<200) 07/07/18 08:21 LDL Cholesterol, Calc 119 mg/dL (0-99) H 07/07/18 08:21 HDL Cholesterol 32 mg/dL (40-60) L 07/07/18 08:21 Amylase 85 U/L (30-110) 07/10/18 07:47 Lipase 969 U/L (23-300) H 07/11/18 06:40 Urine Opiates Screen Negative ng/mL (Negative) 07/07/18 02:55 Urine Methadone Screen Negative ng/mL (Negative) 07/07/18 02:55 Ur Propoxyphene Screen Negative ng/mL (Negative) 07/07/18 02:55 Urine Barbiturates Negative ng/mL (Negative) 07/07/18 02:55 Ur Phencyclidine Scrn Negative ng/mL (Negative) 07/07/18 02:55 Ur Amphetamine Screen Negative ng/mL (Negative) 07/07/18 02:55 U Benzodiazepines Scrn Negative ng/mL (Negative) 07/07/18 02:55 Urine Cocaine Screen Negative ng/mL (Negative) 07/07/18 02:55 U Cannabinoids Screen Negative ng/mL (Negative) 07/07/18 02:55 Urine Alcohol Negative mg/dL (Negative) 07/07/18 02:55 IgG1 440.0 mg/dL (405.0-1011.0) 07/09/18 10:13 IgG2 276.0 mg/dL (169.0-640.0) 07/09/18 10:13 IgG3 32.4 mg/dL (11.0-85.0) 07/09/18 10:13 IgG4 12.6 mg/dL (3.0-175.0) 07/09/18 10:13 MONIKA Screen NEGATIVE (NEGATIVE) 07/09/18 10:13 Tiss Transglutamin IgG <0.8 U/mL 07/08/18 09:02 Tiss Transglut IgG Intp NEGATIVE (NEGATIVE) 07/08/18 09:02 Tiss Transglutamin IgA <0.5 AI 07/08/18 09:02 Tis Transglut IgA Intrp NEGATIVE (NEGATIVE) 07/08/18 09:02 Anti-Gliadin IgG Deam <0.4 U/mL 07/08/18 09:02 Anti-Gliadin IgA Deam 0.5 U/mL 07/08/18 09:02 Gliadin (Deam) IgG Int NEGATIVE (NEGATIVE) 07/08/18 09:02 Gliadin (Deam) IgA Int NEGATIVE (NEGATIVE) 07/08/18 09:02 She had tolerated grounded diets including bariatric pured diet without sequelae. No reports of abdominal pain. Lipase continued to decline despite institution of diet. TPN was discontinued. She remained afebrile. Prescriptions for depression including chronic pain were placed per consultants. Patient will follow-up in the bariatric center in [address]ICC line in place for intermittent dehydration and IV infusions. Plan - Discharge Summary Discharge Rx Participant: No New Discharge Prescriptions: Discontinued Doxepin HCl [SINEquan] 200 mg PO HS PRN MDD 200 MG PRN Reason: Insomnia Pregabalin [Lyrica] 200 mg PO BID tiZANidine HCL [Zanaflex] 4 mg PO TID PRN PRN Reason: Muscle Spasm Ondansetron Odt [Zofran ODT] 4 mg PO Q8HR PRN #20 tab PRN Reason: Nausea oxyCODONE-APAP 10-325MG [Percocet 10-325 mg] 1 tab PO TID Metoclopramide [Reglan] 10 mg PO ACHS #30 tab Lisinopril [Zestril] 5 mg PO DAILY No Action Acetaminophen Tab [Tylenol] 1,000 mg PO Q6HR PRN PRN Reason: Headache Omeprazole [PriLOSEC] 20 mg PO BID Scopolamine 1.5MG/72Hr Patch [TransDerm Scop] 1 patch TRANSDERM Q72H #4 patch ALPRAZolam [Xanax] 0.25 mg PO Q8HR #5 tab Docusate [Colace] 100 mg PO BID Discharge Medication List Acetaminophen Tab [Tylenol] 1,000 mg PO Q6HR PRN 06/02/18 [History] Omeprazole [PriLOSEC] 20 mg PO BID 06/02/18 [History] Scopolamine 1.5MG/72Hr Patch [TransDerm Scop] 1 patch TRANSDERM Q72H #4 patch [Rx] ALPRAZolam [Xanax] 0.25 mg PO Q8HR #5 tab 07/06/18 [Rx] Docusate [Colace] 100 mg PO BID 07/06/18 [History] Follow up Appointment(s)/Referral(s): [facility], [NON-STAFF] - Bariatric Center,. [NON-STAFF] - 07/23/18 [facility], [REFERRING] - Activity/Diet/Wound Care/Special Instructions: [facility] will deliver supplies around 6:30-7:00 tonight (07/09/18). Patient is 100% covered by her insurance. [facility] will see the patient first thing in the morning on 07/10/18
[2018-07-11 09:31] VITALS: BP 149/83; PULSE 97; TEMP 98.1
== END 2018-07-11 10:47 | disposition home or self-care (01) | DRG 439 ==
LOC: 4SSUR 18:31 → OBSVTOIN 07-08 15:18
PROVIDERS: ADMIT Surgery Plastic and Reconstructive Surgery; ATTEND Surgery Plastic and Reconstructive Surgery
PROC: 02HV33Z Insertion of Infusion Device into Superior Vena Cava, Percutaneous Approach (ICD-10-PCS; principal; 2018-07-07 07:30)
PROC: 3E0436Z Introduction of Nutritional Substance into Central Vein, Percutaneous Approach (ICD-10-PCS; 2018-07-07 10:27)
PROC: 0DJ08ZZ Inspection of Upper Intestinal Tract, Via Natural or Artificial Opening Endoscopic (ICD-10-PCS; 2018-07-07 10:27)
DX: K85.30 Drug induced acute pancreatitis without necrosis or infection (principal); F33.0 Major depressive disorder, recurrent, mild; I11.9 Hypertensive heart disease without heart failure; E66.01 Morbid (severe) obesity due to excess calories; L40.50 Arthropathic psoriasis, unspecified; K86.1 Other chronic pancreatitis; T40.2X5A Adverse effect of other opioids, initial encounter; M54.2 Cervicalgia; M54.5 Low back pain; E86.0 Dehydration; E78.5 Hyperlipidemia, unspecified; M19.90 Unspecified osteoarthritis, unspecified site; M79.7 Fibromyalgia; G89.4 Chronic pain syndrome; F90.9 Attention-deficit hyperactivity disorder, unspecified type; F43.10 Post-traumatic stress disorder, unspecified; F41.0 Panic disorder [episodic paroxysmal anxiety]; K21.9 Gastro-esophageal reflux disease without esophagitis; G43.909 Migraine, unspecified, not intractable, without status migrainosus; Z68.39 Body mass index [BMI] 39.0-39.9, adult; Z91.19 Patient's noncompliance with other medical treatment and regimen; Z79.891 Long term (current) use of opiate analgesic; Z79.899 Other long term (current) drug therapy; Z76.5 Malingerer [conscious simulation]; Z98.84 Bariatric surgery status; Z87.19 Personal history of other diseases of the digestive system; Z90.49 Acquired absence of other specified parts of digestive tract; Z90.710 Acquired absence of both cervix and uterus; Z86.73 Personal history of transient ischemic attack (TIA), and cerebral infarction without residual deficits; Z98.51 Tubal ligation status; Z88.5 Allergy status to narcotic agent; Z88.8 Allergy status to other drugs, medicaments and biological substances; Z91.018 Allergy to other foods; Z91.030 Bee allergy status; Z82.49 Family history of ischemic heart disease and other diseases of the circulatory system; Z80.0 Family history of malignant neoplasm of digestive organs; Z81.3 Family history of other psychoactive substance abuse and dependence; Z80.41 Family history of malignant neoplasm of ovary; Z80.8 Family history of malignant neoplasm of other organs or systems
CPT/HCPCS: 36569; 43235; 74181; 76937; 77001; 80053; 80061; 80306; 82150; 82330; 82787; 83036; 83516; 83690; 83735; 84100; 85025; 86038; 86140

== ENCOUNTER → 2018-07-23 | Outpatient (CLI) | payer BC, MEDICARE, OTHER ==
[2018-07-23 15:16] VITALS: BP 140/94; PULSE 86; TEMP 98.2; BMI 39.8
--- NOTE | 2018-07-23 15:23 | P.PN ---
Subjective Progress Note Date: 07/23/18 DATE OF SERVICE: 07/23/2018 CHIEF COMPLAINT: Status post gastric bypass HISTORY OF PRESENT ILLNESS: Rabia Link is a 42-year-old female who is status post gastric bypass 06/09/2018. She had a complicated postoperative course including intractable abdominal pain gallstone-induced versus drug- induced pancreatitis. She then underwent cholecystectomy 06/27/2018 for symptom and gallstones. With her history of chronic pain, she was readmitted for recurrent pancreatitis. She was discontinued from all medications which may cause drug induced pancreatitis and was placed nothing by mouth including TPN. Pain management services were part of her care. Since discharge 2 weeks ago, she feels better. She is tolerating liquids. At height of 5 feet 4 inches, her ideal body weight is 144 pounds. Body mass index was 51.9 with highest weight of 302 pounds. She comes in 232 pounds from 240 pounds, 3 weeks ago. She has lost 9 pounds in 3 weeks since her last visit. Body mass index is reduced from 51.9 to 39.8. Lifetime weight loss is 70 pounds. Percent excess weight loss is 45 % lifetime. PHYSICAL EXAM: VITAL SIGNS: Height 5 foot 4 inches, weight 232 pounds. BMI 41.4 Vital Signs Temp 98.2 F 07/23/18 15:06 Pulse 86 07/23/18 15:06 Resp BP 140/94 07/23/18 15:06 Pulse Ox GENERAL: Well-developed in no acute distress. HEENT: No scleral icterus. Extraocular movements grossly intact. Hears conversational speech. No nasal drainage. NECK: Supple without lymphadenopathy. CHEST: Nonlabored respirations with equal bilateral excursions. CARDIOVASCULAR: Regular rate and rhythm. Distal 2+ pulses. ABDOMEN: No infection, soft, nondistended. MUSCULOSKELETAL: No clubbing, cyanosis. NEURO: No focal or lateralizing signs. Cranial nerves 2 through 12 grossly within normal limits. PSYCH: Appropriate affect. Alert and oriented to person, place and time. SKIN: Good skin turgor. Well perfused. ASSESSMENT: 1. Morbid obesity. 2. Body mass index of 51.9, initial to 41.4 3. Osteoarthritis of the hips. 4. Osteoarthritis of the lower back. 5. Obstructive sleep apnea. 6. Hypertensive heart disease. 7. Fibromyalgia. 8. Rheumatoid arthritis 9. Depression 10. Gastroesophageal reflux disease 11. Chronic pain syndrome 12. Cerebrovascular accident 13. Hyperlipidemia 14. Shafer's esophagus 15. Psoriatic arthritis 16. ADD with ADHD 17. Panic disorder 18. PTSD 19. History of supraventricular tachycardia 20. Status post hiatal hernia repair 21. Status post gastric bypass 22. Medical non-compliance to bariatric care 23. Pancreatitis, drug induced 24. Status post cholecystectomy 25. History of symptomatic gallstones PLAN: 1. She may start water aerobics after 3 weeks from her cholecystectomy. 2. She can restart Cosentryx and rest of medications for Dr. Denney. 3. Pain management per pain center. 4. May remove PICC line Objective - Vital Signs Vital signs: Vital Signs Temp 98.2 F 07/23/18 15:06 Pulse 86 07/23/18 15:06 Resp BP 140/94 07/23/18 15:06 Pulse Ox Intake & Output 07/22/18 07/23/18 07/23/18 18:59 06:59 18:59 Weight 105.233 kg
== END | disposition home or self-care (01) ==
LOC: BARWHC3 13:48
PROVIDERS: ATTEND Surgery Plastic and Reconstructive Surgery
DX: Z48.815 Encounter for surgical aftercare following surgery on the digestive system (principal); E66.01 Morbid (severe) obesity due to excess calories; K95.89 Other complications of other bariatric procedure; R10.9 Unspecified abdominal pain; G89.4 Chronic pain syndrome; K86.1 Other chronic pancreatitis; R63.4 Abnormal weight loss; M16.0 Bilateral primary osteoarthritis of hip; M47.816 Spondylosis without myelopathy or radiculopathy, lumbar region; G47.33 Obstructive sleep apnea (adult) (pediatric); I11.9 Hypertensive heart disease without heart failure; K85.30 Drug induced acute pancreatitis without necrosis or infection; M79.7 Fibromyalgia; M06.9 Rheumatoid arthritis, unspecified; F32.9 Major depressive disorder, single episode, unspecified; K21.9 Gastro-esophageal reflux disease without esophagitis; I63.9 Cerebral infarction, unspecified; E78.5 Hyperlipidemia, unspecified; K22.70 Barrett's esophagus without dysplasia; L40.50 Arthropathic psoriasis, unspecified; F90.9 Attention-deficit hyperactivity disorder, unspecified type; F41.0 Panic disorder [episodic paroxysmal anxiety]; F43.10 Post-traumatic stress disorder, unspecified; Z90.49 Acquired absence of other specified parts of digestive tract; Z98.890 Other specified postprocedural states; Z86.79 Personal history of other diseases of the circulatory system; Z68.41 Body mass index [BMI] 40.0-44.9, adult; Z91.14 Patient's other noncompliance with medication regimen; Z98.84 Bariatric surgery status; Z87.19 Personal history of other diseases of the digestive system
CPT/HCPCS: 99211; 99213

== ENCOUNTER → 2018-07-28 | Outpatient (CLI) | payer MEDICARE, BC, OTHER ==
--- NOTE | 2018-07-29 14:06 | MM ---
Reason for exam: additional evaluation requested from prior study. Last mammogram was performed 1 year ago. History: Took hormonal contraceptives for 10 years. Took other hormone for 20 years. Physical Findings: Nurse did not find any significant physical abnormalities on exam. MG 3D Diag Mammo W/Cad FRANCISCO Bilateral CC and MLO view(s) were taken. Prior study comparison: July 18, 2017, bilateral MG 3d screening mammo w/cad. The breast tissue is heterogeneously dense. This may lower the sensitivity of mammography. Chronic nodularity right breast. No discrete abnormality. These results were verbally communicated with the patient and result sheet given to the patient on 07/28/18. ASSESSMENT: Benign, BI-RAD 2 RECOMMENDATION: Routine screening mammogram of both breasts in 1 year.
== END | disposition home or self-care (01) ==
LOC: RADMAMWWP 09:48
PROVIDERS: ATTEND Family Medicine
DX: R92.8 Other abnormal and inconclusive findings on diagnostic imaging of breast (principal)
CPT/HCPCS: 77066; G0279; 77062

== ENCOUNTER → 2018-08-06 | Outpatient (CLI) | payer BC, MEDICARE, OTHER ==
[2018-08-06 14:51] VITALS: BP 138/87; PULSE 101; RESP 16; TEMP 98.8; BMI 38.0
--- NOTE | 2018-08-06 15:14 | P.PN ---
Subjective Progress Note Date: 08/06/18 DATE OF SERVICE: 08/06/2018 CHIEF COMPLAINT: Status post gastric bypass HISTORY OF PRESENT ILLNESS: Rabia Link is a 42-year-old female who is status post gastric bypass 06/09/2018. She had a complicated postoperative course including intractable abdominal pain gallstone-induced versus drug- induced pancreatitis. She then underwent cholecystectomy 06/27/2018 for symptom and gallstones. As a result, she has had multiple readmissions with history of chronic pain. She is getting her protein over 68 g daily. No more belly pain. She is concerned of her psoariasis. At height of 5 feet 4 inches, her ideal body weight is 144 pounds. Body mass index was 51.9 with highest weight of 302 pounds. She comes in 222 pouunds from 232 pounds, 2 weeks ago. She has lost 10 pounds in 2 weeks since her last visit. Body mass index is reduced from 51.9 to 38.1. Lifetime weight loss is 80 pounds. Percent excess weight loss is 51 % lifetime. PHYSICAL EXAM: VITAL SIGNS: Height 5 foot 4 inches, weight 222 pounds. BMI 38.1 Vital Signs Temp 98.8 F 08/06/18 14:48 Pulse 101 H 08/06/18 14:48 Resp 16 08/06/18 14:48 BP 138/87 08/06/18 14:48 Pulse Ox GENERAL: Well-developed in no acute distress. HEENT: No scleral icterus. Extraocular movements grossly intact. Hears conversational speech. No nasal drainage. NECK: Supple without lymphadenopathy. CHEST: Nonlabored respirations with equal bilateral excursions. CARDIOVASCULAR: Regular rate and rhythm on re-examination. Distal 2+ pulses. ABDOMEN: Soft, nondistended. Well healed incisions. MUSCULOSKELETAL: No clubbing, cyanosis. NEURO: No focal or lateralizing signs. Cranial nerves 2 through 12 grossly within normal limits. PSYCH: Appropriate affect. Alert and oriented to person, place and time. SKIN: Good skin turgor. Well perfused. ASSESSMENT: 1. Morbid obesity. 2. Body mass index of 51.9, initial to 38.1 3. Osteoarthritis of the hips. 4. Osteoarthritis of the lower back. 5. Obstructive sleep apnea. 6. Hypertensive heart disease. 7. Fibromyalgia. 8. Rheumatoid arthritis 9. Depression 10. Gastroesophageal reflux disease 11. Chronic pain syndrome 12. Cerebrovascular accident 13. Hyperlipidemia 14. Shafer's esophagus 15. Psoriatic arthritis 16. ADD with ADHD 17. Panic disorder 18. PTSD 19. History of supraventricular tachycardia 20. Status post hiatal hernia repair 21. Status post gastric bypass 22. Medical non-compliance to bariatric care 23. Pancreatitis, drug induced 24. Status post cholecystectomy 25. History of symptomatic gallstones PLAN: 1. She wants to take her medications for the severity of her psoriasis however will need omeprazole indefinitely for high risk of gastritis and gastric ulcerations from medications for Psoariasis. 2. Recommend bariatric labs as she is more than 1 month out Objective - Vital Signs Vital signs: Vital Signs Temp 98.8 F 08/06/18 14:48 Pulse 101 H 08/06/18 14:48 Resp 16 08/06/18 14:48 BP 138/87 08/06/18 14:48 Pulse Ox Intake & Output 08/05/18 08/06/18 08/06/18 18:59 06:59 18:59 Weight 100.698 kg
--- NOTE | 2018-08-06 15:16 | P.PN ---
Progress Note - Text Progress Note Date: 08/06/18 To whom it may concern: Rabia Link may restart her rheumatoid medications, now. She will need to take Omeprazole indefinitely for her history of gastric bypass. Regards, Vandana Hirsch MD
== END | disposition home or self-care (01) ==
LOC: BARWHC3 13:18
PROVIDERS: ATTEND Surgery Plastic and Reconstructive Surgery
DX: Z48.815 Encounter for surgical aftercare following surgery on the digestive system (principal); E66.01 Morbid (severe) obesity due to excess calories; M16.0 Bilateral primary osteoarthritis of hip; M47.816 Spondylosis without myelopathy or radiculopathy, lumbar region; G47.33 Obstructive sleep apnea (adult) (pediatric); I11.9 Hypertensive heart disease without heart failure; M79.7 Fibromyalgia; M06.9 Rheumatoid arthritis, unspecified; F32.9 Major depressive disorder, single episode, unspecified; K21.9 Gastro-esophageal reflux disease without esophagitis; G89.4 Chronic pain syndrome; I63.9 Cerebral infarction, unspecified; E78.5 Hyperlipidemia, unspecified; K22.70 Barrett's esophagus without dysplasia; L40.50 Arthropathic psoriasis, unspecified; F90.9 Attention-deficit hyperactivity disorder, unspecified type; F41.0 Panic disorder [episodic paroxysmal anxiety]; F43.10 Post-traumatic stress disorder, unspecified; K85.30 Drug induced acute pancreatitis without necrosis or infection; Z68.38 Body mass index [BMI] 38.0-38.9, adult; Z91.19 Patient's noncompliance with other medical treatment and regimen; Z87.19 Personal history of other diseases of the digestive system; Z86.79 Personal history of other diseases of the circulatory system; Z98.84 Bariatric surgery status; Z90.49 Acquired absence of other specified parts of digestive tract; Z98.890 Other specified postprocedural states; Z79.899 Other long term (current) drug therapy
CPT/HCPCS: 99211

== ENCOUNTER 2018-09-30 23:35 | Emergency (ER) | payer BC, MEDICARE, OTHER ==
[2018-09-30] MEDS ORDERED: SODIUM CHLORIDE 0.9% 2,000 ML IV STA (23:39)
[2018-09-30] MEDS ORDERED: ONDANSETRON 4 MG/2 ML VIAL IVP STA (23:39)
[2018-09-30] MEDS ORDERED: HYDROmorphone 0.5 MG/0.5 ML SYRINGE IVP STA (23:39)
--- NOTE | 2018-09-30 23:47 | ED ---
Abdominal Pain HPI - General Chief Complaint: Abdominal Pain Stated Complaint: chest pain Time Seen by Provider: 09/30/18 23:37 Source: patient, EMS Mode of arrival: EMS Limitations: no limitations - History of Present Illness Initial Comments: When is a 43-year-old female with a history of Crys-en-Y bariatric surgery in the fall of 2017. Postoperatively the patient developed pancreatitis and was hospitalized multiple times for that. Patient reports that last week she noted she had some stalling of her weight loss and had recent her diet back to a liquid diet. She reports that despite being compliant with her dietary limitations due to bariatric surgery she's been developing abdominal pain. Today she had severe stabbing epigastric abdominal pain radiating to her back this is similar to previous episodes of pancreatitis. She contacted her b ariatric surgeon's office knee advised her that if her pain persisted she should come to the emergency department for further evaluation. This evening the pain became overwhelming so the patient contacted EMS and was transported the hospital. Patient reports persistent nausea and nonbloody nonbilious emesis. She reports she's had normal bowel movements daily for the past few days without any con stipation or diarrhea. - Related Data Home Medications Medication Instructions Recorded Confirmed Acetaminophen Tab [Tylenol] 1,000 mg PO Q6HR PRN 06/02/18 07/06/18 Omeprazole [PriLOSEC] 20 mg PO BID 06/02/18 07/06/18 Docusate [Colace] 100 mg PO BID 07/06/18 07/06/18 Previous Rx's Medication Instructions Recorded Scopolamine 1.5MG/72Hr Patch 1 patch TRANSDERM Q72H #4 patch 07/04/18 [TransDerm Scop] ALPRAZolam [Xanax] 0.25 mg PO Q8HR #5 tab 07/06/18 [place] Carbonate 150 mg PO DAILY #30 capsule 07/11/18 Venlafaxine HCl [Effexor] 37.5 mg PO DAILY #30 tab 07/11/18 Allergies Allergy/AdvReac Type Severity Reaction Status Date / Time bee venom protein (honey bee) Allergy Severe Anaphylaxis Verified 07/06/18 19:49 morphine Allergy Severe Itching Verified 07/06/18 19:49 and swelling strawberry Allergy Severe Anaphylaxis Verified 07/06/18 19:50 NSAIDS (Non-Steroidal Allergy Unknown Verified 07/06/18 19:49 Anti-Inflamma Review of Systems ROS Statement: Those systems with pertinent positive or pertinent negative responses have been documented in the HPI. ROS Other: All systems not noted in ROS Statement are negative. Past Medical History Past Medical History: CVA/TIA, Fibromyalgia, GERD/Reflux, Hyperlipidemia, Hypertension Additional Past Medical History / Comment(s): CVA 2012, psoriasis, Shafer's Esophagus, arthritis, migraines, Psoriatic arthritis, chronic pain (Sees Dr. Frederick for pain management) precancerous throat cells,pancreatits History of Any Multi-Drug Resistant Organisms: None Reported Past Surgical History: Adenoidectomy, Appendectomy, Bariatric Surgery, Hysterectomy, Tonsillectomy, Tubal Ligation Additional Past Surgical History / Comment(s): [place] fundolpication 1999(?), partial hysterectomy via trans-vaginal procedure (patient retained both ovaries) take down of bay 03-08 gastric bypass pt stated crys en y"06-09-18 Past Anesthesia/Blood Transfusion Reactions: No Reported Reaction Additional Past Anesthesia/Blood Transfusion Reaction / Comment(s): No transfusion noted to date . hx clausterphobia Past Psychological History: ADD/ADHD, Depression, Panic Disorder, PTSD Smoking Status: Never smoker Past Alcohol Use History: None Reported Past Drug Use History: None Reported - Past Family History Father Family Medical History: Cancer, Coronary Artery Disease (CAD) Additional Family Medical History / Comment(s): father from stomach cancer at age 51, heroin addict (struggled with addiction off and on for years after coming home from [place]) Mother Family Medical History: Cancer Additional Family Medical History / Comment(s): Mother at age 36 from Ovarian Cancer mets to brain General Exam - General Exam Comments Initial Comments: Physical Exam GENERAL: Patient is well-developed and well-nourished. Patient is nontoxic and well- hydrated and is in no distress. HENT: Normocephalic, Atraumatic. EYES: PERRL, EOMI PULMONARY: Unlabored respirations. No audible rales rhonchi or wheezing was noted. CARDIOVASCULAR: There is a regular rate and rhythm without any murmurs gallops or rubs. ABDOMEN: Soft with normal bowel sounds. Mild tenderness to palpation in epigastrium SKIN: Skin is clear with no lesions or rashes and otherwise unremarkable. : Deferred NEUROLOGIC: Patient is alert and oriented x3. Moving all extremities spontaneously MUSCULOSKELETAL: Normal extremities with adequate strength and full range of motion. No lower extremity swelling or edema. No calf tenderness. PSYCHIATRIC: Normal psychiatric evaluation. Limitations: no limitations Limitations: no limitations Course Vital Signs 09/30/18 23:36 Temperature 98.3 F Pulse Rate 80 Respiratory 16 Rate Blood Pressure 110/70 O2 Sat by Pulse 98 Oximetry Medical Decision Making - Medical Decision Making The patient was seen and evaluated, history is obtained from the patient and review of medical records Patient with a history of Crys-en-Y gastric surgery with postoperative pancreatitis presenting with nausea, epigastric pain similar to previous episodes of pancreatitis Labs, IV fluids, Zofran and Dilaudid were ordered Labs with mild leukocytosis, lipase and transaminases are not elevated neck signed patient with recurrent nausea after Zofran. At this time I do feel the patient warrants further imaging and patient is agreeable to computed tomography scan. Reglan and Benadryl ordered for persistent nausea CT results were discussed with the radiologist on-call. CT findings suggestive of the neck showed between the gastric pouch and the stomach and there is continued patency of the gastrojejunostomy. These results were discussed with the patient as well as with surgeon tile professional doctor Denise. At this time the patient's nausea has resolved. She is feeling better after the Reglan and Benadryl. She is hemodynamically stable labs are unremarkable there is no signs of pancreatitis. recommends discharge from the emergency depa rtment with outpatient follow-up. He recommends the patient maintain a full liquid diet until able to follow-up in the office. - Lab Data Result diagrams: 09/30/18 23:42 09/30/18 23:42 Lab Results 09/30/18 09/30/18 09/30/18 Range/Units 23:42 23:42 23:42 WBC 12.2 H (3.8-10.6) k/uL RBC 4.78 (3.80-5.40) m/uL Hgb 13.7 (11.4-16.0) gm/dL Hct 40.7 (34.0-46.0) % MCV 85.1 (80.0-100.0) fL MCH 28.6 (25.0-35.0) pg MCHC 33.6 (31.0-37.0) g/dL RDW 14.5 (11.5-15.5) % Plt Count 260 (150-450) k/uL Neutrophils % 81 % Lymphocytes % 11 % Monocytes % 5 % Eosinophils % 1 % Basophils % 0 % Neutrophils # 9.9 H (1.3-7.7) k/uL Lymphocytes # 1.4 (1.0-4.8) k/uL Monocytes # 0.6 (0-1.0) k/uL Eosinophils # 0.2 (0-0.7) k/uL Basophils # 0.0 (0-0.2) k/uL Sodium 138 (137-145) mmol/L Potassium 4.2 (3.5-5.1) mmol/L Chloride 103 (98-107) mmol/L Carbon Dioxide 23 (22-30) mmol/L Anion Gap 12 mmol/L BUN 15 (7-17) mg/dL Creatinine 0.75 (0.52-1.04) mg/dL Est GFR (CKD-EPI)AfAm >90 (>60 ml/min/1.73 sqM) Est GFR (CKD-EPI)NonAf >90 (>60 ml/min/1.73 sqM) Glucose 103 H (74-99) mg/dL Plasma Lactic Acid Tu 1.0 (0.7-2.0) mmol/L Calcium 9.4 (8.4-10.2) mg/dL Total Bilirubin 0.4 (0.2-1.3) mg/dL AST 18 (14-36) U/L ALT 24 (9-52) U/L Alkaline Phosphatase 106 (38-126) U/L Total Protein 6.9 (6.3-8.2) g/dL Albumin 4.0 (3.5-5.0) g/dL Amylase 43 (30-110) U/L Lipase 128 (23-300) U/L Urine Color Urine Appearance (Clear) Urine pH (5.0-8.0) Ur Specific [place] (1.001-1.035) Urine Protein (Negative) Urine Glucose (UA) (Negative) Urine Ketones (Negative) Urine Blood (Negative) Urine Nitrite (Negative) Urine Bilirubin (Negative) Urine Urobilinogen (<2.0) mg/dL Ur Leukocyte Esterase (Negative) Urine RBC (0-5) /hpf Urine WBC (0-5) /hpf Ur Squamous Epith Cells (0-4) /hpf Calcium Oxalate Crystal (None) /hpf Urine Mucus (None) /hpf 09/30/18 Range/Units 23:59 WBC (3.8-10.6) k/uL RBC (3.80-5.40) m/uL Hgb (11.4-16.0) gm/dL Hct (34.0-46.0) % MCV (80.0-100.0) fL MCH (25.0-35.0) pg MCHC (31.0-37.0) g/dL RDW (11.5-15.5) % Plt Count (150-450) k/uL Neutrophils % % Lymphocytes % % Monocytes % % Eosinophils % % Basophils % % Neutrophils # (1.3-7.7) k/uL Lymphocytes # (1.0-4.8) k/uL Monocytes # (0-1.0) k/uL Eosinophils # (0-0.7) k/uL Basophils # (0-0.2) k/uL Sodium (137-145) mmol/L Potassium (3.5-5.1) mmol/L Chloride (98-107) mmol/L Carbon Dioxide (22-30) mmol/L Anion Gap mmol/L BUN (7-17) mg/dL Creatinine (0.52-1.04) mg/dL Est GFR (CKD-EPI)AfAm (>60 ml/min/1.73 sqM) Est GFR (CKD-EPI)NonAf (>60 ml/min/1.73 sqM) Glucose (74-99) mg/dL Plasma Lactic Acid Tu (0.7-2.0) mmol/L Calcium (8.4-10.2) mg/dL Total Bilirubin (0.2-1.3) mg/dL AST (14-36) U/L ALT (9-52) U/L Alkaline Phosphatase (38-126) U/L Total Protein (6.3-8.2) g/dL Albumin (3.5-5.0) g/dL Amylase (30-110) U/L Lipase (23-300) U/L Urine Color Yellow Urine Appearance Cloudy H (Clear) Urine pH 5.5 (5.0-8.0) Ur Specific [place] 1.026 (1.001-1.035) Urine Protein Trace H (Negative) Urine Glucose (UA) Negative (Negative) Urine Ketones Negative (Negative) Urine Blood Trace H (Negative) Urine Nitrite Negative (Negative) Urine Bilirubin Negative (Negative) Urine Urobilinogen <2.0 (<2.0) mg/dL Ur Leukocyte Esterase Negative (Negative) Urine RBC 2 (0-5) /hpf Urine WBC 1 (0-5) /hpf Ur Squamous Epith Cells 1 (0-4) /hpf Calcium Oxalate Crystal Many H (None) /hpf Urine Mucus Many H (None) /hpf Disposition Clinical Impression: Abdominal pain Disposition: HOME SELF-CARE Condition: Stable Instructions (If sedation given, give patient instructions): Abdominal Pain (ED) Additional Instructions: Contain a full liquid diet. Follow-up in the surgery office for reevaluation. Is patient prescribed a controlled substance at d/c from ED?: No Referrals: Josh Li MD [Primary Care Provider] - 1-2 days
[2018-09-30 23:52] LABS: Basophils % (A) 0 %; Eosinophils # (A) 0.2 k/uL (0-0.7); Eosinophils % (A) 1 %; HCT 40.7 % (34.0-46.0); HGB 13.7 gm/dL (11.4-16.0); Lymphocytes # (A) 1.4 k/uL (1.0-4.8); Lymphocytes % (A) 11 %; MCH 28.6 pg (25.0-35.0); MCHC 33.6 g/dL (31.0-37.0); MCV 85.1 fL (80.0-100.0); Mean Platelet Volume 7.6; Monocytes # (A) 0.6 k/uL (0-1.0); Monocytes % (A) 5 %; Neutrophils # (A) 9.9 k/uL (1.3-7.7); Neutrophils % (A) 81 %; Platelet Count 260 k/uL (150-450); RBC 4.78 m/uL (3.80-5.40); RDW 14.5 % (11.5-15.5); WBC 12.2 k/uL (3.8-10.6)
[2018-10-01 00:02] LABS: ALT 24 U/L (9-52); AST 18 U/L (14-36); Alkaline Phosphatase 106 U/L (38-126); Amylase 43 U/L (30-110); Anion Gap 12 mmol/L; Blood Urea Nitrogen 15 mg/dL (7-17); Calcium 9.4 mg/dL (8.4-10.2); Carbon Dioxide 23 mmol/L (22-30); Chloride 103 mmol/L (98-107); Glucose 103 mg/dL (74-99); Lipase 128 U/L (23-300); Potassium 4.2 mmol/L (3.5-5.1); Sodium 138 mmol/L (137-145); Total Bilirubin 0.4 mg/dL (0.2-1.3); Total Protein 6.9 g/dL (6.3-8.2)
--- NOTE | 2018-10-01 00:29 | XR ---
EXAM: XR Abdomen, 2 Views CLINICAL HISTORY: ITS.REASON XR Reason: abdominal pain TECHNIQUE: Frontal view of the abdomen/pelvis with upright view of the abdomen. COMPARISON: 03/28/2018 FINDINGS: Intraperitoneal space: No visualized free air under the diaphragm. Gastrointestinal tract: Moderate colonic stool burden. Moderately prominent air distended loops of small bowel. No significant dilation or evidence for high-grade obstruction identified on these 2 views. Bones/joints: No acute findings. IMPRESSION: 1. Moderately prominent colonic stool burden. Correlate for constipation. No current evidence for high-grade obstruction.
[2018-10-01 01:07] LABS: Appearance,Urine Cloudy (Clear); Bilirubin,Urine Negative (Negative); Blood,Urine Trace (Negative); Calcium Oxalate Crystals,Urine Many /hpf; Color,Urine Yellow; Glucose,Urine (UA) Negative (Negative); Ketones,Urine Negative (Negative); Leukocyte Esterase,Urine Negative (Negative); Mucus,Urine Many /hpf; Nitrite,Urine Negative (Negative); PH, Urine 5.5 (5.0-8.0); Protein,Urine Trace (Negative); RBC,Urine 2 /hpf (0-5); Specific Gravity,Urine 1.026 (1.001-1.035); Squamous Epithelial Cell,Urine 1 /hpf (0-4); Urobilinogen,Urine <2.0 mg/dL (<2.0); WBC,Urine 1 /hpf (0-5)
[2018-10-01] MEDS ORDERED: IOPAMIDOL-300 CONTRAST 30 ML VIAL (ORAL USE) PO PRN (01:14)
[2018-10-01] MEDS ORDERED: METOCLOPRAMIDE 5 MG/ML 2 ML VIAL IVP STA (01:26)
[2018-10-01] MEDS ORDERED: diphenhydrAMINE 50 MG/ML 1 ML VIAL IM STA (01:27)
--- NOTE | 2018-10-01 02:49 | CT ---
EXAM: CT Abdomen and Pelvis With Intravenous Contrast CLINICAL HISTORY: ITS.REASON CT Reason: Epigastric pain - s/p bariatric surgery TECHNIQUE: Axial computed tomography images of the abdomen and pelvis with intravenous contrast. CTDI is 16.2 mGy and DLP is 1472.6 mGy-cm. This CT exam was performed using one or more of the following dose reduction techniques: automated exposure control, adjustment of the mA and/or kV according to patient size, and/or use of iterative reconstruction technique. Coronal and sagittal reformatted images were created and reviewed. COMPARISON: 06/20/2018 FINDINGS: Lung bases: Unremarkable. No mass. No consolidation. ABDOMEN: Liver: Hepatic steatosis. Gallbladder and bile ducts: Gallbladder nonvisualized consistent with previous cholecystectomy. Associated mild biliary ectasia is noted. Pancreas: Unremarkable. No mass. No ductal dilation. Spleen: Unremarkable. No splenomegaly. Adrenals: Unremarkable. No mass. Kidneys and ureters: Unremarkable. No solid mass. No hydronephrosis. Stomach and bowel: Findings consistent with known bariatric surgery with gastric bypass and gastrojejunostomy. Prominent gastric pouch distention with particulate matter likely related to a recent meal. Contrast extends from the proximal gastric pouch into the gastric antrum which indicates persistent or recurrent patency with the bypassed segment. The gastrojejunostomy appears patent with slight contrast extending into the jejunum, without significant regional inflammatory changes at this time. Intermittent mildly prominent small bowel loops are present without abrupt transition measuring up to 4 cm, likely transient. Moderate colonic stool without evidence for colonic wall thickening or focal inflammatory changes. PELVIS: Appendix: No findings to suggest acute appendicitis. Bladder: Mild urinary bladder wall thickening, likely related to under distention. Reproductive: Unremarkable as visualized. ABDOMEN and PELVIS: Intraperitoneal space: Mild pelvic free fluid. No free air. Bones/joints: No acute fracture. No dislocation. Soft tissues: Unremarkable. Vasculature: No acute findings. Lymph nodes: Unremarkable. No enlarged lymph nodes. IMPRESSION: 1. Changes consistent with Diann-en-Y gastric bypass. Prominent distention of the gastric pouch with nonspecific particulate matter which could represent a recent meal. Correlate clinically. Contrast is identified extending from the gastric pouch into the distal stomach indicating a persistent or recurrent patent connection with the bypassed segment. Slight contrast noted extending through the gastrojejunostomy indicating patency. No regional inflammatory changes. 2. Intermittent mildly dilated small bowel loops without abrupt transition or evidence for high-grade obstruction. Moderate proximal colonic stool burden. 3. Scant free fluid which may be physiologic. 4. Incidental and nonacute findings as above. <MYCVCSECTION> Critical Value Communications 10/01/18 02:36 Call Doctor Regarding Other, called Dr. Tavarez on 10/01 02:35 (-04:00)
[2018-10-01 03:11] VITALS: BP 135/96; PULSE 74; RESP 19; TEMP 98.2
== END 2018-10-01 03:09 | disposition home or self-care (01) ==
LOC: EC 23:35 → SUPCPDRO 23:35 → EC 10-01 03:09
DX: R10.13 Epigastric pain (principal); R07.9 Chest pain, unspecified; R11.2 Nausea with vomiting, unspecified; D72.829 Elevated white blood cell count, unspecified; K21.9 Gastro-esophageal reflux disease without esophagitis; Z79.899 Other long term (current) drug therapy; Z91.030 Bee allergy status; Z88.5 Allergy status to narcotic agent; Z91.018 Allergy to other foods; Z88.6 Allergy status to analgesic agent; Z90.89 Acquired absence of other organs; Z98.84 Bariatric surgery status; Z86.73 Personal history of transient ischemic attack (TIA), and cerebral infarction without residual deficits; Z90.711 Acquired absence of uterus with remaining cervical stump
CPT/HCPCS: 36415; 80053; 82150; 83605; 83690; 85025; 81001; 74018; 74177; 99285; 96374; 96375 ×2; 96361 ×2; 96372; J1200; J2765; J2405; J1170; Q9967

== ENCOUNTER 2018-10-01 07:32 | Observation (INO) | payer BC, MEDICARE, OTHER ==
[2018-10-01] MEDS ORDERED: ONDANSETRON 4 MG/2 ML VIAL IVP STA (07:34)
[2018-10-01] MEDS ORDERED: SODIUM CHLORIDE 0.9% 1,000 ML IV STA (07:34)
[2018-10-01] MEDS ORDERED: ONDANSETRON 4 MG/2 ML VIAL IVP PRN (07:35)
--- NOTE | 2018-10-01 07:46 | ED ---
General Adult HPI - General Stated complaint: chest pain Time Seen by Provider: 10/01/18 07:34 - History of Present Illness Initial comments: Is a 43-year-old female with past medical history of Crys-en-Y gastric bypass for muscle she has recurrent pancreatitis since that time. She was evaluated in our hospital earlier this morning for nausea vomiting and abdominal pain. Labs were unremarkable computed tomography scan did show very distended gastric pouch with a communication between the pouch in the stomach. Her results were discussed with her surgeon, patient's nausea and vomiting was controlled with medications through IV in the patient comfortable with the plan for discharge home with outpatient follow-up with surgery. Upon arrival home patient had persistent vomiting. Patient reports she's had multiple episodes of nonbloody nonbilious vomitus which time she decided come back to the emergency department for reevaluation. - Related Data Home Medications Medication Instructions Recorded Confirmed Acetaminophen Tab [Tylenol] 1,000 mg PO Q6HR PRN 06/02/18 07/06/18 Omeprazole [PriLOSEC] 20 mg PO BID 06/02/18 07/06/18 Docusate [Colace] 100 mg PO BID 07/06/18 07/06/18 Previous Rx's Medication Instructions Recorded Scopolamine 1.5MG/72Hr Patch 1 patch TRANSDERM Q72H #4 patch 07/04/18 [TransDerm Scop] ALPRAZolam [Xanax] 0.25 mg PO Q8HR #5 tab 07/06/18 [place] Carbonate 150 mg PO DAILY #30 capsule 07/11/18 Venlafaxine HCl [Effexor] 37.5 mg PO DAILY #30 tab 07/11/18 Allergies Allergy/AdvReac Type Severity Reaction Status Date / Time bee venom protein (honey bee) Allergy Severe Anaphylaxis Verified 07/06/18 19:49 morphine Allergy Severe Itching Verified 07/06/18 19:49 and swelling strawberry Allergy Severe Anaphylaxis Verified 07/06/18 19:50 NSAIDS (Non-Steroidal Allergy Unknown Verified 07/06/18 19:49 Anti-Inflamma Review of Systems ROS Statement: Those systems with pertinent positive or pertinent negative responses have been documented in the HPI. ROS Other: All systems not noted in ROS Statement are negative. Past Medical History Past Medical History: CVA/TIA, Fibromyalgia, GERD/Reflux, Hyperlipidemia, Hypertension Additional Past Medical History / Comment(s): CVA 2011, psoriasis, Shafer's Esophagus, arthritis, migraines, Psoriatic arthritis, chronic pain (Sees Dr. Frederick for pain management) precancerous throat cells,pancreatits History of Any Multi-Drug Resistant Organisms: None Reported Past Surgical History: Adenoidectomy, Appendectomy, Bariatric Surgery, Hysterectomy, Tonsillectomy, Tubal Ligation Additional Past Surgical History / Comment(s): Bay fundolpication 1999(?), partial hysterectomy via trans-vaginal procedure (patient retained both ovaries) take down of bay - gastric bypass pt stated crys en y"06-09-18 Past Anesthesia/Blood Transfusion Reactions: No Reported Reaction Additional Past Anesthesia/Blood Transfusion Reaction / Comment(s): No transfusion noted to date . hx clausterphobia Past Psychological History: ADD/ADHD, Depression, Panic Disorder, PTSD Smoking Status: Never smoker Past Alcohol Use History: None Reported Past Drug Use History: None Reported - Past Family History Father Family Medical History: Cancer, Coronary Artery Disease (CAD) Additional Family Medical History / Comment(s): father from stomach cancer at age 51, heroin addict (struggled with addiction off and on for years after coming home from [place]) Mother Family Medical History: Cancer Additional Family Medical History / Comment(s): Mother at age 36 from Ovarian Cancer mets to brain General Exam - General Exam Comments Initial Comments: Physical Exam GENERAL: Patient is well-developed and well-nourished. Appears uncomfortable HENT: Normocephalic, Atraumatic. EYES: PERRL, EOMI PULMONARY: Unlabored respirations. No audible rales rhonchi or wheezing was noted. CARDIOVASCULAR: There is a regular rate and rhythm without any murmurs gallops or rubs. ABDOMEN: Soft and nontender with normal bowel sounds. SKIN: Skin is clear with no lesions or rashes and otherwise unremarkable. : Deferred NEUROLOGIC: Patient is alert and oriented x3. Moving all extremities spontaneously MUSCULOSKELETAL: Normal extremities with adequate strength and full range of motion. No lower extremity swelling or edema. No calf tenderness. PSYCHIATRIC: Normal psychiatric evaluation. Limitations: no limitations EKG Findings - EKG Comments: EKG Findings:: EKG obtained at 7:33 AM, rate is 70 rhythm is sinus is normal axis normal intervals no acute ST elevations or depressions or evidence of acute ischemia or infarction Medical Decision Making - Medical Decision Making Patient was seen and evaluated, I did see and evaluate this patient earlier in the day. She has persistent vomiting despite control earlier with IV medications at this time we will plan to admit the patient for further management of her persistent nausea vomiting. Surgery was consult at. Patient care was discussed with Dr. Thomas who accepts the admission. Disposition Clinical Impression: Nausea and vomiting, H/O gastric bypass Disposition: ADMITTED IP TO THIS HOSP Condition: Stable Is patient prescribed a controlled substance at d/c from ED?: No Referrals: Josh Li MD [Primary Care Provider] - 1-2 days
[2018-10-01 08:05] LABS: Basophils % (A) 0 %; Eosinophils # (A) 0.1 k/uL (0-0.7); Eosinophils % (A) 1 %; HCT 43.6 % (34.0-46.0); HGB 14.7 gm/dL (11.4-16.0); Lymphocytes % (A) 10 %; MCH 28.3 pg (25.0-35.0); MCHC 33.8 g/dL (31.0-37.0); MCV 83.9 fL (80.0-100.0); Mean Platelet Volume 7.4; Monocytes # (A) 0.4 k/uL (0-1.0); Monocytes % (A) 4 %; Neutrophils # (A) 8.7 k/uL (1.3-7.7); Neutrophils % (A) 85 %; Platelet Count 278 k/uL (150-450); RDW 14.3 % (11.5-15.5); WBC 10.3 k/uL (3.8-10.6)
[2018-10-01] MEDS ORDERED: HYDROmorphone 1 MG/ML 1 ML SYRINGE IVP STA ×3 (08:07→15:54)
[2018-10-01 08:17] LABS: ALT 31 U/L (9-52); AST 16 U/L (14-36); Albumin 4.2 g/dL (3.5-5.0); Alkaline Phosphatase 123 U/L (38-126); Amylase 44 U/L (30-110); Anion Gap 8 mmol/L; Blood Urea Nitrogen 12 mg/dL (7-17); Calcium 9.7 mg/dL (8.4-10.2); Carbon Dioxide 25 mmol/L (22-30); Chloride 104 mmol/L (98-107); Glucose 124 mg/dL (74-99); Lipase 100 U/L (23-300); Potassium 4.3 mmol/L (3.5-5.1); Sodium 137 mmol/L (137-145); Total Bilirubin 0.5 mg/dL (0.2-1.3); Total Protein 7.1 g/dL (6.3-8.2)
[2018-10-01 10:17] VITALS: BMI 36.8
--- NOTE | 2018-10-01 12:41 | FL ---
EXAMINATION TYPE: FL UGI w esophagus DATE OF EXAM: 10/01/2018 COMPARISON: CT dated 09/21/2018 HISTORY: Abdominal pain with prior Diann-en-Y gastric surgery. Abnormal findings on CT. TECHNIQUE: A single contrast UGI study is performed with Isovue. 1 minute and 23 seconds of fluorosc opy time was utilized. 30 fluoroscopic images were saved. FINDINGS: Contrast extends into the bypassed stomach, as well as the Diann-en-Y limb. Contrast is als o seen within the gastric body. No contrast extravasation is noted. No pneumoperitoneum is seen on th e examination. The patient could not tolerate any further imaging due to severe pain. 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
[2018-10-01] MEDS ORDERED: oxyCODONE-APAP 10-325MG 1 EACH TAB PO PRN (13:26)
[2018-10-01] MEDS ORDERED: NALOXONE 0.4 MG/ML 1 ML VIAL IV PRN (13:38)
[2018-10-01] MEDS ORDERED: ACETAMINOPHEN TAB 325 MG TAB PO PRN (13:38)
[2018-10-01 13:52] VITALS: BP 165/92; PULSE 81; RESP 20; TEMP 98.6
[2018-10-01] MEDS: HYDROmorphone 1 MG/ML 1 ML SYRINGE IV PRN ×2 (14:47→18:10)
--- NOTE | 2018-10-01 15:36 | P.GSCN ---
History of Present Illness Consult date: 10/01/18 Reason for Consult: abdominal pain Requesting physician: Mell Tavarez History of present illness: CHIEF COMPLAINT: abdominal pain HISTORY OF PRESENT ILLNESS: 43-year-old female with a history of Crys-en-Y gastric bypass, patient of Dr. Hirsch, who presented to the emergency room due to severe, pain, nausea, and vomiting. Patient reports she has been on a liquid diet for the past few days and states "I am trying to shrink my pouch. I've lost all resistance". She reports she began vomiting yesterday and is unable to keep any fluids down. Patient is examined at the bedside. She is crying and rolling around in the bed and complaining of severe pain. PAST MEDICAL HISTORY: See list. PAST SURGICAL HISTORY: See list. MEDICATIONS: See list. ALLERGIES: See list. SOCIAL HISTORY: No illicit drug use. REVIEW OF SYSTEMS: CONSTITUTIONAL: Denies fever or chills. HEENT: Denies blurred vision, vision changes, or eye pain. Denies hemoptysis ENDOCRINE: Denies heat or cold intolerance. CARDIOVASCULAR: Denies chest pain or pressure. RESPIRATORY: No shortness of breath. GASTROINTESTINAL: Reports abdominal pain. Reports nausea or vomiting. NEURO: Denies history of seizures. PSYCH: No depression or suicidal ideation HEMATOLOGIC: Denies bleeding disorders. LYMPHATIC: The patient denies any lumps and bumps around the neck. GENITOURINARY: Denies any blood in urine or increased urinary frequency. MUSCULOSKELETAL: Denies myalgias. Denies joint swelling. Denies decreased range of motion beyond patients baseline. SKIN: Denies pruitis. Denies rash. PHYSICAL EXAM: VITAL SIGNS: Currently stable. GENERAL: Well-developed but appears very uncomfortable and in pain. HEENT: No sclera icterus. Extraocular movements grossly intact. Moist buccal mucosa. Head is atraumatic, normocephalic. Hears conversational speech. No nasal drainage. NECK: Supple without lymphadenopathy. CHEST: Non-labored respirations and equal bilateral excursions. CARDIOVASCULAR: Regular rate with regular rhythm. Palpable 2+ radial pulses. ABDOMEN: Soft. Nondistended. Tenderness upon palpation. MUSCULOSKELETAL: No clubbing, cyanosis or edema. NEUROLOGIC: No focal or lateralizing signs. Cranial nerves II through XII reagan sly intact. PSYCH: Appropriate affect. Alert and oriented to person, place and time. SKIN: Well perfused. Good skin turgor. IMAGING: Upper GI: Findings suggestive of gastrogastric fistula with contrast in the bypassed stomach and Crys-en-Y limb ASSESSMENT: 1. Abdominal pain, nausea, vomiting 2. Gastrogastric fistula 3. History of Crys-en-Y gastric bypass PLAN: Patient examined at the bedside by Dr. Leos, covering for Dr. Hirsch. Dr. Leos is recommending transfer to [facility] for further evaluation and surgical intervention of gastrogastric fistula. Discussed case with Dr. Rodríguez from internal medicine regarding our recommendation for transfer. Nurse practitioner note has been reviewed by physician. Signing provider agrees with the documented findings, assessment, and plan of care. 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 History of Any Multi-Drug Resistant Organisms: None Reported Past Surgical History: Adenoidectomy, Appendectomy, Bariatric Surgery, Cholecystectomy, Hysterectomy, Tonsillectomy, Tubal Ligation Additional Past Surgical History / Comment(s): Abiel fundlipcation with take down and crys and Y performed, partial hysterectomy, EGD, PICC Past Anesthesia/Blood Transfusion Reactions: No Reported Reaction Additional Past Anesthesia/Blood Transfusion Reaction / Comm: hx clausterphobia Smoking Status: Never smoker - Past Family History Father Family Medical History: Cancer, Coronary Artery Disease (CAD) Additional Family Medical History / Comment(s): father from stomach cancer at age 51, heroin addict (struggled with addiction off and on for years after coming home from [place]) Mother Family Medical History: Cancer Additional Family Medical History / Comment(s): Mother at age 36 from Ovarian Cancer mets to brain Medications and Allergies Home Medications Medication Instructions Recorded Confirmed Type Omeprazole [PriLOSEC] 20 mg PO DAILY 06/02/18 10/01/18 History [place] Carbonate 150 mg PO DAILY #30 capsule 07/11/18 10/01/18 Rx Venlafaxine HCl [Effexor] 37.5 mg PO DAILY #30 tab 07/11/18 10/01/18 Rx ALPRAZolam [Xanax] 0.25 mg PO BID 10/01/18 10/01/18 History Folic Acid 1 mg PO DAILY 10/01/18 10/01/18 History Lisinopril [Zestril] 5 mg PO DAILY 10/01/18 10/01/18 History Nascobal 500mcg/0.1ml 1 spray NASAL TU 10/01/18 10/01/18 History Pregabalin [Lyrica] 200 mg PO BID 10/01/18 10/01/18 History oxyCODONE-APAP 10-325MG [Percocet 1 tab PO TID PRN 10/01/18 10/01/18 History 10-325 mg] tiZANidine [Zanaflex] 4 mg PO TID 10/01/18 10/01/18 History traZODone HCL 300 mg PO HS 10/01/18 10/01/18 History Allergies Allergy/AdvReac Type Severity Reaction Status Date / Time bee venom protein (honey bee) Allergy Severe Anaphylaxis Verified 10/01/18 08:19 morphine Allergy Severe Itching Verified 10/01/18 08:19 and swelling strawberry Allergy Severe Anaphylaxis Verified 10/01/18 08:19 NSAIDS (Non-Steroidal Allergy Unknown Verified 10/01/18 08:19 Anti-Inflamma Surgical - Exam Vital Signs Temp Pulse Resp BP Pulse Ox 99.0 F 68 24 187/103 100 10/01/18 07:35 10/01/18 07:35 10/01/18 07:35 10/01/18 07:35 10/01/18 07:35 Results - Labs 10/01/18 07:56 10/01/18 07:56 Abnormal Lab Results - Last 24 Hours (Table) 10/01/18 10/01/18 Range/Units 07:56 07:56 Neutrophils # 8.7 H (1.3-7.7) k/uL Glucose 124 H (74-99) mg/dL Diabetes panel 10/01/18 Range/Units 07:56 Sodium 137 (137-145) mmol/L Potassium 4.3 (3.5-5.1) mmol/L Chloride 104 (98-107) mmol/L Carbon Dioxide 25 (22-30) mmol/L BUN 12 (7-17) mg/dL Creatinine 0.76 (0.52-1.04) mg/dL Glucose 124 H (74-99) mg/dL Calcium 9.7 (8.4-10.2) mg/dL AST 16 (14-36) U/L ALT 31 (9-52) U/L Alkaline Phosphatase 123 (38-126) U/L Total Protein 7.1 (6.3-8.2) g/dL Albumin 4.2 (3.5-5.0) g/dL Calcium panel 10/01/18 Range/Units 07:56 Calcium 9.7 (8.4-10.2) mg/dL Albumin 4.2 (3.5-5.0) g/dL Pituitary panel 10/01/18 Range/Units 07:56 Sodium 137 (137-145) mmol/L Potassium 4.3 (3.5-5.1) mmol/L Chloride 104 (98-107) mmol/L Carbon Dioxide 25 (22-30) mmol/L BUN 12 (7-17) mg/dL Creatinine 0.76 (0.52-1.04) mg/dL Glucose 124 H (74-99) mg/dL Calcium 9.7 (8.4-10.2) mg/dL Adrenal panel 10/01/18 Range/Units 07:56 Sodium 137 (137-145) mmol/L Potassium 4.3 (3.5-5.1) mmol/L Chloride 104 (98-107) mmol/L Carbon Dioxide 25 (22-30) mmol/L BUN 12 (7-17) mg/dL Creatinine 0.76 (0.52-1.04) mg/dL Glucose 124 H (74-99) mg/dL Calcium 9.7 (8.4-10.2) mg/dL Total Bilirubin 0.5 (0.2-1.3) mg/dL AST 16 (14-36) U/L ALT 31 (9-52) U/L Alkaline Phosphatase 123 (38-126) U/L Total Protein 7.1 (6.3-8.2) g/dL Albumin 4.2 (3.5-5.0) g/dL
--- NOTE | 2018-10-01 16:27 | P.HPIM ---
History of Present Illness H&P Date: 10/01/18 Chief Complaint: Abdominal pain 43-year-old female with PMH of chronic pain, fibromyalgia, recurrent pancreatitis, Abiel fundoplication in 1999, history of Crys-en-Y gastric bypass in May 2018 presents the ED for abdominal pain. Patient reports the abdominal pain began a couple days ago. Pain is generalized in the epigastric region. Pain was initially intermittent but has now become constant. Patient reports that the pain is worsened with meals. Pain is 10 out of 10 in severity and occasionally radiates to the back. Patient describes the pain as sharp and stabbing in nature. Patient reports that she has never experienced this pain before. Her abdominal pain is associated with nausea and multiple episodes of nonbilious nonbloody vomiting. Of note, patient had a Crys-en-Y gastric bypass in May [address] Young. Of note, patient was admitted in June 2018 for abdominal pain, nausea and vomiting. She was found to have pancreatitis and incidental gallstones. Patient underwent cholecystectomy at that time as well. In the ED, CBC and CMP was unremarkable except for glucose 124. Amylase and lipase was within normal limits. Liver function tests was within normal limits. Barium swallow was suggestive of gastro-gastric fistula with contrast in the bypassed stomach and Crys-en-Y limb. CT of the abdomen showed prominent disten tion of the gastric pouch along with fistula communication into the distal stomach, mildly dilated small bowel loops without evidence of high-grade obstruction. Patient was admitted for further workup with general surgery on board. General surgery was consulted and imaging studies were reviewed. Recommendations were made to transfer the patient to [facility] for higher level of care. Patient was seen and examined prior to discharge. No acute events overnight. Patient reports 10 out of 10 epigastric pain that radiates to the back. Patient reports multiple episodes of nonbloody nonbilious vomiting along with nausea. She is agreeable to be transferred to [facility] for possible evaluation by bariatric surgery. She denies any chest pain, shortness of breath or palpitations. Last bowel movement was yesterday. Patient reports passing gas. No changes in urination. No fever or chills. General: [non toxic], [no distress], [appears at stated age] Derm: [warm], [dry] Head: [atraumatic], [normocephalic], [symmetric] Eyes: [EOMI], [no lid lag], [anicteric sclera] Mouth: [no lip lesion], [mucus membranes moist] Cardiovascular: [S1S2 reg], [no murmur], [positive posterior tibial pulse bilateral], Lungs: [CTA bilateral], [no rhonchi, no rales] , [no accessory muscle use] Abdominal: [soft and obese], [tenderness to palpation in the epigastric area w ithout rebound], [no guarding], [no appreciable organomegaly] Ext: [no gross muscle atrophy], [no edema], [no contractures] Neuro: [ CN II-XI grossly intact], [no focal neuro deficits] Psych: [Alert], [oriented], [appropriate affect] Assessment and Plan 1. Abdominal pain likely secondary to Crys-en-Y procedure, fistula versus overeating 2. Gastro-gastric fistula 3. Fibromyalgia 4. Anxiety and depression, PTSD, bipolar disorder 1. Patient's abdominal pain is possibly related to distention of the gastric pouch secondary to overeating as seen on computed tomography scan. She does have a fistula connecting the proximal stomach and gastric pouch, I do not believe that this is the source of pain. Her amylase and lipase is within normal limits, low suspicion for pancreatitis. Patient is on oxycodone at home for chronic pain. Continue Dilaudid 1 mg IV every 3 hours as needed for severe pain. Zofran as needed for nausea or vomiting. Start aggressive bowel regimen. 2. As seen on barium study. Discussed with Dr. Walker, recommends transfer to higher level of care. Discussed with [facility] at [facility], accepted for transfer, pending bed availability. 3. Pain management as above. Continue Lyrica 200 mg by mouth twice a day. 4. Xanax 0.25 mg by mouth twice a day. Continue Effexor 37.5 mg by mouth daily and trazodone 300 mg by mouth at bedtime. Patient admitted for abdominal pain. Is is likely secondary to either her gastro-gastric fistula versus overeating versus constipation. Patient is pending bed availability at [facility] for transfer. This H&P will also serve as the discharge summary. Review of Systems All systems: negative Past Medical History Past Medical History: CVA/TIA, Fibromyalgia, GERD/Reflux, Hyperlipidemia, Hypertension, Osteoarthritis (OA) Additional Past Medical History / Comment(s): Recurrent pancreatitis pt states since crys en y surgery, CVA in 2012-mouth droop, Shafer's esophagus, precancerous lesions in throat, psoriasis, psoriatic arthritis, migraines, chronic generalized pain, UTI. History of Any Multi-Drug Resistant Organisms: None Reported Past Surgical History: Adenoidectomy, Appendectomy, Bariatric Surgery, Cholecystectomy, Hysterectomy, Tonsillectomy, Tubal Ligation Additional Past Surgical History / Comment(s): Abiel fundlipcation with take down and crys and Y performed, partial hysterectomy, EGD, PICC Past Anesthesia/Blood Transfusion Reactions: No Reported Reaction Additional Past Anesthesia/Blood Transfusion Reaction / Comment(s): hx clausterphobia Smoking Status: Never smoker - Past Family History Father Family Medical History: Cancer, Coronary Artery Disease (CAD) Additional Family Medical History / Comment(s): father from stomach cancer at age 51, heroin addict (struggled with addiction off and on for years after coming home from [place]) Mother Family Medical History: Cancer Additional Family Medical History / Comment(s): Mother at age 36 from Ovarian Cancer mets to brain Medications and Allergies Home Medications Medication Instructions Recorded Confirmed Type Omeprazole [PriLOSEC] 20 mg PO DAILY 06/02/18 10/01/18 History [place] Carbonate 150 mg PO DAILY #30 capsule 07/11/18 10/01/18 Rx Venlafaxine HCl [Effexor] 37.5 mg PO DAILY #30 tab 07/11/18 10/01/18 Rx ALPRAZolam [Xanax] 0.25 mg PO BID 10/01/18 10/01/18 History Folic Acid 1 mg PO DAILY 10/01/18 10/01/18 History Lisinopril [Zestril] 5 mg PO DAILY 10/01/18 10/01/18 History Nascobal 500mcg/0.1ml 1 spray NASAL TU 10/01/18 10/01/18 History Pregabalin [Lyrica] 200 mg PO BID 10/01/18 10/01/18 History oxyCODONE-APAP 10-325MG [Percocet 1 tab PO TID PRN 10/01/18 10/01/18 History 10-325 mg] tiZANidine [Zanaflex] 4 mg PO TID 10/01/18 10/01/18 History traZODone HCL 300 mg PO HS 10/01/18 10/01/18 History Allergies Allergy/AdvReac Type Severity Reaction Status Date / Time bee venom protein (honey bee) Allergy Severe Anaphylaxis Verified 10/01/18 08:19 morphine Allergy Severe Itching Verified 10/01/18 08:19 and swelling strawberry Allergy Severe Anaphylaxis Verified 10/01/18 08:19 NSAIDS (Non-Steroidal Allergy Unknown Verified 10/01/18 08:19 Anti-Inflamma Physical Exam Vitals: Vital Signs Temp Pulse Pulse Resp BP BP Pulse Ox 10/01/18 14:30 20 10/01/18 13:51 98.6 F 81 20 165/92 99 10/01/18 13: 99.0 F 79 18 166/89 96 10/01/18 13:09 79 18 166/89 96 10/01/18 12:31 85 18 171/96 97 10/01/18 09:00 78 168/89 10/01/18 08:33 73 22 168/89 100 10/01/18 08:30 71 159/96 100 10/01/18 08:00 68 187/103 10/01/18 07:37 68 10/01/18 07:35 99.0 F 68 24 187/103 100 Intake and Output 10/01/18 10/01/18 10/01/18 06:59 14:59 22:59 Intake Total 400 Balance 400 Intake: Amount of Fluid Infused ( 400 ml) Other: Weight 97.522 kg Results CBC & Chem 7: 10/01/18 07:56 10/01/18 07:56 Labs: Abnormal Lab Results - Last 24 Hours (Table) 10/01/18 10/01/18 Range/Units 07:56 07:56 Neutrophils # 8.7 H (1.3-7.7) k/uL Glucose 124 H (74-99) mg/dL Thrombosis Risk Factor Assmnt - Choose All That Apply Any of the Below Risk Factors Present?: Yes Each Factor Represents 1 point: Age 41-60 years, Obesity (BMI >25) Other Risk Factors: No Other congenital or acquired thrombophilia - If yes, enter type in comment: No Thrombosis Risk Factor Assessment Total Risk Factor Score: 2 Thrombosis Risk Factor Assessment Level: Low Risk
[2018-10-01] MEDS ORDERED: traZODone HCL 100 MG TAB PO SCH (21:00)
[2018-10-01] MEDS ORDERED: ALPRAZolam 0.25 MG TAB PO SCH (21:00)
[2018-10-01] MEDS ORDERED: PREGABALIN 100 MG CAP PO SCH (21:00)
[2018-10-02] MEDS ORDERED: LISINOPRIL 5 MG TAB PO SCH (09:00)
[2018-10-02] MEDS ORDERED: VENLAFAXINE HCL 37.5 MG TAB PO SCH (09:00)
[2018-10-02] MEDS ORDERED: LITHIUM CARBONATE 150 MG CAP PO SCH (09:00)
== END 2018-10-01 18:19 | disposition other institution (70) ==
LOC: EC 07:32 → 4SSUR 07:35
PROVIDERS: ADMIT Internal Medicine; ATTEND Internal Medicine
DX: R10.13 Epigastric pain (principal); R11.2 Nausea with vomiting, unspecified; G89.29 Other chronic pain; R07.9 Chest pain, unspecified; K31.6 Fistula of stomach and duodenum; Z98.84 Bariatric surgery status; M79.7 Fibromyalgia; K21.9 Gastro-esophageal reflux disease without esophagitis; E78.5 Hyperlipidemia, unspecified; I10 Essential (primary) hypertension; K22.70 Barrett's esophagus without dysplasia; M19.90 Unspecified osteoarthritis, unspecified site; I69.392 Facial weakness following cerebral infarction; G43.909 Migraine, unspecified, not intractable, without status migrainosus; L40.50 Arthropathic psoriasis, unspecified; F90.9 Attention-deficit hyperactivity disorder, unspecified type; F41.0 Panic disorder [episodic paroxysmal anxiety]; F43.10 Post-traumatic stress disorder, unspecified; F31.9 Bipolar disorder, unspecified; J39.2 Other diseases of pharynx; E66.9 Obesity, unspecified; Z68.36 Body mass index [BMI] 36.0-36.9, adult; Z79.899 Other long term (current) drug therapy; Z91.030 Bee allergy status; Z88.5 Allergy status to narcotic agent; Z88.8 Allergy status to other drugs, medicaments and biological substances; Z91.018 Allergy to other foods; Z90.49 Acquired absence of other specified parts of digestive tract; Z87.440 Personal history of urinary (tract) infections; Z80.0 Family history of malignant neoplasm of digestive organs; Z80.41 Family history of malignant neoplasm of ovary; Z80.8 Family history of malignant neoplasm of other organs or systems; Z82.49 Family history of ischemic heart disease and other diseases of the circulatory system
CPT/HCPCS: 74240; 80053; 82150; 83690; 85025; 93005; 96361; 96374; 96375; 96376; 99285

== ENCOUNTER 2018-12-05 07:33 | Emergency (ER) | payer BC, MEDICARE, OTHER ==
[2018-12-05] MEDS ORDERED: HYDROmorphone 1 MG/ML 1 ML SYRINGE IVP STA (07:59)
[2018-12-05] MEDS ORDERED: SODIUM CHLORIDE 0.9% 1,000 ML IV STA ×2 (07:59)
--- NOTE | 2018-12-05 08:04 | ED ---
Abdominal Pain HPI - General Chief Complaint: Abdominal Pain Stated Complaint: Abd pain Time Seen by Provider: 12/05/18 07:42 Source: patient, RN notes reviewed Mode of arrival: wheelchair Limitations: no limitations - History of Present Illness Initial Comments: This is a 43-year-old female history of medical issues including a Crys-en-Y was done on October 03 she had a revision done at [facility] in [place] on the she's had issues with including revision for a fistula she had a J-tube and a drain placed at drain was removed 2 weeks ago she still is J-tube she states last 1 and days or she's had nausea vomiting this intractable with a lot of abdominal pain going to her back. She has any overt fevers chills or sweats. She states she's not been able keep her medications down she does states she had a rather large brown bowel movement this morning but it did not help the pain at all. No blood reported. No other complaints this time she does states she is in severe pain now. MD Complaint: abdominal pain, other - Related Data Home Medications Medication Instructions Recorded Confirmed Omeprazole [PriLOSEC] 20 mg PO DAILY 06/02/18 12/05/18 ALPRAZolam [Xanax] 0.25 mg PO BID 10/01/18 12/05/18 Lisinopril [Zestril] 5 mg PO DAILY 10/01/18 12/05/18 Nascobal 500mcg/0.1ml 1 spray NASAL TU 10/01/18 12/05/18 tiZANidine [Zanaflex] 4 mg PO TID 10/01/18 12/05/18 Hydrocodone/Acetaminophen 15 ml PO Q6H 12/05/18 12/05/18 [Hydrocodone-Acetamn 7.5-325/15] Ranitidine HCl [Zantac] 150 mg PO BID 12/05/18 12/05/18 Topiramate [Topamax] 100 mg PO TID 12/05/18 12/05/18 fentaNYL 50MCG/HR PATCH [Duragesic 1 patch TOPICAL Q72H 12/05/18 12/05/18 50MCG/HR] Allergies Allergy/AdvReac Type Severity Reaction Status Date / Time bee venom protein (honey bee) Allergy Severe Anaphylaxis Verified 12/05/18 07:52 morphine Allergy Severe Itching Verified 12/05/18 07:52 and swelling strawberry Allergy Severe Anaphylaxis Verified 12/05/18 07:52 NSAIDS (Non-Steroidal Allergy Unknown Verified 12/05/18 07:52 Anti-Inflamma Review of Systems ROS Statement: Those systems with pertinent positive or pertinent negative responses have been documented in the HPI. ROS Other: All systems not noted in ROS Statement are negative. 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 History of Any Multi-Drug Resistant Organisms: None Reported Past Surgical History: Adenoidectomy, Appendectomy, Bariatric Surgery, Cholecystectomy, Hysterectomy, Tonsillectomy, Tubal Ligation Additional Past Surgical History / Comment(s): Abiel fundlipcation with take down and crys and Y performed, partial hysterectomy, EGD, PICC Past Anesthesia/Blood Transfusion Reactions: No Reported Reaction Additional Past Anesthesia/Blood Transfusion Reaction / Comment(s): hx clausterphobia Past Psychological History: ADD/ADHD, Depression, Panic Disorder, PTSD Smoking Status: Never smoker - Past Family History Father Family Medical History: Cancer, Coronary Artery Disease (CAD) Additional Family Medical History / Comment(s): father from stomach cancer at age 51, heroin addict (struggled with addiction off and on for years after coming home from [place]) Mother Family Medical History: Cancer Additional Family Medical History / Comment(s): Mother at age 36 from Ovarian Cancer mets to brain General Exam - General Exam Comments Initial Comments: This a well-developed well-nourished awake alert oriented 3 female Limitations: no limitations General appearance: alert, anxious, in distress Head exam: Present: atraumatic, normocephalic, normal inspection Eye exam: Present: normal appearance, PERRL, EOMI. Absent: scleral icterus, conjunctival injection, periorbital swelling ENT exam: Present: mucous membranes dry Neck exam: Present: normal inspection. Absent: tenderness, meningismus, lymphadenopathy Respiratory exam: Present: normal lung sounds bilaterally. Absent: respiratory distress, wheezes, rales, rhonchi, stridor Cardiovascular Exam: Present: normal rhythm, tachycardia, normal heart sounds. Absent: systolic murmur, diastolic murmur, rubs, gallop, clicks GI/Abdominal exam: Present: soft, tenderness, normal bowel sounds. Absent: distended, guarding, rebound, rigid, bruit, pulsatile mass (The J-tube appears to be intact no evidence of any drainage or leakage. Localized tenderness no overt guarding or rebound) Rectal exam: Present: deferred Extremities exam: Present: normal inspection, full ROM, normal capillary refill. Absent: tenderness, pedal edema, joint swelling, calf tenderness Back exam: Present: normal inspection Neurological exam: Present: alert, oriented X3, CN II-XII intact Psychiatric exam: Present: normal affect, normal mood Skin exam: Present: warm, dry, intact, normal color. Absent: rash Course Vital Signs 12/05/18 12/05/18 12/05/18 07:34 08:37 11:29 Temperature 98.5 F 97.8 F Pulse Rate 120 H 89 82 Respiratory 22 16 Rate Blood Pressure 115/68 129/75 O2 Sat by Pulse 97 99 99 Oximetry 12/05/18 13:15 Temperature 97.8 F Pulse Rate 79 Respiratory 16 Rate Blood Pressure 155/91 O2 Sat by Pulse 98 Oximetry - Reevaluation(s) Reevaluation #1: 12/05/18 13:58 I did reevaluate the patient multiple occasions she persisted having nausea and vomiting also abdominal pain and back pain. Medical Decision Making - Medical Decision Making I did discuss findings on several occasions with family members as well as the patient. I did discuss case with Dr. Argueta at [facility] he has agreed to accept the patient transfer. I did discuss this with the transfer team. Transfer will be to an inpatient bed. - Lab Data Result diagrams: 12/05/18 08:20 12/05/18 08:20 Lab Results 12/05/18 12/05/18 12/05/18 Range/Units 08:20 08:20 08:20 WBC 8.6 (3.8-10.6) k/uL RBC 5.19 (3.80-5.40) m/uL Hgb 14.2 (11.4-16.0) gm/dL Hct 43.3 (34.0-46.0) % MCV 83.4 (80.0-100.0) fL MCH 27.2 (25.0-35.0) pg MCHC 32.7 (31.0-37.0) g/dL RDW 13.6 (11.5-15.5) % Plt Count 301 (150-450) k/uL Neutrophils % 81 % Lymphocytes % 12 % Monocytes % 4 % Eosinophils % 1 % Basophils % 0 % Neutrophils # 7.0 (1.3-7.7) k/uL Lymphocytes # 1.0 (1.0-4.8) k/uL Monocytes # 0.4 (0-1.0) k/uL Eosinophils # 0.1 (0-0.7) k/uL Basophils # 0.0 (0-0.2) k/uL PT (9.0-12.0) sec INR (<1.2) APTT (22.0-30.0) sec Sodium 139 (137-145) mmol/L Potassium 3.6 (3.5-5.1) mmol/L Chloride 106 (98-107) mmol/L Carbon Dioxide 21 L (22-30) mmol/L Anion Gap 12 mmol/L BUN 9 (7-17) mg/dL Creatinine 0.53 (0.52-1.04) mg/dL Est GFR (CKD-EPI)AfAm >90 (>60 ml/min/1.73 sqM) Est GFR (CKD-EPI)NonAf >90 (>60 ml/min/1.73 sqM) Glucose 92 (74-99) mg/dL Plasma Lactic Acid Tu 1.1 (0.7-2.0) mmol/L Calcium 9.0 (8.4-10.2) mg/dL Magnesium 1.4 L (1.6-2.3) mg/dL Total Bilirubin 0.6 (0.2-1.3) mg/dL AST 15 (14-36) U/L ALT 20 (9-52) U/L Alkaline Phosphatase 104 (38-126) U/L Creatine Kinase 33 (30-135) U/L Total Protein 6.6 (6.3-8.2) g/dL Albumin 3.6 (3.5-5.0) g/dL Amylase 48 (30-110) U/L Lipase 165 (23-300) U/L Urine Color Urine Appearance (Clear) Urine pH (5.0-8.0) Ur Specific [place] (1.001-1.035) Urine Protein (Negative) Urine Glucose (UA) (Negative) Urine Ketones (Negative) Urine Blood (Negative) Urine Nitrite (Negative) Urine Bilirubin (Negative) Urine Urobilinogen (<2.0) mg/dL Ur Leukocyte Esterase (Negative) Urine RBC (0-5) /hpf Urine WBC (0-5) /hpf Ur Squamous Epith Cells (0-4) /hpf Calcium Oxalate Crystal (None) /hpf Urine Mucus (None) /hpf 12/05/18 12/05/18 Range/Units 08:20 09:00 WBC (3.8-10.6) k/uL RBC (3.80-5.40) m/uL Hgb (11.4-16.0) gm/dL Hct (34.0-46.0) % MCV (80.0-100.0) fL MCH (25.0-35.0) pg MCHC (31.0-37.0) g/dL RDW (11.5-15.5) % Plt Count (150-450) k/uL Neutrophils % % Lymphocytes % % Monocytes % % Eosinophils % % Basophils % % Neutrophils # (1.3-7.7) k/uL Lymphocytes # (1.0-4.8) k/uL Monocytes # (0-1.0) k/uL Eosinophils # (0-0.7) k/uL Basophils # (0-0.2) k/uL PT 11.6 (9.0-12.0) sec INR 1.1 (<1.2) APTT 25.7 (22.0-30.0) sec Sodium (137-145) mmol/L Potassium (3.5-5.1) mmol/L Chloride (98-107) mmol/L Carbon Dioxide (22-30) mmol/L Anion Gap mmol/L BUN (7-17) mg/dL Creatinine (0.52-1.04) mg/dL Est GFR (CKD-EPI)AfAm (>60 ml/min/1.73 sqM) Est GFR (CKD-EPI)NonAf (>60 ml/min/1.73 sqM) Glucose (74-99) mg/dL Plasma Lactic Acid Tu (0.7-2.0) mmol/L Calcium (8.4-10.2) mg/dL Magnesium (1.6-2.3) mg/dL Total Bilirubin (0.2-1.3) mg/dL AST (14-36) U/L ALT (9-52) U/L Alkaline Phosphatase (38-126) U/L Creatine Kinase (30-135) U/L Total Protein (6.3-8.2) g/dL Albumin (3.5-5.0) g/dL Amylase (30-110) U/L Lipase (23-300) U/L Urine Color Yellow Urine Appearance Cloudy H (Clear) Urine pH 6.0 (5.0-8.0) Ur Specific [place] 1.028 (1.001-1.035) Urine Protein 1+ H (Negative) Urine Glucose (UA) Negative (Negative) Urine Ketones 4+ H (Negative) Urine Blood Small H (Negative) Urine Nitrite Negative (Negative) Urine Bilirubin 1+ H (Negative) Urine Urobilinogen 3.0 (<2.0) mg/dL Ur Leukocyte Esterase Negative (Negative) Urine RBC 9 H (0-5) /hpf Urine WBC 9 H (0-5) /hpf Ur Squamous Epith Cells 20 H (0-4) /hpf Calcium Oxalate Crystal Occasional H (None) /hpf Urine Mucus Many H (None) /hpf - Radiology Data Radiology results: report reviewed (Did review the imaging and report x-ray was nonspecific CAT scan does show evidence of possible partial obstruction. I did discuss case with Dr. Sandhu), image reviewed Disposition Clinical Impression: Intractable abdominal pain, Intractable vomiting, Partial small bowel obstru ction Disposition: OTHER INSTITUTION NOT DEFINED Condition: Fair Referrals: Josh Li MD [Primary Care Provider] - 1-2 days - Out of Hospital Transfer - Req. Specs Out of Hospital Transfer - Requested Specifics: Other Non-Acute
[2018-12-05] MEDS ORDERED: ONDANSETRON 4 MG/2 ML VIAL IVP STA ×2 (08:06→09:17)
[2018-12-05] MEDS ORDERED: METOCLOPRAMIDE 5 MG/ML 2 ML VIAL IVP STA (08:34)
[2018-12-05 08:36] LABS: Basophils % (A) 0 %; Eosinophils # (A) 0.1 k/uL (0-0.7); Eosinophils % (A) 1 %; HCT 43.3 % (34.0-46.0); HGB 14.2 gm/dL (11.4-16.0); Lymphocytes % (A) 12 %; MCH 27.2 pg (25.0-35.0); MCHC 32.7 g/dL (31.0-37.0); MCV 83.4 fL (80.0-100.0); Mean Platelet Volume 7.4; Monocytes # (A) 0.4 k/uL (0-1.0); Monocytes % (A) 4 %; Neutrophils % (A) 81 %; Platelet Count 301 k/uL (150-450); RBC 5.19 m/uL (3.80-5.40); RDW 13.6 % (11.5-15.5); WBC 8.6 k/uL (3.8-10.6)
[2018-12-05 08:47] LABS: INR 1.1 (<1.2); Partial Thromboplastin Time 25.7 sec (22.0-30.0); Prothrombin Time 11.6 sec (9.0-12.0)
--- NOTE | 2018-12-05 08:47 | XR ---
KUB HISTORY: Abdominal pain and vomiting KUB submitted on 2 images and correlated to prior exam 10/01/2018 Calcifications in the right hemipelvis and left hemipelvis are noted which may represent phleboliths. There is no evident bowel obstruction or pneumoperitoneum. There is a tubing present over the left h emiabdomen coursing into the pelvis. Bone mineralization is stable. There are postop changes, surgica l rachel present. IMPRESSION: There is a tubing present over the abdomen. Nonspecific bowel gas pattern. Indeterminate pelvic calcifications.
[2018-12-05 08:48] LABS: ALT 20 U/L (9-52); AST 15 U/L (14-36); Albumin 3.6 g/dL (3.5-5.0); Alkaline Phosphatase 104 U/L (38-126); Amylase 48 U/L (30-110); Anion Gap 12 mmol/L; Blood Urea Nitrogen 9 mg/dL (7-17); Carbon Dioxide 21 mmol/L (22-30); Chloride 106 mmol/L (98-107); Creatine Kinase 33 U/L (30-135); Glucose 92 mg/dL (74-99); Lipase 165 U/L (23-300); Magnesium 1.4 mg/dL (1.6-2.3); Potassium 3.6 mmol/L (3.5-5.1); Sodium 139 mmol/L (137-145); Total Bilirubin 0.6 mg/dL (0.2-1.3); Total Protein 6.6 g/dL (6.3-8.2)
[2018-12-05] MEDS ORDERED: fentaNYL (PF) 50 MCG/ML 2 ML AMP IVP PRN ×2 (09:10→15:24)
[2018-12-05] MEDS ORDERED: fentaNYL (PF) 50 MCG/ML 2 ML AMP IVP STA (09:11)
[2018-12-05 09:34] LABS: Appearance,Urine Cloudy (Clear); Bilirubin,Urine 1+ (Negative); Blood,Urine Small (Negative); Calcium Oxalate Crystals,Urine Occasional /hpf; Color,Urine Yellow; Glucose,Urine (UA) Negative (Negative); Ketones,Urine 4+ (Negative); Leukocyte Esterase,Urine Negative (Negative); Mucus,Urine Many /hpf; Nitrite,Urine Negative (Negative); Protein,Urine 1+ (Negative); RBC,Urine 9 /hpf (0-5); Specific Gravity,Urine 1.028 (1.001-1.035); Squamous Epithelial Cell,Urine 20 /hpf (0-4); WBC,Urine 9 /hpf (0-5)
[2018-12-05] MEDS ORDERED: MAGNESIUM SULFATE-D5W PMX 1 GM in DEXTROSE/WATER 1 100ML.BAG IVPB ONE (09:48)
[2018-12-05] MEDS ORDERED: IOPAMIDOL-300 CONTRAST 30 ML VIAL (ORAL USE) PO PRN (10:36)
[2018-12-05] MEDS ORDERED: fentaNYL (PF) 50 MCG/ML 2 ML AMP IV STA (10:37)
--- NOTE | 2018-12-05 11:27 | CT ---
EXAMINATION TYPE: CT abdomen pelvis w con DATE OF EXAM: 12/05/2018 COMPARISON: 10/01/2018 HISTORY: Upper Abdominal pain with vomiting for [address] DLP: 937.9 mGycm Automated exposure control for dose reduction was used. CONTRAST: CT scan of the abdomen pelvis is performed with IV Contrast, patient injected with 100 mL of Isovue 3 00. FINDINGS- LUNG BASES- No significant abnormality is appreciated. LIVER/GB-postcholecystectomy mastectomy changes noted with mild biliary dilation which is stable like ly secondary to previous surgery.. PANCREAS- No gross abnormality is seen. SPLEEN- No gross abnormality is seen. ADRENALS- No gross abnormality is seen. KIDNEYS/BLADDER- no hydronephrosis nephrolithiasis or renal mass. BOWEL-no there is extensive postsurgical change suggestive of Diann-en-Y. The proximal limb of the duo denum appears dilated. This was also noted to be dilated on the prior exam. A feeding tube is seen in the left abdomen extending into the small bowel. Remaining portion of the bowel demonstrates normal caliber. Findings suggestive of previous gastric bypass and gastrojejunostomy.. LYMPH NODES- No greater than 1cm abdominal or pelvic lymph nodes areappreciated. OSSEOUS STRUCTURES- No significant abnormality is seen. OTHER- aorta of normal caliber. No free fluid or free air. There appears to be variant anatomy of th e celiac plexus with the hepatic artery originating directly from the aorta. IMPRESSION- 1. Extensive postsurgical change in the region of the stomach and duodenum. There appears to be wall thickening and dilation of the proximal duodenal limb, correlate clinically. 2. There is a jejunostomy tube seen with the tip at the level of the jejunum. There also appears to b e mild dilation of the jejunal loops just distal to the suspected gastrojejunostomy. 3. There is soft tissue density surrounding the jejunostomy tubenear the level of the rectus abdomin al musculature which may be postsurgical. This tube was not identified on the prior exam. Small surro unding hematoma or scar in the differential. Infectious etiology not excluded.
[2018-12-05] MEDS ORDERED: PROMETHAZINE INJ 25 MG in SODIUM CHLORIDE 0.9% 50 ML IVPB STA ×2 (12:13→17:14)
[2018-12-05 18:23] VITALS: TEMP 101
[2018-12-05] MEDS ORDERED: ACETAMINOPHEN SUPPOSITORY 650 MG SUPP RECTAL STA (18:24)
[2018-12-05 18:28] VITALS: BP 165/102; PULSE 102; RESP 18
== END 2018-12-05 18:29 | disposition other institution (70) ==
LOC: EC 07:33
DX: K56.609 Unspecified intestinal obstruction, unspecified as to partial versus complete obstruction (principal); M79.7 Fibromyalgia; K21.9 Gastro-esophageal reflux disease without esophagitis; I10 Essential (primary) hypertension; M19.90 Unspecified osteoarthritis, unspecified site; F43.10 Post-traumatic stress disorder, unspecified; F41.0 Panic disorder [episodic paroxysmal anxiety]; F32.9 Major depressive disorder, single episode, unspecified; G43.909 Migraine, unspecified, not intractable, without status migrainosus; Z90.49 Acquired absence of other specified parts of digestive tract; Z93.4 Other artificial openings of gastrointestinal tract status; Z98.84 Bariatric surgery status; Z90.711 Acquired absence of uterus with remaining cervical stump; Z98.51 Tubal ligation status; Z86.73 Personal history of transient ischemic attack (TIA), and cerebral infarction without residual deficits; Z79.891 Long term (current) use of opiate analgesic; Z79.899 Other long term (current) drug therapy; Z91.030 Bee allergy status; Z88.5 Allergy status to narcotic agent; Z91.018 Allergy to other foods; Z88.6 Allergy status to analgesic agent
CPT/HCPCS: 36415; 80053; 82150; 82550; 83605; 83690; 83735; 85025; 85610; 85730; 81001; 74018; 74177; 99285; 96365; 96367; 96366 ×2; 96375 ×4; 96376 ×3; 96361 ×7; J2550; J2765; J2405; J3010; J1170; J3475; Q9967

== ENCOUNTER 2019-09-11 03:29 | Emergency (ER) | payer BC, MEDICARE, OTHER ==
[2019-09-11] MEDS ORDERED: SODIUM CHLORIDE 0.9% 1,000 ML IV STA (04:21)
[2019-09-11] MEDS ORDERED: ONDANSETRON 4 MG/2 ML VIAL IVP STA (04:21)
[2019-09-11 04:35] LABS: Basophils % (A) 0 %; Eosinophils % (A) 0 %; HCT 43.5 % (34.0-46.0); HGB 14.3 gm/dL (11.4-16.0); Lymphocytes # (A) 2.1 k/uL (1.0-4.8); Lymphocytes % (A) 18 %; MCH 28.5 pg (25.0-35.0); MCV 86.5 fL (80.0-100.0); Mean Platelet Volume 7.9; Monocytes # (A) 0.7 k/uL (0-1.0); Monocytes % (A) 6 %; Neutrophils # (A) 8.7 k/uL (1.3-7.7); Neutrophils % (A) 74 %; Platelet Count 315 k/uL (150-450); RBC 5.02 m/uL (3.80-5.40); WBC 11.7 k/uL (3.8-10.6)
[2019-09-11 04:44] LABS: ALT 13 U/L (4-34); AST 19 U/L (14-36); African American GFR (CKD) >90 (>60 ml/min/1.73 sqM); Albumin 4.2 g/dL (3.5-5.0); Alkaline Phosphatase 85 U/L (38-126); Anion Gap 10 mmol/L; Blood Urea Nitrogen 20 mg/dL (7-17); Calcium 9.8 mg/dL (8.4-10.2); Carbon Dioxide 24 mmol/L (22-30); Chloride 102 mmol/L (98-107); Glucose 130 mg/dL (74-99); Non-African American GFR(CKD) >90 (>60 ml/min/1.73 sqM); Potassium 4.1 mmol/L (3.5-5.1); Sodium 136 mmol/L (137-145); Total Bilirubin 0.7 mg/dL (0.2-1.3)
[2019-09-11] MEDS ORDERED: SODIUM CHLORIDE 0.9% 1,000 ML IV ONE (05:49)
--- NOTE | 2019-09-11 05:50 | ED ---
General Adult HPI - General Chief complaint: Abdominal Pain Stated complaint: Abd Pain Time Seen by Provider: 09/11/19 03:30 Source: patient, EMS Mode of arrival: EMS Limitations: no limitations - History of Present Illness Initial comments: The patient is a 43-year-old female with past medical history of hypertension, hyperlipidemia and gastric bypass who presents to the emergency department with reported nausea and vomiting. States that she had a gastric bypass with poor outcome in 2007. Since then she has had multiple revisions by Dr. Argueta at [facility]. States that she now has a feeding tube. Last night she began having nausea with several episodes of vomiting. She was attempting to give herself her tube feeds however she states she will food back up. She also reports some mild abdominal cramping. Patient feels as if she is dehydrated. Denies dysuria, hematuria or difficulty voiding. Does have Compazine and Zofran to take at home for her nausea however states that she felt like she needs an IV. She has had previous history of obstructions before. States her pain is not near as bad as when this has happened to her before in the past. She is requesting antiemetics and fluids. There are no other alleviating, precip itating or modifying factors - Related Data Home Medications Medication Instructions Recorded Confirmed ALPRAZolam [Xanax] 0.25 mg PO TID 10/01/18 09/11/19 Nascobal 500mcg/0.1ml 1 spray NASAL TU 10/01/18 09/11/19 tiZANidine [Zanaflex] 4 mg PO TID 10/01/18 09/11/19 [place] Carbonate 150 mg PO DAILY 09/11/19 09/11/19 Venlafaxine HCl [Effexor] 37.5 mg PO DAILY 09/11/19 09/11/19 fentaNYL 75MCG/HR PATCH [Duragesic 1 mcg TOPICAL Q24HR 09/11/19 09/11/19 75MCG/HR] hydrOXYzine HCL [Atarax] 25 mg PO TID PRN 09/11/19 09/11/19 traZODone HCL 150 mg PO HS 09/11/19 09/11/19 Allergies Allergy/AdvReac Type Severity Reaction Status Date / Time bee venom protein (honey bee) Allergy Severe Anaphylaxis Verified 09/11/19 03:40 morphine Allergy Severe Itching Verified 09/11/19 03:40 and swelling strawberry Allergy Severe Anaphylaxis Verified 09/11/19 03:40 NSAIDS (Non-Steroidal Allergy Unknown Verified 09/11/19 03:40 Anti-Inflamma Review of Systems ROS Statement: Those systems with pertinent positive or pertinent negative responses have been documented in the HPI. ROS Other: All systems not noted in ROS Statement are negative. 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 History of Any Multi-Drug Resistant Organisms: None Reported Past Surgical History: Adenoidectomy, Appendectomy, Bariatric Surgery, Cholecystectomy, Hysterectomy, Tonsillectomy, Tubal Ligation Additional Past Surgical History / Comment(s): Abiel fundlipcation with take down and crys and Y performed, partial hysterectomy, EGD, PICC Past Anesthesia/Blood Transfusion Reactions: No Reported Reaction Additional Past Anesthesia/Blood Transfusion Reaction / Comment(s): hx clausterphobia Past Psychological History: ADD/ADHD, Depression, Panic Disorder, PTSD Smoking Status: Never smoker Past Alcohol Use History: None Reported Past Drug Use History: None Reported - Past Family History Father Family Medical History: Cancer, Coronary Artery Disease (CAD) Additional Family Medical History / Comment(s): father from stomach cancer at age 51, heroin addict (struggled with addiction off and on for years after coming home from [place]) Mother Family Medical History: Cancer Additional Family Medical History / Comment(s): Mother at age 36 from Ovarian Cancer mets to brain General Exam Limitations: no limitations General appearance: alert, in no apparent distress, cachectic Head exam: Present: atraumatic, normocephalic, normal inspection Eye exam: Present: normal appearance, PERRL, EOMI. Absent: scleral icterus, conjunctival injection, periorbital swelling ENT exam: Present: normal exam, mucous membranes moist Neck exam: Present: normal inspection. Absent: tenderness, meningismus, lymphadenopathy Respiratory exam: Present: normal lung sounds bilaterally. Absent: respiratory distress, wheezes, rales, rhonchi, stridor Cardiovascular Exam: Present: regular rate, normal rhythm, normal heart sounds. Absent: systolic murmur, diastolic murmur, rubs, gallop, clicks GI/Abdominal exam: Present: soft, normal bowel sounds, other (feeding tube right abdomen - clean, dry, no bleeding). Absent: distended, tenderness, guarding, rebound, rigid Extremities exam: Present: normal inspection, full ROM, normal capillary refill. Absent: tenderness, pedal edema, joint swelling, calf tenderness Back exam: Present: normal inspection Neurological exam: Present: alert, oriented X3, CN II-XII intact Psychiatric exam: Present: normal affect, normal mood Skin exam: Present: warm, dry, intact, normal color. Absent: rash Course Vital Signs 09/11/19 09/11/19 09/11/19 03:31 05:59 06:57 Temperature 99 F 98.4 F Pulse Rate 69 76 72 Respiratory 18 18 19 Rate Blood Pressure 91/72 102/61 122/91 O2 Sat by Pulse 98 97 99 Oximetry Medical Decision Making - Medical Decision Making Upon arrival the patient is placed in room 7. A thorough history and physical exam was performed. The patient states she feels dehydrated and is requesting antiemetics. Peripheral IV was established. The patient was given 4 mg of Zofran and 2 L of fluid. Laboratory studies were conducted. I also performed influenza testing as the patient does have sick contacts and this is negative. I did offer imaging of the patient's abdomen however she states that her pain is not severe at this time and is not consistent with her previous history when she did have obstruction. The patient was reevaluated after Zofran administration and states she feels much improved. She is requesting to go home at this time. She is to follow-up with her surgeon within 1 week, follow up with her primary care doctor in 2 to 4 days. Return to the emergency room for new or worsening symptoms. The patient was discharged in stable condition - Lab Data Result diagrams: 09/11/19 03:45 09/11/19 03:45 Lab Results 09/11/19 09/11/19 09/11/19 Range/Units 03:45 03:45 03:45 WBC 11.7 H (3.8-10.6) k/uL RBC 5.02 (3.80-5.40) m/uL Hgb 14.3 (11.4-16.0) gm/dL Hct 43.5 (34.0-46.0) % MCV 86.5 (80.0-100.0) fL MCH 28.5 (25.0-35.0) pg MCHC 33.0 (31.0-37.0) g/dL RDW 13.0 (11.5-15.5) % Plt Count 315 (150-450) k/uL Neutrophils % 74 % Lymphocytes % 18 % Monocytes % 6 % Eosinophils % 0 % Basophils % 0 % Neutrophils # 8.7 H (1.3-7.7) k/uL Lymphocytes # 2.1 (1.0-4.8) k/uL Monocytes # 0.7 (0-1.0) k/uL Eosinophils # 0.0 (0-0.7) k/uL Basophils # 0.0 (0-0.2) k/uL Sodium 136 L (137-145) mmol/L Potassium 4.1 (3.5-5.1) mmol/L Chloride 102 (98-107) mmol/L Carbon Dioxide 24 (22-30) mmol/L Anion Gap 10 mmol/L BUN 20 H (7-17) mg/dL Creatinine 0.45 L (0.52-1.04) mg/dL Est GFR (CKD-EPI)AfAm >90 (>60 ml/min/1.73 sqM) Est GFR (CKD-EPI)NonAf >90 (>60 ml/min/1.73 sqM) Glucose 130 H (74-99) mg/dL Plasma Lactic Acid Tu 1.3 (0.7-2.0) mmol/L Calcium 9.8 (8.4-10.2) mg/dL Total Bilirubin 0.7 (0.2-1.3) mg/dL AST 19 (14-36) U/L ALT 13 (4-34) U/L Alkaline Phosphatase 85 (38-126) U/L Total Protein 7.0 (6.3-8.2) g/dL Albumin 4.2 (3.5-5.0) g/dL Lipase 79 (23-300) U/L TSH 0.529 (0.465-4.680) mIU/L Influenza Type A RNA (Not Detectd) Influenza Type B (PCR) (Not Detectd) 09/11/19 Range/Units 04:29 WBC (3.8-10.6) k/uL RBC (3.80-5.40) m/uL Hgb (11.4-16.0) gm/dL Hct (34.0-46.0) % MCV (80.0-100.0) fL MCH (25.0-35.0) pg MCHC (31.0-37.0) g/dL RDW (11.5-15.5) % Plt Count (150-450) k/uL Neutrophils % % Lymphocytes % % Monocytes % % Eosinophils % % Basophils % % Neutrophils # (1.3-7.7) k/uL Lymphocytes # (1.0-4.8) k/uL Monocytes # (0-1.0) k/uL Eosinophils # (0-0.7) k/uL Basophils # (0-0.2) k/uL Sodium (137-145) mmol/L Potassium (3.5-5.1) mmol/L Chloride (98-107) mmol/L Carbon Dioxide (22-30) mmol/L Anion Gap mmol/L BUN (7-17) mg/dL Creatinine (0.52-1.04) mg/dL Est GFR (CKD-EPI)AfAm (>60 ml/min/1.73 sqM) Est GFR (CKD-EPI)NonAf (>60 ml/min/1.73 sqM) Glucose (74-99) mg/dL Plasma Lactic Acid Tu (0.7-2.0) mmol/L Calcium (8.4-10.2) mg/dL Total Bilirubin (0.2-1.3) mg/dL AST (14-36) U/L ALT (4-34) U/L Alkaline Phosphatase (38-126) U/L Total Protein (6.3-8.2) g/dL Albumin (3.5-5.0) g/dL Lipase (23-300) U/L TSH (0.465-4.680) mIU/L Influenza Type A RNA Not Detected (Not Detectd) Influenza Type B (PCR) Not Detected (Not Detectd) Disposition Clinical Impression: Vomiting, History of gastric bypass Disposition: HOME SELF-CARE Condition: Stable Instructions (If sedation given, give patient instructions): Abdominal Pain (ED) Additional Instructions: Please follow up with your primary care doctor in 2-4 days. Return to the emergency room for any new worsening symptoms Is patient prescribed a controlled substance at d/c from ED?: No Referrals: Josh Li MD [Primary Care Provider] - 1-2 days Time of Disposition: 05:50
[2019-09-11 06:58] VITALS: BP 122/91; PULSE 72; RESP 19; TEMP 98.4
== END 2019-09-11 07:03 | disposition home or self-care (01) ==
LOC: EC 03:29
DX: R11.2 Nausea with vomiting, unspecified (principal); R10.9 Unspecified abdominal pain; K21.9 Gastro-esophageal reflux disease without esophagitis; I10 Essential (primary) hypertension; E78.5 Hyperlipidemia, unspecified; F32.9 Major depressive disorder, single episode, unspecified; F90.9 Attention-deficit hyperactivity disorder, unspecified type; F41.0 Panic disorder [episodic paroxysmal anxiety]; G89.29 Other chronic pain; M19.90 Unspecified osteoarthritis, unspecified site; M79.7 Fibromyalgia; Z79.899 Other long term (current) drug therapy; Z88.6 Allergy status to analgesic agent; Z88.5 Allergy status to narcotic agent; Z91.018 Allergy to other foods; Z91.030 Bee allergy status; Z98.84 Bariatric surgery status; Z86.73 Personal history of transient ischemic attack (TIA), and cerebral infarction without residual deficits; Z87.19 Personal history of other diseases of the digestive system; Z90.49 Acquired absence of other specified parts of digestive tract; Z98.890 Other specified postprocedural states
CPT/HCPCS: 99284; 96374; 96361 ×2; 36415; 80053; 84443; 83605; 83690; 85025; 87502; J2405

== ENCOUNTER 2019-09-17 13:12 | Emergency (ER) | payer BC ==
[2019-09-17] MEDS ORDERED: HYDROmorphone 0.5 MG/0.5 ML SYRINGE IVP STA ×2 (13:35→16:28)
[2019-09-17] MEDS ORDERED: SODIUM CHLORIDE 0.9% 2,000 ML IV STA (13:35)
[2019-09-17] MEDS ORDERED: ONDANSETRON 4 MG/2 ML VIAL IVP STA (13:35)
[2019-09-17 14:09] LABS: Basophils % (A) 0 %; Eosinophils # (A) 0.1 k/uL (0-0.7); Eosinophils % (A) 1 %; HCT 47.3 % (34.0-46.0); HGB 16.1 gm/dL (11.4-16.0); Lymphocytes # (A) 1.4 k/uL (1.0-4.8); Lymphocytes % (A) 16 %; MCH 29.4 pg (25.0-35.0); MCV 86.6 fL (80.0-100.0); Mean Platelet Volume 7.9; Monocytes # (A) 0.4 k/uL (0-1.0); Monocytes % (A) 4 %; Neutrophils % (A) 78 %; Platelet Count 237 k/uL (150-450); RBC 5.46 m/uL (3.80-5.40); RDW 12.8 % (11.5-15.5)
[2019-09-17 14:19] LABS: ALT 14 U/L (4-34); AST 30 U/L (14-36); African American GFR (CKD) >90 (>60 ml/min/1.73 sqM); Albumin 4.2 g/dL (3.5-5.0); Alkaline Phosphatase 83 U/L (38-126); Amylase 64 U/L (30-110); Anion Gap 12 mmol/L; Blood Urea Nitrogen 28 mg/dL (7-17); Calcium 9.6 mg/dL (8.4-10.2); Carbon Dioxide 22 mmol/L (22-30); Chloride 103 mmol/L (98-107); Glucose 120 mg/dL (74-99); Non-African American GFR(CKD) >90 (>60 ml/min/1.73 sqM); Sodium 137 mmol/L (137-145); Total Bilirubin 0.7 mg/dL (0.2-1.3); Total Protein 7.3 g/dL (6.3-8.2)
[2019-09-17 14:21] LABS: Potassium 4.3 mmol/L (3.5-5.1)
[2019-09-17 14:25] LABS: Amorphous Sediment,Urine Moderate /hpf; Appearance,Urine Cloudy (Clear); Bilirubin,Urine Negative (Negative); Blood,Urine Negative (Negative); Color,Urine Yellow; Glucose,Urine (UA) Negative (Negative); Ketones,Urine 1+ (Negative); Leukocyte Esterase,Urine Negative (Negative); Mucus,Urine Rare /hpf; Nitrite,Urine Negative (Negative); PH, Urine 8.5 (5.0-8.0); Protein,Urine Trace (Negative); RBC,Urine 1 /hpf (0-5); Specific Gravity,Urine 1.027 (1.001-1.035); Squamous Epithelial Cell,Urine 2 /hpf (0-4); WBC,Urine <1 /hpf (0-5)
[2019-09-17 14:49] VITALS: RESP 20; TEMP 97
--- NOTE | 2019-09-17 15:10 | ED ---
Abdominal Pain HPI - General Source: patient, EMS Mode of arrival: EMS Limitations: no limitations <Andres Jules - Last Filed: 09/17/19 15:08> <Eagle Ventura - Last Filed: 09/17/19 16:28> - General Chief Complaint: Abdominal Pain Stated Complaint: abd pain Time Seen by Provider: 09/17/19 13:35 - History of Present Illness Initial Comments: Patient is a 44-year-old female with history of remote procedure NG tube placement 7 months ago. Patient states she's had multiple revisions her gastric bypass performed by Dr. Argueta at [facility]. States that she was in the ED about 2 weeks ago with similar symptoms. She reports the pain is very similar in nature which started early this more. Patient also reports nausea with multiple episodes of nonbilious, nonbloody vomiting. Denies any night sweats or chills. Denies any urinary or vaginal symptoms. States that she attempted to eat some dinner earlier today when she developed the sudden onset of pain along with the nausea and vomiting. States that it feels "like there is something stuck". (Andres Jules) - Related Data Home Medications Medication Instructions Recorded Confirmed ALPRAZolam [Xanax] 0.25 mg PO TID 10/01/18 09/11/19 Nascobal 500mcg/0.1ml 1 spray NASAL TU 10/01/18 09/11/19 tiZANidine [Zanaflex] 4 mg PO TID 10/01/18 09/11/19 [place] Carbonate 150 mg PO DAILY 09/11/19 09/11/19 Venlafaxine HCl [Effexor] 37.5 mg PO DAILY 09/11/19 09/11/19 fentaNYL 75MCG/HR PATCH [Duragesic 1 mcg TOPICAL Q24HR 09/11/19 09/11/19 75MCG/HR] hydrOXYzine HCL [Atarax] 25 mg PO TID PRN 09/11/19 09/11/19 traZODone HCL 150 mg PO HS 09/11/19 09/11/19 Allergies Allergy/AdvReac Type Severity Reaction Status Date / Time bee venom protein (honey bee) Allergy Severe Anaphylaxis Verified 09/17/19 14:16 morphine Allergy Severe Itching Verified 09/17/19 14:16 and swelling strawberry Allergy Severe Anaphylaxis Verified 09/17/19 14:16 NSAIDS (Non-Steroidal Allergy Unknown Verified 09/17/19 14:16 Anti-Inflamma Review of Systems ROS Other: All systems not noted in ROS Statement are negative. <Andres Jules - Last Filed: 09/17/19 15:08> ROS Other: All systems not noted in ROS Statement are negative. <Eagle Ventura - Last Filed: 09/17/19 16:28> ROS Statement: Those systems with pertinent positive or pertinent negative responses have been documented in the HPI. 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 History of Any Multi-Drug Resistant Organisms: None Reported Past Surgical History: Adenoidectomy, Appendectomy, Bariatric Surgery, Cholecystectomy, Hysterectomy, Tonsillectomy, Tubal Ligation Additional Past Surgical History / Comment(s): Abiel fundlipcation with take down and crys and Y performed, partial hysterectomy, EGD, PICC Past Anesthesia/Blood Transfusion Reactions: No Reported Reaction Additional Past Anesthesia/Blood Transfusion Reaction / Comment(s): hx clausterphobia Past Psychological History: ADD/ADHD, Depression, Panic Disorder, PTSD Smoking Status: Never smoker Past Alcohol Use History: None Reported Past Drug Use History: None Reported - Past Family History Father Family Medical History: Cancer, Coronary Artery Disease (CAD) Additional Family Medical History / Comment(s): father from stomach cancer at age 51, heroin addict (struggled with addiction off and on for years after coming home from [place]) Mother Family Medical History: Cancer Additional Family Medical History / Comment(s): Mother at age 36 from Ovarian Cancer mets to brain <Andres Jules - Last Filed: 09/17/19 15:08> General Exam Limitations: no limitations General appearance: alert, in no apparent distress Head exam: Present: atraumatic, normal inspection Eye exam: Present: normal appearance Pupils: Present: normal accommodation ENT exam: Present: normal exam Neck exam: Present: normal inspection, full ROM Respiratory exam: Present: normal lung sounds bilaterally Cardiovascular Exam: Present: regular rate, normal rhythm, normal heart sounds GI/Abdominal exam: Present: soft Extremities exam: Present: normal inspection, full ROM Back exam: Present: normal inspection, full ROM Neurological exam: Present: alert, oriented X3 Psychiatric exam: Present: normal affect, normal mood Skin exam: Present: warm, dry, intact, normal color <Andres Jules - Last Filed: 09/17/19 15:08> Course Vital Signs 09/17/19 09/17/19 13:12 14:46 Temperature 97.4 F L 97.0 F L Pulse Rate 85 92 Respiratory 18 20 Rate Blood Pressure 164/109 163/97 O2 Sat by Pulse 100 96 Oximetry Medical Decision Making - Lab Data Result diagrams: 09/17/19 14:00 09/17/19 14:00 <Andres Jules - Last Filed: 09/17/19 15:08> - Lab Data Result diagrams: 09/17/19 14:00 09/17/19 14:00 <Eagle Ventura - Last Filed: 09/17/19 16:28> - Medical Decision Making Patient was sent out to me by previous shift physician executive assistant to president, Andres Lentz briefly, patient is a 44-year-old female she has extensive abdominal surgeries. She states that there were postoperative complications leading to a series of subsequent abdominal surgeries. Her current primary surgeon is beside Enrico Gentile. Patient has history of chronic pain. She is here today because she's been having abdominal pain nausea and vomiting. Vital signs upon arrival are within acceptable limits. Patient evaluated at bedside from been stable medical condition. She has a percutaneous feeding tube in the right upper quadrant. Patient was given IV analgesics prior to my evaluation. She states that IV analgesics helped immensely. Labs were reviewed and found to be within acceptable limits. Urinalysis is negative. Plan at sign was a follow-up with CT and determine final disposition. CT of the abdomen and pelvis was suboptimal. According to radiology reviewed CT there is a displaced curvilinear density. Otherwise no other significant findings. Radiologist mentions that this is a suboptimal limited study secondary to no oral contrast. Findings were discussed with patient. Discussed with patient that she would likely benefit from evaluation by her primary surgeon and if she felt unwell at that which have to ortiz down to Enrico Gentile. Patient didn't feel that was necessary she feels dramatically improved after the hydromorphone. Patient is agreeable for discharge. She states she will follow-up with her primary surgeon as soon as possible. Return parameters discussed. Patient will be discharged. (Eagle Ventura) - Lab Data Lab Results 09/17/19 09/17/19 09/17/19 Range/Units 14:00 14:00 14:00 WBC 9.0 (3.8-10.6) k/uL RBC 5.46 H (3.80-5.40) m/uL Hgb 16.1 H (11.4-16.0) gm/dL Hct 47.3 H (34.0-46.0) % MCV 86.6 (80.0-100.0) fL MCH 29.4 (25.0-35.0) pg MCHC 34.0 (31.0-37.0) g/dL RDW 12.8 (11.5-15.5) % Plt Count 237 (150-450) k/uL Neutrophils % 78 % Lymphocytes % 16 % Monocytes % 4 % Eosinophils % 1 % Basophils % 0 % Neutrophils # 7.0 (1.3-7.7) k/uL Lymphocytes # 1.4 (1.0-4.8) k/uL Monocytes # 0.4 (0-1.0) k/uL Eosinophils # 0.1 (0-0.7) k/uL Basophils # 0.0 (0-0.2) k/uL Sodium 137 (137-145) mmol/L Potassium 4.3 (3.5-5.1) mmol/L Chloride 103 (98-107) mmol/L Carbon Dioxide 22 (22-30) mmol/L Anion Gap 12 mmol/L BUN 28 H (7-17) mg/dL Creatinine 0.52 (0.52-1.04) mg/dL Est GFR (CKD-EPI)AfAm >90 (>60 ml/min/1.73 sqM) Est GFR (CKD-EPI)NonAf >90 (>60 ml/min/1.73 sqM) Glucose 120 H (74-99) mg/dL Calcium 9.6 (8.4-10.2) mg/dL Total Bilirubin 0.7 (0.2-1.3) mg/dL AST 30 (14-36) U/L ALT 14 (4-34) U/L Alkaline Phosphatase 83 (38-126) U/L Total Protein 7.3 (6.3-8.2) g/dL Albumin 4.2 (3.5-5.0) g/dL Amylase 64 (30-110) U/L Lipase 109 (23-300) U/L Urine Color Yellow Urine Appearance Cloudy H (Clear) Urine pH 8.5 H (5.0-8.0) Ur Specific [place] 1.027 (1.001-1.035) Urine Protein Trace H (Negative) Urine Glucose (UA) Negative (Negative) Urine Ketones 1+ H (Negative) Urine Blood Negative (Negative) Urine Nitrite Negative (Negative) Urine Bilirubin Negative (Negative) Urine Urobilinogen 4.0 (<2.0) mg/dL Ur Leukocyte Esterase Negative (Negative) Urine RBC 1 (0-5) /hpf Urine WBC <1 (0-5) /hpf Ur Squamous Epith Cells 2 (0-4) /hpf Amorphous Sediment Moderate H (None) /hpf Urine Mucus Rare H (None) /hpf Disposition <Andres Jules - Last Filed: 09/17/19 15:08> Is patient prescribed a controlled substance at d/c from ED?: No Time of Disposition: 16:28 <Eagle Ventura - Last Filed: 09/17/19 16:28> Clinical Impression: Abdominal pain Disposition: HOME SELF-CARE Condition: Fair Instructions (If sedation given, give patient instructions): Abdominal Pain (ED) Additional Instructions: Follow-up with primary surgeon as soon as possible Referrals: Josh Li MD [Primary Care Provider] - 1-2 days
[2019-09-17] MEDS ORDERED: HYDROmorphone 1 MG/ML 1 ML SYRINGE IVP STA (15:13)
--- NOTE | 2019-09-17 16:06 | CT ---
EXAMINATION TYPE: CT abdomen pelvis w con DATE OF EXAM: 09/17/2019 HISTORY: umbilical pain, hx of Diann-en-Y procedure CT DLP: 677.2mGycm Automated Exposure Control for Dose Reduction was Utilized. CONTRAST: CT scan of the abdomen and pelvis is performed without oral but with IV Contrast, patient injected wi th 100 mL of Isovue 300. COMPARISON: CT abdomen and pelvis December 05, 2018 and older studies FINDINGS: LUNG BASES: No significant abnormality is appreciated. LIVER/GB: Gallbladder not seen and presumed surgically absent similar to prior studies. PANCREAS: No significant abnormality is seen. SPLEEN: No significant abnormality is seen. ADRENALS: No significant abnormality is seen. KIDNEYS: No significant abnormality is seen. BOWEL: Suboptimal evaluation of bowel due to lack of enteric contrast and patient having little intra -abdominal fat. Surgical sutures from gastric bypass procedure epigastric region is redemonstrated. O n most recent study there was a focus of curvilinear density axial image 18 which is now redemonstrat ed displaced more anteriorly into the right axial image 28, possible surgical sutures and/or clips no t seen on older studies. There is new percutaneous drainage catheter with radiodense balloon into mil d to moderate thick-walled fluid collection coronal image 30 and axial image 30 near level of ulysses h epatis has somewhat appearance of a colonic loop, without more history further evaluation is not poss ible. It is difficult to trace this contiguous to other adjacent bowel loops. Multiple surgical sutur es and clips throughout the left mid to lower abdomen redemonstrated. No significant small or large b owel dilatation otherwise seen. Interval removal of the left mid abdominal jejunostomy tube. UTERUS/ADNEXA: Uterus is surgically absent or markedly atrophic. Scattered pelvic phleboliths again s een. LYMPH NODES: No greater than 1cm abdominal or pelvic lymph nodes are appreciated. OSSEOUS STRUCTURES: No significant abnormality is seen. OTHER: No significant additional abnormality is seen. IMPRESSION: Suboptimal limited study as detailed above. No obvious bowel obstruction.
[2019-09-17 16:39] VITALS: BP 142/86; PULSE 82
== END 2019-09-17 16:42 | disposition home or self-care (01) ==
LOC: EC 13:12
DX: R10.11 Right upper quadrant pain (principal); R11.2 Nausea with vomiting, unspecified; R93.3 Abnormal findings on diagnostic imaging of other parts of digestive tract; G89.29 Other chronic pain; K21.9 Gastro-esophageal reflux disease without esophagitis; F41.9 Anxiety disorder, unspecified; F90.9 Attention-deficit hyperactivity disorder, unspecified type; F32.9 Major depressive disorder, single episode, unspecified; F41.0 Panic disorder [episodic paroxysmal anxiety]; I10 Essential (primary) hypertension; M79.7 Fibromyalgia; Z79.899 Other long term (current) drug therapy; Z88.6 Allergy status to analgesic agent; Z88.5 Allergy status to narcotic agent; Z91.030 Bee allergy status; Z91.018 Allergy to other foods; M19.90 Unspecified osteoarthritis, unspecified site; Z86.73 Personal history of transient ischemic attack (TIA), and cerebral infarction without residual deficits; Z98.84 Bariatric surgery status; Z87.19 Personal history of other diseases of the digestive system; Z90.49 Acquired absence of other specified parts of digestive tract; Z98.890 Other specified postprocedural states
CPT/HCPCS: 36415; 80053; 82150; 83690; 85025; 81001; 74177; 99285; 96374; 96375; 96376 ×2; 96361 ×3; J2405; J1170 ×2; Q9967

== ENCOUNTER → 2021-03-28 | Outpatient (CLI) | payer OTHER ==
[2021-03-28 20:58] LABS: HGB 14.1 g/dL (12.0-15.0); MCH 31.3 pg (27.0-32.0); MCHC 33.6 g/dL (32.0-37.0); MCV 93.1 fL (80.0-97.0); Mean Platelet Volume 10.6 fL (9.5-12.2); Platelet Count 273 X 10*3/uL (140-440); RBC 4.51 X 10*6/uL (4.10-5.20); WBC 6.17 X 10*3/uL (4.50-10.00)
[2021-03-29 03:29] LABS: % Iron Saturation 21.37 (12.00-45.00); ALT 23 U/L (8-44); AST 26 U/L (13-35); African American GFR (CKD) 102.5 (60.0-200.0); Alkaline Phosphatase 106 U/L (41-126); BUN/Creat Ratio 21.25 Ratio (12.00-20.00); Calcium 9.2 mg/dL (8.7-10.3); Carbon Dioxide 21.9 mmol/L (21.6-31.8); Chloride 105 mmol/L (96-109); Globulin 2.2 g/dL (1.6-3.3); Glucose 87 mg/dL (70-110); Iron 81 ug/dL (50-170); Non-African American GFR(CKD) 88.4 (60.0-200.0); Potassium 4.6 mmol/L (3.5-5.5); Sodium 139 mmol/L (135-145); Total Bilirubin 0.4 mg/dL (0.3-1.2); Total Iron Binding Capacity 379 ug/dL (228-460); Total Protein 6.6 g/dL (6.2-8.2)
[2021-03-29 03:31] LABS: Ferritin 18.8 ng/mL (10.0-291.0); Folate, Serum >24.0 ng/mL
== END | disposition home or self-care (01) ==
LOC: LABWHC1 11:07
PROVIDERS: ATTEND Surgery
DX: K91.2 Postsurgical malabsorption, not elsewhere classified (principal); Z98.84 Bariatric surgery status
CPT/HCPCS: 36415; 80053; 82306; 82607; 82728; 82746; 83036; 83540; 83550; 83970; 84425; 85027

== ENCOUNTER → 2021-06-01 | Outpatient (CLI) | payer BC, OTHER ==
--- NOTE | 2021-06-05 09:55 | MM ---
Reason for exam: screening (asymptomatic). Last mammogram was performed 2 years and 10 months ago. History: Took hormonal contraceptives for 10 years. Took other hormone for 20 years. Physical Findings: A clinical breast exam by your physician is recommended on an annual basis and results should be correlated with mammographic findings. MG 3D Screening Mammo W/Cad Bilateral CC and MLO view(s) were taken. Prior study comparison: July 28, 2018, bilateral MG 3d diag mammo w/cad [facility]. July 18, 2017, bilateral MG 3d screening mammo w/cad. There are scattered fibroglandular densities. ASSESSMENT: Negative, BI-RAD 1 RECOMMENDATION: Routine screening mammogram of both breasts in 1 year.
== END | disposition home or self-care (01) ==
LOC: RADMAMWWP 08:23
PROVIDERS: ATTEND Family Medicine
DX: Z12.31 Encounter for screening mammogram for malignant neoplasm of breast (principal)
CPT/HCPCS: 77063; 77067

== ENCOUNTER → 2022-07-25 | Outpatient (CLI) | payer BC, OTHER ==
--- NOTE | 2022-07-26 08:54 | MM ---
Reason for Exam: Screening (asymptomatic). Last mammogram was performed 1 year(s) and 2 month(s) ago. Patient History: Menarche at age 12. First Full-Term at age 18. Hysterectomy at age 37. Patient used Hormonal Contraceptives for 10 years. Risk Values: María 5 year model risk: 0.6%. NCI Lifetime model risk: 6.8%. Prior Study Comparison: 07/18/2017 Bilateral Screening Mammogram, [facility]. 07/28/2018 Bilateral Diagnostic Mammogram, [facility]. 06/01/2021 Bilateral Screening Mammogram, [facility]. Tissue Density: There are scattered fibroglandular densities. Findings: Analyzed By CAD. There is no suspicious group of microcalcifications or new suspicious mass in either breast. Stable chronic nodularity within the right breast. Overall Assessment: Benign, BI-RAD 2 Management: Screening Mammogram of both breasts in 1 year. A clinical breast exam by your physician is recommended on an annual basis and results should be correlated with mammographic findings. Electronically signed and approved by: Armando Keys D.O.
== END | disposition home or self-care (01) ==
LOC: RADMAMWWP 09:04
PROVIDERS: ATTEND Family Medicine
DX: Z12.31 Encounter for screening mammogram for malignant neoplasm of breast (principal)
CPT/HCPCS: 77063; 77067

== ENCOUNTER → 2022-07-30 | Outpatient (CLI) | payer BC, OTHER ==
[2022-07-30 23:53] LABS: Estradiol 19.4 pg/mL; Follicle Stimulating Hormone 8.3 mIU/mL; Luteinizing Hormone 3.8 mIU/mL
== END | disposition home or self-care (01) ==
LOC: LABWHC1 15:45
PROVIDERS: ATTEND Obstetrics & Gynecology
DX: N91.2 Amenorrhea, unspecified (principal)
CPT/HCPCS: 36415; 82670; 83001; 83002

== ENCOUNTER → 2023-09-02 | Outpatient (CLI) | payer OTHER ==
--- NOTE | 2023-09-03 08:40 | MM ---
Reason for Exam: Screening (asymptomatic). Last mammogram was performed 1 year(s) and 1 month(s) ago. Patient History: Menarche at age 12. First Full-Term at age 18. Hysterectomy at age 37. Patient used Hormonal Contraceptives for 10 years. Risk Values: María 5 year model risk: 0.7%. NCI Lifetime model risk: 6.7%. Prior Study Comparison: 07/28/2018 Bilateral Diagnostic Mammogram, [facility]. 06/01/2021 Bilateral Screening Mammogram, [facility]. 07/25/2022 Bilateral MG 3D screening mammo w/cad, [facility]. Tissue Density: There are scattered fibroglandular densities. Findings: Analyzed By CAD. There is no suspicious group of microcalcifications or new suspicious mass. Overall Assessment: Negative, BI-RAD 1 Management: Screening Mammogram of both breasts in [address] [facility] will attempt to contact patient to return for supplemental views and ultrasound if indicated. Patient should continue monthly self-breast exams. A clinical breast exam by your physician is recommended on an annual basis. This exam should not preclude additional follow-up of suspicious palpable abnormalities. Note on María scores and lifetime risk: 1. A María score greater than 3% is considered moderate risk. If this is the case, consider specialist referral to assess eligibility for a risk reducing agent. 2. If overall lifetime risk for the development of breast cancer is 20% or higher, the patient may qualify for future screening with alternating mammogram and breast MRI. Electronically signed and approved by: Edy De La Vega DO
== END | disposition home or self-care (01) ==
LOC: RADMAMWWP 13:29
PROVIDERS: ATTEND Family Medicine
DX: Z12.31 Encounter for screening mammogram for malignant neoplasm of breast (principal)
CPT/HCPCS: 77063; 77067

== ENCOUNTER 2024-04-08 08:43 | Emergency (ER) | payer MEDICAID, OTHER ==
[2024-04-08] MEDS: SODIUM CHLORIDE 0.9% 1,000 ML IV STA (09:17)
--- NOTE | 2024-04-08 09:19 | ED ---
Wound/Laceration HPI - General Chief Complaint: Wound/Laceration Stated Complaint: facial cat scratch/swelling Time Seen by Provider: 04/08/24 08:57 Source: patient, RN notes reviewed Mode of arrival: ambulatory Limitations: no limitations - History of Present Illness Initial Comments: This is a 48-year-old female who presents to the emergency department for a cat scratch to the upper lip. States that she was scratched by her own cat 2 days ago and since then she has had increasing pain and swelling to the upper lip. Denies any fever/chills, chest pain, shortness of breath, or difficulty swallowing. - Related Data Home Medications Medication Instructions Recorded Confirmed ALPRAZolam [Xanax] 0.25 mg PO TID 10/01/18 09/11/19 [place]obal 500mcg/0.1ml 1 spray NASAL TU 10/01/18 09/11/19 tiZANidine [Zanaflex] 4 mg PO TID 10/01/18 09/11/19 [place] Carbonate 150 mg PO DAILY 09/11/19 09/11/19 Venlafaxine HCl [Effexor] 37.5 mg PO DAILY 09/11/19 09/11/19 fentaNYL 75MCG/HR PATCH [Duragesic 1 mcg TOPICAL Q24HR 09/11/19 09/11/19 75MCG/HR] hydrOXYzine HCL [Atarax] 25 mg PO TID PRN 09/11/19 09/11/19 traZODone HCL 150 mg PO HS 09/11/19 09/11/19 Previous Rx's Medication Instructions Recorded Amoxic-Pot Clav 875-125Mg 1 tab PO Q12HR 10 Days #20 tab 04/08/24 [Augmentin 875-125] Ketorolac [Toradol] 10 mg PO Q6HR PRN #15 tab 04/08/24 Allergies Allergy/AdvReac Type Severity Reaction Status Date / Time bee venom protein (honey bee) Allergy Severe Anaphylaxis Verified 04/08/24 08:54 morphine Allergy Severe Itching Verified 04/08/24 08:54 and swelling strawberry Allergy Severe Anaphylaxis Verified 04/08/24 08:54 NSAIDS (Non-Steroidal Allergy Unknown Verified 04/08/24 08:54 Anti-Inflamma Review of Systems ROS Statement: Those systems with pertinent positive or pertinent negative responses have been documented in the HPI. ROS Other: All systems not noted in ROS Statement are negative. 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 History of Any Multi-Drug Resistant Organisms: None Reported Past Surgical History: Adenoidectomy, Appendectomy, Bariatric Surgery, Cholecyst ectomy, Hysterectomy, Tonsillectomy, Tubal Ligation Additional Past Surgical History / Comment(s): Abiel fundlipcation with take down and crys and Y performed, partial hysterectomy, EGD, PICC Past Anesthesia/Blood Transfusion Reactions: No Reported Reaction Additional Past Anesthesia/Blood Transfusion Reaction / Comment(s): hx clausterphobia Past Psychological History: ADD/ADHD, Depression, Panic Disorder, PTSD Smoking Status: Never smoker Past Alcohol Use History: None Reported Past Drug Use History: None Reported - Past Family History Father Family Medical History: Cancer, Coronary Artery Disease (CAD) Additional Family Medical History / Comment(s): father from stomach cancer at age 51, heroin addict (struggled with addiction off and on for years after coming home from [place]) Mother Family Medical History: Cancer Additional Family Medical History / Comment(s): Mother at age 36 from Ovarian Cancer mets to brain General Exam Limitations: no limitations General appearance: alert, in no apparent distress Head exam: Present: atraumatic, normocephalic, normal inspection ENT exam: Present: other (Scabbed over wound to the left upper lip with significant surrounding swelling, induration, erythema, and tenderness) Respiratory exam: Present: normal lung sounds bilaterally. Absent: respiratory distress, wheezes, rales, rhonchi, stridor Cardiovascular Exam: Present: regular rate, normal rhythm, normal heart sounds. Absent: systolic murmur, diastolic murmur, rubs, gallop, clicks Neurological exam: Present: alert, oriented X3, CN II-XII intact Psychiatric exam: Present: normal affect, normal mood Course Vital Signs 04/08/24 04/08/24 04/08/24 08:51 10:30 11:06 Temperature 99.4 F 98.4 F 98.3 F Pulse Rate 100 90 88 Respiratory 20 18 16 Rate Blood Pressure 150/83 140/89 137/84 O2 Sat by Pulse 96 97 97 Oximetry Medical Decision Making - Medical Decision Making This is a 48-year-old female who presents to the emergency department for a cat scratch to the left upper lip. Was pt. sent in by a medical professional or institution? @ -No Did you speak to anyone other than the patient for history? @ -No Did you review nursing and triage notes? @ -Yes, and I agree, it is accurate with regards to the patient's symptoms. Were old charts reviewed? @ -No Differential Diagnosis? @ -Differential Lip Swelling: Cellulitis, angioedema, injury, tumor, this is not meant to be an all-inclusive list. EKG interpreted by me (3pts min.)? @ -Not obtained X-rays interpreted by me (1pt min.)? @ -Not obtained CT interpreted by me (1pt min.)? @ -Not obtained U/S interpreted by me (1pt. min.)? @ -Not obtained What testing was considered but not performed? (CT, X-rays, U/S, labs)? Why? @ -None What meds were considered but not given? Why? @ -None Did you discuss the management of the patient with other professionals? @ -No Did you reconcile home meds? @ -No Was smoking cessation discussed for >3mins.? @ -No Was critical care preformed (if so, how long)? @ -No Were there social determinants of health that impacted care today? How? (Homelessness, low income, unemployed, alcoholism, drug addiction, transpor tation, low edu. Level, literacy, decrease access to med. care, group home, rehab)? @ -No Was there de-escalation of care discussed even if they declined? (Discuss DNR or withdrawal of care, Hospice)? @ -No What co-morbidities impacted this encounter? (DM, HTN, Smoking, COPD, CAD, Cancer, CVA, Hep., AIDS, mental health diagnosis, sleep apnea, morbid obesity)? @ -None Was patient admitted / discharged? @ -Discharged. Lab work demonstrates mild leukopenia and a mildly elevated CRP. Advised that she can try management on an outpatient basis first. Prescription for Augmentin and Toradol prescribed. She was however given very strict return parameters and advised to have close follow-up with her PCP. Patient discharged home in stable condition. Case discussed with ED attending Dr. Gannon. Return precautions reviewed in depth, the patient is instructed to return to the emergency department with any new, worsening, or concerning symptoms. Patient verbalized understanding. Undiagnosed new problem with uncertain prognosis? @ -None Drug Therapy requiring intensive monitoring for toxicity (Heparin, Nitro, Insulin, Cardizem)? @ -None Were any procedures done? @ -None Diagnosis/symptom? @ -Cat scratch, cellulitis of the lip Acute, or Chronic, or Acute on Chronic? @ -Acute Uncomplicated (without systemic symptoms) or Complicated (systemic symptoms)? @ -Uncomplicated Side effects of treatment? @ -None Exacerbation, Progression, or Severe Exacerbation] @ -Not applicable Poses a threat to life or bodily function? @ -No - Lab Data Result diagrams: 04/08/24 09:05 04/08/24 09:05 Lab Results 04/08/24 04/08/24 04/08/24 Range/Units 09:05 09:05 09:05 WBC 3.3 L (3.8-10.6) k/uL RBC 3.14 L (3.80-5.40) m/uL Hgb 10.7 L (11.4-16.0) gm/dL Hct 32.9 L (34.0-46.0) % MCV 104.7 H (80.0-100.0) fL MCH 34.0 (25.0-35.0) pg MCHC 32.4 (31.0-37.0) g/dL RDW 15.8 H (11.5-15.5) % Plt Count 233 (150-450) k/uL MPV 7.3 Neutrophils % 60 % Lymphocytes % 29 % Monocytes % 6 % Eosinophils % 2 % Basophils % 0 % Neutrophils # 2.0 (1.3-7.7) k/uL Lymphocytes # 1.0 (1.0-4.8) k/uL Monocytes # 0.2 (0-1.0) k/uL Eosinophils # 0.1 (0-0.7) k/uL Basophils # 0.0 (0-0.2) k/uL Hypochromasia Slight Macrocytosis Moderate ESR 11 (0-20) mm/Hr Sodium 137 (137-145) mmol/L Potassium 3.8 (3.5-5.1) mmol/L Chloride 107 (98-107) mmol/L Carbon Dioxide 23 (22-30) mmol/L Anion Gap 7 mmol/L BUN 10 (7-17) mg/dL Creatinine 0.60 (0.52-1.04) mg/dL Est GFR (CKD-EPI)AfAm >90 (>60 ml/min/1.73 sqM) Est GFR (CKD-EPI)NonAf >90 (>60 ml/min/1.73 sqM) Glucose 73 L (74-99) mg/dL Plasma Lactic Acid Tu 1.0 (0.7-2.0) mmol/L Calcium 8.1 L (8.4-10.2) mg/dL Total Bilirubin 0.5 (0.2-1.3) mg/dL AST 16 (14-36) U/L ALT 11 (4-34) U/L Alkaline Phosphatase 79 (38-126) U/L C-Reactive Protein 2.6 H (<1.0) mg/dL Total Protein 5.4 L (6.3-8.2) g/dL Albumin 3.1 L (3.5-5.0) g/dL Disposition Clinical Impression: Cat scratch of face, Cellulitis of lip Disposition: HOME SELF-CARE Instructions (If sedation given, give patient instructions): Cellulitis (ED) Additional Instructions: Return to the emergency department with any new, worsening, or concerning symptoms. Take the antibiotic as prescribed for 10 days. Take the Toradol with Tylenol as needed for pain relief. If you choose to take the Toradol, do not take any other anti-inflammatories such as ibuprofen, take one or the other. Follow up with your primary care provider in 1-2 days. Prescriptions: Amoxic-Pot Clav 875-125Mg [Augmentin 875-125] 1 tab PO Q12HR 10 Days #20 tab Ketorolac [Toradol] 10 mg PO Q6HR PRN #15 tab PRN Reason: Pain Is patient prescribed a controlled substance at d/c from ED?: No Referrals: Josh Li MD [Primary Care Provider] - 1-2 days Time of Disposition: 10:16
[2024-04-08 09:20] LABS: Basophils % (A) 0 %; Eosinophils # (A) 0.1 k/uL (0-0.7); Eosinophils % (A) 2 %; HCT 32.9 % (34.0-46.0); HGB 10.7 gm/dL (11.4-16.0); Hypochromasia Slight; Lymphocytes % (A) 29 %; MCHC 32.4 g/dL (31.0-37.0); MCV 104.7 fL (80.0-100.0); Macrocytosis Moderate; Mean Platelet Volume 7.3; Monocytes # (A) 0.2 k/uL (0-1.0); Monocytes % (A) 6 %; Neutrophils % (A) 60 %; Platelet Count 233 k/uL (150-450); RBC 3.14 m/uL (3.80-5.40); RDW 15.8 % (11.5-15.5); WBC 3.3 k/uL (3.8-10.6)
[2024-04-08] MEDS: HYDROmorphone 1 MG/ML 1 ML SYRINGE IVP STA ×2 (09:27→10:39)
[2024-04-08 09:30] LABS: ALT 11 U/L (4-34); AST 16 U/L (14-36); African American GFR (CKD) >90 (>60 ml/min/1.73 sqM); Albumin 3.1 g/dL (3.5-5.0); Alkaline Phosphatase 79 U/L (38-126); Anion Gap 7 mmol/L; Blood Urea Nitrogen 10 mg/dL (7-17); C Reactive Protein 2.6 mg/dL (<1.0); Calcium 8.1 mg/dL (8.4-10.2); Carbon Dioxide 23 mmol/L (22-30); Chloride 107 mmol/L (98-107); Glucose 73 mg/dL (74-99); Non-African American GFR(CKD) >90 (>60 ml/min/1.73 sqM); Potassium 3.8 mmol/L (3.5-5.1); Sodium 137 mmol/L (137-145); Total Bilirubin 0.5 mg/dL (0.2-1.3); Total Protein 5.4 g/dL (6.3-8.2)
[2024-04-08] MEDS: cefTRIAXone IN SWFI 1,000 MG/10 ML SYRINGE IVP STA (10:41)
[2024-04-08] MEDS: AMOXIC-POT CLAV 875-125MG 1 EACH TAB PO STA (10:41)
[2024-04-08] MEDS: KETOROLAC 15 MG/ML 1 ML VIAL IVP STA (10:41)
[2024-04-08 11:07] VITALS: BP 137/84; PULSE 88; RESP 16; TEMP 98.3
[2024-04-08 15:47] LABS: Erythrocyte Sedimentation Rate 11 mm/Hr (0-20)
== END 2024-04-08 11:06 | disposition home or self-care (01) ==
LOC: EC 08:43
CPT/HCPCS: 36415; 80053; 83605; 85025; 85652; 86140; 96361; 96374; 96375; 96376; 99283

== ENCOUNTER 2024-04-10 14:58 | Inpatient (IN) | payer MEDICAID, OTHER ==
--- NOTE | 2024-04-10 15:24 | ED ---
Skin/Abscess/FB HPI - General Chief complaint: Skin/Abscess/Foreign Body Stated complaint: Cat Scratch/Lip Infection Time Seen by Provider: 04/10/24 15:11 Source: patient, RN notes reviewed Mode of arrival: ambulatory Limitations: no limitations - History of Present Illness Initial comments: This is a 48-year-old female who presents to the emergency department for a cat scratch to her upper lip. Patient was scratched by her own cat in the upper lip 4 days ago. She was evaluated here for this 2 days ago and started on Augmentin. States that since then the symptoms have gotten worse and when she woke up this morning she developed a fever. She went to go see Dr. Bailey, dermatology. They took cultures of the wound and advised she come to the e mergency department for IV antibiotics. Patient states that her pain has gotten worse and she now has bodyaches and feels overall very unwell. She is taking the Augmentin as prescribed. - Related Data Home Medications Medication Instructions Recorded Confirmed Albuterol Inhaler [Ventolin Hfa 2 puff INHALATION RT-Q6H PRN 04/10/24 04/10/24 Inhaler] Celecoxib [CeleBREX] 200 mg PO DAILY 04/10/24 04/10/24 DULoxetine HCL [Cymbalta] 60 mg PO DAILY 04/10/24 04/10/24 Dextroamphetamine/Amphetamine 20 mg PO DAILY 04/10/24 04/10/24 [Adderall Xr 20 mg Capsule] Dextroamphetamine/Amphetamine 20 mg PO DAILY PRN 04/10/24 04/10/24 [Adderall] Doxepin HCl [SINEquan] 200 mg PO HS 04/10/24 04/10/24 HYDROcodone/APAP 7.5-325MG [[place] 1 tab PO QID PRN 04/10/24 04/10/24 7.5-325] Ibuprofen [Motrin] 800 mg PO TID PRN 04/10/24 04/10/24 Nystatin 100,000 Unit/gm Powd 1 applic TOPICAL BID PRN 04/10/24 04/10/24 [Mycostatin Powder] Omeprazole 20 mg PO DAILY 04/10/24 04/10/24 Secukinumab [Cosentyx Unoready Pen] 300 mg SQ Q30D 04/10/24 04/10/24 tiZANidine HCL 6 mg PO TID 04/10/24 04/10/24 Previous Rx's Medication Instructions Recorded Amoxic-Pot Clav 875-125Mg 1 tab PO Q12HR 10 Days #20 tab 04/08/24 [Augmentin 875-125] Ketorolac [Toradol] 10 mg PO Q6HR PRN #15 tab 04/08/24 Allergies Allergy/AdvReac Type Severity Reaction Status Date / Time bee venom protein (honey bee) Allergy Severe Anaphylaxis Verified 04/10/24 16:08 morphine Allergy Severe Itching Verified 04/10/24 16:08 and swelling strawberry Allergy Severe Anaphylaxis Verified 04/10/24 16:08 Review of Systems ROS Statement: Those systems with pertinent positive or pertinent negative responses have been documented in the HPI. ROS Other: All systems not noted in ROS Statement are negative. 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 History of Any Multi-Drug Resistant Organisms: None Reported Past Surgical History: Adenoidectomy, Appendectomy, Bariatric Surgery, Cholecystectomy, Hysterectomy, Tonsillectomy, Tubal Ligation Additional Past Surgical History / Comment(s): Abiel fundlipcation with take down and crys and Y performed, partial hysterectomy, EGD, PICC Past Anesthesia/Blood Transfusion Reactions: No Reported Reaction Additional Past Anesthesia/Blood Transfusion Reaction / Comment(s): hx clausterphobia Past Psychological History: ADD/ADHD, Depression, Panic Disorder, PTSD Smoking Status: Never smoker Past Alcohol Use History: None Reported Past Drug Use History: None Reported - Past Family History Father Family Medical History: Cancer, Coronary Artery Disease (CAD) Additional Family Medical History / Comment(s): father from stomach cancer at age 51, heroin addict (struggled with addiction off and on for years after coming home from [place]) Mother Family Medical History: Cancer Additional Family Medical History / Comment(s): Mother at age 36 from Ovarian Cancer mets to brain General Exam Limitations: no limitations General appearance: alert, in no apparent distress Head exam: Present: atraumatic, normocephalic, normal inspection ENT exam: Present: other (Scabbed over wound to the upper lip with surrounding swelling, erythema, induration, warmth, and drainage) Respiratory exam: Present: normal lung sounds bilaterally. Absent: respiratory distress, wheezes, rales, rhonchi, stridor Cardiovascular Exam: Present: regular rate, normal rhythm, normal heart sounds. Absent: systolic murmur, diastolic murmur, rubs, gallop, clicks Neurological exam: Present: alert, oriented X3, CN II-XII intact Psychiatric exam: Present: normal affect, normal mood Course Vital Signs 04/10/24 04/10/24 04/10/24 15:06 17:58 18:00 Temperature 102.8 F H 99.2 F Pulse Rate 90 105 H Respiratory 17 18 Rate Blood Pressure 128/85 108/68 O2 Sat by Pulse 99 98 Oximetry 04/10/24 19:59 Temperature Pulse Rate 97 Respiratory 18 Rate Blood Pressure 107/74 O2 Sat by Pulse 98 Oximetry Medical Decision Making - Medical Decision Making This is a 48-year-old female who presents to the emergency department for lip swelling and redness from a cat scratch. Was pt. sent in by a medical professional or institution? @ -No Did you speak to anyone other than the patient for history? @ -No Did you review nursing and triage notes? @ -Yes, and I agree, it is accurate with regards to the patient's symptoms. Were old charts reviewed? @ -No Differential Diagnosis? @ -Differential Lip Swelling and Redness: Abscess, cellulitis, injury, tumor, this is not meant to be an all-inclusive list. EKG interpreted by me (3pts min.)? @ -Not obtained X-rays interpreted by me (1pt min.)? @ -Not obtained CT interpreted by me (1pt min.)? @ -Not obtained U/S interpreted by me (1pt. min.)? @ -Not obtained What testing was considered but not performed? (CT, X-rays, U/S, labs)? Why? @ -None What meds were considered but not given? Why? @ -None Did you discuss the management of the patient with other professionals? @ -Yes, Dr. Adler, who accepts the patient for admission Did you reconcile home meds? @ -Yes Was smoking cessation discussed for >3mins.? @ -No Was critical care preformed (if so, how long)? @ -No Were there social determinants of health that impacted care today? How? (Homelessness, low income, unemployed, alcoholism, drug addiction, trans portation, low edu. Level, literacy, decrease access to med. care, [facility] [facility], rehab)? @ -No Was there de-escalation of care discussed even if they declined? (Discuss DNR or withdrawal of care, Hospice)? @ -No What co-morbidities impacted this encounter? (DM, HTN, Smoking, COPD, CAD, Cancer, CVA, Hep., AIDS, mental health diagnosis, sleep apnea, morbid obesity)? @ -None Was patient admitted / discharged? @ -Admitted. Patient was febrile on arrival with a temperature of 102.8 F. Lab work demonstrates leukopenia with a white blood cell count of 3.5. CRP elevated at 3.5 as well. On exam the infection does appear much worse than it did 2 days ago. Given that the patient is now febrile despite being on the antibiotics, she was admitted to medicine for cat scratch and cellulitis to the face and upper lip with failure of outpatient management. Wound and blood cultures obtained. She was started on vancomycin and Unasyn. Consult placed for infectious disease. Case discussed with ED attending Dr. Kidd. Undiagnosed new problem with uncertain prognosis? @ -None Drug Therapy requiring intensive monitoring for toxicity (Heparin, Nitro, Insulin, Cardizem)? @ -None Were any procedures done? @ -None Diagnosis/symptom? @ -Cat scratch of face and lip, cellulitis of face/lip, failure of outpatient management Acute, or Chronic, or Acute on Chronic? @ -Acute Uncomplicated (without systemic symptoms) or Complicated (systemic symptoms)? @ -Complicated Side effects of treatment? @ -None Exacerbation, Progression, or Severe Exacerbation] @ -Progression Poses a threat to life or bodily function? @ -Yes, can lead to septic shock, which can be life-threatening. - Lab Data Result diagrams: 04/10/24 15:13 04/10/24 15:13 Lab Results 04/10/24 04/10/24 04/10/24 Range/Units 15:13 15:13 15:13 WBC 3.5 L (3.8-10.6) k/uL RBC 3.00 L (3.80-5.40) m/uL Hgb 10.5 L (11.4-16.0) gm/dL Hct 31.5 L (34.0-46.0) % MCV 104.9 H (80.0-100.0) fL MCH 35.0 (25.0-35.0) pg MCHC 33.4 (31.0-37.0) g/dL RDW 15.6 H (11.5-15.5) % Plt Count 241 (150-450) k/uL MPV 7.9 Neutrophils % 74 % Lymphocytes % 16 % Monocytes % 6 % Eosinophils % 2 % Basophils % 0 % Neutrophils # 2.6 (1.3-7.7) k/uL Lymphocytes # 0.6 L (1.0-4.8) k/uL Monocytes # 0.2 (0-1.0) k/uL Eosinophils # 0.1 (0-0.7) k/uL Basophils # 0.0 (0-0.2) k/uL Hypochromasia Slight Macrocytosis Moderate ESR 16 (0-20) mm/Hr Sodium 134 L (137-145) mmol/L Potassium 4.2 (3.5-5.1) mmol/L Chloride 107 (98-107) mmol/L Carbon Dioxide 25 (22-30) mmol/L Anion Gap 2 mmol/L BUN 11 (7-17) mg/dL Creatinine 0.57 (0.52-1.04) mg/dL Est GFR (CKD-EPI)AfAm >90 (>60 ml/min/1.73 sqM) Est GFR (CKD-EPI)NonAf >90 (>60 ml/min/1.73 sqM) Glucose 82 (74-99) mg/dL Plasma Lactic Acid Tu 0.9 (0.7-2.0) mmol/L Calcium 8.1 L (8.4-10.2) mg/dL Total Bilirubin 0.6 (0.2-1.3) mg/dL AST 19 (14-36) U/L ALT 11 (4-34) U/L Alkaline Phosphatase 96 (38-126) U/L C-Reactive Protein 3.5 H (<1.0) mg/dL Total Protein 5.5 L (6.3-8.2) g/dL Albumin 3.1 L (3.5-5.0) g/dL Disposition Clinical Impression: Cat scratch of face, Cellulitis of lip, Facial cellulitis Disposition: ADMITTED IP TO THIS HOSP
[2024-04-10] MEDS: ACETAMINOPHEN TAB 500 MG TAB PO STA (16:28)
[2024-04-10] MEDS: KETOROLAC 15 MG/ML 1 ML VIAL IVP STA (16:43)
[2024-04-10] MEDS: HYDROmorphone 1 MG/ML 1 ML SYRINGE IVP STA (16:45)
[2024-04-10] MEDS: SODIUM CHLORIDE 0.9% 1,000 ML IV STA (17:01)
[2024-04-10 17:08] LABS: Basophils % (A) 0 %; Eosinophils # (A) 0.1 k/uL (0-0.7); Eosinophils % (A) 2 %; HCT 31.5 % (34.0-46.0); HGB 10.5 gm/dL (11.4-16.0); Hypochromasia Slight; Lymphocytes # (A) 0.6 k/uL (1.0-4.8); Lymphocytes % (A) 16 %; MCHC 33.4 g/dL (31.0-37.0); MCV 104.9 fL (80.0-100.0); Macrocytosis Moderate; Mean Platelet Volume 7.9; Monocytes # (A) 0.2 k/uL (0-1.0); Monocytes % (A) 6 %; Neutrophils # (A) 2.6 k/uL (1.3-7.7); Neutrophils % (A) 74 %; Platelet Count 241 k/uL (150-450); RDW 15.6 % (11.5-15.5); WBC 3.5 k/uL (3.8-10.6)
[2024-04-10 17:18] LABS: ALT 11 U/L (4-34); AST 19 U/L (14-36); African American GFR (CKD) >90 (>60 ml/min/1.73 sqM); Albumin 3.1 g/dL (3.5-5.0); Alkaline Phosphatase 96 U/L (38-126); Anion Gap 2 mmol/L; Blood Urea Nitrogen 11 mg/dL (7-17); C Reactive Protein 3.5 mg/dL (<1.0); Calcium 8.1 mg/dL (8.4-10.2); Carbon Dioxide 25 mmol/L (22-30); Chloride 107 mmol/L (98-107); Glucose 82 mg/dL (74-99); Non-African American GFR(CKD) >90 (>60 ml/min/1.73 sqM); Potassium 4.2 mmol/L (3.5-5.1); Sodium 134 mmol/L (137-145); Total Bilirubin 0.6 mg/dL (0.2-1.3); Total Protein 5.5 g/dL (6.3-8.2)
[2024-04-10] MEDS ORDERED: VANCOMYCIN IV PER PHARMACY 1 EACH MISC MISCELLANE PRN (17:42)
[2024-04-10] MEDS: AMPICILLIN-SULBACTAM 3 GM in SODIUM CHLORIDE 0.9% 100 ML IVPB SCH (17:44)
[2024-04-10] MEDS ORDERED: IBUPROFEN 400 MG TAB PO PRN (17:48)
[2024-04-10] MEDS ORDERED: NALOXONE 0.4 MG/ML 1 ML VIAL IV PRN (17:48)
[2024-04-10] MEDS ORDERED: HYDROmorphone 0.5 MG/0.5 ML SYRINGE IVP PRN (17:48)
[2024-04-10] MEDS ORDERED: AMPICILLIN-SULBACTAM 3 GM in SODIUM CHLORIDE 0.9% 50 ML IVPB SCH (18:00)
[2024-04-10] MEDS: VANCOMYCIN 1,500 MG in SODIUM CHLORIDE 0.9% 500 ML 500 ML IVPB STA (18:30)
[2024-04-10] MEDS: HYDROmorphone 1 MG/ML 1 ML SYRINGE IVP PRN (19:17)
[2024-04-10] MEDS ORDERED: IBUPROFEN 800 MG TAB PO PRN (20:02)
[2024-04-10] MEDS ORDERED: NON FORMULARY DRUG (Dextroamphetamine/Amphetamine [Adderall] 20 MG Tablet) PO PRN (20:02)
[2024-04-10] MEDS ORDERED: ALBUTEROL NEBULIZED 2.5 MG/3 ML INHALATION PRN (20:02)
[2024-04-10 20:22] LABS: Erythrocyte Sedimentation Rate 16 mm/Hr (0-20)
[2024-04-10] MEDS: DOXEPIN 25 MG CAP PO SCH (21:49)
[2024-04-10] MEDS: traZODone HCL 50 MG TAB PO SCH (21:50)
[2024-04-10] MEDS: HYDROcodone/APAP 7.5-325MG 1 EACH TAB PO PRN (21:51)
[2024-04-10] MEDS: tiZANidine 4 MG TAB PO SCH (21:52)
[2024-04-10] MEDS: KETOROLAC 15 MG/ML 1 ML VIAL IVP PRN (21:54)
[2024-04-10] MEDS: LORazepam 2 MG/ML INJ IV STA (23:44)
[2024-04-11] MEDS: VANCOMYCIN 1,500 MG in SODIUM CHLORIDE 0.9% 500 ML 500 ML IVPB SCH (06:40)
[2024-04-11] MEDS: MELOXICAM 7.5 MG TAB PO SCH (08:50)
[2024-04-11] MEDS: DULoxetine HCL 60 MG CAPSULE.DR PO SCH (08:51)
[2024-04-11] MEDS: NON FORMULARY DRUG (Dextroamphetamine/Amphetamine [Adderall Xr 20 Mg Capsule] 20 MG Cap.Er PO SCH (10:25)
--- NOTE | 2024-04-11 15:10 | P.HPIM ---
History of Present Illness H&P Date: 04/11/24 Patient is a 48-year-old female with PMH of CVA/TIA, fibromyalgia, GERD, hyperlipidemia, hypertension and osteoarthritis presented to ED for cat scratch to her left upper lip. Patient stated that she was scratched by her own cat on upper lip 4 days ago. Patient was evaluated at the [facility] on 04/08/2024 and was prescribed Augmentin. Patient states that lesions not improving and has worsened this morning associated with fever and pain. Patient went to see cable installer where they took culture of the wound was advised to come to the ER for IV antibiotics. Patient has been taking her medication as directed. Labs in the ER show WBC 3.5, hemoglobin 10.5, hematocrit 31.5, MCV 104.9, platelet count 241, sodium 134, potassium 4.2, chloride 107, bicarb 25, BUN 11, creatinine 0.57, lactic acid 0.9, CRP 3.5 Review of systems: Pertinent positives and negatives as discussed in HPI, a complete review of systems was performed and all other systems are negative. Physical examination: Vital signs reviewed General: non toxic, no distress, appears at stated age, normal weight Head: atraumatic, normocephalic, symmetric Eyes: EOMI, no lid lag, anicteric sclera, pupils equal round reactive to light ENT: Nose and ears atraumatic Neck: No cervical lymphadenopathy, trachea midline, supple Mouth: Scabbed over lesion on the left upper lip with surrounding erythema and swelling and mild drainage. Cardiovascular: S1S2 reg, no murmur, positive dorsalis pedis pulse bilateral, no edema Lungs: CTA bilateral, no rhonchi, no rales, no accessory muscle use Psych: Alert, oriented, appropriate affect Assessment/Plan: 48-year-old female with PMH of CVA/TIA, fibromyalgia, GERD, hyperlipidemia, hypertension and osteoarthritis presented to ED for cat scratch to her left upper lip. #Cellulitis secondary to cat scratch Empiric treatment with ampicillin sulbactam 3 g IVPB every 6 hours and vancomycin 1500 mg IVPB every 12 hours monitor for renal toxicity Order aerobic/anaerobic wound culture Order blood culture Consult infectious disease monitor CBC and BMP #Leukopenia Secondary to hemodilution WBC 3.5 monitor CBC #Macrocytic anemia Hemoglobin 10.5, MCV 104.9 Order vitamin B12 and serum folate #Chronic conditions Anxiety/depression: Resume Cymbalta 60 mg p.o. daily ADHD: Resume Adderall 20 mg p.o. daily DVT prophylaxis: Not indicated The patient is admitted with an anticipated less than 2 midnight stay for evaluation of cat scratch disease CODE STATUS: Full code Discussed with: Patient Anticipated discharge place: Pending clinical course I saw and evaluated the patient during the mcdaniels and critical portions of this encounter, and discussed the case in detail with the resident author of this note, I agree with the Assessment and Plan, and my changes, if any, are highlighted in blue. 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 History of Any Multi-Drug Resistant Organisms: None Reported Past Surgical History: Adenoidectomy, Appendectomy, Bariatric Surgery, Cholecystectomy, Hysterectomy, Tonsillectomy, Tubal Ligation Additional Past Surgical History / Comment(s): Abiel fundlipcation with take down and crys and Y performed, partial hysterectomy, EGD, PICC Past Anesthesia/Blood Transfusion Reactions: No Reported Reaction Additional Past Anesthesia/Blood Transfusion Reaction / Comment(s): hx clausterphobia Past Psychological History: ADD/ADHD, Depression, Panic Disorder, PTSD Smoking Status: Never smoker Past Alcohol Use History: None Reported Past Drug Use History: None Reported - Past Family History Father Family Medical History: Cancer, Coronary Artery Disease (CAD) Additional Family Medical History / Comment(s): father from stomach cancer at age 51, heroin addict (struggled with addiction off and on for years after coming home from [place]) Mother Family Medical History: Cancer Additional Family Medical History / Comment(s): Mother at age 36 from Ovarian Cancer mets to brain Medications and Allergies Home Medications Medication Instructions Recorded Confirmed Type Amoxic-Pot Clav 875-125Mg 1 tab PO Q12HR 10 Days #20 tab 04/08/24 04/10/24 Rx [Augmentin 875-125] Ketorolac [Toradol] 10 mg PO Q6HR PRN #15 tab 04/08/24 04/10/24 Rx Albuterol Inhaler [Ventolin Hfa 2 puff INHALATION RT-Q6H PRN 04/10/24 04/10/24 History Inhaler] Celecoxib [CeleBREX] 200 mg PO DAILY 04/10/24 04/10/24 History DULoxetine HCL [Cymbalta] 60 mg PO DAILY 04/10/24 04/10/24 History Dextroamphetamine/Amphetamine 20 mg PO DAILY 04/10/24 04/10/24 History [Adderall Xr 20 mg Capsule] Dextroamphetamine/Amphetamine 20 mg PO DAILY PRN 04/10/24 04/10/24 History [Adderall] Doxepin HCl [SINEquan] 200 mg PO HS 04/10/24 04/10/24 History HYDROcodone/APAP 7.5-325MG [[place] 1 tab PO QID PRN 04/10/24 04/10/24 History 7.5-325] Ibuprofen [Motrin] 800 mg PO TID PRN 04/10/24 04/10/24 History Nystatin 100,000 Unit/gm Powd 1 applic TOPICAL BID PRN 04/10/24 04/10/24 History [Mycostatin Powder] Omeprazole 20 mg PO DAILY 04/10/24 04/10/24 History Secukinumab [Cosentyx Unoready Pen] 300 mg SQ Q30D 04/10/24 04/10/24 History tiZANidine HCL 6 mg PO TID 04/10/24 04/10/24 History Allergies Allergy/AdvReac Type Severity Reaction Status Date / Time bee venom protein (honey bee) Allergy Severe Anaphylaxis Verified 04/10/24 16:08 morphine Allergy Severe Itching Verified 04/10/24 16:08 and swelling Physical Exam Osteopathic Statement: *. No significant issues noted on an osteopathic structural exam other than those noted in the History and Physical/Consult. Vitals: Vital Signs Temp Pulse Pulse Resp BP BP Pulse Ox 04/11/24 12:40 97.7 F 69 16 96/60 99 04/11/24 07:17 98.2 F 82 16 101/66 100 04/11/24 01:44 98.2 F 68 18 100/63 96 04/10/24 21:03 14 04/10/24 20:48 98.9 F 64 18 131/79 97 04/10/24 19:59 97 18 107/74 98 04/10/24 18:00 105 H 18 108/68 98 04/10/24 17:58 99.2 F 04/10/24 15:06 102.8 F H 90 17 128/85 99 Intake and Output 04/11/24 04/11/24 04/11/24 06:59 14:59 22:59 Other: # Voids 1 Results CBC & Chem 7: 04/10/24 15:13 04/10/24 15:13 Labs: Abnormal Lab Results - Last 24 Hours (Table) 04/10/24 04/10/24 Range/Units 15:13 15:13 WBC 3.5 L (3.8-10.6) k/uL RBC 3.00 L (3.80-5.40) m/uL Hgb 10.5 L (11.4-16.0) gm/dL Hct 31.5 L (34.0-46.0) % MCV 104.9 H (80.0-100.0) fL RDW 15.6 H (11.5-15.5) % Lymphocytes # 0.6 L (1.0-4.8) k/uL Sodium 134 L (137-145) mmol/L Calcium 8.1 L (8.4-10.2) mg/dL C-Reactive Protein 3.5 H (<1.0) mg/dL Total Protein 5.5 L (6.3-8.2) g/dL Albumin 3.1 L (3.5-5.0) g/dL Microbiology - Last 24 Hours (Table) 04/10/24 15:14 Gram Stain - Preliminary Face Thrombosis Risk Factor Assmnt - Choose All That Apply Any of the Below Risk Factors Present?: Yes Each Factor Represents 1 point: Age 41-60 years, Obesity (BMI >25) Other Risk Factors: No Thrombosis Risk Factor Assessment Total Risk Factor Score: 2 Thrombosis Risk Factor Assessment Level: Low Risk
[2024-04-11] MEDS: ONDANSETRON 4 MG/2 ML VIAL IVP PRN (21:40)
[2024-04-12 05:43] LABS: African American GFR (CKD) >90 (>60 ml/min/1.73 sqM); Anion Gap 2 mmol/L; Blood Urea Nitrogen 4 mg/dL (7-17); Calcium 7.7 mg/dL (8.4-10.2); Carbon Dioxide 24 mmol/L (22-30); Chloride 110 mmol/L (98-107); Glucose 79 mg/dL (74-99); Non-African American GFR(CKD) >90 (>60 ml/min/1.73 sqM); Potassium 3.8 mmol/L (3.5-5.1); Sodium 136 mmol/L (137-145)
[2024-04-12 05:51] LABS: Anisocytosis Slight; HCT 28.8 % (34.0-46.0); HGB 9.5 gm/dL (11.4-16.0); MCH 34.9 pg (25.0-35.0); MCV 105.8 fL (80.0-100.0); Macrocytosis Moderate; Mean Platelet Volume 8.5; Platelet Count 186 k/uL (150-450); RBC 2.72 m/uL (3.80-5.40); WBC 2.1 k/uL (3.8-10.6)
[2024-04-12 07:13] LABS: Anisocytosis (M) Present; Eosinophils # (M) 0.13 k/uL (0-0.7); Lymphocytes # (M) 1.13 k/uL (1.0-4.8); Monocytes # (M) 0.21 k/uL (0-1.0); Neutrophils # (M) 0.63 k/uL (1.3-7.7); Neutrophils % (M) 30 %; Nucleated Red Blood Cells 0 /100 WBC (0-0); Total Cells Counted 100
--- NOTE | 2024-04-12 09:55 | P.CONS ---
History of Present Illness - Reason for Consult Consult date: 04/11/24 Facial lip cellulitis with a cat scratch Requesting physician: Mitali Chery - Chief Complaint Left upper lip pain and swelling and drainage x few days - History of Present Illness Patient is a 48-year-old female with a past medical history significant for hypertension hyperlipidemia osteoarthritis reflux fibromyalgia CVA TIA apparently the patient did have cat scratch on the upper lip about 4 days ago before presentation to the hospital the patient was seen at [facility] ER on 04/08/2024 and has been started on Augmentin patient manage she was keeping the area clean and dry however for the last few days area has become more swollen red and painful, the patient described the pain to be throbbing moderate intensity without any radiation and did have some drainage from the area, patient apparently has been seen by shroudman who did a culture and send the patient to the ER patient on presentation to the hospital was running a fever of 102.8 degrees warm right patient was not tachycardic hypotensive or hypoxic patient did have a leukopenia with a white count of 3.5 creatinine was normal liver isms are normal patient was started on Unasyn and vancomycin infectious disease was consulted for further management of antibiotic therapy Review of Systems Positive point and negatives has been mentioned in the HPI, complete review of systems was performed and all other systems are negative Past Medical History Past Medical History: CVA/TIA, Fibromyalgia, GERD/Reflux, Hyperlipidemia, Hypertension, Osteoarthritis (OA) Additional Past Medical History / Comment(s): Recurrent pancreatitis pt states since crys en y surgery, CVA in 2012-mouth droop, Shafer's esophagus, precancerous lesions in throat, psoriasis, psoriatic arthritis, migraines, chr onic generalized pain, UTI. History of Any Multi-Drug Resistant Organisms: None Reported Past Surgical History: Adenoidectomy, Appendectomy, Bariatric Surgery, Cholecystectomy, Hysterectomy, Tonsillectomy, Tubal Ligation Additional Past Surgical History / Comment(s): Abiel fundlipcation with take down and crys and Y performed, partial hysterectomy, EGD, PICC Past Anesthesia/Blood Transfusion Reactions: No Reported Reaction Additional Past Anesthesia/Blood Transfusion Reaction / Comm: hx clausterphobia Past Psychological History: ADD/ADHD, Depression, Panic Disorder, PTSD Smoking Status: Never smoker Past Alcohol Use History: None Reported Past Drug Use History: None Reported - Past Family History Father Family Medical History: Cancer, Coronary Artery Disease (CAD) Additional Family Medical History / Comment(s): father from stomach cancer at age 51, heroin addict (struggled with addiction off and on for years after coming home from [place]) Mother Family Medical History: Cancer Additional Family Medical History / Comment(s): Mother at age 36 from Ovarian Cancer mets to brain Medications and Allergies Home Medications Medication Instructions Recorded Confirmed Type Amoxic-Pot Clav 875-125Mg 1 tab PO Q12HR 10 Days #20 tab 04/08/24 04/10/24 Rx [Augmentin 875-125] Ketorolac [Toradol] 10 mg PO Q6HR PRN #15 tab 04/08/24 04/10/24 Rx Albuterol Inhaler [Ventolin Hfa 2 puff INHALATION RT-Q6H PRN 04/10/24 04/10/24 History Inhaler] Celecoxib [CeleBREX] 200 mg PO DAILY 04/10/24 04/10/24 History DULoxetine HCL [Cymbalta] 60 mg PO DAILY 04/10/24 04/10/24 History Dextroamphetamine/Amphetamine 20 mg PO DAILY 04/10/24 04/10/24 History [Adderall Xr 20 mg Capsule] Dextroamphetamine/Amphetamine 20 mg PO DAILY PRN 04/10/24 04/10/24 History [Adderall] Doxepin HCl [SINEquan] 200 mg PO HS 04/10/24 04/10/24 History HYDROcodone/APAP 7.5-325MG [[place] 1 tab PO QID PRN 04/10/24 04/10/24 History 7.5-325] Ibuprofen [Motrin] 800 mg PO TID PRN 04/10/24 04/10/24 History Nystatin 100,000 Unit/gm Powd 1 applic TOPICAL BID PRN 04/10/24 04/10/24 History [Mycostatin Powder] Omeprazole 20 mg PO DAILY 04/10/24 04/10/24 History Secukinumab [Cosentyx Unoready Pen] 300 mg SQ Q30D 04/10/24 04/10/24 History tiZANidine HCL 6 mg PO TID 04/10/24 04/10/24 History Allergies Allergy/AdvReac Type Severity Reaction Status Date / Time bee venom protein (honey bee) Allergy Severe Anaphylaxis Verified 04/10/24 16:08 morphine Allergy Severe Itching Verified 04/10/24 16:08 and swelling Physical Exam Vitals: Vital Signs Temp Pulse Pulse Resp BP BP Pulse Ox 04/11/24 12:40 97.7 F 69 16 96/60 99 04/11/24 07:17 98.2 F 82 16 101/66 100 04/11/24 01:44 98.2 F 68 18 100/63 96 04/10/24 21:03 14 04/10/24 20:48 98.9 F 64 18 131/79 97 04/10/24 19:59 97 18 107/74 98 04/10/24 18:00 105 H 18 108/68 98 04/10/24 17:58 99.2 F 04/10/24 15:06 102.8 F H 90 17 128/85 99 Intake and Output 04/10/24 04/11/24 04/11/24 22:59 06:59 14:59 Other: Voiding Method Toilet # Voids 1 Weight 81.647 kg GENERAL DESCRIPTION: Middle-aged female lying in bed, no distress. No tachypnea or accessory muscle of respiration use. HEENT: Shows Pallor , no scleral icterus. Oral mucous membrane is dry. No pharyngeal erythema or thrush, left upper lip did have a area of swelling redness induration NECK: Trachea central, no thyromegaly. LUNGS: Unlabored breathing. Clear to auscultation anteriorly. No wheeze or c rackle. HEART: S1, S2, regular rate and rhythm. No loud murmur ABDOMEN: Soft, no tenderness , guarding or rigidity, no organomegaly EXTREMITIES: No edema of feet. SKIN: No rash, no masses palpable. NEUROLOGICAL: The patient is awake, alert, oriented x3, mood and affect normal. Results CBC & Chem 7: 04/12/24 05:01 04/12/24 05:01 Labs: Abnormal Lab Results - Last 24 Hours (Table) 04/10/24 04/10/24 Range/Units 15:13 15:13 WBC 3.5 L (3.8-10.6) k/uL RBC 3.00 L (3.80-5.40) m/uL Hgb 10.5 L (11.4-16.0) gm/dL Hct 31.5 L (34.0-46.0) % MCV 104.9 H (80.0-100.0) fL RDW 15.6 H (11.5-15.5) % Lymphocytes # 0.6 L (1.0-4.8) k/uL Sodium 134 L (137-145) mmol/L Calcium 8.1 L (8.4-10.2) mg/dL C-Reactive Protein 3.5 H (<1.0) mg/dL Total Protein 5.5 L (6.3-8.2) g/dL Albumin 3.1 L (3.5-5.0) g/dL Assessment and Plan (1) Cellulitis of lip Current Visit: Yes Status: Acute Code(s): K13.0 - DISEASES OF LIPS SNOMED Code(s): 80920127 (2) Facial cellulitis Current Visit: Yes Status: Acute Code(s): L03.211 - CELLULITIS OF FACE SNOMED Code(s): 956966982 (3) Cat scratch of face Current Visit: Yes Status: Acute Code(s): S00.81XA - ABRASION OF OTHER PART OF HEAD, INITIAL ENCOUNTER; W55.03XA - SCRATCHED BY CAT, INITIAL ENCOUNTER SNOMED Code(s): 812845894 Plan: 1patient presented to hospital with a cellulitis/abscess of the left upper lip started with a cat scratch failing outpatient oral Augmentin therapy concerning for possible Staphylococcus aureus such as MRSA infection failing outpatient oral Augmentin. 2blood and local culture has been done and results will be followed. 3patient has been advised vancomycin pharmacy to dose and Unasyn while waiting for the culture to finalize. We will follow on clinical condition and cultures to further adjust medication if needed Thank you for this consultation we will follow the patient along with you Dictation was produced using [employer] dictation software. please excuse any grammatical, word or spelling errors. Time with Patient: Greater than 30
[2024-04-12 11:50] LABS: Vitamin B12 <150.0 pg/mL (200.0-944.0)
--- NOTE | 2024-04-12 12:28 | P.PN ---
Subjective Progress Note Date: 04/12/24 No new complaints. Erythema, pain on face is improving on abx. B12 was low, < 150. Gen: In NAD, non-toxic HEENT: normocephalic, atraumatic, hearing acuity is intant, mucous membranes moist CVS: perfusing all extremities well, no pitting edema, Respiratory: symmetric chest expansion, no accessory muscle use, GI: soft, NTTP, ND, : no suprapubic tenderness, no CVA tenderness MSK/Derm: no rashes, cyanosis Neuro: CN II-XII intact, no motor weakness, Psych: cooperative, euthymic mood, judgment and insight is intact Hospital course: Patient is a 48-year-old female with PMH of CVA/TIA, fibromyalgia, GERD, hyperlipidemia, hypertension and osteoarthritis presented to ED for cat scratch to her left upper lip. Labs in the ER show WBC 3.5, hemoglobin 10.5, hematocrit 31.5, MCV 104.9, platelet count 241, sodium 134, potassium 4.2, chloride 107, bicarb 25, BUN 11, creatinine 0.57, lactic acid 0.9, CRP 3.5 Assessment/Plan: 48-year-old female with PMH of CVA/TIA, fibromyalgia, GERD, hyperlipidemia, hypertension and osteoarthritis presented to ED for cat scratch to her left upper lip. #Cellulitis secondary to cat scratch Empiric treatment with ampicillin sulbactam 3 g IVPB every 6 hours and vancomycin 1500 mg IVPB every 12 hours monitor for renal toxicity Order aerobic/anaerobic wound culture, no growth on gram stain. Order blood culture = contamination is likely Consult infectious disease monitor CBC and BMP #Leukopenia Secondary to hemodilution WBC 3.5 monitor CBC #Macrocytic anemia Hemoglobin 10.5, MCV 104.9 Order vitamin B12 and serum folate B12 is low, started on B12 IM 1000mcg daily #Chronic conditions Anxiety/depression: Resume Cymbalta 60 mg p.o. daily ADHD: Resume Adderall 20 mg p.o. daily DVT prophylaxis: start enoxaparin 40mg SQ The patient is admitted with an anticipated less than 2 midnight stay for evaluation of cat scratch disease CODE STATUS: Full code Discussed with: Patient Anticipated discharge place: Pending clinical course Objective - Vital Signs Vital signs: Vital Signs Temp 97.8 F 04/12/24 06:41 Pulse 69 04/12/24 06:41 Resp 14 04/12/24 06:41 BP 114/70 04/12/24 06:41 Pulse Ox 99 04/12/24 06:41 FiO2 Intake & Output 04/11/24 04/12/24 04/12/24 18:59 06:59 18:59 Other: Voiding Method Toilet # Voids 3 1 - Labs CBC & Chem 7: 04/12/24 05:01 04/12/24 05:01 Labs: Abnormal Lab Results - Last 24 Hours (Table) 04/12/24 04/12/24 Range/Units 05:01 05:01 WBC 2.1 L (3.8-10.6) k/uL RBC 2.72 L (3.80-5.40) m/uL Hgb 9.5 L (11.4-16.0) gm/dL Hct 28.8 L (34.0-46.0) % MCV 105.8 H (80.0-100.0) fL RDW 16.0 H (11.5-15.5) % Neutrophils # (Manual) 0.63 L (1.3-7.7) k/uL Sodium 136 L (137-145) mmol/L Chloride 110 H (98-107) mmol/L BUN 4 L (7-17) mg/dL Calcium 7.7 L (8.4-10.2) mg/dL Vitamin B12 <150.0 L (200.0-944.0) pg/mL Microbiology - Last 24 Hours (Table) 04/10/24 15:14 Gram Stain - Preliminary Face Wound Culture - Preliminary 04/10/24 15:14 Blood Culture Gram Stain - Preliminary Blood Blood Culture - Preliminary Molecular ID
[2024-04-12] MEDS: CYANOCOBALAMIN 1,000 MCG/ML 1 ML VIAL IM SCH (12:55)
[2024-04-12] MEDS: ENOXAPARIN 40 MG/0.4 ML SYRINGE SQ SCH (12:55)
--- NOTE | 2024-04-12 16:15 | P.PN ---
Subjective Progress Note Date: 04/12/24 Principal diagnosis: Reason for follow-up is left upper lip abscess and positive blood culture Patient is a 48-year-old female with a past medical history significant for hypertension hyperlipidemia osteoarthritis reflux fibromyalgia CVA TIA apparently the patient did have cat scratch on the upper lip subsequently whelping cellulitis and abscess failing outpatient oral Augmentin therapy admit to the hospital with left upper lip abscess. On today's evaluation that is 04/12/2024, patient has been afebrile, patient is breathing comfortably and is currently on room air, patient denies having any significant cough no chest pain shortness of breath, patient denies nausea vomiting or diarrhea and no abdominal pain, the patient left upper lip pain and swelling Decreased no further drainage. Patient white count is 2.1, creatinine 0.55 blood culture positive with Sta phylococcus hominis local cultures currently pending Objective - Vital Signs Vital signs: Vital Signs Temp 97.4 F L 04/12/24 13:21 Pulse 65 04/12/24 13:21 Resp 16 04/12/24 13:21 BP 159/96 04/12/24 13:21 Pulse Ox 96 04/12/24 13:21 FiO2 Intake & Output 04/11/24 04/12/24 04/12/24 18:59 06:59 18:59 Other: Voiding Method Toilet # Voids 3 1 - Exam GENERAL DESCRIPTION: Middle-age female lying in bed in no distress. HEENT; upper lip and left side swelling redness slightly decreased no purulent drainage RESPIRATORY SYSTEM: Unlabored breathing , decreased breath sounds at bases HEART: S1 S2 regular rate and rhythm , ABDOMEN: Soft , no tenderness EXTREMITIES: No edema feet - Labs CBC & Chem 7: 04/12/24 05:01 04/12/24 05:01 Labs: Abnormal Lab Results - Last 24 Hours (Table) 04/12/24 04/12/24 Range/Units 05:01 05:01 WBC 2.1 L (3.8-10.6) k/uL RBC 2.72 L (3.80-5.40) m/uL Hgb 9.5 L (11.4-16.0) gm/dL Hct 28.8 L (34.0-46.0) % MCV 105.8 H (80.0-100.0) fL RDW 16.0 H (11.5-15.5) % Neutrophils # (Manual) 0.63 L (1.3-7.7) k/uL Sodium 136 L (137-145) mmol/L Chloride 110 H (98-107) mmol/L BUN 4 L (7-17) mg/dL Calcium 7.7 L (8.4-10.2) mg/dL Vitamin B12 <150.0 L (200.0-944.0) pg/mL Microbiology - Last 24 Hours (Table) 04/10/24 15:14 Blood Culture Gram Stain - Preliminary Blood Blood Culture - Preliminary Staphylococcus hominis Molecular ID 04/10/24 15:14 Gram Stain - Preliminary Face Wound Culture - Preliminary Assessment and Plan (1) Cellulitis of lip Current Visit: Yes Status: Acute Code(s): K13.0 - DISEASES OF LIPS SNOMED Code(s): 95851762 (2) Facial cellulitis Current Visit: Yes Status: Acute Code(s): L03.211 - CELLULITIS OF FACE SNOMED Code(s): 224995800 (3) Cat scratch of face Current Visit: Yes Status: Acute Code(s): S00.81XA - ABRASION OF OTHER PART OF HEAD, INITIAL ENCOUNTER; W55.03XA - SCRATCHED BY CAT, INITIAL ENCOUNTER SNOMED Code(s): 846421475 (4) Positive blood culture Current Visit: Yes Status: Acute Code(s): R78.81 - BACTEREMIA SNOMED Code(s): 499679697 Plan: 1patient presented to hospital with a cellulitis/abscess of the left upper lip started with a cat scratch failing outpatient oral Augmentin therapy concerning for possible Staphylococcus aureus such as MRSA infection failing outpatient oral Augmentin. 2blood culture currently growing Staphylococcus hominis possibly skin contamination, and local culture currently pending 3patient to continue with vancomycin pharmacy to dose and Unasyn while waiting for the culture to finalize to determine discharge antibiotics, discussed with admitting physician. Dictation was produced using [employer] dictation software. please excuse any grammatical, word or spelling errors. Time with Patient: Less than 30
[2024-04-12 17:02] LABS: African American GFR (CKD) >90 (>60 ml/min/1.73 sqM); Non-African American GFR(CKD) >90 (>60 ml/min/1.73 sqM)
[2024-04-12] MEDS: VANCOMYCIN TROUGH DUE 1 EACH MISC MISCELLANE ONE (17:04)
[2024-04-12] MEDS: predniSONE 5 MG TAB PO SCH (18:29)
[2024-04-12] MEDS: ACETAMINOPHEN TAB 325 MG TAB PO PRN (20:17)
[2024-04-13 06:59] LABS: African American GFR (CKD) >90 (>60 ml/min/1.73 sqM); Non-African American GFR(CKD) >90 (>60 ml/min/1.73 sqM)
--- NOTE | 2024-04-13 17:51 | P.PN ---
Subjective Progress Note Date: 04/13/24 Hospital course: Patient is a 48-year-old female with PMH of CVA/TIA, fibromyalgia, GERD, hyperlipidemia, hypertension and osteoarthritis presented to ED for cat scratch to her left upper lip. Labs in the ER show WBC 3.5, hemoglobin 10.5, hematocrit 31.5, MCV 104.9, platelet count 241, sodium 134, potassium 4.2, chloride 107, bicarb 25, BUN 11, creatinine 0.57, lactic acid 0.9, CRP 3.5 04/13/24 - No new complaints. Erythema and swelling continues to improve on face is improving on abx. Likely discharge tomorrow, pending cultures and abx reccs. Gen: In NAD, non-toxic HEENT: normocephalic, atraumatic, hearing acuity is intant, mucous membranes moist CVS: perfusing all extremities well, no pitting edema, Respiratory: symmetric chest expansion, no accessory muscle use, GI: soft, NTTP, ND, : no suprapubic tenderness, no CVA tenderness MSK/Derm: no rashes, cyanosis Neuro: CN II-XII intact, no motor weakness, Psych: cooperative, euthymic mood, judgment and insight is intact Assessment/Plan: 48-year-old female with PMH of CVA/TIA, fibromyalgia, GERD, hyperlipidemia, hypertension and osteoarthritis presented to ED for cat scratch to her left upper lip. #Cellulitis secondary to cat scratch Continue Empiric treatment with ampicillin sulbactam 3 g IVPB every 6 hours and vancomycin 1500 mg IVPB every 12 hours monitor for renal toxicity Order aerobic/anaerobic wound culture, no growth on gram stain, growing Staph Aureus, pending speciation and sensitivities Order blood culture = contamination is likely Consult infectious disease, discussed with them, they would like to away finalization of culture prior to discharge monitor CBC and BMP #Leukopenia Secondary to hemodilution WBC 3.5 monitor CBC #Macrocytic anemia #B12 Deficiency Hemoglobin 10.5, MCV 104.9 Order vitamin B12 and serum folate B12 is low, started on B12 IM 1000mcg daily #Chronic conditions Anxiety/depression: Resume Cymbalta 60 mg p.o. daily ADHD: Resume Adderall 20 mg p.o. daily DVT prophylaxis: start enoxaparin 40mg SQ The patient is admitted with an anticipated less than 2 midnight stay for evaluation of cat scratch disease CODE STATUS: Full code Discussed with: Patient Anticipated discharge place: Pending clinical course I saw and evaluated the patient during the mcdaniels and critical portions of this encounter, and discussed the case in detail with the resident author of this note, I agree with the Assessment and Plan, and my changes, if any, are highlighted in blue. Objective - Vital Signs Vital signs: Vital Signs Temp 97.7 F 04/13/24 14:00 Pulse 75 04/13/24 14:00 Resp 18 04/13/24 14:00 BP 142/114 04/13/24 14:00 Pulse Ox 98 04/13/24 14:00 FiO2 Intake & Output 04/12/24 04/13/24 04/13/24 18:59 06:59 18:59 Other: Voiding Method Toilet Toilet # Voids 4 2 # Bowel Movements 1 - Labs CBC & Chem 7: 04/12/24 05:01 04/13/24 06:19 Labs: Microbiology - Last 24 Hours (Table) 04/10/24 15:14 Blood Culture Gram Stain - Final Blood Blood Culture - Final Staphylococcus hominis Molecular ID 04/10/24 15:14 Gram Stain - Preliminary Face Wound Culture - Preliminary Presumptive Staph aureus 04/10/24 15:14 Anaerobic Culture - Preliminary Face
--- NOTE | 2024-04-13 22:55 | P.PN ---
Subjective Progress Note Date: 04/13/24 Principal diagnosis: Reason for follow-up is left upper lip abscess and positive blood culture Patient is a 48-year-old female with a past medical history significant for hypertension hyperlipidemia osteoarthritis reflux fibromyalgia CVA TIA apparently the patient did have cat scratch on the upper lip subsequently whelping cellulitis and abscess failing outpatient oral Augmentin therapy admit to the hospital with left upper lip abscess. On today's evaluation that is 04/13/2024, Patient is afebrile this morning patient denies having any chest pain shortness of breath or cough, the patient is breathing comfortably on room air, patient denies any abdominal pain no diarrhea no nausea no vomiting patient pain to the left upper lip slightly decreased and no further drainage. Patient did have a creatinine 0.56 Vanco trough on the low side at 12.5 local culture growing Staph aureus blood culture with Streptococcus hominis Objective - Vital Signs Vital signs: Vital Signs Temp 97.8 F 04/13/24 08:00 Pulse 92 04/13/24 08:00 Resp 18 04/13/24 08:00 BP 138/87 04/13/24 08:00 Pulse Ox 97 04/13/24 08:00 FiO2 Intake & Output 04/12/24 04/13/24 04/13/24 18:59 06:59 18:59 Other: Voiding Method Toilet # Voids 4 2 # Bowel Movements 1 - Exam GENERAL DESCRIPTION: Middle-age female lying in bed in no distress. HEENT; upper lip and left side swelling redness slightly decreased no purulent drainage RESPIRATORY SYSTEM: Unlabored breathing , decreased breath sounds at bases HEART: S1 S2 regular rate and rhythm , ABDOMEN: Soft , no tenderness EXTREMITIES: No edema feet - Labs CBC & Chem 7: 04/12/24 05:01 04/13/24 06:19 Labs: Abnormal Lab Results - Last 24 Hours (Table) 04/12/24 Range/Units 05:01 Vitamin B12 <150.0 L (200.0-944.0) pg/mL Microbiology - Last 24 Hours (Table) 04/10/24 15:14 Blood Culture Gram Stain - Final Blood Blood Culture - Final Staphylococcus hominis Molecular ID 04/10/24 15:14 Gram Stain - Preliminary Face Wound Culture - Preliminary Presumptive Staph aureus 04/10/24 15:14 Anaerobic Culture - Preliminary Face Assessment and Plan (1) Cellulitis of lip Current Visit: Yes Status: Acute Code(s): K13.0 - DISEASES OF LIPS SNOMED Code(s): 13708998 (2) Facial cellulitis Current Visit: Yes Status: Acute Code(s): L03.211 - CELLULITIS OF FACE SNOMED Code(s): 104856058 (3) Cat scratch of face Current Visit: Yes Status: Acute Code(s): S00.81XA - ABRASION OF OTHER PART OF HEAD, INITIAL ENCOUNTER; W55.03XA - SCRATCHED BY CAT, INITIAL ENCOUNTER SNOMED Code(s): 036745454 (4) Positive blood culture Current Visit: Yes Status: Acute Code(s): R78.81 - BACTEREMIA SNOMED Code(s): 421907109 Plan: 1patient presented to hospital with a cellulitis/abscess of the left upper lip started with a cat scratch failing outpatient oral Augmentin therapy concerning for possible Staphylococcus aureus such as MRSA infection failing outpatient oral Augmentin. 2blood culture currently growing Staphylococcus hominis possibly skin contamination, and local culture currently growing Staph aureus with sensitivities pending 3patient to continue with vancomycin pharmacy to dose and Unasyn while waiting for the sensitivity on the Staph aureus to be finalized as the patient did fail outpatient oral Augmentin therapy, question concern answered did discuss with admitting physician Dictation was produced using [employer] dictation software. please excuse any grammatical, word or spelling errors. Time with Patient: Less than 30
[2024-04-14 06:59] VITALS: BP 137/78; PULSE 71; RESP 16; TEMP 98.8
--- NOTE | 2024-04-14 18:03 | P.DS ---
Providers Date of admission: 04/10/24 17:41 Expected date of discharge: 04/14/24 Attending physician: Jocelyne Adler MD Consults: 04/10/24 17:48 Consult Physician Urgent Consulting Provider: Alia Siu Consult Reason/Comments: Facial/lip cellulitis from cat scratch, failed outpatient Do you want consulting provider notified?: Yes Primary care physician: Josh Li MD Hospital Course: Discharge diagnoses; #Cellulitis secondary to cat scratch #Macrocytic anemia #B12 Deficiency Hospital course; Patient is a 48-year-old female was treated for cat scratch to her left upper lip. Initial labs in the ER show WBC 3.5, hemoglobin 10.5, hematocrit 31.5, MCV 104.9, platelet count 241, sodium 134, potassium 4.2, chloride 107, bicarb 25, BUN 11, creatinine 0.57, lactic acid 0.9, CRP 3.5. She was treated with ampicillin and vancomycin, which improved her symptoms. Culture grew MSSA. Patient discharged stable with Keflex 500 mg 4 times daily for 7 days. Patient also found to have macrocytic anemia with B12 deficiency, she was started on 1000mcg B12 intramuscular daily injections, to continue on discharge for an additional 5 days, then to switch to 1000mcg B12 tablets PO daily. To follow-up with PCP regarding cellulitis and macrocytic anemia with B12 deficiency. Gen: In NAD, non-toxic HEENT: normocephalic, atraumatic, hearing acuity is intant, mucous membranes moist CVS: perfusing all extremities well, no pitting harry Respiratory: symmetric chest expansion, no accessory muscle use, GI: soft, NTTP, ND, : no suprapubic tenderness, no CVA tenderness MSK/Derm: no rashes, cyanosis Neuro: CN II-XII intact, no motor weakness, Psych: cooperative, euthymic mood, judgment and insight is intact Dictation was produced using [facility] dictation software. please excuse any grammatical, word or spelling errors. I saw and evaluated the patient during the mcdaniels and critical portions of this encounter, and discussed the case in detail with the resident author of this note, I agree with the Assessment and Plan, and my changes, if any, are highlighted in blue. Patient Condition at Discharge: Stable Plan - Discharge Summary Discharge Rx Participant: No New Discharge Prescriptions: New Cephalexin [Keflex] 500 mg PO Q12HR 10 Days #20 cap Cyanocobalamin (Vitamin B-12) [Vitamin B-12] 1,000 mcg PO DAILY #30 tablet Cyanocobalamin [Vitamin B-12 Injection] 1,000 mcg IM DAILY 5 Days #5 each Continue Omeprazole 20 mg PO DAILY Ibuprofen [Motrin] 800 mg PO TID PRN PRN Reason: Pain DULoxetine HCL [Cymbalta] 60 mg PO DAILY Celecoxib [CeleBREX] 200 mg PO DAILY tiZANidine HCL 6 mg PO TID HYDROcodone/APAP 7.5-325MG [[place] 7.5-325] 1 tab PO QID PRN PRN Reason: Pain Albuterol Inhaler [Ventolin Hfa Inhaler] 2 puff INHALATION RT-Q6H PRN PRN Reason: Shortness Of Breath Ketorolac [Toradol] 10 mg PO Q6HR PRN #15 tab PRN Reason: Pain Doxepin HCl [SINEquan] 200 mg PO HS Dextroamphetamine/Amphetamine [Adderall] 20 mg PO DAILY PRN PRN Reason: ADHD Dextroamphetamine/Amphetamine [Adderall Xr 20 mg Capsule] 20 mg PO DAILY Secukinumab [Cosentyx Unoready Pen] 300 mg SQ Q30D Discontinued Amoxic-Pot Clav 875-125Mg [Augmentin 875-125] 1 tab PO Q12HR 10 Days #20 tab Nystatin 100,000 Unit/gm Powd [Mycostatin Powder] 1 applic TOPICAL BID PRN PRN Reason: Rash Discharge Medication List Ketorolac [Toradol] 10 mg PO Q6HR PRN #15 tab 04/08/24 [Rx] Albuterol Inhaler [Ventolin Hfa Inhaler] 2 puff INHALATION RT-Q6H PRN 04/10/24 [History] Celecoxib [CeleBREX] 200 mg PO DAILY 04/10/24 [History] DULoxetine HCL [Cymbalta] 60 mg PO DAILY 04/10/24 [History] Dextroamphetamine/Amphetamine [Adderall Xr 20 mg Capsule] 20 mg PO DAILY 04/10/24 [History] Dextroamphetamine/Amphetamine [Adderall] 20 mg PO DAILY PRN 04/10/24 [History] Doxepin HCl [SINEquan] 200 mg PO HS 04/10/24 [History] HYDROcodone/APAP 7.5-325MG [[place] 7.5-325] 1 tab PO QID PRN 04/10/24 [History] Ibuprofen [Motrin] 800 mg PO TID PRN 04/10/24 [History] Omeprazole 20 mg PO DAILY 04/10/24 [History] Secukinumab [Cosentyx Unoready Pen] 300 mg SQ Q30D 04/10/24 [History] tiZANidine HCL 6 mg PO TID 04/10/24 [History] Cephalexin [Keflex] 500 mg PO Q12HR 10 Days #20 cap 04/14/24 [Rx] Cyanocobalamin (Vitamin B-12) [Vitamin B-12] 1,000 mcg PO DAILY #30 tablet 04/14/24 [Rx] Cyanocobalamin [Vitamin B-12 Injection] 1,000 mcg IM DAILY 5 Days #5 each 04/14/24 [Rx] Follow up Appointment(s)/Referral(s): Josh Li MD [Primary Care Provider] - 1-2 days (follow up B12 in 1-2 months. Please call office to schedule appointment ) Patient Instructions/Handouts: Cyanocobalamin (By injection), Cellulitis (GEN), Vitamin B12 Deficiency (ED) Discharge Disposition: HOME SELF-CARE
== END 2024-04-14 11:45 | disposition home or self-care (01) | DRG 603 ==
LOC: EC 14:58 → 4SSUR 17:41
PROVIDERS: ADMIT Internal Medicine; ATTEND Internal Medicine
DX: L03.211 Cellulitis of face (principal); A28.1 Cat-scratch disease; K86.1 Other chronic pancreatitis; R78.81 Bacteremia; D53.9 Nutritional anemia, unspecified; F41.0 Panic disorder [episodic paroxysmal anxiety]; F32.A Depression, unspecified; F90.9 Attention-deficit hyperactivity disorder, unspecified type; K13.0 Diseases of lips; I10 Essential (primary) hypertension; E78.5 Hyperlipidemia, unspecified; M79.7 Fibromyalgia; K21.9 Gastro-esophageal reflux disease without esophagitis; M19.90 Unspecified osteoarthritis, unspecified site; Z86.73 Personal history of transient ischemic attack (TIA), and cerebral infarction without residual deficits; B95.61 Methicillin susceptible Staphylococcus aureus infection as the cause of diseases classified elsewhere; D51.9 Vitamin B12 deficiency anemia, unspecified; D72.819 Decreased white blood cell count, unspecified; K22.70 Barrett's esophagus without dysplasia; L40.50 Arthropathic psoriasis, unspecified; F43.10 Post-traumatic stress disorder, unspecified; Z79.1 Long term (current) use of non-steroidal anti-inflammatories (NSAID); Z79.899 Other long term (current) drug therapy; Z90.711 Acquired absence of uterus with remaining cervical stump; Z82.49 Family history of ischemic heart disease and other diseases of the circulatory system; Z88.5 Allergy status to narcotic agent; Z91.030 Bee allergy status
CPT/HCPCS: 36415; 80048; 80053; 80202; 82565; 82607; 82747; 83605; 85025; 85652; 86140; 87040; 87070; 87075; 87077; 87186; 87205; 96361; 96365; 96366; 96375; 99285

== ENCOUNTER → 2025-01-14 | Outpatient (CLI) | payer MEDICAID ==
--- NOTE | 2025-01-14 21:31 | XR ---
EXAMINATION TYPE: XR pelvis AP view DATE OF EXAM: 01/14/2025 10:52 AM COMPARISON: None. CLINICAL INDICATION: Female, 49 years old with history of L40.50 Arthropathic Psoriasis M25.551 Pain rt hip, pain TECHNIQUE: AP view(s) obtained. FINDINGS: Femoral heads articulate with the acetabulum. Symphysis pubis sacroiliac joints are normal. No acute fractures or dislocations. Normal bowel gas. Follow up exams can be performed 7-10 days from acute tr auma for continued pain. IMPRESSION: 1. No acute osseous abnormality. 2. No suspicious joint fusions [facility], , 01/14/2025 9:29 PM
== END | disposition home or self-care (01) ==
LOC: RADXRMAIN 10:36
PROVIDERS: ATTEND Internal Medicine Rheumatology
DX: M25.551 Pain in right hip (principal); L40.50 Arthropathic psoriasis, unspecified; Z79.620 Long term (current) use of immunosuppressive biologic
CPT/HCPCS: 72170

== ENCOUNTER → 2025-02-01 | Outpatient (CLI) | payer MEDICAID ==
--- NOTE | 2025-02-02 09:43 | CT ---
EXAMINATION TYPE: CT abdomen wo con DATE OF EXAM: 02/01/2025 12:06 PM COMPARISON: 09/17/2019 CLINICAL INDICATION: Female, 49 years old with history of R10.11 RUQ PAIN; RUQ pain TECHNIQUE: CT of the abdomen without contrast. Sagittal and coronal reformats were created on a [employer] workstation. Oral contrast used: with Oral Contrast (none if empty) CT DLP: 258.50 mGycm, Automated exposure control for dose reduction was used. FINDINGS: LOWER CHEST: Unremarkable ABDOMEN LIVER: Mildly enlarged to 18.7 cm. GALLBLADDER AND BILE DUCTS: Gallbladder surgically absent. Prominent bile duct at 9 mm similar to marv or. PANCREAS: Unremarkable. SPLEEN: Unremarkable. ADRENAL GLANDS: Unremarkable. KIDNEYS AND URETERS: No evidence of hydronephrosis or renal calculus. The ureters are unremarkable. PELVIS: Not imaged. ABDOMEN: STOMACH AND BOWEL: Postsurgical change of Diann-en-Y gastric bypass. There may be a tiny hiatal hernia . No evidence of bowel obstruction. Moderate stool burden. No pericolonic inflammatory change. PERITONEUM/RETROPERITONEUM: No evidence of pneumoperitoneum or free fluid. VASCULATURE: No evidence of aortic aneurysm. MUSCULOSKELETAL: No acute osseous abnormalities LYMPH NODES: No gross evidence for lymphadenopathy. SOFT TISSUE/ABDOMINAL WALL: Postsurgical change along the anterior right mid abdomen with scarring ex tending down to the abdominal wall musculature. There is some surgical material underlying the muscul ature here with a collapsed tubular tract extending to the region of the gallbladder fossa measuring up to 10 cm long. This is located at the site of previous drainage/ostomy catheter. It may correspond to the distal stomach/duodenum. IMPRESSION: 1. Removal of the previous right upper quadrant catheter seen on 09/17/2019. There is some scarring h ere at the anterior right mid abdominal wall extending down to a collapsed tubular tract which may co rrespond to the distal stomach/duodenum. Patient status post Diann-en-Y gastric bypass. Clinically cor relate. No inflammatory changes clearly appreciated. 2. Status post cholecystectomy. Moderate stool burden. [facility], , 02/02/2025 9:41 AM
== END | disposition home or self-care (01) ==
LOC: RADCTMAIN 10:55
PROVIDERS: ATTEND Family Medicine
DX: R10.11 Right upper quadrant pain (principal); R19.5 Other fecal abnormalities; Z90.49 Acquired absence of other specified parts of digestive tract; Z98.84 Bariatric surgery status
CPT/HCPCS: 74150